=== PATIENT | female | born 1935 | race Caucasian/White ===

== ENCOUNTER 2021-06-09 13:51 | Inpatient (IN) | payer MEDICARE ==
[~2021-06-09] VITALS: Ht 144.8 cm; Wt 50.4 kg
[2021-06-09] MEDS ORDERED: TRAM50TA PO (14:26)
[2021-06-09] MEDS ORDERED: AMLO-186 PO (14:26)
[2021-06-09] MEDS ORDERED: FOLI20CA PO (14:26)
[2021-06-09] MEDS ORDERED: ACET325T9 PO (14:26)
[2021-06-09] MEDS ORDERED: PNV1TABL78 PO (14:26)
[2021-06-09] MEDS ORDERED: ALPR0.5T6 PO (14:26)
[2021-06-09] MEDS ORDERED: ASCO500C9 PO (14:26)
[2021-06-09] MEDS ORDERED: ASPI-630 PO (14:26)
[2021-06-09] MEDS ORDERED: MELA5TAB21 PO (14:26)
[2021-06-09] MEDS ORDERED: CHOL10004 PO (14:26)
[2021-06-09] MEDS ORDERED: ANAS1TAB47 PO (14:26)
[2021-06-09] MEDS ORDERED: ALPH600C5 PO (14:26)
[2021-06-09] MEDS ORDERED: QUET25TA5 PO ×2 (14:26)
[2021-06-09] MEDS ORDERED: ESCITALOPRAM OX20 MG PO (14:26)
--- NOTE | 2021-06-09 14:30 | NUR ---
Admission Note with Justification for Admission to [facility] Patient admitted to [facility] for protective oversight for emergency stabilization of acute psychiatric crisis. Pt admitted from: SNF Mode of arrival: POV Accompanied By: Family Precipitating behaviors that initiated intake and admission: Increased confusion, agitation with staff and family, throwing things, yelling, tearful at times. Family reports thoughts of SI. Description of failure of out patient attempts at stabilization in previous setting list behavior and medication trials: UA, med changes, Xanax TID, Buspar BID. Behaviors and assessment findings upon admission: Presented calm and friendly. Follows instructions and requests. She is oriented to self. She is aware that today is her birthday but she did not know her age. Denies SI/HI. Patient spoke about her passing away 2 years ago. No skin breakdown. She ambulates with a rolling walker. Self toilets. Tolerated assessment well. No complaints. Plan: Admit for protective oversight for adjustment and stabilization of medications, behaviors and mood. Intense treatment regimen including groups, medication adjustments, therapy, consistent regimen for ADL's, self care, and sleep hygiene. Daily monitoring by Inpatient staff, Psychiatry, and Medical Physician.
[2021-06-09 15:08] VITALS: BP 131/77
[2021-06-09] MEDS ORDERED: MAGNESIUM HYDROXIDE 2,400 MG/30 ML ORAL.SUSP. PO PRN (15:15)
[2021-06-09] MEDS ORDERED: MAG HYDROX/AL HYDROX/SIMETH 30 ML ORAL.SUSP PO PRN (15:15)
[2021-06-09] MEDS ORDERED: METHYL SALICYLATE/MENTHOL TOPICAL OINTMENT 57GM TUBE. TP PRN (15:15)
[2021-06-09] MEDS ORDERED: ACETAMINOPHEN 325 MG TABLET PO PRN ×2 (15:15→15:45)
[2021-06-09 15:41] LABS: BILIRUBIN,URINE NEG (NEG); CLARITY,URINE CLEAR; COLOR,URINE YELLOW; GLUCOSE,URINE NEG (NEG); NITRITE,URINE POS (NEG); UROBILINOGEN,URINE 0.2 mg/dL (0.2 mg/dL)
[2021-06-09 15:42] LABS: BACTERIA,URINE MOD /HPF (0-FEW); SQUAMOUS EPITHELIAL CELL,UR FEW /LPF
[2021-06-09] MEDS ORDERED: traMADol 50 MG TABLET PO PRN (15:45)
[2021-06-09] MEDS ORDERED: QUEtiapine 25 MG TABLET. PO PRN (15:45)
[2021-06-09] MEDS ORDERED: ALPRAZolam 0.5 MG TABLET PO PRN (15:45)
[2021-06-09 16:06] VITALS: BP 109/63
--- NOTE | 2021-06-09 16:32 | NUR ---
PSYCHOSOCIAL ASSESSMENT ADMISSION DATE: 06/09/21 CONTACT INFORMATION: DPOA/Guardian Contact Name: Primary-Angie Owusu [phone]; Secondary-Breezy Teran [phone] Contact Address: [address] [address] Contact Phone #: JESICA Interiano at [facility] [phone] ETHNIC ORIGIN: REASONS FOR ADMISSION: Agitated Angry Anxiety/Panic Combative Confusion/Disoriented Delusions Depressed Sig. Change Sleep Suicidal ideation Suspicious/paranoid ADDITIONAL ADMISSION COMMENTS: Per intake record, pt has increased confusion, agitation at staff and family, throwing things, yelling, tearful at times, family reports thoughts of SI for years. REASON FOR ADMISSION IN PATIENT/FAMILY'S OWN WORDS: Pt has always demonstrated negativity especially around her own family. She seemed to not show this behavior near as much around people outside of the family unit. Family feels that she has been the singh of manipulation. She would sometimes create divisions between her daughter (Angie) and son (Breezy), creating some animosity that now looking back into their childhood, they can see that, but get along very well now. Angie and Breezy describe her as not really ever being a happy person; "she did not like things simple." PATIENT/FAMILY EXPECTATIONS FOR ADMISSION: Improved mood, decreased agitation and anger, decrease depressive symptoms, help with sleep, monitor to see if [facility] notices any hallucinations as she mentioned to her facility staff that she saw a man in her room and there was no man there. LIVING SITUATION: Patient lives with: Assisted Living Other living arrangements: [facility] Contact Name: Laisha Contact Address: [address] [address] Contact Phone #: [phone] Contact Fax #: [phone] FAMILY RELATIONS: Marital Status: # of Marriages: 1 # of Children: 2 [facility] Family Support: Concerned Cooperative Involved in DC Planning Additional Comments r/t Family: Pt has been only one time. Her in 2019 as she had tried to care for him at home. Pt has two children that are both involved in their mothers care; Primary Angie CALI, and Secondary DPOA, Breezy. Pt did have a miscarriage between the of Breezy and Angie. Breezy has two children and Angie has one child. Reportedly pt got along with Breezy's son who in 2010; she never got over that . Pt also got along with Angie's child, but for reasons unknown, pt never really got along with Breezy's daughter. Family suspect that it is just part of patient's personality and how she tries to divide family members. SIGNIFICANT PSYCHIATRIC/MEDICAL HISTORY: Psychiatric/Treatment History: Pt has never had any outpatient or inpatient treatment history. She was friends with a doctor who at one time had prescribed her Valium and she would also drink when taking the Valium. "She was a closet drinker and began having liver issues." The last drink she had would have been three to four years ago. Pertinent Family History: Both of her parents were alcoholics along with her sister and brother, who are now . HISTORICAL DATA: Childhood Environment: Childhood Environment Additional Comments: Pt was raised by both parents. Mother, Rhianna, was a homemaker and described to be a "Nervous Elizabeth". Pt's father, Kofi, worked for the [employer]. Both of her parents were alcoholics. Pt was the middle child. Her older sister was Lisa and younger brother was Kevin. Pt's siblings were also alcoholics, but described as functioning alcoholics as they were able to hold down jobs. "They were happy alcoholics." Pt's children, Angie and Breezy reported that they had been told by pt's sister, Lisa, at one time that pt was difficult to control as a child as she would make threats to run off, but ended up never going anywhere that they couldn't have found her. Trauma History: None Is Trauma: Additional Comments: None Drug Abuse History last 12 months: No Past Use Comment: History of Etoh abuse with liver issues; parents and siblings struggled with ETOH abuse. See psychiatric history and childhood history. 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 Finley Counselor/Therapist: None [facility]: None Support Group: None Supervisor [employer]Solar Sales Estimator: Laisha RN at [facility] ([phone] (F)[phone] Other relationships: Family STRENGTHS & WEAKNESSES: Patient's strengths: Good family support Good verbal skills Stable living arrange Education level Ambulatory Approachable Other patient strengths: Patient's weaknesses: Health problems Physically Aggressive Verbally Aggressive Other patient weaknesses: PRELIMINARY PLAN OF TREATMENT: Preliminary plan: Dec. Anxiety/Panic Dec. Hallucination/Delus Dec. Symp. Depression Promote Coping Skill No Suicidal/Leo. ideation Medication Stabilization Monitor Med Effects Control abnormal behavior Prevent Deterioration Dec. Aggression Other preliminary treatment comments: While at [facility], pt will be encouraged to attend SW group and recreational therapy groups. She will report any known delusions or recognizable hallucinations to medical staff. She will articulate feelings of depression or anxiety. DISCHARGE PLANNING: Discharge planning/disposition: Current Living Arrange. Additional discharge needs identified: None at this time. ADDITIONAL INFORMATION: Other Pertinent Data: Information was obtained through visiting with pt Daughter (Angie), primary DPOA, and Son (Breezy), secondary DPOA. They are aware of pt admission to [facility] and is available for further information if needed. Angie will be the primary point of contact during pt admission. Angie will relay information to Breezy. Should and emergency arise where Angie wasn't available, Breezy should be called.
[2021-06-09 19:18] LABS: BASO % 1 % (0-3); EOS # 0.4 x10^3/uL (0.0-0.7); EOS % 5 % (0-3); HEMATOCRIT 38.3 % (36.0-47.0); HEMOGLOBIN 12.6 g/dL (12.0-15.5); LYMPH # 1.9 x10^3/uL (1.0-4.8); LYMPH % 26 % (24-48); MEAN CORPUSCULAR HEMOGLOBIN 30 pg (25-35); MEAN CORPUSCULAR HGB CONC 33 g/dL (31-37); MEAN CORPUSCULAR VOLUME 92 fL (79-100); MONO # 0.7 x10^3/uL (0.0-1.1); MONO % 10 % (0-9); NEUT # 4.2 x10^3uL (1.8-7.7); NEUT % 58 % (31-73); PLATELET COUNT 253 x10^3/uL (140-400); RED BLOOD COUNT 4.17 x10^6/uL (3.50-5.40); RED CELL DISTRIBUTION WIDTH 13.8 % (11.5-14.5); WHITE BLOOD COUNT 7.3 x10^3/uL (4.0-11.0)
[2021-06-09 19:38] LABS: ALBUMIN 3.1 g/dL (3.4-5.0); ALBUMIN/GLOBULIN RATIO 0.7 (1.0-1.7); CALCIUM 9.2 mg/dL (8.5-10.1); GFR 52.4; POTASSIUM 3.8 mmol/L (3.5-5.1); TOTAL BILIRUBIN 0.3 mg/dL (0.2-1.0); TOTAL PROTEIN 7.5 g/dL (6.4-8.2)
[2021-06-09] MEDS: ASCORBIC ACID 500 MG TABLET PO SCH (20:06)
[2021-06-09] MEDS ORDERED: MELATONIN 3 MG TABLET PO SCH (21:00)
[2021-06-09] MEDS ORDERED: QUEtiapine 25 MG TABLET. PO SCH (21:00)
--- NOTE | 2021-06-09 23:00 | NUR ---
Patient is in her room on assumption of care, awake in her bed. She is pleasantly confused, able to state name, day of , and that she is in the hospital. She is compliant with medications whole. Cooperative and interactive. No agitation. Denies any thoughts of SI or self harm. Denies any pain or discomfort so far this shift. Patient appears to be sleeping comfortably at present time. Will continue to monitor.
[2021-06-10 05:44] VITALS: BP 147/73
[2021-06-10] MEDS: ASCORBIC ACID 500 MG TABLET PO SCH (08:37)
[2021-06-10] MEDS ORDERED: amLODIPine BESYLATE 5 MG TABLET PO SCH (09:00)
[2021-06-10] MEDS ORDERED: FOLIC ACID 1 MG TABLET PO SCH (09:00)
[2021-06-10] MEDS ORDERED: CHOLECALCIFEROL (VITAMIN D3) 1,000 UNIT TABLET PO SCH (09:00)
[2021-06-10] MEDS ORDERED: PRENATAL MULTIVITAMIN TABLET. PO SCH (09:00)
[2021-06-10] MEDS ORDERED: ASPIRIN CHEWABLE 81 MG TABLET. PO SCH (09:00)
[2021-06-10] MEDS ORDERED: ANASTROZOLE 1 MG TABLET PO SCH (09:00)
[2021-06-10] MEDS ORDERED: CITALOPRAM 20 MG TABLET. PO SCH (09:00)
[2021-06-10] MEDS ORDERED: ALPHA LIPOIC ACID PO SCH (09:00)
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
[2021-06-10 11:53] LABS: CHOLESTEROL/HDL RATIO 2.6; THYROID STIM HORMONE (TSH) 1.874 uIU/mL (0.358-3.740)
[2021-06-10 15:19] VITALS: BP 155/76
--- NOTE | 2021-06-10 17:47 | NUR ---
Transition Record was faxed to follow-up provider with the following elements: Reason for admission, procedures, tests, principal diagnosis, pending studies, patient instructions, 03/12 contact information for unit, phone number to obtain pending test results, plan for follow-up care, physician follow-up, advanced directive information, and medication list with dose, duration and instructions. This information was included in the following documents: History and physical, lab results, study results, progress notes, social work planning form, DC instruction form, patient visit summary, and medication reconciliation form. Date & time record faxed: 06/10/21 @ 5280 Record faxed to: Arvind @ [id number] Record discussed with/ report given to: JESICA Ceron on
--- NOTE | 2021-06-10 17:56 | NUR ---
Attempted to call to Angie Owusu, pt's DPOA to inform her of pt's COVID swab resulting positive. Left message for a return phone call. Call also placed to pt's second DPOA, Breezy, but no answer on his phone either.
--- NOTE | 2021-06-10 18:06 | NUR ---
Return phone call from Angie. She was informed of pt's positive covid result and that pt had transferred to room 109 with JESICA Ceron taking care of her. Angie appreciative of phone call. No further questions at this time.
[2021-06-11 05:53] LABS: HEMOGLOBIN A1C 5.3 % (4.8-5.6)
--- NOTE | 2021-06-13 06:35 | EKG ---
[address] [address] Test Date: 2021-06-09 Test Time: 21:00:50 Pat Name: CINTHIA GOLDEN Department: Room: [address] [place] [address] Gender: F Family Reunification Specialist: : [id number] Requested By: DONNA OLIVEROS Order Number: [id number] Reading MD: Marcial Singh Measurements Intervals [place] Rate: P: MS: QRS: QRSD: T: QT: QTc: Interpretive Statements SINUS RHYTHM NON SPECIFIC ST-T WAVE CHANGES Electronically Signed On 06-16-2021 15:02:01 AIR DEFENCE OFFICER by Marcial Singh
--- NOTE | 2021-06-15 12:51 | PSYEV ---
DATE OF SERVICE: 06/10/2021 REASON FOR ADMISSION: This 86-year-old female was admitted to [facility] inpatient program from [facility]. She has been a resident for a year. The patient apparently started having problems lately increased confusion, easily agitated and angry with the staff and family, throwing stuff, yelling, also emotionally labile and also she made suicidal statements according to the family. HISTORY OF PRESENT ILLNESS: The patient's chief complaint at this time is I don't want to be here. My daughter left me. I want to know where she is now. The patient is hard of hearing. The patient is highly anxious, nervous, but denies feeling depressed, admits to being anxious all the time because of the recent changes being in a [place] [facility] [place] for a year and also being here, but she did not know where she was, apparently she was concerned that her daughter left her here and left. Since admission, the patient is much calmer, staying in bed, highly anxious and nervous. The patient knew her birthday. The patient is having problems with short-term memory. The patient able to ambulate with a walker. The patient able to take care of her needs. The patient is slow to walk, but no falls except she had a fall about a month ago. PAST MEDICAL HISTORY: The patient has a history of cancer in remission, also has a diagnosis of dementia, history of depression and anxiety. The patient also has viral hepatitis, questionable autoimmune, multiple myeloma, neuropathy, vertigo. ALLERGIES: SULFAMETHOXAZOLE AND BIAXIN XL. DIET: Regular. CODE: DNR. PSYCHOSOCIAL HISTORY: The patient had difficulty providing much information mainly focused on her daughter, her a year ago. Also, she lost a grandson in 2010. The patient denies of any history of substance abuse. Also, denies of any trauma including physical, emotional, or sexual in the past. MENTAL STATUS EXAMINATION: The patient appeared to be of her stated age, confused, but pleasant, highly anxious and nervous, constantly talking about her daughter who left her here. The patient admits to having increased anxiety and restlessness, but denies feeling depressed. The patient did not have any involuntary movements. Her Speech clear, monotone, decreased rate and rhythm, Her affect and mood showed she is anxious, nervous, apparently having mood swings, irritability, angry outburst and also yelling, difficult to redirect. The patient's symptoms fluctuate. The patient is oriented to her surroundings. She knew her date of was today, but actually it was yesterday. The patient able to recall a few things from the past, but had difficulty with current events. The patient denied of any suicidal thoughts. The patient did not have any problems with sleep or appetite. The patient is oriented to her surroundings. Her memory is impaired for recent events. The patient also having episodes of confusion. Judgment impaired. Insight limited. STRENGTH: Fairly in good health for age. Supportive family. WEAKNESS: The patient is exhibiting cognitive deficits, mood changes, irritability, angry outburst and also has significant hearing loss. ADMITTING DIAGNOSES: AXIS I: 1. Cognitive disorder mild with behavior problems. 2. 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 3. Generalized anxiety disorder. 4. Mood disorder, unspecified. AXIS II: None. AXIS III: History of multiple myeloma, breast cancer in remission, hepatitis, autoimmune disease, neuropathy and vertigo. INITIAL TREATMENT PLAN: The patient was admitted to the inpatient unit for evaluation and treatment. The patient's COVID-19 test was negative when she came from a [place], but on testing here was positive and the patient will be transferred to the Medical Unit. The patient will continue on her home medications including folic acid 1 mg daily, citalopram 40 mg daily, vitamin 2000 units daily, aspirin 81 mg daily, amlodipine 5 mg daily, melatonin 6 mg at night, Seroquel 25 mg at night, tramadol 50 mg q. 12 hours p.r.n. and also Seroquel 25 mg q. 6 hours p.r.n. and Xanax 0.5 mg q. [address]: Darío TID: [id number]
== END 2021-06-10 17:14 | disposition short-term general hospital (02) | DRG 885 ==
LOC: EDSEX → GEROPSY 14:35
PROVIDERS: ADMIT Psychiatry & Neurology Psychiatry; ATTEND Psychiatry & Neurology Psychiatry
DX: F33.9 Major depressive disorder, recurrent, unspecified (principal); U07.1 COVID-19; R45.851 Suicidal ideations; F03.90 Unspecified dementia, unspecified severity, without behavioral disturbance, psychotic disturbance, mood disturbance, and anxiety; F09 Unspecified mental disorder due to known physiological condition; F41.1 Generalized anxiety disorder; G62.9 Polyneuropathy, unspecified; Z79.82 Long term (current) use of aspirin; Z79.899 Other long term (current) drug therapy; Z85.3 Personal history of malignant neoplasm of breast; Z88.2 Allergy status to sulfonamides; Z66 Do not resuscitate
CPT/HCPCS: 36415; 80053; 80061; 81001; 82306; 82607; 83036; 83540; 83550; 83735; 84436; 84443; 84480; 85025; 85379; 86592; 87086; 87186; 93005; U0003

== ENCOUNTER 2021-06-10 17:14 | Inpatient (IN) | payer MEDICARE ==
[~2021-06-10] VITALS: Ht 152.4 cm; Wt 47.4 kg
[~2021-06-10 17:14] MED LIST: ACET325T9 PO; ALPH600C5 PO; ALPR0.5T6 PO; AMLO-186 PO; ANAS1TAB47 PO; ASCO500C9 PO; ASPI-630 PO; CHOL10004 PO; ESCITALOPRAM OX20 MG PO; FOLI20CA PO; MELA5TAB21 PO; PNV1TABL78 PO; QUET25TA5 PO; TRAM50TA PO
[2021-06-10 17:27] VITALS: BP 152/80
[2021-06-10 19:00] VITALS: BP 168/82
[2021-06-10] MEDS ORDERED: ACETAMINOPHEN 325 MG TABLET PO PRN (19:30)
[2021-06-10] MEDS: ALPRAZolam 0.5 MG TABLET PO PRN (20:19)
[2021-06-10] MEDS: MELATONIN 3 MG TABLET PO SCH (20:19)
[2021-06-10] MEDS: ASCORBIC ACID 500 MG TABLET PO SCH (20:19)
[2021-06-10] MEDS: QUEtiapine 25 MG TABLET. PO SCH (20:19)
[2021-06-10 23:00] VITALS: BP 153/79
--- NOTE | 2021-06-10 23:17 | PSYEV ---
DATE OF SERVICE: 06/10/2021 REASON FOR ADMISSION: This 86-year-old female was admitted to [facility] inpatient program from [facility]. She has been a resident for a year. The patient apparently started having problems lately increased confusion, easily agitated and angry with the staff and family, throwing stuff, yelling, also emotionally labile and also she made suicidal statements according to the family. HISTORY OF PRESENT ILLNESS: The patient's chief complaint at this time is I don't want to be here. My daughter left me. I want to know where she is now. The patient is hard of hearing. The patient is highly anxious, nervous, but denies feeling depressed, admits to being anxious all the time because of the recent changes being in a penit[facility] for a year and also being here, but she did not know where she was, apparently she was concerned that her daughter left her here and left. Since admission, the patient is much calmer, staying in bed, highly anxious and nervous. The patient knew her birthday. The patient is having problems with short-term memory. The patient able to ambulate with a walker. The patient able to take care of her needs. The patient is slow to walk, but no falls except she had a fall about a month ago. PAST MEDICAL HISTORY: The patient has a history of cancer in remission, also has a diagnosis of dementia, history of depression and anxiety. The patient also has viral hepatitis, questionable autoimmune, multiple myeloma, neuropathy, vertigo. ALLERGIES: SULFAMETHOXAZOLE AND BIAXIN XL. DIET: Regular. CODE: DNR. PSYCHOSOCIAL HISTORY: The patient had difficulty providing much information mainly focused on her daughter, her a year ago. Also, she lost a grandson in 2010. The patient denies of any history of substance abuse. Also, denies of any trauma including physical, emotional, or sexual in the past. MENTAL STATUS EXAMINATION: The patient appeared to be of her stated age, confused, but pleasant, highly anxious and nervous, constantly talking about her daughter who left her here. The patient admits to having increased anxiety and restlessness, but denies feeling depressed. The patient did not have any involuntary movements. Her Speech clear, monotone, decreased rate and rhythm, Her affect and mood showed she is anxious, nervous, apparently having mood swings, irritability, angry outburst and also yelling, difficult to redirect. The patient's symptoms fluctuate. The patient is oriented to her surroundings. She knew her date of was today, but actually it was yesterday. The patient able to recall a few things from the past, but had difficulty with current events. The patient denied of any suicidal thoughts. The patient did not have any problems with sleep or appetite. The patient is oriented to her surroundings. Her memory is impaired for recent events. The patient also having episodes of confusion. Judgment impaired. Insight limited. STRENGTH: Fairly in good health for age. Supportive family. WEAKNESS: The patient is exhibiting cognitive deficits, mood changes, irritability, angry outburst and also has significant hearing loss. ADMITTING DIAGNOSES: AXIS I: 1. Cognitive disorder mild with behavior problems. 2. 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 3. Generalized anxiety disorder. 4. Mood disorder, unspecified. AXIS II: None. AXIS III: History of multiple myeloma, breast cancer in remission, hepatitis, autoimmune disease, neuropathy and vertigo. INITIAL TREATMENT PLAN: The patient was admitted to the inpatient unit for evaluation and treatment. The patient's COVID-19 test was negative when she came from a penitentiary, but on testing here was positive and the patient will be transferred to the Medical Unit. The patient will continue on her home medications including folic acid 1 mg daily, citalopram 40 mg daily, vitamin 2000 units daily, aspirin 81 mg daily, amlodipine 5 mg daily, melatonin 6 mg at night, Seroquel 25 mg at night, tramadol 50 mg q. 12 hours p.r.n. and also Seroquel 25 mg q. 6 hours p.r.n. and Xanax 0.5 mg q. [address] MAXIMINO [address]: Darío TID: [id number]
[2021-06-11 05:00] VITALS: BP 165/86
[2021-06-11 07:40] LABS: BASO % 1 % (0-3); EOS # 0.2 x10^3/uL (0.0-0.7); EOS % 2 % (0-3); HEMATOCRIT 37.7 % (36.0-47.0); HEMOGLOBIN 12.7 g/dL (12.0-15.5); LYMPH # 1.8 x10^3/uL (1.0-4.8); LYMPH % 22 % (24-48); MEAN CORPUSCULAR HEMOGLOBIN 30 pg (25-35); MEAN CORPUSCULAR HGB CONC 34 g/dL (31-37); MEAN CORPUSCULAR VOLUME 90 fL (79-100); MONO # 0.7 x10^3/uL (0.0-1.1); MONO % 9 % (0-9); NEUT # 5.6 x10^3uL (1.8-7.7); NEUT % 67 % (31-73); PLATELET COUNT 254 x10^3/uL (140-400); RED BLOOD COUNT 4.21 x10^6/uL (3.50-5.40); RED CELL DISTRIBUTION WIDTH 13.8 % (11.5-14.5); WHITE BLOOD COUNT 8.4 x10^3/uL (4.0-11.0)
[2021-06-11 07:47] LABS: CALCIUM 9.1 mg/dL (8.5-10.1); CREATININE 0.8 mg/dL (0.6-1.0); GFR 67.8; POTASSIUM 3.6 mmol/L (3.5-5.1)
[2021-06-11] MEDS: ASCORBIC ACID 500 MG TABLET PO SCH ×2 (08:29→21:00)
[2021-06-11] MEDS: CHOLECALCIFEROL (VITAMIN D3) 1,000 UNIT TABLET PO SCH (08:29)
[2021-06-11] MEDS: ASPIRIN CHEWABLE 81 MG TABLET. PO SCH (08:29)
[2021-06-11] MEDS: FOLIC ACID 1 MG TABLET PO SCH (08:31)
[2021-06-11] MEDS: amLODIPine BESYLATE 5 MG TABLET PO SCH (08:31)
[2021-06-11] MEDS: PRENATAL MULTIVITAMIN TABLET. PO SCH (08:36)
[2021-06-11] MEDS: CITALOPRAM 20 MG TABLET. PO SCH (08:36)
[2021-06-11] MEDS: ANASTROZOLE 1 MG TABLET PO SCH (08:41)
[2021-06-11] MEDS ORDERED: ALPHA LIPOIC ACID PO SCH (09:00)
[2021-06-11 11:08] VITALS: BP 155/77
[2021-06-11 15:27] VITALS: BP 178/76
[2021-06-11] MEDS ORDERED: ONDANSETRON ODT 4 MG TAB.RAPDIS PO PRN (16:00)
[2021-06-11 20:39] VITALS: BP 129/75
[2021-06-11] MEDS: MELATONIN 3 MG TABLET PO SCH (21:00)
[2021-06-11] MEDS: QUEtiapine 25 MG TABLET. PO SCH (21:00)
[2021-06-12 00:18] VITALS: BP 148/73
[2021-06-12 06:09] VITALS: BP 163/70
[2021-06-12] MEDS: ASCORBIC ACID 500 MG TABLET PO SCH ×2 (08:46→20:45)
[2021-06-12] MEDS: ASPIRIN CHEWABLE 81 MG TABLET. PO SCH (08:46)
[2021-06-12] MEDS: CITALOPRAM 20 MG TABLET. PO SCH (08:46)
[2021-06-12] MEDS: FOLIC ACID 1 MG TABLET PO SCH (08:46)
[2021-06-12] MEDS: CHOLECALCIFEROL (VITAMIN D3) 1,000 UNIT TABLET PO SCH (08:46)
[2021-06-12] MEDS: amLODIPine BESYLATE 5 MG TABLET PO SCH (08:47)
[2021-06-12] MEDS: ANASTROZOLE 1 MG TABLET PO SCH (08:47)
[2021-06-12] MEDS: PRENATAL MULTIVITAMIN TABLET. PO SCH (08:47)
[2021-06-12] MEDS: QUEtiapine 25 MG TABLET. PO PRN (15:45)
--- NOTE | 2021-06-12 16:11 | HP ---
DATE OF SERVICE: 06/12/2021 ADMIT DATE: 06/10/2021 HISTORY OF PRESENT ILLNESS: The patient is an 86-year-old female patient who was admitted originally to [facility] Inpatient Program from [place] and she has been a resident there for a year. The patient apparently started having problems lately including increasing confusion, easily agitated, angry with the staff and family, throwing stuff, yelling, also emotionally labile and also she made suicidal statements according to her family, I in fact went to see her for a consult for medical management and it transpired that she was positive for COVID-19 by PCR and therefore, she was transferred to [address] [place] [address]. She herself has no symptoms. PAST MEDICAL HISTORY: Significant for cancer that is in remission. Also, depression, anxiety, dementia, viral hepatitis, question of autoimmune, multiple myeloma, neuropathy and vertigo. PAST SURGICAL HISTORY: Unremarkable. FAMILY HISTORY: Noncontributory. SOCIAL HISTORY: The patient is a resident at [place]. She does not smoke, drink alcohol or recreational drugs. ALLERGIES: SHE IS ALLERGIC TO SULFA AND BIAXIN. MEDICATIONS: She is currently on the following medications: She is on ondansetron 4 mg every 8 hours, multivitamin 1 tablet once a day, folic acid 1 mg once a day, citalopram hydrobromide 40 mg once a day, vitamin D 1000 units once a day, aspirin 81 mg once a day, anastrozole 1 mg once a day, amlodipine 5 mg once a day, melatonin 6 mg at bedtime, ascorbic acid 500 mg twice a day, quetiapine fumarate 25 mg p.o. at bedtime, tramadol 50 mg every 12 hours as needed and quetiapine fumarate 25 mg every 6 hours. She is on alprazolam 0.5 mg every 6 hours and Tylenol 650 mg every 4 hours. REVIEW OF SYSTEMS: As per history of present illness. PHYSICAL EXAMINATION: GENERAL: On examining her, the patient looked well and was clearly in no apparent respiratory distress, but there was no pallor, jaundice, cyanosis or thyromegaly. No jugular venous distention. No limb edema. VITAL SIGNS: Her heart rate was 88, blood pressure was 152/80, temperature was 99, respiratory rate 20, and oxygen saturation was 95%. HEAD, EYES, EARS, NOSE, AND THROAT: Normocephalic, atraumatic. NECK: Supple. HEART: Normal first and second heart sounds. No gallop, rub or murmur. CHEST: Clear to auscultation. No crepitation or rhonchi. ABDOMEN: Distended, soft, nontender. NEUROLOGIC: She was demented, but without any obvious lateralizing sign. All other cranial nerves intact. She moves extremities without difficulty. She ambulates without assistance or assistive devices. LABORATORY DATA: Her lab work done at [facility] before she was transferred to [address] [place] [address] showed her white cell count to be 7300, hemoglobin 12.6, hematocrit 38, MCV 92 and platelet count 253,000. Her chemistry showed a serum sodium 140, potassium 3.8, chloride 105, bicarbonate 28, anion gap of 7, BUN 20, creatinine 1, estimated GFR was 52 mL per minute. Her glucose 122, calcium 9.2, magnesium 2. Total bilirubin, AST, ALT, alkaline phosphatase are normal. Her total protein 7.5, albumin 3.1. Her hemoglobin A1c was 5.3%. Her serum iron 61, TIBC 258 and iron saturation was 24. Her serum triglycerides 75. Total cholesterol 207, LDL cholesterol 113, VLDL was 15 and HDL was 79, the ratio was 2.6. Her TSH was normal at 1.874, vitamin B12 was 288 picograms per mL and 25-hydroxy vitamin D was 72. Her total T4 and total T3 are normal. Her treponema pallidum antibody was nonreactive and coronavirus by PCR was positive. ASSESSMENT AND PLAN: The patient was transferred to [address] [place] [address] with the following diagnosis of asymptomatic coronavirus infection. She has multiple other medical problems including breast cancer, viral hepatitis that is autoimmune, multiple myeloma, neuropathy and vertigo. We will continue all her medications. Follow her closely and if she develops any symptoms suggestive of active coronavirus disease, we will treat her accordingly. NEIDA DR: Elkin TID: [id number]
[2021-06-12 20:37] VITALS: BP 162/73
[2021-06-12] MEDS: MELATONIN 3 MG TABLET PO SCH (20:44)
[2021-06-12] MEDS: QUEtiapine 25 MG TABLET. PO SCH (20:45)
--- NOTE | 2021-06-12 21:38 | PDOC ---
Exam Note: Adryan Note: Please also refer to the separate dictated note~for this date of service dictated separately.~Patient seen individually. Discussed the patient with Nursing staff reviewed the chart.~Reviewed interim history and current functioning. Reviewed vital signs,~Labs/ Radiology~and current medications noted below. Continue current treatment with the changes noted in the dictated addendum note Assessment: Vital Signs/I&O: Vital Signs Date Time Temp Pulse Resp B/P (MAP) Pulse Ox O2 Delivery O2 Flow Rate FiO2 06/12/21 20:37 98.2 79 18 162/73 (102) 95 Room Air I & O 06/11/21 06/11/21 06/12/21 15:00 23:00 07:00 Intake Total 360 ml 300 ml 600 ml Balance 360 ml 300 ml 600 ml Current Medications: I have reviewed the current psychotropics carefully including drug interactions. Risk benefit ratio favors no change other than as noted in my dictated progress note. GABINO PAGE MD Jun 12, 2021 21:38
--- NOTE | 2021-06-13 01:04 | PN ---
DATE: 06/12/2021 SUBJECTIVE: The patient is an 86-year-old female patient who was transferred from [facility] where she was found to have asymptomatic coronavirus infection. The patient continued to be very anxious and agitated at times, but continued to be asymptomatic with no fever, chills, rigors, cough, phlegm or shortness of breath. PHYSICAL EXAMINATION: GENERAL: When I examined her today, she looked well and was clearly in no apparent respiratory distress. No pallor, jaundice, cyanosis. No jugular venous distention. No limb edema. VITAL SIGNS: Her heart rate was 72, blood pressure was 163/70, temperature 97.9, respiratory rate 20, and oxygen saturation was 96%. The rest of exam is stable. ASSESSMENT: 1. Asymptomatic COVID-19 infection. 2. Breast cancer in remission. 3. Peripheral neuropathy. 4. Multiple myeloma. 5. Viral hepatitis. 6. Neuropathy. PLAN: To continue with all her current medications. KENNY/MILTON DR: Elkin TID: [id number]
--- NOTE | 2021-06-13 01:07 | PN ---
SUBJECTIVE: The patient was pacing in her room, emotionally labile, anxious, wanting to get out, but denied any other complaint, in particular no fever, no cough, no shortness of breath. PHYSICAL EXAMINATION: GENERAL: When I examined her, she looked well and was clearly in no apparent respiratory distress. There is no pallor, jaundice, cyanosis or thyromegaly. No jugular venous distention. No limb edema. VITAL SIGNS: Her heart rate was 85, blood pressure was 178/76, temperature was 98.5, respiratory rate 16 and oxygen saturation was 98%. The rest of exam is stable. LABORATORY DATA: Her lab work showed a white cell count of 8400, hemoglobin 13, hematocrit 39, MCV 90 and platelet count 254,000. Her chemistry showed a serum sodium 138, potassium 3.6, chloride 105, bicarbonate 26, anion gap of 7, BUN 14, creatinine 0.8. Estimated GFR was 68 mL per minute. Her glucose was 92 and calcium was 9.1. ASSESSMENT: 1. Asymptomatic COVID-19 infection. 2. Breast cancer in remission. 3. Dementia. 4. Anxiety and depression. 5. Viral hepatitis. 6. Multiple myeloma. 7. Peripheral neuropathy. 8. Vertigo. PLAN: Continue with all her psychotropic medication. JOSE DR: Elkin TID: [id number]
[2021-06-13 06:38] VITALS: BP 175/87
[2021-06-13] MEDS: ASPIRIN CHEWABLE 81 MG TABLET. PO SCH (08:59)
[2021-06-13] MEDS: ASCORBIC ACID 500 MG TABLET PO SCH ×2 (08:59→21:01)
[2021-06-13] MEDS: amLODIPine BESYLATE 5 MG TABLET PO SCH (09:00)
[2021-06-13] MEDS: CHOLECALCIFEROL (VITAMIN D3) 1,000 UNIT TABLET PO SCH (09:00)
[2021-06-13] MEDS: FOLIC ACID 1 MG TABLET PO SCH (09:00)
[2021-06-13] MEDS: CITALOPRAM 20 MG TABLET. PO SCH (09:00)
[2021-06-13] MEDS: PRENATAL MULTIVITAMIN TABLET. PO SCH (09:03)
[2021-06-13] MEDS: QUEtiapine 25 MG TABLET. PO PRN ×2 (09:03→15:37)
[2021-06-13] MEDS: ANASTROZOLE 1 MG TABLET PO SCH (09:04)
--- NOTE | 2021-06-13 09:25 | PN ---
DATE: 06/10/2021 SUBJECTIVE: The patient was sitting at the edge of the bed comfortably, in no apparent distress. She continued to be asymptomatic. No fever, no cough, no phlegm, no shortness of breath. No headache, dizziness or lightheadedness. No nausea or vomiting. PHYSICAL EXAMINATION: GENERAL: When I examined her, she was pale, not jaundiced, cyanosed, no lymphadenopathy, no thyromegaly, no jugular venous distention. No limb edema. VITAL SIGNS: Her heart rate was 78, blood pressure 153/79, temperature was 98.2, respiratory rate was 18 and oxygen saturation was 94%. The rest of clinical exam stable. LABORATORY DATA: She has no lab work done. ASSESSMENT: 1. Asymptomatic COVID-19 infection. 2. Breast cancer, in remission. 3. Multiple myeloma. 4. Autoimmune hepatitis. 5. Neuropathy. 6. Vertigo. PLAN: To continue with all her current medications. Continue with all psychotropic medication, as recommended by the psychiatrist, who will follow her closely. CONSUELO DR: Elkin TID: [id number]
[2021-06-13 19:00] VITALS: BP 150/74
[2021-06-13] MEDS: MELATONIN 3 MG TABLET PO SCH (21:00)
[2021-06-13] MEDS: QUEtiapine 25 MG TABLET. PO SCH (21:01)
--- NOTE | 2021-06-13 21:10 | PN ---
DATE: 06/13/2021 SUBJECTIVE: The patient continued to be extremely emotional and suicidal. We did actually consult the psychiatrist for evaluation and treatment. She continued to be asymptomatic. She has in particular no fever, no shortness of breath, no hypoxia. OBJECTIVE: GENERAL: On examining her, she looked well and was clearly in no apparent respiratory distress. No pallor, jaundice, cyanosis or thyromegaly. No jugular venous distention. No lower limb edema. VITAL SIGNS: Her heart rate was 87, blood pressure 175/87, temperature 97.7, respiratory rate was 18 and oxygen saturation was 97% on room air. HEAD, EYES, EARS, NOSE, AND THROAT: Normocephalic, atraumatic. NECK: Supple. HEART: Normal first and second heart sounds. No gallop, rub or murmur. CHEST: Clear to auscultation, no crepitation or rhonchi. ABDOMEN: Scaphoid, soft, nontender. NEUROLOGIC: She is demented, but without any obvious lateralizing sign. LABORATORY DATA: Her most recent lab work showed a white cell count of 8400, hemoglobin 13, hematocrit 38, MCV 90 and platelet count of 254,000. Her serum sodium was 138, potassium 3.6, chloride 105, bicarbonate 26, anion gap of 7, BUN 14, creatinine 0.8. Estimated GFR was 68 mL per minute. Her glucose was 92, calcium was 9.1. ASSESSMENT: 1. Asymptomatic COVID-19 infection. 2. Major depressive disorder with suicidal ideation, neurocognitive disorder, generalized anxiety disorder, mood disorder, unspecified. 3. The patient has also multiple medical problems including breast cancer, multiple myeloma, autoimmune hepatitis, neuropathy and vertigo. PLAN: To continue with psychotropic medication. We did consult the psychiatrist to evaluate her again as she continued to be suicidal. I will repeat all her labs again tomorrow. MALDONADO DR: Elkin TID: [id number]
--- NOTE | 2021-06-13 21:40 | PDOC ---
Exam Note: Adryan Note: Please also refer to the separate dictated note~for this date of service dictated separately.~Patient seen individually. Discussed the patient with Nursing staff reviewed the chart.~Reviewed interim history and current functioning. Reviewed vital signs,~Labs/ Radiology~and current medications noted below. Continue current treatment with the changes noted in the dictated addendum note Assessment: Vital Signs/I&O: Vital Signs Date Time Temp Pulse Resp B/P (MAP) Pulse Ox O2 Delivery O2 Flow Rate FiO2 06/13/21 19:00 98.2 73 18 150/74 (99) 96 Room Air I & O 06/12/21 06/12/21 06/13/21 15:00 23:00 07:00 Intake Total 600 ml 480 ml 500 ml Balance 600 ml 480 ml 500 ml Current Medications: Meds: Current Medications Medications (Trade) Dose Ordered Sig/Jorje Route PRN Reason Start Time Stop Time Status Last Admin Dose Admin Acetaminophen (Tylenol) 325 mg PRN Q4HRS PRN PO MILD PAIN / TEMP > 100.3'F 06/10/21 19:30 Alprazolam (Xanax) 0.5 mg PRN Q6HRS PRN PO ANXIETY / AGITATION, 1st [facility] 06/10/21 19:30 06/10/21 20:19 Amlodipine Besylate (Norvasc) 5 mg DAILY PO 06/11/21 09:00 06/13/21 09:00 Anastrozole (Arimidex) 1 mg DAILY PO 06/11/21 09:00 06/13/21 09:04 Aspirin (Aspirin Chewable) 81 mg DAILY PO 06/11/21 09:00 06/13/21 08:59 Vitamin D (Vitamin D3) 1,000 unit DAILY PO 06/11/21 09:00 06/13/21 09:00 Quetiapine Fumarate (SEROquel) 25 mg HS PO 06/10/21 21:00 06/13/21 21:01 Quetiapine Fumarate (SEROquel) 25 mg PRN Q6HRS PRN PO ANXIETY / AGITATION, 2nd [facility] 06/10/21 19:30 06/13/21 15:37 Tramadol HCl (Ultram) 50 mg PRN Q12HR PRN PO MODERATE TO SEVERE PAIN 06/10/21 19:30 Non-Formulary Medication (Alpha Lipoic Acid ) 250 mg DAILY PO 06/11/21 09:00 UNV Ascorbic Acid (Vitamin C) 500 mg BID PO 06/10/21 21:00 06/13/21 21:01 Citalopram Hydrobromide (CeleXA) 40 mg DAILY PO 06/11/21 09:00 06/13/21 09:00 Folic Acid (Folic Acid) 1 mg DAILY PO 06/11/21 09:00 06/13/21 09:00 Melatonin (Melatonin) 6 mg QHS PO 06/10/21 21:00 06/13/21 21:00 Multivit/ Folic Acid/Iron (Multivitamin ) 1 tab DAILY PO 06/11/21 09:00 06/13/21 09:03 Ondansetron HCl (Zofran Odt) 4 mg PRN Q8HRS PRN PO NAUSEA/VOMITING 06/11/21 16:00 I have reviewed the current psychotropics carefully including drug interactions. Risk benefit ratio favors no change other than as noted in my dictated progress note. GABINO PAGE MD Jun 13, 2021 21:40
[2021-06-14 05:00] VITALS: BP 197/71
[2021-06-14 06:13] LABS: HEMATOCRIT 36.3 % (36.0-47.0); HEMOGLOBIN 12.3 g/dL (12.0-15.5); RED BLOOD COUNT 4.08 x10^6/uL (3.50-5.40); RED CELL DISTRIBUTION WIDTH 13.4 % (11.5-14.5); WHITE BLOOD COUNT 6.4 x10^3/uL (4.0-11.0)
[2021-06-14 06:22] LABS: ALBUMIN 2.8 g/dL (3.4-5.0); ALBUMIN/GLOBULIN RATIO 0.7 (1.0-1.7); CALCIUM 8.7 mg/dL (8.5-10.1); CREATININE 0.8 mg/dL (0.6-1.0); GFR 67.8; POTASSIUM 3.4 mmol/L (3.5-5.1); TOTAL BILIRUBIN 0.4 mg/dL (0.2-1.0); TOTAL PROTEIN 6.9 g/dL (6.4-8.2)
[2021-06-14] MEDS: CHOLECALCIFEROL (VITAMIN D3) 1,000 UNIT TABLET PO SCH (07:42)
[2021-06-14] MEDS: ASPIRIN CHEWABLE 81 MG TABLET. PO SCH (07:42)
[2021-06-14] MEDS: amLODIPine BESYLATE 5 MG TABLET PO SCH (07:42)
[2021-06-14] MEDS: FOLIC ACID 1 MG TABLET PO SCH (07:42)
[2021-06-14] MEDS: CITALOPRAM 20 MG TABLET. PO SCH (07:42)
[2021-06-14] MEDS: ASCORBIC ACID 500 MG TABLET PO SCH ×2 (07:43→20:15)
[2021-06-14] MEDS: PRENATAL MULTIVITAMIN TABLET. PO SCH (07:43)
[2021-06-14] MEDS: ANASTROZOLE 1 MG TABLET PO SCH (07:44)
--- NOTE | 2021-06-14 08:12 | PDOC ---
Exam Note: Adryan Note: This note is a late entry for 06/12/2021 covers elements not covered in my initial note. Subjective: The patient was reviewed on rounds 06/12/2021, discussed and reviewed the chart with nursing staff. Dr. Thomason had covered for me for the past two weeks and I have reviewed information, notes and records by Dr. Thomason on a referral from [facility] with diagnosis of major depressive disorder, recurrent, moderate, severe with worsening confusion and agitation with staff and family. She has been throwing things at others at the [facility], yelling and tearful at times and family had reported she had made suicidal statements thus prompting this hospitalization. The unit is currently on lockdown for any admissions due to Covid-19 positive status. Once on the [facility] the patient had returned positive for Covid-19 and was transitioned to the Medical/Surgical Floor for management/quarantine. She remains somewhat pleasant, confused, cooperative with cares. She is currently on Lexapro 20 mg a day which was substituted by Celexa due to hospital policy and Seroquel 25 mg h.s. p.r.n., Xanax 0.5 mg t.i.d., melatonin 5 mg h.s. We will assess her in the next day or two and then see if we can reduce the Xanax and whether her current dosage of Celexa would be appropriate given her age of 86 and the cardiac risk from Citalopram, we may consider alternatives. Review of Systems: Per nursing report, she often uses a walker. No specific CV, , pulmonary, eye, ENT system symptoms on review. Mental Status Exam: Per evaluation reported by nursing staff she does have short-term memory deficits. She remains somewhat dysphoric and anxious. No suicidal or homicidal ideation. She is slightly distractible. Intellect average. Insight limited. Judgment marginal. Laboratory Data: Reviewed. Impression: Major depressive disorder, recurrent, moderate. Anxiety disorder unspecified. Mild cognitive impairment. Covid-19 positive status. Plan: From a psychiatric standpoint, we will continue her current psychotropics. We will consider changing Celexa at some point and tapering the Xanax. Reviewed information from Dr. Thomason. I will follow her as appropriate on the Medical/Surgical floor while she is being quarantined and if she stabilizes psychiatrically, she may return to the [facility] from the medical floor and for psychiatric inpatient treatments as needed we will transition her back to the [facility] at that time. Assessment: Vital Signs/I&O: Vital Signs Date Time Temp Pulse Resp B/P (MAP) Pulse Ox O2 Delivery O2 Flow Rate FiO2 06/14/21 07:42 75 197/71 06/14/21 05:00 98.0 18 96 Room Air I & O 06/13/21 06/13/21 06/14/21 15:00 23:00 07:00 Intake Total 180 ml 100 ml Output Total 0 ml 1 ml Balance 180 ml 100 ml -1 ml Labs: Laboratory Tests Test 06/14/21 05:43 White Blood Count 6.4 x10^3/uL (4.0-11.0) Red Blood Count 4.08 x10^6/uL (3.50-5.40) Hemoglobin 12.3 g/dL (12.0-15.5) Hematocrit 36.3 % (36.0-47.0) Mean Corpuscular Volume 89 fL (79-100) Mean Corpuscular Hemoglobin 30 pg (25-35) Mean Corpuscular Hemoglobin Concent 34 g/dL (31-37) Red Cell Distribution Width 13.4 % (11.5-14.5) Platelet Count 237 x10^3/uL (140-400) Sodium Level 140 mmol/L (136-145) Potassium Level 3.4 mmol/L (3.5-5.1) L Chloride Level 105 mmol/L (98-107) Carbon Dioxide Level 26 mmol/L (21-32) Anion Gap 9 (6-14) Blood Urea Nitrogen 20 mg/dL (7-20) Creatinine 0.8 mg/dL (0.6-1.0) Estimated GFR (Cockcroft-Gault) 67.8 BUN/Creatinine Ratio 25 (6-20) H Glucose Level 91 mg/dL (70-99) Calcium Level 8.7 mg/dL (8.5-10.1) Total Bilirubin 0.4 mg/dL (0.2-1.0) Aspartate Amino Transferase (AST) 29 U/L (15-37) Alanine Aminotransferase (ALT) 29 U/L (14-59) Alkaline Phosphatase 40 U/L (46-116) L Total Protein 6.9 g/dL (6.4-8.2) Albumin 2.8 g/dL (3.4-5.0) L Albumin/Globulin Ratio 0.7 (1.0-1.7) L Current Medications: I have reviewed the current psychotropics carefully including drug interactions. Risk benefit ratio favors no change other than as noted in my dictated progress note. Diagnosis: Problems: (1) Major depressive disorder, recurrent episode (2) Anxiety disorder, unspecified (3) Mild cognitive impairment (4) COVID-19 GABINO PAGE MD Jun 14, 2021 08:12
--- NOTE | 2021-06-14 08:24 | PDOC ---
Exam Note: Adryan Note: This note is a late entry for 06/13/2021 covers elements not covered in my initial note. Subjective: The patient was reviewed on rounds 06/13/2021, discussed and reviewed the chart with nursing staff. She gets agitated at times, redirects. Review of Systems: No specific CV, , pulmonary, eye, ENT system symptoms on review. Mental Status Exam: Per evaluation reported by nursing staff she is oriented to herself and situation. No suicidal or homicidal ideation. Intellect average. Insight limited. Judgment marginal. Laboratory Data: Reviewed. Impression: Major depressive disorder, recurrent, moderate. Anxiety disorder unspecified. Mild cognitive impairment. Covid-19 positive status. Plan: No change from initial note. Assessment: Vital Signs/I&O: Vital Signs Date Time Temp Pulse Resp B/P (MAP) Pulse Ox O2 Delivery O2 Flow Rate FiO2 06/14/21 07:42 75 197/71 06/14/21 05:00 98.0 18 96 Room Air I & O 06/13/21 06/13/21 06/14/21 15:00 23:00 07:00 Intake Total 180 ml 100 ml Output Total 0 ml 1 ml Balance 180 ml 100 ml -1 ml Labs: Laboratory Tests Test 06/14/21 05:43 White Blood Count 6.4 x10^3/uL (4.0-11.0) Red Blood Count 4.08 x10^6/uL (3.50-5.40) Hemoglobin 12.3 g/dL (12.0-15.5) Hematocrit 36.3 % (36.0-47.0) Mean Corpuscular Volume 89 fL (79-100) Mean Corpuscular Hemoglobin 30 pg (25-35) Mean Corpuscular Hemoglobin Concent 34 g/dL (31-37) Red Cell Distribution Width 13.4 % (11.5-14.5) Platelet Count 237 x10^3/uL (140-400) Sodium Level 140 mmol/L (136-145) Potassium Level 3.4 mmol/L (3.5-5.1) L Chloride Level 105 mmol/L (98-107) Carbon Dioxide Level 26 mmol/L (21-32) Anion Gap 9 (6-14) Blood Urea Nitrogen 20 mg/dL (7-20) Creatinine 0.8 mg/dL (0.6-1.0) Estimated GFR (Cockcroft-Gault) 67.8 BUN/Creatinine Ratio 25 (6-20) H Glucose Level 91 mg/dL (70-99) Calcium Level 8.7 mg/dL (8.5-10.1) Total Bilirubin 0.4 mg/dL (0.2-1.0) Aspartate Amino Transferase (AST) 29 U/L (15-37) Alanine Aminotransferase (ALT) 29 U/L (14-59) Alkaline Phosphatase 40 U/L (46-116) L Total Protein 6.9 g/dL (6.4-8.2) Albumin 2.8 g/dL (3.4-5.0) L Albumin/Globulin Ratio 0.7 (1.0-1.7) L Current Medications: I have reviewed the current psychotropics carefully including drug interactions. Risk benefit ratio favors no change other than as noted in my dictated progress note. Diagnosis: Problems: (1) Major depressive disorder, recurrent episode (2) Mild cognitive impairment (3) Anxiety disorder, unspecified (4) COVID-19 GBAINO PAGE MD Jun 14, 2021 08:24
--- NOTE | 2021-06-14 13:31 | PN ---
DATE: 06/14/2021 ATTENDING PHYSICIAN: Dr. Estrada, Dr. Capps. SUBJECTIVE: Very needy, anxious. No new complaints. OBJECTIVE FINDINGS: VITAL SIGNS: Blood pressure this morning is 150/74, she is afebrile. Oxygen saturation 96% on room air. HEENT: Head is without trauma. Pupils are reactive. Sclerae are nonicteric. Oropharynx clear. NECK: Supple, no bruits. LUNGS: Clear. CARDIOVASCULAR: Regular heart tones. No gallops. ABDOMEN: Soft. EXTREMITIES: Without edema. ASSESSMENT: 1. Asymptomatic COVID-19 infection. 2. Major depression with suicidal ideation. 3. History of breast cancer. 4. History of multiple myeloma. 5. Peripheral neuropathy. PLAN: 1. Continue home meds. 2. COVID quarantine. 3. Diet as tolerated. The patient to go to the [facility] on Saturday. LAW/WILLOW DR: LAW/maicol TID: [id number]
[2021-06-14] MEDS: ALPRAZolam 0.5 MG TABLET PO PRN (16:21)
[2021-06-14 19:53] VITALS: BP 164/76
[2021-06-14] MEDS: MELATONIN 3 MG TABLET PO SCH (20:15)
[2021-06-14] MEDS: QUEtiapine 25 MG TABLET. PO SCH (20:16)
--- NOTE | 2021-06-14 21:34 | PDOC ---
Exam Note: Adryan Note: Please also refer to the separate dictated note~for this date of service dictated separately.~Patient seen individually. Discussed the patient with Nursing staff reviewed the chart.~Reviewed interim history and current functioning. Reviewed vital signs,~Labs/ Radiology~and current medications noted below. Continue current treatment with the changes noted in the dictated addendum note Assessment: Vital Signs/I&O: Vital Signs Date Time Temp Pulse Resp B/P (MAP) Pulse Ox O2 Delivery O2 Flow Rate FiO2 06/14/21 19:53 98.2 63 18 164/76 (105) 93 Room Air I & O 06/13/21 06/13/21 06/14/21 15:00 23:00 07:00 Intake Total 180 ml 100 ml Output Total 0 ml 1 ml Balance 180 ml 100 ml -1 ml Labs: Laboratory Tests Test 06/14/21 05:43 White Blood Count 6.4 x10^3/uL (4.0-11.0) Red Blood Count 4.08 x10^6/uL (3.50-5.40) Hemoglobin 12.3 g/dL (12.0-15.5) Hematocrit 36.3 % (36.0-47.0) Mean Corpuscular Volume 89 fL (79-100) Mean Corpuscular Hemoglobin 30 pg (25-35) Mean Corpuscular Hemoglobin Concent 34 g/dL (31-37) Red Cell Distribution Width 13.4 % (11.5-14.5) Platelet Count 237 x10^3/uL (140-400) Sodium Level 140 mmol/L (136-145) Potassium Level 3.4 mmol/L (3.5-5.1) L Chloride Level 105 mmol/L (98-107) Carbon Dioxide Level 26 mmol/L (21-32) Anion Gap 9 (6-14) Blood Urea Nitrogen 20 mg/dL (7-20) Creatinine 0.8 mg/dL (0.6-1.0) Estimated GFR (Cockcroft-Gault) 67.8 BUN/Creatinine Ratio 25 (6-20) H Glucose Level 91 mg/dL (70-99) Calcium Level 8.7 mg/dL (8.5-10.1) Total Bilirubin 0.4 mg/dL (0.2-1.0) Aspartate Amino Transferase (AST) 29 U/L (15-37) Alanine Aminotransferase (ALT) 29 U/L (14-59) Alkaline Phosphatase 40 U/L (46-116) L Total Protein 6.9 g/dL (6.4-8.2) Albumin 2.8 g/dL (3.4-5.0) L Albumin/Globulin Ratio 0.7 (1.0-1.7) L Current Medications: Meds: Laboratory Tests Test 06/14/21 05:43 White Blood Count 6.4 x10^3/uL Red Blood Count 4.08 x10^6/uL Hemoglobin 12.3 g/dL Hematocrit 36.3 % Mean Corpuscular Volume 89 fL Mean Corpuscular Hemoglobin 30 pg Mean Corpuscular Hemoglobin Concent 34 g/dL Red Cell Distribution Width 13.4 % Platelet Count 237 x10^3/uL Sodium Level 140 mmol/L Potassium Level 3.4 mmol/L Chloride Level 105 mmol/L Carbon Dioxide Level 26 mmol/L Anion Gap 9 Blood Urea Nitrogen 20 mg/dL Creatinine 0.8 mg/dL Estimated GFR (Cockcroft-Gault) 67.8 BUN/Creatinine Ratio 25 Glucose Level 91 mg/dL Calcium Level 8.7 mg/dL Total Bilirubin 0.4 mg/dL Aspartate Amino Transf (AST/SGOT) 29 U/L Alanine Aminotransferase (ALT/SGPT) 29 U/L Alkaline Phosphatase 40 U/L Total Protein 6.9 g/dL Albumin 2.8 g/dL Albumin/Globulin Ratio 0.7 Current Medications Medications (Trade) Dose Ordered Sig/Jorje Route PRN Reason Start Time Stop Time Status Last Admin Dose Admin Acetaminophen (Tylenol) 325 mg PRN Q4HRS PRN PO MILD PAIN / TEMP > 100.3'F 06/10/21 19:30 Alprazolam (Xanax) 0.5 mg PRN Q6HRS PRN PO ANXIETY / AGITATION, 1st [facility] 06/10/21 19:30 06/14/21 16:21 Amlodipine Besylate (Norvasc) 5 mg DAILY PO 06/11/21 09:00 06/14/21 07:42 Anastrozole (Arimidex) 1 mg DAILY PO 06/11/21 09:00 06/14/21 07:44 Aspirin (Aspirin Chewable) 81 mg DAILY PO 06/11/21 09:00 06/14/21 07:42 Vitamin D (Vitamin D3) 1,000 unit DAILY PO 06/11/21 09:00 06/14/21 07:42 Quetiapine Fumarate (SEROquel) 25 mg HS PO 06/10/21 21:00 06/14/21 20:16 Quetiapine Fumarate (SEROquel) 25 mg PRN Q6HRS PRN PO ANXIETY / AGITATION, 2nd [facility] 06/10/21 19:30 06/13/21 15:37 Tramadol HCl (Ultram) 50 mg PRN Q12HR PRN PO MODERATE TO SEVERE PAIN 06/10/21 19:30 Non-Formulary Medication (Alpha Lipoic Acid ) 250 mg DAILY PO 06/11/21 09:00 UNV Ascorbic Acid (Vitamin C) 500 mg BID PO 06/10/21 21:00 06/14/21 20:15 Citalopram Hydrobromide (CeleXA) 40 mg DAILY PO 06/11/21 09:00 06/14/21 07:42 Folic Acid (Folic Acid) 1 mg DAILY PO 06/11/21 09:00 06/14/21 07:42 Melatonin (Melatonin) 6 mg QHS PO 06/10/21 21:00 06/14/21 20:15 Multivit/ Folic Acid/Iron (Multivitamin ) 1 tab DAILY PO 06/11/21 09:00 06/14/21 07:43 Ondansetron HCl (Zofran Odt) 4 mg PRN Q8HRS PRN PO NAUSEA/VOMITING 06/11/21 16:00 I have reviewed the current psychotropics carefully including drug interactions. Risk benefit ratio favors no change other than as noted in my dictated progress note. Diagnosis: Problems: (1) Major depressive disorder, recurrent episode (2) Mild cognitive impairment (3) Anxiety disorder, unspecified (4) COVID-19 GABINO PAGE MD Jun 14, 2021 21:33
[2021-06-15] MEDS: ALPRAZolam 0.5 MG TABLET PO PRN ×2 (05:41→16:51)
[2021-06-15 06:18] VITALS: BP 180/84
[2021-06-15] MEDS: ASCORBIC ACID 500 MG TABLET PO SCH ×2 (07:59→20:45)
[2021-06-15] MEDS: FOLIC ACID 1 MG TABLET PO SCH (07:59)
[2021-06-15] MEDS: amLODIPine BESYLATE 5 MG TABLET PO SCH (07:59)
[2021-06-15] MEDS: CHOLECALCIFEROL (VITAMIN D3) 1,000 UNIT TABLET PO SCH (07:59)
[2021-06-15] MEDS: PRENATAL MULTIVITAMIN TABLET. PO SCH (08:00)
[2021-06-15] MEDS: ASPIRIN CHEWABLE 81 MG TABLET. PO SCH (08:00)
[2021-06-15] MEDS: CITALOPRAM 20 MG TABLET. PO SCH (08:00)
[2021-06-15] MEDS: ANASTROZOLE 1 MG TABLET PO SCH (08:01)
--- NOTE | 2021-06-15 08:12 | PDOC ---
Exam Note: Adryan Note: This note is a late entry for 06/14/2021 covers elements not covered in my initial note. Subjective: The patient was reviewed on rounds 06/14/2021, discussed and reviewed the chart with nursing staff Oralia. Overall the patient has been somewhat anxious, irritable in the morning, pouring hot water, confused at times, but not disruptive. Review of Systems: No specific CV, , pulmonary, eye, ENT system symptoms on review. Mental Status Exam: Per nursing report, she is oriented to herself and situation. Speech remains coherent. Abstraction fair. Computation somewhat impaired. She is distractible. No suicidal or homicidal ideation. Laboratory Data: Reviewed. Impression: Major depressive disorder, recurrent, moderate. Anxiety disorder unspecified. Mild cognitive impairment. Covid-19 positive status. Plan: The patient is still under observation for Covid-19 positive status and we will reassess whether she needs to return to the [facility] once she has finished quarantine. Assessment: Vital Signs/I&O: Vital Signs Date Time Temp Pulse Resp B/P (MAP) Pulse Ox O2 Delivery O2 Flow Rate FiO2 06/15/21 07:59 90 180/84 06/15/21 06:18 97.4 22 96 Room Air I & O 06/14/21 06/14/21 06/15/21 15:00 23:00 07:00 Intake Total 440 ml 100 ml 100 ml Output Total 1 ml Balance 440 ml 99 ml 100 ml Current Medications: I have reviewed the current psychotropics carefully including drug interactions. Risk benefit ratio favors no change other than as noted in my dictated progress note. Diagnosis: Problems: (1) Major depressive disorder, recurrent episode (2) Mild cognitive impairment (3) Anxiety disorder, unspecified (4) COVID-19 GABINO PAGE MD Jun 15, 2021 08:12
[2021-06-15] MEDS: QUEtiapine 25 MG TABLET. PO PRN (10:03)
--- NOTE | 2021-06-15 11:25 | PN ---
DATE: 06/15/2021 ATTENDING PHYSICIAN: Kayley Estrada MD SUBJECTIVE: Pleasantly confused, not as agitated today as yesterday. She has no new complaints. OBJECTIVE FINDINGS: VITAL SIGNS: Blood pressure is 180/84, her pulse is regular. She is afebrile. Oxygen saturation is 96% on room air. HEENT: Head is without trauma. Pupils are reactive. Sclerae nonicteric. The oropharynx is clear. NECK: Supple, no bruits. LUNGS: Clear. CARDIOVASCULAR: Regular heart tones. ABDOMEN: Soft. EXTREMITIES: Show no cyanosis or edema. NEUROLOGIC: Pleasantly confused. ASSESSMENT: 1. An 86-year-old female with asymptomatic COVID-19 infection. 2. Major depression with suicidal ideations. 3. History of breast cancer. 4. History of multiple myeloma. 5. Peripheral neuropathy. PLAN: 1. Continue home medications. 2. COVID quarantine. 3. Diet as tolerated. LAW/DANIEL DR: Ida TID: [id number]
[2021-06-15 11:34] VITALS: BP 147/86
[2021-06-15 19:30] VITALS: BP 153/78
[2021-06-15] MEDS: QUEtiapine 25 MG TABLET. PO SCH (20:45)
[2021-06-15] MEDS: MELATONIN 3 MG TABLET PO SCH (20:45)
[2021-06-16 05:48] VITALS: BP 161/74
[2021-06-16] MEDS: CHOLECALCIFEROL (VITAMIN D3) 1,000 UNIT TABLET PO SCH (09:00)
[2021-06-16] MEDS: ASCORBIC ACID 500 MG TABLET PO SCH ×2 (09:00→20:26)
[2021-06-16] MEDS: ASPIRIN CHEWABLE 81 MG TABLET. PO SCH (09:00)
[2021-06-16] MEDS: PRENATAL MULTIVITAMIN TABLET. PO SCH (09:00)
[2021-06-16] MEDS: CITALOPRAM 20 MG TABLET. PO SCH (09:00)
[2021-06-16] MEDS: amLODIPine BESYLATE 5 MG TABLET PO SCH (09:00)
[2021-06-16] MEDS: FOLIC ACID 1 MG TABLET PO SCH (09:00)
[2021-06-16] MEDS: ANASTROZOLE 1 MG TABLET PO SCH (09:00)
[2021-06-16 10:31] VITALS: BP 134/71
[2021-06-16] MEDS: ALPRAZolam 0.5 MG TABLET PO PRN ×2 (12:38→20:26)
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
[2021-06-16 15:00] VITALS: BP 139/80
[2021-06-16 19:26] VITALS: BP 154/76
[2021-06-16] MEDS: MELATONIN 3 MG TABLET PO SCH (20:26)
[2021-06-16] MEDS: QUEtiapine 25 MG TABLET. PO SCH (20:26)
--- NOTE | 2021-06-16 21:59 | PDOC ---
Exam Note: Adryan Note: Please also refer to the separate dictated note~for this date of service dictated separately.~Patient seen individually. Discussed the patient with Nursing staff reviewed the chart.~Reviewed interim history and current functioning. Reviewed vital signs,~Labs/ Radiology~and current medications noted below. Continue current treatment with the changes noted in the dictated addendum note Assessment: Vital Signs/I&O: Vital Signs Date Time Temp Pulse Resp B/P (MAP) Pulse Ox O2 Delivery O2 Flow Rate FiO2 06/16/21 19:26 98.0 79 22 154/76 (102) 95 Room Air I & O 06/15/21 06/15/21 06/16/21 15:00 23:00 07:00 Intake Total 120 ml 200 ml Output Total 0 ml 1 ml Balance 120 ml 199 ml Current Medications: Meds: Current Medications Medications (Trade) Dose Ordered Sig/Jorje Route PRN Reason Start Time Stop Time Status Last Admin Dose Admin Acetaminophen (Tylenol) 325 mg PRN Q4HRS PRN PO MILD PAIN / TEMP > 100.3'F 06/10/21 19:30 Alprazolam (Xanax) 0.5 mg PRN Q6HRS PRN PO ANXIETY / AGITATION, 1st [facility] 06/10/21 19:30 06/16/21 20:26 Amlodipine Besylate (Norvasc) 5 mg DAILY PO 06/11/21 09:00 06/16/21 09:00 Anastrozole (Arimidex) 1 mg DAILY PO 06/11/21 09:00 06/16/21 09:00 Aspirin (Aspirin Chewable) 81 mg DAILY PO 06/11/21 09:00 06/16/21 09:00 Vitamin D (Vitamin D3) 1,000 unit DAILY PO 06/11/21 09:00 06/16/21 09:00 Quetiapine Fumarate (SEROquel) 25 mg HS PO 06/10/21 21:00 06/16/21 20:26 Quetiapine Fumarate (SEROquel) 25 mg PRN Q6HRS PRN PO ANXIETY / AGITATION, 2nd CHOI 06/10/21 19:30 06/15/21 10:03 Tramadol HCl (Ultram) 50 mg PRN Q12HR PRN PO MODERATE TO SEVERE PAIN 06/10/21 19:30 Non-Formulary Medication (Alpha Lipoic Acid ) 250 mg DAILY PO 06/11/21 09:00 UNV Ascorbic Acid (Vitamin C) 500 mg BID PO 06/10/21 21:00 06/16/21 20:26 Citalopram Hydrobromide (CeleXA) 40 mg DAILY PO 06/11/21 09:00 06/16/21 09:00 Folic Acid (Folic Acid) 1 mg DAILY PO 06/11/21 09:00 06/16/21 09:00 Melatonin (Melatonin) 6 mg QHS PO 06/10/21 21:00 06/16/21 20:26 Multivit/ Folic Acid/Iron (Multivitamin ) 1 tab DAILY PO 06/11/21 09:00 06/16/21 09:00 Ondansetron HCl (Zofran Odt) 4 mg PRN Q8HRS PRN PO NAUSEA/VOMITING 06/11/21 16:00 06/16/21 18:08 I have reviewed the current psychotropics carefully including drug interactions. Risk benefit ratio favors no change other than as noted in my dictated progress note. Diagnosis: Problems: (1) Major depressive disorder, recurrent episode (2) Mild cognitive impairment (3) Anxiety disorder, unspecified (4) COVID-19 GABINO PAGE MD Jun 16, 2021 21:59
[2021-06-17 05:56] VITALS: BP 162/75
--- NOTE | 2021-06-17 08:13 | PDOC ---
Exam Note: Adryan Note: This note is a late entry for 06/16/2021 covers elements not covered in my initial note. Subjective: The patient was reviewed on rounds 06/16/2021, discussed and reviewed the chart with nursing staff. Overall the patient has been cooperative on the unit. She gets a little irritable, anxious at times but redirects. She did apparently talk to her daughter earlier today. Review of Systems: Per nursing report, no CV, , pulmonary, eye, ENT system symptoms on review. Mental Status Exam: Patient is oriented to herself and situation. Speech coherent per nursing observation. Abstraction fair. Computation impaired. Language function intact. Attention span short. Mood and affect still dysphoric. No suicidal or homicidal ideation. Laboratory Data: Reviewed. Impression: Major depressive disorder, recurrent, moderate. Anxiety disorder unspecified. Mild cognitive impairment. Covid-19 positive status. Plan: Continue current psychotropics. Assessment: Vital Signs/I&O: Vital Signs Date Time Temp Pulse Resp B/P (MAP) Pulse Ox O2 Delivery O2 Flow Rate FiO2 06/17/21 05:56 98.1 79 18 162/75 (104) 97 Room Air I & O 06/16/21 06/16/21 06/17/21 15:00 23:00 07:00 Intake Total 360 ml 360 ml 120 ml Balance 360 ml 360 ml 120 ml Current Medications: I have reviewed the current psychotropics carefully including drug interactions. Risk benefit ratio favors no change other than as noted in my dictated progress note. Diagnosis: Problems: (1) Major depressive disorder, recurrent episode (2) Mild cognitive impairment (3) Anxiety disorder, unspecified (4) COVID-19 GABINO PAGE MD Jun 17, 2021 08:13
[2021-06-17] MEDS: CITALOPRAM 20 MG TABLET. PO SCH (08:30)
[2021-06-17] MEDS: ASCORBIC ACID 500 MG TABLET PO SCH ×2 (08:30→20:09)
[2021-06-17] MEDS: FOLIC ACID 1 MG TABLET PO SCH (08:30)
[2021-06-17] MEDS: CHOLECALCIFEROL (VITAMIN D3) 1,000 UNIT TABLET PO SCH (08:30)
[2021-06-17] MEDS: ALPRAZolam 0.5 MG TABLET PO PRN ×2 (08:30→20:09)
[2021-06-17] MEDS: ASPIRIN CHEWABLE 81 MG TABLET. PO SCH (08:31)
[2021-06-17] MEDS: amLODIPine BESYLATE 5 MG TABLET PO SCH (08:31)
[2021-06-17] MEDS: PRENATAL MULTIVITAMIN TABLET. PO SCH (08:31)
[2021-06-17] MEDS: ANASTROZOLE 1 MG TABLET PO SCH (08:32)
--- NOTE | 2021-06-17 11:54 | PN ---
DATE: 06/17/2021 ATTENDING PHYSICIAN: Dr. Capps. SUBJECTIVE: Pleasantly confused. No new complaints. OBJECTIVE FINDINGS: VITAL SIGNS: She is afebrile. Her oxygen saturations are at 97% on room air, blood pressure 160/75. She is afebrile, pulse is regular. HEENT: Head is without trauma. Pupils are reactive. Sclerae nonicteric. Oropharynx clear. NECK: Supple, no bruits. LUNGS: Good breath sounds. CARDIOVASCULAR: Showed regular heart tones. ABDOMEN: Soft. EXTREMITIES: Without edema. NEUROLOGIC: Profoundly confused. ASSESSMENT: 1. An 86-year-old female with asymptomatic COVID-19 infection. 2. Major depression with behavioral issues. 3. History of breast cancer. 4. History of myeloma. 5. History of peripheral neuropathy. PLAN: 1. Continue home meds. 2. COVID quarantine through next week. 3. Diet as tolerated. 4. She requires quite a bit of nursing care as she constantly get out of her bed wants to wander the [place]. CLIFFORD DR: Ida TID: [id number]
[2021-06-17 16:07] VITALS: BP 155/75
[2021-06-17] MEDS: QUEtiapine 25 MG TABLET. PO SCH (20:09)
[2021-06-17] MEDS: MELATONIN 3 MG TABLET PO SCH (20:09)
[2021-06-17 20:34] VITALS: BP 157/80
--- NOTE | 2021-06-17 21:39 | PDOC ---
Exam Note: Adryan Note: Please also refer to the separate dictated note~for this date of service dictated separately.~Patient seen individually. Discussed the patient with Nursing staff reviewed the chart.~Reviewed interim history and current functioning. Reviewed vital signs,~Labs/ Radiology~and current medications noted below. Continue current treatment with the changes noted in the dictated addendum note Assessment: Vital Signs/I&O: Vital Signs Date Time Temp Pulse Resp B/P (MAP) Pulse Ox O2 Delivery O2 Flow Rate FiO2 06/17/21 20:34 98.2 78 20 157/80 (105) 95 Room Air I & O 06/16/21 06/16/21 06/17/21 15:00 23:00 07:00 Intake Total 360 ml 360 ml 120 ml Balance 360 ml 360 ml 120 ml Current Medications: Meds: Current Medications Medications (Trade) Dose Ordered Sig/Jorje Route PRN Reason Start Time Stop Time Status Last Admin Dose Admin Acetaminophen (Tylenol) 325 mg PRN Q4HRS PRN PO MILD PAIN / TEMP > 100.3'F 06/10/21 19:30 Alprazolam (Xanax) 0.5 mg PRN Q6HRS PRN PO ANXIETY / AGITATION, 1st [facility] 06/10/21 19:30 06/17/21 20:09 Amlodipine Besylate (Norvasc) 5 mg DAILY PO 06/11/21 09:00 06/17/21 08:31 Anastrozole (Arimidex) 1 mg DAILY PO 06/11/21 09:00 06/17/21 08:32 Aspirin (Aspirin Chewable) 81 mg DAILY PO 06/11/21 09:00 06/17/21 08:31 Vitamin D (Vitamin D3) 1,000 unit DAILY PO 06/11/21 09:00 06/17/21 08:30 Quetiapine Fumarate (SEROquel) 25 mg HS PO 06/10/21 21:00 06/17/21 20:09 Quetiapine Fumarate (SEROquel) 25 mg PRN Q6HRS PRN PO ANXIETY / AGITATION, 2nd [facility] 06/10/21 19:30 06/15/21 10:03 Tramadol HCl (Ultram) 50 mg PRN Q12HR PRN PO MODERATE TO SEVERE PAIN 06/10/21 19:30 Non-Formulary Medication (Alpha Lipoic Acid ) 250 mg DAILY PO 06/11/21 09:00 UNV Ascorbic Acid (Vitamin C) 500 mg BID PO 06/10/21 21:00 06/17/21 20:09 Citalopram Hydrobromide (CeleXA) 40 mg DAILY PO 06/11/21 09:00 06/17/21 08:30 Folic Acid (Folic Acid) 1 mg DAILY PO 06/11/21 09:00 06/17/21 08:30 Melatonin (Melatonin) 6 mg QHS PO 06/10/21 21:00 06/17/21 20:09 Multivit/ Folic Acid/Iron (Multivitamin ) 1 tab DAILY PO 06/11/21 09:00 06/17/21 08:31 Ondansetron HCl (Zofran Odt) 4 mg PRN Q8HRS PRN PO NAUSEA/VOMITING 06/11/21 16:00 06/16/21 18:08 I have reviewed the current psychotropics carefully including drug interactions. Risk benefit ratio favors no change other than as noted in my dictated progress note. Diagnosis: Problems: (1) Major depressive disorder, recurrent episode (2) Mild cognitive impairment (3) Anxiety disorder, unspecified (4) COVID-19 GABINO PAGE MD Jun 17, 2021 21:39
[2021-06-18] MEDS: ALPRAZolam 0.5 MG TABLET PO PRN ×2 (05:58→16:40)
[2021-06-18] MEDS: QUEtiapine 25 MG TABLET. PO SCH ×2 (05:58→19:27)
[2021-06-18] MEDS: QUEtiapine 25 MG TABLET. PO PRN ×2 (06:02→16:41)
[2021-06-18 06:39] VITALS: BP 130/79
[2021-06-18] MEDS: ASCORBIC ACID 500 MG TABLET PO SCH ×2 (08:15→19:27)
[2021-06-18] MEDS: PRENATAL MULTIVITAMIN TABLET. PO SCH (08:15)
[2021-06-18] MEDS: CHOLECALCIFEROL (VITAMIN D3) 1,000 UNIT TABLET PO SCH (08:15)
[2021-06-18] MEDS: amLODIPine BESYLATE 5 MG TABLET PO SCH (08:15)
[2021-06-18] MEDS: CITALOPRAM 20 MG TABLET. PO SCH (08:15)
[2021-06-18] MEDS: FOLIC ACID 1 MG TABLET PO SCH (08:15)
[2021-06-18] MEDS: ASPIRIN CHEWABLE 81 MG TABLET. PO SCH (08:15)
[2021-06-18] MEDS: ANASTROZOLE 1 MG TABLET PO SCH (08:19)
--- NOTE | 2021-06-18 09:46 | PN ---
DATE: 06/18/2021 ATTENDING PHYSICIAN: Dr. Capps. SUBJECTIVE: No new complaints. She is a bit reluctant, but is calm today. OBJECTIVE FINDINGS: VITAL SIGNS: Blood pressure this morning is 130/79, her pulse is 80 and regular. She is afebrile and her oxygen saturation is 96% on room air. HEENT: Head is without trauma. Pupils are reactive. Sclerae nonicteric. Oropharynx is clear. NECK: Supple, no bruits. LUNGS: Good breath sounds. CARDIOVASCULAR: Showed regular heart tones. ABDOMEN: Soft. EXTREMITIES: Show no cyanosis or edema. NEUROLOGIC FINDINGS: Pleasantly confused. ASSESSMENT: 1. An 86-year-old female with asymptomatic COVID-19 infection. 2. Major depression with behavioral issues. 3. History of myeloma. 4. History of breast cancer. 5. History of peripheral neuropathy. PLAN: 1. Continue home meds. 2. COVID quarantine. 3. Tentative discharge plans to [facility]. CLIFFORD DR: Ida TID: [id number]
[2021-06-18 19:00] VITALS: BP 111/65
[2021-06-18] MEDS: MELATONIN 3 MG TABLET PO SCH (19:27)
[2021-06-18] MEDS: traMADol 50 MG TABLET PO PRN (19:27)
--- NOTE | 2021-06-18 21:49 | PDOC ---
Exam Note: Adryan Note: Please also refer to the separate dictated note~for this date of service dictated separately.~Patient seen individually. Discussed the patient with Nursing staff reviewed the chart.~Reviewed interim history and current functioning. Reviewed vital signs,~Labs/ Radiology~and current medications noted below. Continue current treatment with the changes noted in the dictated addendum note Assessment: Vital Signs/I&O: Vital Signs Date Time Temp Pulse Resp B/P (MAP) Pulse Ox O2 Delivery O2 Flow Rate FiO2 06/18/21 19:27 96 Room Air 06/18/21 08:15 80 130/79 06/18/21 06:39 98.5 20 I & O 06/17/21 06/17/21 06/18/21 15:00 23:00 07:00 Intake Total 480 ml 320 ml 200 ml Balance 480 ml 320 ml 200 ml Current Medications: Meds: Current Medications Medications (Trade) Dose Ordered Sig/Jorje Route PRN Reason Start Time Stop Time Status Last Admin Dose Admin Acetaminophen (Tylenol) 325 mg PRN Q4HRS PRN PO MILD PAIN / TEMP > 100.3'F 06/10/21 19:30 Alprazolam (Xanax) 0.5 mg PRN Q6HRS PRN PO ANXIETY / AGITATION, 1st [facility]I 06/10/21 19:30 06/18/21 16:40 Amlodipine Besylate (Norvasc) 5 mg DAILY PO 06/11/21 09:00 06/18/21 08:15 Anastrozole (Arimidex) 1 mg DAILY PO 06/11/21 09:00 06/18/21 08:19 Aspirin (Aspirin Chewable) 81 mg DAILY PO 06/11/21 09:00 06/18/21 08:15 Vitamin D (Vitamin D3) 1,000 unit DAILY PO 06/11/21 09:00 06/18/21 08:15 Quetiapine Fumarate (SEROquel) 25 mg HS PO 06/10/21 21:00 06/18/21 19:27 Quetiapine Fumarate (SEROquel) 25 mg PRN Q6HRS PRN PO ANXIETY / AGITATION, 2nd [facility]I 06/10/21 19:30 06/18/21 16:41 Tramadol HCl (Ultram) 50 mg PRN Q12HR PRN PO MODERATE TO SEVERE PAIN 06/10/21 19:30 06/18/21 19:27 Non-Formulary Medication (Alpha Lipoic Acid ) 250 mg DAILY PO 06/11/21 09:00 UNV Ascorbic Acid (Vitamin C) 500 mg BID PO 06/10/21 21:00 06/18/21 19:27 Citalopram Hydrobromide (CeleXA) 40 mg DAILY PO 06/11/21 09:00 06/18/21 08:15 Folic Acid (Folic Acid) 1 mg DAILY PO 06/11/21 09:00 06/18/21 08:15 Melatonin (Melatonin) 6 mg QHS PO 06/10/21 21:00 06/18/21 19:27 Multivit/ Folic Acid/Iron (Multivitamin ) 1 tab DAILY PO 06/11/21 09:00 06/18/21 08:15 Ondansetron HCl (Zofran Odt) 4 mg PRN Q8HRS PRN PO NAUSEA/VOMITING 06/11/21 16:00 06/16/21 18:08 I have reviewed the current psychotropics carefully including drug interactions. Risk benefit ratio favors no change other than as noted in my dictated progress note. Diagnosis: Problems: (1) Major depressive disorder, recurrent episode (2) Mild cognitive impairment (3) Anxiety disorder, unspecified (4) COVID-19 GABINO PAGE MD Jun 18, 2021 21:49
[2021-06-19 06:25] VITALS: BP 163/79
--- NOTE | 2021-06-19 07:14 | PDOC ---
Exam Note: Adryan Note: This note is a late entry for 06/17/2021 covers elements not covered in my initial note. Subjective: The patient was reviewed on 06/17/2021, discussed and reviewed the chart with nursing staff. The patient has been somewhat suspicious at times, questioning whether her family is abandoning her per nursing report. She gets tearful but redirects. Review of Systems: Per nursing report, no CV, , pulmonary, eye, ENT system symptoms on review. Mental Status Exam: Per nursing observation, the patient has been somewhat suspicious but we will clarify this further with the daughter. She is oriented to herself and situation. Speech coherent per nursing observation. Abstraction fair. Computation impaired. Language function intact. Attention span short. Mood and affect anxious, dysphoric. No suicidal or homicidal ideation. Laboratory Data: Reviewed. Impression: Major depressive disorder, recurrent, moderate. Anxiety disorder unspecified. Mild cognitive impairment. Covid-19 positive status. Plan: Continue current psychotropics. Assessment: Vital Signs/I&O: Vital Signs Date Time Temp Pulse Resp B/P (MAP) Pulse Ox O2 Delivery O2 Flow Rate FiO2 06/19/21 06:25 98.5 88 20 163/79 (107) 96 Room Air I & O 06/18/21 06/18/21 06/19/21 15:00 23:00 07:00 Intake Total 480 ml 240 ml 240 ml Balance 480 ml 240 ml 240 ml Current Medications: I have reviewed the current psychotropics carefully including drug interactions. Risk benefit ratio favors no change other than as noted in my dictated progress note. Diagnosis: Problems: (1) Major depressive disorder, recurrent episode (2) Mild cognitive impairment (3) Anxiety disorder, unspecified (4) COVID-19 GABINO PAEG MD Jun 19, 2021 07:14
--- NOTE | 2021-06-19 07:47 | PDOC ---
Exam Note: Adryan Note: This note is a late entry for 06/18/2021 covers elements not covered in my initial note. Subjective: The patient was reviewed on 06/18/2021, discussed and reviewed the chart with nursing staff. The patient has had some crying spells, appears sad at times. Review of Systems: Per nursing report, no CV, , pulmonary, eye, ENT system symptoms on review. Mental Status Exam: Per nursing observation, she is oriented to herself and situation. She gets a little distracted but not as delusional as was noted by nursing staff yesterday. Speech coherent per nursing observation. Abstraction fair. Computation impaired. Language function intact. She has been somewhat depressed but no suicidal ideation per nursing report. Laboratory Data: Reviewed. Impression: Major depressive disorder, recurrent, moderate. Anxiety disorder unspecified. Mild cognitive impairment. Covid-19 positive status. Plan: Continue current psychotropics. Assessment: Vital Signs/I&O: Vital Signs Date Time Temp Pulse Resp B/P (MAP) Pulse Ox O2 Delivery O2 Flow Rate FiO2 06/19/21 06:25 98.5 88 20 163/79 (107) 96 Room Air I & O 06/18/21 06/18/21 06/19/21 15:00 23:00 07:00 Intake Total 480 ml 240 ml 240 ml Balance 480 ml 240 ml 240 ml Current Medications: I have reviewed the current psychotropics carefully including drug interactions. Risk benefit ratio favors no change other than as noted in my dictated progress note. Diagnosis: Problems: (1) Major depressive disorder, recurrent episode (2) Mild cognitive impairment (3) Anxiety disorder, unspecified (4) COVID-19 GABINO PAGE MD Jun 19, 2021 07:47
[2021-06-19] MEDS: CHOLECALCIFEROL (VITAMIN D3) 1,000 UNIT TABLET PO SCH (08:53)
[2021-06-19] MEDS: CITALOPRAM 20 MG TABLET. PO SCH (08:54)
[2021-06-19] MEDS: amLODIPine BESYLATE 5 MG TABLET PO SCH (08:54)
[2021-06-19] MEDS: PRENATAL MULTIVITAMIN TABLET. PO SCH (08:54)
[2021-06-19] MEDS: ASCORBIC ACID 500 MG TABLET PO SCH ×2 (08:54→20:43)
[2021-06-19] MEDS: ASPIRIN CHEWABLE 81 MG TABLET. PO SCH (08:54)
[2021-06-19] MEDS: traMADol 50 MG TABLET PO PRN ×4 (08:55→20:43)
[2021-06-19] MEDS: FOLIC ACID 1 MG TABLET PO SCH (08:55)
[2021-06-19] MEDS: ANASTROZOLE 1 MG TABLET PO SCH (08:56)
[2021-06-19] MEDS: ALPRAZolam 0.5 MG TABLET PO PRN (13:58)
[2021-06-19 15:12] VITALS: BP 138/84
[2021-06-19 20:40] VITALS: BP 165/63
[2021-06-19] MEDS: QUEtiapine 25 MG TABLET. PO SCH (20:43)
[2021-06-19] MEDS: MELATONIN 3 MG TABLET PO SCH (20:43)
--- NOTE | 2021-06-19 21:02 | PN ---
DATE: 06/19/2021 ATTENDING PHYSICIAN: Dr. Capps. SUBJECTIVE: Very pleasant, but very paranoid fear of dying. OBJECTIVE FINDINGS: VITAL SIGNS: Blood pressure this morning is 163/79, pulse and respiration are normal. She is afebrile. Oxygen saturation 95% on room air. HEENT: Head is without trauma. Pupils are reactive. Sclerae nonicteric. Oropharynx clear. NECK: Supple, no bruits. LUNGS: Clear. CARDIOVASCULAR: Showed regular heart tones. ABDOMEN: Soft. EXTREMITIES: Without edema. NEUROLOGIC: Pleasantly confused. ASSESSMENT: 1. An 86-year-old female with asymptomatic COVID-19 infection. 2. Major depression with behavioral issues. 3. History of myeloma. 4. History of breast cancer. 5. History of peripheral neuropathy. PLAN: 1. Continue home meds. 2. COVID quarantine. 3. Tentative plans to [facility]. RONNIE DR: Ida TID: [id number]
--- NOTE | 2021-06-19 21:27 | PDOC ---
Exam Note: Adryan Note: Please also refer to the separate dictated note~for this date of service dictated separately.~Patient seen individually. Discussed the patient with Nursing staff reviewed the chart.~Reviewed interim history and current functioning. Reviewed vital signs,~Labs/ Radiology~and current medications noted below. Continue current treatment with the changes noted in the dictated addendum note Assessment: Vital Signs/I&O: Vital Signs Date Time Temp Pulse Resp B/P (MAP) Pulse Ox O2 Delivery O2 Flow Rate FiO2 06/19/21 21:10 16 Room Air 06/19/21 20:40 97.7 89 165/63 (97) 95 I & O 06/18/21 06/18/21 06/19/21 15:00 23:00 07:00 Intake Total 480 ml 240 ml 240 ml Balance 480 ml 240 ml 240 ml Current Medications: Meds: Current Medications Medications (Trade) Dose Ordered Sig/Jorje Route PRN Reason Start Time Stop Time Status Last Admin Dose Admin Acetaminophen (Tylenol) 325 mg PRN Q4HRS PRN PO MILD PAIN / TEMP > 100.3'F 06/10/21 19:30 Alprazolam (Xanax) 0.5 mg PRN Q6HRS PRN PO ANXIETY / AGITATION, 1st [facility] 06/10/21 19:30 06/19/21 13:58 Amlodipine Besylate (Norvasc) 5 mg DAILY PO 06/11/21 09:00 06/19/21 08:54 Anastrozole (Arimidex) 1 mg DAILY PO 06/11/21 09:00 06/19/21 08:56 Aspirin (Aspirin Chewable) 81 mg DAILY PO 06/11/21 09:00 06/19/21 08:54 Vitamin D (Vitamin D3) 1,000 unit DAILY PO 06/11/21 09:00 06/19/21 08:53 Quetiapine Fumarate (SEROquel) 25 mg HS PO 06/10/21 21:00 06/19/21 20:43 Quetiapine Fumarate (SEROquel) 25 mg PRN Q6HRS PRN PO ANXIETY / AGITATION, 2nd CHOI 06/10/21 19:30 06/18/21 16:41 Tramadol HCl (Ultram) 50 mg PRN Q12HR PRN PO MODERATE TO SEVERE PAIN 06/10/21 19:30 06/19/21 20:43 Non-Formulary Medication (Alpha Lipoic Acid ) 250 mg DAILY PO 06/11/21 09:00 UNV Ascorbic Acid (Vitamin C) 500 mg BID PO 06/10/21 21:00 06/19/21 20:43 Citalopram Hydrobromide (CeleXA) 40 mg DAILY PO 06/11/21 09:00 06/19/21 08:54 Folic Acid (Folic Acid) 1 mg DAILY PO 06/11/21 09:00 06/19/21 08:55 Melatonin (Melatonin) 6 mg QHS PO 06/10/21 21:00 06/19/21 20:43 Multivit/ Folic Acid/Iron (Multivitamin ) 1 tab DAILY PO 06/11/21 09:00 06/19/21 08:54 Ondansetron HCl (Zofran Odt) 4 mg PRN Q8HRS PRN PO NAUSEA/VOMITING 06/11/21 16:00 06/16/21 18:08 I have reviewed the current psychotropics carefully including drug interactions. Risk benefit ratio favors no change other than as noted in my dictated progress note. Diagnosis: Problems: (1) Major depressive disorder, recurrent episode (2) Mild cognitive impairment (3) Anxiety disorder, unspecified (4) COVID-19 GABINO PAGE MD Jun 19, 2021 21:27
[2021-06-20] MEDS: ALPRAZolam 0.5 MG TABLET PO PRN (03:39)
[2021-06-20] MEDS: ASCORBIC ACID 500 MG TABLET PO SCH (08:16)
[2021-06-20] MEDS: CHOLECALCIFEROL (VITAMIN D3) 1,000 UNIT TABLET PO SCH (08:16)
[2021-06-20] MEDS: CITALOPRAM 20 MG TABLET. PO SCH (08:16)
[2021-06-20] MEDS: FOLIC ACID 1 MG TABLET PO SCH (08:16)
[2021-06-20] MEDS: ASPIRIN CHEWABLE 81 MG TABLET. PO SCH (08:17)
[2021-06-20 08:18] VITALS: BP 165/63
[2021-06-20] MEDS: amLODIPine BESYLATE 5 MG TABLET PO SCH (08:18)
[2021-06-20] MEDS: PRENATAL MULTIVITAMIN TABLET. PO SCH (08:23)
[2021-06-20] MEDS: ANASTROZOLE 1 MG TABLET PO SCH (08:24)
--- NOTE | 2021-06-20 08:58 | DS ---
DATE OF DISCHARGE: 06/20/2021 ATTENDING PHYSICIAN: Dr. Estrada. FINAL DISCHARGE DIAGNOSES: 1. An 86-year-old female with asymptomatic COVID-19 infection. 2. Major depression with behavioral issues. 3. History of myeloma. 4. Breast cancer by history. 5. History of peripheral neuropathy. HISTORY AND PHYSICAL: The patient is a very needy dependent 86-year-old female who is [facility] the [facility] for dementia and agitation behavioral issue. She tested positive for coronavirus. She was asymptomatic. She was sent here for further treatment and evaluation and quarantine. PHYSICAL EXAMINATION: Please see the dictated note. PERTINENT LABORATORY AND X-RAY STUDIES: On the database. COURSE IN THE HOSPITAL: She was placed in quarantine. She had no other issues. Room air sats were adequate. No pulmonary issues. She was here for 10 days. On the 10th hospital day, she was discharged back to the [facility]. Discharge meds are unchanged. They will include the following: Tylenol, alprazolam, amlodipine, Arimidex, ascorbic acid, aspirin, cholesterol, folic acid, Seroquel, and tramadol. She is a DNR per advanced directive. She was discharged then from the medical floor in stable condition with explicit drug and followup care. ANGIE DR: Ida TID: [id number] CC: GABINO PAGE MD
[2021-06-20] MEDS ORDERED: ONDA4TAB12 PO (10:40)
[2021-06-20] MEDS ORDERED: MELA3TAB43 PO (10:40)
--- NOTE | 2021-06-21 07:40 | PDOC ---
Exam Note: Adryan Note: This note is a late entry for 06/19/2021 covers elements not covered in my initial note. Subjective: The patient was reviewed on 06/19/2021, discussed and reviewed the chart with nursing staff. Overall the patient remains somewhat tearful at times, sad but not agitated or aggressive. Review of Systems: Per nursing report, no CV, , pulmonary, eye, ENT system symptoms on review. Mental Status Exam: Per nursing observation, she is oriented to herself, date of and situation. Speech coherent has some latency. Abstraction fair. Computation impaired. Language function intact. Mood and affect still remains depressed. She does have short-term memory deficits. Laboratory Data: Reviewed. Impression: Major depressive disorder, recurrent. Anxiety disorder unspecified. Mild cognitive impairment. Plan: I have carefully reviewed patients current psychotropics. We will continue unchanged and she will transition to [facility] once the Covid-quarantine has ended. Assessment: Vital Signs/I&O: Vital Signs Date Time Temp Pulse Resp B/P (MAP) Pulse Ox O2 Delivery O2 Flow Rate FiO2 06/20/21 08:18 89 165/63 06/19/21 21:10 16 Room Air 06/19/21 20:40 97.7 95 Current Medications: I have reviewed the current psychotropics carefully including drug interactions. Risk benefit ratio favors no change other than as noted in my dictated progress note. Diagnosis: Problems: (1) Major depress dis, severe (2) Mild cognitive impairment (3) Anxiety disorder, unspecified GABINO PAGE MD Jun 21, 2021 07:40
== END 2021-06-20 09:45 | DRG 178 ==
LOC: 1 SOUTH 17:14
PROVIDERS: ADMIT Internal Medicine; ATTEND Internal Medicine
DX: U07.1 COVID-19 (principal); B19.9 Unspecified viral hepatitis without hepatic coma; F03.91 Unspecified dementia, unspecified severity, with behavioral disturbance; F33.1 Major depressive disorder, recurrent, moderate; R45.851 Suicidal ideations; C50.919 Malignant neoplasm of unspecified site of unspecified female breast; F09 Unspecified mental disorder due to known physiological condition; F41.1 Generalized anxiety disorder; G62.9 Polyneuropathy, unspecified; K75.4 Autoimmune hepatitis; Z66 Do not resuscitate; Z79.82 Long term (current) use of aspirin; Z79.899 Other long term (current) drug therapy; Z85.3 Personal history of malignant neoplasm of breast; Z88.2 Allergy status to sulfonamides; Z88.8 Allergy status to other drugs, medicaments and biological substances
CPT/HCPCS: 36415; 80048; 80053; 85025; 85027; Q0162

== ENCOUNTER 2021-06-20 09:46 | Inpatient (IN) | payer MEDICARE ==
[~2021-06-20] VITALS: Ht 152.4 cm; Wt 44.5 kg
--- NOTE | 2021-06-20 09:30 | NUR ---
Admission Note with Justification for Admission to [facility] Patient admitted to [facility] for protective oversight for emergency stabilization of acute psychiatric crisis. Pt admitted from: [address] at approximately 0930. Mode of arrival: Wheelchair Accompanied By: [facility] Staff Jie RN Precipitating behaviors that initiated intake and admission: Labile mood, sad, crying, thinks she is going to , fearful of someone hurting her, paranoid, anxious. Description of failure of out patient attempts at stabilization in previous setting list behavior and medication trials: Med changes, reassurance, personal alarms for safety. Behaviors and assessment findings upon admission: Anxious, tearful, afraid of dying Plan: Admit for protective oversight for adjustment and stabilization of medications, behaviors and mood. Intense treatment regimen including groups, medication adjustments, therapy, consistent regimen for ADL's, self care, and sleep hygiene. Daily monitoring by Inpatient staff, Psychiatry, and Medical Physician.
[2021-06-20] MEDS ORDERED: QUEtiapine 25 MG TABLET. PO PRN (10:30)
[2021-06-20] MEDS ORDERED: traMADol 50 MG TABLET PO PRN (10:30)
[2021-06-20] MEDS ORDERED: ACETAMINOPHEN 325 MG TABLET PO PRN (10:30)
[2021-06-20] MEDS ORDERED: ONDA4TAB12 PO (10:40)
[2021-06-20] MEDS ORDERED: MELA3TAB43 PO (10:40)
[2021-06-20] MEDS ORDERED: MAG HYDROX/AL HYDROX/SIMETH 30 ML ORAL.SUSP PO PRN (10:45)
[2021-06-20] MEDS ORDERED: METHYL SALICYLATE/MENTHOL TOPICAL OINTMENT 57GM TUBE. TP PRN (10:45)
[2021-06-20 12:38] LABS: BASO # 0.1 x10^3/uL (0.0-0.2); BASO % 1 % (0-3); EOS # 0.6 x10^3/uL (0.0-0.7); EOS % 5 % (0-3); HEMATOCRIT 43.8 % (36.0-47.0); HEMOGLOBIN 14.6 g/dL (12.0-15.5); LYMPH % 24 % (24-48); MEAN CORPUSCULAR HEMOGLOBIN 30 pg (25-35); MEAN CORPUSCULAR HGB CONC 33 g/dL (31-37); MEAN CORPUSCULAR VOLUME 90 fL (79-100); MONO % 8 % (0-9); NEUT # 7.7 x10^3uL (1.8-7.7); NEUT % 63 % (31-73); PLATELET COUNT 351 x10^3/uL (140-400); RED BLOOD COUNT 4.84 x10^6/uL (3.50-5.40); RED CELL DISTRIBUTION WIDTH 13.7 % (11.5-14.5); WHITE BLOOD COUNT 12.3 x10^3/uL (4.0-11.0)
[2021-06-20 13:05] LABS: ALBUMIN 3.8 g/dL (3.4-5.0); ALBUMIN/GLOBULIN RATIO 0.7 (1.0-1.7); CALCIUM 9.6 mg/dL (8.5-10.1); CREATININE 1.2 mg/dL (0.6-1.0); GFR 42.5; POTASSIUM 4.6 mmol/L (3.5-5.1); TOTAL BILIRUBIN 0.4 mg/dL (0.2-1.0)
[2021-06-20] MEDS ORDERED: ONDANSETRON ODT 4 MG TAB.RAPDIS PO PRN (14:00)
--- NOTE | 2021-06-20 15:34 | NUR ---
SW left voice message for pt dtr/DPOA, Angie, that pt was transferred from medical floor to [facility]. RENAE reported that she has been demonstrating anxiety, concerned to pass people in the [place] for fear of being accused of hitting them, and needs constant reminders for things such as where is room is. RENAE also reported to Angie that it has been requested for pt to only call her in the evenings and only once a day. RENAE will continue to follow.
[2021-06-20 16:09] VITALS: BP 146/75
[2021-06-20] MEDS: MELATONIN 3 MG TABLET PO SCH (19:43)
[2021-06-20] MEDS: QUEtiapine 25 MG TABLET. PO SCH (19:43)
[2021-06-20] MEDS: ASCORBIC ACID 500 MG TABLET PO SCH (19:43)
[2021-06-20] MEDS: ALPRAZolam 0.5 MG TABLET PO PRN (19:43)
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
--- NOTE | 2021-06-20 21:36 | PDOC ---
Exam Note: Adryan Note: Please also refer to the separate dictated note~for this date of service dictated separately.~Patient seen individually. Discussed the patient with Nursing staff reviewed the chart.~Reviewed interim history and current functioning. Reviewed vital signs,~Labs/ Radiology~and current medications noted below. Continue current treatment with the changes noted in the dictated addendum note Assessment: Vital Signs/I&O: Vital Signs Date Time Temp Pulse Resp B/P (MAP) Pulse Ox O2 Delivery O2 Flow Rate FiO2 06/20/21 16:09 97.2 90 22 146/75 (98) 98 Labs: Laboratory Tests Test 06/20/21 12:17 White Blood Count 12.3 x10^3/uL (4.0-11.0) H Red Blood Count 4.84 x10^6/uL (3.50-5.40) Hemoglobin 14.6 g/dL (12.0-15.5) Hematocrit 43.8 % (36.0-47.0) Mean Corpuscular Volume 90 fL (79-100) Mean Corpuscular Hemoglobin 30 pg (25-35) Mean Corpuscular Hemoglobin Concent 33 g/dL (31-37) Red Cell Distribution Width 13.7 % (11.5-14.5) Platelet Count 351 x10^3/uL (140-400) Neutrophils (%) (Auto) 63 % (31-73) Lymphocytes (%) (Auto) 24 % (24-48) Monocytes (%) (Auto) 8 % (0-9) Eosinophils (%) (Auto) 5 % (0-3) H Basophils (%) (Auto) 1 % (0-3) Neutrophils # (Auto) 7.7 x10^3uL (1.8-7.7) Lymphocytes # (Auto) 3.0 x10^3/uL (1.0-4.8) Monocytes # (Auto) 1.0 x10^3/uL (0.0-1.1) Eosinophils # (Auto) 0.6 x10^3/uL (0.0-0.7) Basophils # (Auto) 0.1 x10^3/uL (0.0-0.2) Sodium Level 139 mmol/L (136-145) Potassium Level 4.6 mmol/L (3.5-5.1) Chloride Level 103 mmol/L (98-107) Carbon Dioxide Level 26 mmol/L (21-32) Anion Gap 10 (6-14) Blood Urea Nitrogen 36 mg/dL (7-20) H Creatinine 1.2 mg/dL (0.6-1.0) H Estimated GFR (Cockcroft-Gault) 42.5 BUN/Creatinine Ratio 30 (6-20) H Glucose Level 94 mg/dL (70-99) Calcium Level 9.6 mg/dL (8.5-10.1) Total Bilirubin 0.4 mg/dL (0.2-1.0) Aspartate Amino Transferase (AST) 26 U/L (15-37) Alanine Aminotransferase (ALT) 37 U/L (14-59) Alkaline Phosphatase 51 U/L (46-116) Total Protein 9.0 g/dL (6.4-8.2) H Albumin 3.8 g/dL (3.4-5.0) Albumin/Globulin Ratio 0.7 (1.0-1.7) L Current Medications: Meds: Laboratory Tests Test 06/20/21 12:17 White Blood Count 12.3 x10^3/uL Red Blood Count 4.84 x10^6/uL Hemoglobin 14.6 g/dL Hematocrit 43.8 % Mean Corpuscular Volume 90 fL Mean Corpuscular Hemoglobin 30 pg Mean Corpuscular Hemoglobin Concent 33 g/dL Red Cell Distribution Width 13.7 % Platelet Count 351 x10^3/uL Neutrophils (%) (Auto) 63 % Lymphocytes (%) (Auto) 24 % Monocytes (%) (Auto) 8 % Eosinophils (%) (Auto) 5 % Basophils (%) (Auto) 1 % Neutrophils # (Auto) 7.7 x10^3uL Lymphocytes # (Auto) 3.0 x10^3/uL Monocytes # (Auto) 1.0 x10^3/uL Eosinophils # (Auto) 0.6 x10^3/uL Basophils # (Auto) 0.1 x10^3/uL Sodium Level 139 mmol/L Potassium Level 4.6 mmol/L Chloride Level 103 mmol/L Carbon Dioxide Level 26 mmol/L Anion Gap 10 Blood Urea Nitrogen 36 mg/dL Creatinine 1.2 mg/dL Estimated GFR (Cockcroft-Gault) 42.5 BUN/Creatinine Ratio 30 Glucose Level 94 mg/dL Calcium Level 9.6 mg/dL Total Bilirubin 0.4 mg/dL Aspartate Amino Transf (AST/SGOT) 26 U/L Alanine Aminotransferase (ALT/SGPT) 37 U/L Alkaline Phosphatase 51 U/L Total Protein 9.0 g/dL Albumin 3.8 g/dL Albumin/Globulin Ratio 0.7 Current Medications Medications (Trade) Dose Ordered Sig/Jorje Route PRN Reason Start Time Stop Time Status Last Admin Dose Admin Acetaminophen (Tylenol) 325 mg PRN Q4HRS PRN PO MILD PAIN / TEMP > 100.3'F 06/20/21 10:30 Alprazolam (Xanax) 0.5 mg PRN Q6HRS PRN PO ANXIETY / AGITATION 06/20/21 10:30 06/20/21 19:43 Amlodipine Besylate (Norvasc) 5 mg DAILY PO 06/21/21 09:00 Anastrozole (Arimidex) 1 mg DAILY PO 06/21/21 09:00 Aspirin (Aspirin Chewable) 81 mg DAILY PO 06/21/21 09:00 Vitamin D (Vitamin D3) 1,000 unit DAILY PO 06/21/21 09:00 Ondansetron HCl (Zofran Odt) 4 mg PRN Q8HRS PRN PO NAUSEA/VOMITING 06/20/21 14:00 Quetiapine Fumarate (SEROquel) 25 mg HS PO 06/20/21 21:00 06/20/21 19:43 Quetiapine Fumarate (SEROquel) 25 mg PRN Q6HRS PRN PO ANXIETY / AGITATION 06/20/21 10:30 Tramadol HCl (Ultram) 50 mg PRN Q12HR PRN PO PAIN 06/20/21 10:30 Ascorbic Acid (Vitamin C) 500 mg BID PO 06/20/21 21:00 06/20/21 19:43 Citalopram Hydrobromide (CeleXA) 40 mg DAILY PO 06/21/21 09:00 06/20/21 18:31 DC Folic Acid (Folic Acid) 1 mg DAILY PO 06/21/21 09:00 Melatonin (Melatonin) 6 mg QHS PO 06/20/21 21:00 06/20/21 19:43 Multivit/ Folic Acid/Iron (Multivitamin ) 1 tab DAILY PO 06/21/21 09:00 Multi-Ingredient Ointment (Analgesic [place]) 1 georgi PRN QID PRN TP MUSCLE PAIN 06/20/21 10:45 Al Hydroxide/Mg Hydroxide (Mylanta Plus Xs) 15 ml PRN AFTMEALHC PRN PO DYSPEPSIA 06/20/21 10:45 Magnesium Hydroxide (Milk Of Magnesia) 2,400 mg PRN QHS PRN PO CONSTIPATION 06/20/21 10:45 Quetiapine Fumarate (SEROquel) 12.5 mg 0900,1700 PO 06/21/21 09:00 Sertraline HCl (Zoloft) 50 mg DAILY PO 06/21/21 09:00 06/23/21 11:00 Sertraline HCl (Zoloft) 75 mg DAILY PO 06/24/21 09:00 Current Medications Medications (Trade) Dose Ordered Sig/Jorje Route PRN Reason Start Time Stop Time Status Last Admin Dose Admin Alprazolam (Xanax) 0.5 mg PRN Q6HRS PRN PO ANXIETY / AGITATION 06/20/21 10:30 06/20/21 19:43 Quetiapine Fumarate (SEROquel) 25 mg HS PO 06/20/21 21:00 06/20/21 19:43 Ascorbic Acid (Vitamin C) 500 mg BID PO 06/20/21 21:00 06/20/21 19:43 Melatonin (Melatonin) 6 mg QHS PO 06/20/21 21:00 06/20/21 19:43 I have reviewed the current psychotropics carefully including drug interactions. Risk benefit ratio favors no change other than as noted in my dictated progress note. Diagnosis: Problems: (1) Major depress dis, severe (2) Mild cognitive impairment (3) Anxiety disorder, unspecified GABINO PAGE MD Jun 20, 2021 21:36
--- NOTE | 2021-06-20 23:46 | HP ---
DATE OF SERVICE: 06/20/2021 ADMIT DATE: 06/20/2021 PSYCHIATRIC ADMISSION HISTORY/EVALUATION This note covers the elements not covered in my initial note, 06/20/2021. IDENTIFYING DATA: The patient is an 86-year-old female who [facility] from [address] [place] [address] after completing quarantine for COVID-19 positive screening. The patient was initially admitted to us from [facility] on account of increased confusion, agitation with staff and family, throwing things, yelling, tearful at times, and family had reported suicidal ideation. She was increasingly confused, had failed outpatient psychiatric interventions resulting in this referral and admission by Dr. Katz during my vacation. The patient was being stabilized from a psychiatric standpoint and she returned COVID positive on screening and was transitioned for quarantine to [facility] surgical floor. She has completed this. Behaviors have persisted. She has been confused, anxious, restless, depressed, though she denies suicidal ideation. She is being readmitted for psychiatric stabilization. CHIEF COMPLAINT: "They picked me up and brought me here. No, I do not know what year it is, what place this is. They came to my home and when I told my son, I did not want to go, he laughed." HISTORY OF PRESENT ILLNESS: The patient has a history of worsening symptoms of depression, feeling hopeless, helpless, worthless, angry, irritable and anxious. She has also been progressively confused. She has had some sleep and appetite changes. No suicidal or homicidal ideation at this time, but past history of suicidal ideation at [facility]. No clear history of bipolar disorder. PAST PSYCHIATRIC HISTORY: As above. MEDICAL HISTORY: Breast cancer in remission, status post hepatitis, autoimmune. Multiple myeloma, neuropathy, vertigo. ACCU-CHEKS: None. ALLERGIES: SULFA, BIAXIN. DIET: Regular. Takes medications whole. Ambulates with a rolling walker. Ambulates without it. CURRENT PSYCHOTROPICS: Zoloft 50 mg a day was initiated for 3 days, increasing to 75 mg a day thereafter. I did make this change today. She is on Seroquel 25 mg at bedtime and p.r.n., Xanax 0.5 mg t.i.d., melatonin 5 mg at bedtime. FAMILY HISTORY: Noncontributory. SOCIAL HISTORY: No alcohol, drug abuse, physical, sexual, elder abuse history is noted. The patient is not known to be a perpetrator. She is . 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 REVIEW OF SYSTEMS: Hard of hearing. No CV, , pulmonary, eye system symptoms on review. I met with her at great length in her room, standing right by her talking extremely loudly since she is hard of hearing. MENTAL STATUS EXAM: Oriented, alert to herself. Insight, judgment, recent memory is impaired; remote is better. Language function intact. Attention span short. Mood and affect depressed, anxious, somewhat distractible. No active suicidal or homicidal ideation. LABORATORY DATA: Reviewed. IMPRESSION: Major depressive disorder, recurrent. Major neurocognitive disorder, Alzheimer, vascular with delusion, depression; anxiety disorder, unspecified; impulse control disorder, unspecified. Rest as above. PLAN: Admit to Ger[facility]iatry Unit at [facility]. I will see the patient daily individually from a psychiatric standpoint, medical followup, Dr. Estrada/Dr. Capps. Continue the patient on her current psychotropics, start the Zoloft 50 mg a day, increasing to 75 mg a day. Maintain rest of the psychotropics unchanged. ESTIMATED LENGTH OF STAY: 10-12 days. DISPOSITION PLANS: Back to long-term when stable. MARLYS DR: Guy TID: [id number]
[2021-06-21 05:57] LABS: BACTERIA,URINE FEW /HPF (0-FEW); CLARITY,URINE CLEAR; COLOR,URINE YELLOW; GLUCOSE,URINE NEG (NEG); NITRITE,URINE POS (NEG); RBC,URINE 0 /HPF (0-2); SQUAMOUS EPITHELIAL CELL,UR OCC /LPF; UROBILINOGEN,URINE 0.2 mg/dL (0.2 mg/dL); WBC,URINE 20-40 /HPF (0-4)
[2021-06-21 06:16] VITALS: BP 146/70
[2021-06-21] MEDS: ASCORBIC ACID 500 MG TABLET PO SCH ×2 (08:16→21:01)
[2021-06-21] MEDS: ASPIRIN CHEWABLE 81 MG TABLET. PO SCH (08:17)
[2021-06-21] MEDS: FOLIC ACID 1 MG TABLET PO SCH (08:17)
[2021-06-21] MEDS: CHOLECALCIFEROL (VITAMIN D3) 1,000 UNIT TABLET PO SCH (08:17)
[2021-06-21] MEDS: ANASTROZOLE 1 MG TABLET PO SCH (08:22)
[2021-06-21] MEDS: PRENATAL MULTIVITAMIN TABLET. PO SCH (08:24)
[2021-06-21] MEDS: amLODIPine BESYLATE 5 MG TABLET PO SCH (08:24)
[2021-06-21] MEDS: QUEtiapine 25 MG TABLET. PO SCH ×3 (08:25→21:01)
[2021-06-21] MEDS: SERTRALINE 50 MG TABLET. PO SCH (08:25)
[2021-06-21] MEDS ORDERED: CITALOPRAM 20 MG TABLET. PO SCH (09:00)
[2021-06-21] MEDS: ALPRAZolam 0.5 MG TABLET PO PRN (12:08)
[2021-06-21] MEDS: MAGNESIUM HYDROXIDE 2,400 MG/30 ML ORAL.SUSP. PO PRN (12:08)
[2021-06-21 15:44] VITALS: BP 122/68
[2021-06-21] MEDS: MELATONIN 3 MG TABLET PO SCH (21:01)
--- NOTE | 2021-06-21 21:25 | PDOC ---
Exam Note: Adryan Note: Please also refer to the separate dictated note~for this date of service dictated separately.~Patient seen individually. Discussed the patient with Nursing staff reviewed the chart.~Reviewed interim history and current functioning. Reviewed vital signs,~Labs/ Radiology~and current medications noted below. Continue current treatment with the changes noted in the dictated addendum note Assessment: Vital Signs/I&O: Vital Signs Date Time Temp Pulse Resp B/P (MAP) Pulse Ox O2 Delivery O2 Flow Rate FiO2 06/21/21 15:44 98.7 68 17 122/68 (86) 94 Room Air I & O 06/20/21 06/20/21 06/21/21 15:00 23:00 07:00 Intake Total 180 ml 440 ml Balance 180 ml 440 ml Labs: Laboratory Tests Test 06/21/21 05:30 Urine Collection Type Void Urine Color Yellow Urine Clarity Clear Urine pH 6.0 Urine Specific Vest 1.020 Urine Protein Neg (NEG-TRACE) Urine Glucose (UA) Neg mg/dL (NEG) Urine Ketones (Stick) Neg mg/dL (NEG) Urine Blood Neg (NEG) Urine Nitrite Pos (NEG) Urine Bilirubin Neg (NEG) Urine Urobilinogen Dipstick 0.2 mg/dL (0.2 mg/dL) Urine Leukocyte Esterase Small (NEG) Urine RBC 0 /HPF (0-2) Urine WBC 20-40 /HPF (0-4) Urine Squamous Epithelial Cells Occ /LPF Urine Bacteria Few /HPF (0-FEW) Current Medications: Meds: Laboratory Tests Test 06/21/21 05:30 Urine Collection Type Void Urine Color Yellow Urine Clarity Clear Urine pH 6.0 Urine Specific Vest 1.020 Urine Protein Neg Urine Glucose (UA) Neg mg/dL Urine Ketones (Stick) Neg mg/dL Urine Blood Neg Urine Nitrite Pos Urine Bilirubin Neg Urine Urobilinogen Dipstick 0.2 mg/dL Urine Leukocyte Esterase Small Urine RBC 0 /HPF Urine WBC 20-40 /HPF Urine Squamous Epithelial Cells Occ /LPF Urine Bacteria Few /HPF Current Medications Medications (Trade) Dose Ordered Sig/Jorje Route PRN Reason Start Time Stop Time Status Last Admin Dose Admin Acetaminophen (Tylenol) 325 mg PRN Q4HRS PRN PO MILD PAIN / TEMP > 100.3'F 06/20/21 10:30 Alprazolam (Xanax) 0.5 mg PRN Q6HRS PRN PO ANXIETY / AGITATION 06/20/21 10:30 06/21/21 12:08 Amlodipine Besylate (Norvasc) 5 mg DAILY PO 06/21/21 09:00 06/21/21 08:24 Anastrozole (Arimidex) 1 mg DAILY PO 06/21/21 09:00 06/21/21 08:22 Aspirin (Aspirin Chewable) 81 mg DAILY PO 06/21/21 09:00 06/21/21 08:17 Vitamin D (Vitamin D3) 1,000 unit DAILY PO 06/21/21 09:00 06/21/21 08:17 Ondansetron HCl (Zofran Odt) 4 mg PRN Q8HRS PRN PO NAUSEA/VOMITING 06/20/21 14:00 Quetiapine Fumarate (SEROquel) 25 mg HS PO 06/20/21 21:00 06/21/21 21:01 Quetiapine Fumarate (SEROquel) 25 mg PRN Q6HRS PRN PO ANXIETY / AGITATION 06/20/21 10:30 Tramadol HCl (Ultram) 50 mg PRN Q12HR PRN PO PAIN 06/20/21 10:30 Ascorbic Acid (Vitamin C) 500 mg BID PO 06/20/21 21:00 06/21/21 21:01 Citalopram Hydrobromide (CeleXA) 40 mg DAILY PO 06/21/21 09:00 06/20/21 18:31 DC Folic Acid (Folic Acid) 1 mg DAILY PO 06/21/21 09:00 06/21/21 08:17 Melatonin (Melatonin) 6 mg QHS PO 06/20/21 21:00 06/21/21 21:01 Multivit/ Folic Acid/Iron (Multivitamin ) 1 tab DAILY PO 06/21/21 09:00 06/21/21 08:24 Multi-Ingredient Ointment (Analgesic [place]) 1 georgi PRN QID PRN TP MUSCLE PAIN 06/20/21 10:45 Al Hydroxide/Mg Hydroxide (Mylanta Plus Xs) 15 ml PRN AFTMEALHC PRN PO DYSPEPSIA 06/20/21 10:45 Magnesium Hydroxide (Milk Of Magnesia) 2,400 mg PRN QHS PRN PO CONSTIPATION 06/20/21 10:45 06/21/21 12:08 Quetiapine Fumarate (SEROquel) 12.5 mg 0900,1700 PO 06/21/21 09:00 06/21/21 16:59 Sertraline HCl (Zoloft) 50 mg DAILY PO 06/21/21 09:00 06/23/21 11:00 06/21/21 08:25 Sertraline HCl (Zoloft) 75 mg DAILY PO 06/24/21 09:00 Dronabinol (Marinol) 2.5 mg BIDACLD PO 06/22/21 11:30 Current Medications Medications (Trade) Dose Ordered Sig/Jorje Route PRN Reason Start Time Stop Time Status Last Admin Dose Admin Amlodipine Besylate (Norvasc) 5 mg DAILY PO 06/21/21 09:00 06/21/21 08:24 Anastrozole (Arimidex) 1 mg DAILY PO 06/21/21 09:00 06/21/21 08:22 Aspirin (Aspirin Chewable) 81 mg DAILY PO 06/21/21 09:00 06/21/21 08:17 Vitamin D (Vitamin D3) 1,000 unit DAILY PO 06/21/21 09:00 06/21/21 08:17 Folic Acid (Folic Acid) 1 mg DAILY PO 06/21/21 09:00 06/21/21 08:17 Multivit/ Folic Acid/Iron (Multivitamin ) 1 tab DAILY PO 06/21/21 09:00 06/21/21 08:24 Quetiapine Fumarate (SEROquel) 12.5 mg 0900,1700 PO 06/21/21 09:00 06/21/21 16:59 Sertraline HCl (Zoloft) 50 mg DAILY PO 06/21/21 09:00 06/23/21 11:00 06/21/21 08:25 I have reviewed the current psychotropics carefully including drug interactions. Risk benefit ratio favors no change other than as noted in my dictated progress note. Diagnosis: Problems: (1) Major neurocognitive disorder (2) Dementia in Alzheimer's disease with delusions (3) Dementia in Alzheimer's disease with depression (4) Dementia, vascular, with delusions (5) Dementia, vascular, with depression (6) Impulse control disorder, unspecified (7) Major depressive disorder, recurrent episode (8) Anxiety disorder, unspecified GABINO PAGE MD Jun 21, 2021 21:25
--- NOTE | 2021-06-22 03:54 | NUR ---
Nursing Note The patient was disorganized and anxious this shift. the patient took her medication whole. The patient was very preoccupied with being safe and calling her daughter. The patient continued to be anxious and restless after HS and was given PRN Seroquel per PRN order. The patient slept for some time after PRN Seroquel. The patient is currently sleeping in her room.
[2021-06-22 06:02] VITALS: BP 114/70
[2021-06-22] MEDS: ASCORBIC ACID 500 MG TABLET PO SCH ×2 (08:27→20:08)
[2021-06-22] MEDS: CHOLECALCIFEROL (VITAMIN D3) 1,000 UNIT TABLET PO SCH (08:27)
[2021-06-22] MEDS: PRENATAL MULTIVITAMIN TABLET. PO SCH (08:27)
[2021-06-22] MEDS: FOLIC ACID 1 MG TABLET PO SCH (08:27)
[2021-06-22] MEDS: SERTRALINE 50 MG TABLET. PO SCH (08:28)
[2021-06-22] MEDS: amLODIPine BESYLATE 5 MG TABLET PO SCH (08:28)
[2021-06-22] MEDS: QUEtiapine 25 MG TABLET. PO SCH ×5 (08:28→20:08)
[2021-06-22] MEDS: ASPIRIN CHEWABLE 81 MG TABLET. PO SCH (08:28)
[2021-06-22] MEDS: ANASTROZOLE 1 MG TABLET PO SCH (08:31)
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
[2021-06-22] MEDS: DRONABINOL 2.5 MG CAPSULE PO SCH ×2 (12:11→16:08)
--- NOTE | 2021-06-22 12:32 | NUR ---
Nursing note: Pt in her room at time of AM med pass and assessment. Pt is very anxious but compliant with meds whole and cooperative with her assessment. Pt is attention seeking, continuously knocking on nurses station window and keeps you in her room as she talks in circles. Pt wants someone to converse with, but is also hard of hearing so unable to fully participate in conversations and gets frustrated when she is unable to hear. Pt is currently in the dining room for lunch. Will continue to monitor.
--- NOTE | 2021-06-22 12:37 | NUR ---
WEEKLY ACTIVITY THERAPY NOTE Date of Admission: 06/20/21 Date of AT Assessment: TBD Precipitating behaviors that initiated intake and admission: Labile mood, sad, crying, thinks she is going to , fearful of someone hurting her, paranoid, anxious. Goal aimed: TBD Initial Goal: TBD Weekly progress towards goal: NA Group participation level: NA Weekly highlights: arrived on [facility] Behaviors observed: anxious and hard to redirect Plan: meet/ assess pt Beneficial adaptations:
[2021-06-22 15:43] VITALS: BP 133/66
[2021-06-22] MEDS: MELATONIN 3 MG TABLET PO SCH (20:08)
--- NOTE | 2021-06-22 21:50 | PDOC ---
Exam Note: Adryan Note: Please also refer to the separate dictated note~for this date of service dictated separately.~Patient seen individually. Discussed the patient with Nursing staff reviewed the chart.~Reviewed interim history and current functioning. Reviewed vital signs,~Labs/ Radiology~and current medications noted below. Continue current treatment with the changes noted in the dictated addendum note Assessment: Vital Signs/I&O: Vital Signs Date Time Temp Pulse Resp B/P (MAP) Pulse Ox O2 Delivery O2 Flow Rate FiO2 06/22/21 15:43 98.2 90 20 133/66 (88) 98 06/21/21 15:44 Room Air I & O 06/21/21 06/21/21 06/22/21 15:00 23:00 07:00 Intake Total 420 ml 620 ml Balance 420 ml 620 ml Current Medications: Meds: Current Medications Medications (Trade) Dose Ordered Sig/Jorje Route PRN Reason Start Time Stop Time Status Last Admin Dose Admin Acetaminophen (Tylenol) 325 mg PRN Q4HRS PRN PO MILD PAIN / TEMP > 100.3'F 06/20/21 10:30 Alprazolam (Xanax) 0.5 mg PRN Q6HRS PRN PO 1ST CHOICE ANXIETY / AGITATION 06/20/21 10:30 06/21/21 12:08 Amlodipine Besylate (Norvasc) 5 mg DAILY PO 06/21/21 09:00 06/22/21 08:28 Anastrozole (Arimidex) 1 mg DAILY PO 06/21/21 09:00 06/22/21 08:31 Aspirin (Aspirin Chewable) 81 mg DAILY PO 06/21/21 09:00 06/22/21 08:28 Vitamin D (Vitamin D3) 1,000 unit DAILY PO 06/21/21 09:00 06/22/21 08:27 Ondansetron HCl (Zofran Odt) 4 mg PRN Q8HRS PRN PO NAUSEA/VOMITING 06/20/21 14:00 Quetiapine Fumarate (SEROquel) 25 mg HS PO 06/20/21 21:00 06/22/21 20:08 Quetiapine Fumarate (SEROquel) 25 mg PRN Q6HRS PRN PO 2ND CHOICE ANXIETY / AGITATION 06/20/21 10:30 06/21/21 21:45 Tramadol HCl (Ultram) 50 mg PRN Q12HR PRN PO MOD-SEV PAIN 06/20/21 10:30 Ascorbic Acid (Vitamin C) 500 mg BID PO 06/20/21 21:00 06/22/21 20:08 Citalopram Hydrobromide (CeleXA) 40 mg DAILY PO 06/21/21 09:00 06/20/21 18:31 DC Folic Acid (Folic Acid) 1 mg DAILY PO 06/21/21 09:00 06/22/21 08:27 Melatonin (Melatonin) 6 mg QHS PO 06/20/21 21:00 06/22/21 20:08 Multivit/ Folic Acid/Iron (Multivitamin ) 1 tab DAILY PO 06/21/21 09:00 06/22/21 08:27 Multi-Ingredient Ointment (Analgesic [place]) 1 georgi PRN QID PRN TP MUSCLE PAIN 06/20/21 10:45 Al Hydroxide/Mg Hydroxide (Mylanta Plus Xs) 15 ml PRN AFTMEALHC PRN PO DYSPEPSIA 06/20/21 10:45 Magnesium Hydroxide (Milk Of Magnesia) 2,400 mg PRN QHS PRN PO CONSTIPATION 06/20/21 10:45 06/21/21 12:08 Quetiapine Fumarate (SEROquel) 12.5 mg 0900,1700 PO 06/21/21 09:00 06/22/21 11:53 DC 06/22/21 08:28 Sertraline HCl (Zoloft) 50 mg DAILY PO 06/21/21 09:00 06/23/21 11:00 06/22/21 08:28 Sertraline HCl (Zoloft) 75 mg DAILY PO 06/24/21 09:00 Dronabinol (Marinol) 2.5 mg BIDACLD PO 06/22/21 11:30 06/22/21 16:08 Quetiapine Fumarate (SEROquel) 12.5 mg 0900,1200,1500,1800 PO 06/22/21 12:00 06/22/21 17:19 Current Medications Medications (Trade) Dose Ordered Sig/Jorje Route PRN Reason Start Time Stop Time Status Last Admin Dose Admin Dronabinol (Marinol) 2.5 mg BIDACLD PO 06/22/21 11:30 2/10/22 16:08 Quetiapine Fumarate (SEROquel) 12.5 mg 0900,1200,1500,1800 PO 06/22/21 12:00 06/22/21 17:19 I have reviewed the current psychotropics carefully including drug interactions. Risk benefit ratio favors no change other than as noted in my dictated progress note. Diagnosis: Problems: (1) Anxiety disorder, unspecified (2) Major depress dis, severe (3) Major depressive disorder, recurrent episode (4) Impulse control disorder, unspecified (5) Dementia, vascular, with depression (6) Dementia, vascular, with delusions (7) Dementia in Alzheimer's disease with depression (8) Dementia in Alzheimer's disease with delusions (9) Major neurocognitive disorder GABINO PAGE MD Jun 22, 2021 21:50
--- NOTE | 2021-06-23 01:52 | NUR ---
Nursing Note The patient was less agitated this shift and was pleasant during interactions. The patient took her medication whole. The patient is currently sleeping in her room.
[2021-06-23 05:52] VITALS: BP 134/72
[2021-06-23 06:38] LABS: HEMATOCRIT 38.8 % (36.0-47.0); HEMOGLOBIN 13.1 g/dL (12.0-15.5); RED BLOOD COUNT 4.32 x10^6/uL (3.50-5.40); RED CELL DISTRIBUTION WIDTH 13.4 % (11.5-14.5); WHITE BLOOD COUNT 6.8 x10^3/uL (4.0-11.0)
[2021-06-23 06:53] LABS: ALBUMIN 3.2 g/dL (3.4-5.0); ALBUMIN/GLOBULIN RATIO 0.8 (1.0-1.7); CREATININE 0.9 mg/dL (0.6-1.0); GFR 59.2; POTASSIUM 3.9 mmol/L (3.5-5.1); TOTAL BILIRUBIN 0.5 mg/dL (0.2-1.0); TOTAL PROTEIN 7.3 g/dL (6.4-8.2)
[2021-06-23] MEDS: CHOLECALCIFEROL (VITAMIN D3) 1,000 UNIT TABLET PO SCH (08:23)
[2021-06-23] MEDS: ASCORBIC ACID 500 MG TABLET PO SCH ×2 (08:24→20:10)
[2021-06-23] MEDS: SERTRALINE 50 MG TABLET. PO SCH (08:24)
[2021-06-23] MEDS: ASPIRIN CHEWABLE 81 MG TABLET. PO SCH (08:24)
[2021-06-23] MEDS: PRENATAL MULTIVITAMIN TABLET. PO SCH (08:24)
[2021-06-23] MEDS: MAGNESIUM HYDROXIDE 2,400 MG/30 ML ORAL.SUSP. PO PRN (08:24)
[2021-06-23] MEDS: FOLIC ACID 1 MG TABLET PO SCH (08:24)
[2021-06-23] MEDS: QUEtiapine 25 MG TABLET. PO SCH ×5 (08:24→20:10)
[2021-06-23] MEDS: amLODIPine BESYLATE 5 MG TABLET PO SCH (08:24)
[2021-06-23] MEDS: ANASTROZOLE 1 MG TABLET PO SCH (08:30)
--- NOTE | 2021-06-23 10:19 | NUR ---
PSYCHOSOCIAL ASSESSMENT ADMISSION DATE: 06/09/21 CONTACT INFORMATION: DPOA/Guardian Contact Name: Primary-Angie Owusu [phone]; Secondary-Breezy Teran [phone] Contact Address: [address] [address] Contact Phone #: JESICA Interiano at [facility] [phone] ([phone] ETHNIC ORIGIN: REASONS FOR ADMISSION: Agitated Angry Anxiety/Panic Combative Confusion/Disoriented Delusions Depressed Sig. Change Sleep Suicidal ideation Suspicious/paranoid ADDITIONAL ADMISSION COMMENTS: Per intake record, pt has increased confusion, agitation at staff and family, throwing things, yelling, tearful at times, family reports thoughts of SI for years. REASON FOR ADMISSION IN PATIENT/FAMILY'S OWN WORDS: Pt has always demonstrated negativity especially around her own family. She seemed to not show this behavior near as much around people outside of the family unit. Family feels that she has been the singh of manipulation. She would sometimes create divisions between her daughter (Angie) and son (Breezy), creating some animosity that now looking back into their childhood, they can see that, but get along very well now. Angie and Breezy describe her as not really ever being a happy person; "she did not like things simple." PATIENT/FAMILY EXPECTATIONS FOR ADMISSION: Improved mood, decreased agitation and anger, decrease depressive symptoms, help with sleep, monitor to see if [facility] notices any hallucinations as she mentioned to her facility staff that she saw a man in her room and there was no man there. LIVING SITUATION: Patient lives with: Assisted Living Other living arrangements: [facility] Contact Name: Laisha Contact Address: [address] [address] Contact Phone #: [phone] Contact Fax #: [phone] FAMILY RELATIONS: Marital Status: # of Marriages: 1 # of Children: 2 [facility] Family Support: Concerned Cooperative Involved in DC Planning Additional Comments r/t Family: Pt has been only one time. Her in 2019 as she had tried to care for him at home. Pt has two children that are both involved in their mothers care; Primary Angie CALI, and Secondary DPOA, Breezy. Pt did have a miscarriage between the of Breezy and Angie. Breezy has two children and Angie has one child. Reportedly pt got along with Breezy's son who in 2010; she never got over that . Pt also got along with Angie's child, but for reasons unknown, pt never really got along with Breezy's daughter. Family suspect that it is just part of patient's personality and how she tries to divide family members. SIGNIFICANT PSYCHIATRIC/MEDICAL HISTORY: Psychiatric/Treatment History: Pt has never had any outpatient or inpatient treatment history. She was friends with a doctor who at one time had prescribed her Valium and she would also drink when taking the Valium. "She was a closet drinker and began having liver issues." The last drink she had would have been three to four years ago. Pertinent Family History: Both of her parents were alcoholics along with her sister and brother, who are now . HISTORICAL DATA: Childhood Environment: Childhood Environment Additional Comments: Pt was raised by both parents. Mother, Rhianna, was a homemaker and described to be a "Nervous Elizabeth". Pt's father, Kofi, worked for the [employer]. Both of her parents were alcoholics. Pt was the middle child. Her older sister was Lisa and younger brother was Kevin. Pt's siblings were also alcoholics, but described as functioning alcoholics as they were able to hold down jobs. "They were happy alcoholics." Pt's children, Angie and Breezy reported that they had been told by pt's sister, Lisa, at one time that pt was difficult to control as a child as she would make threats to run off, but ended up never going anywhere that they couldn't have found her. Trauma History: None Is Trauma: Additional Comments: None Drug Abuse History last 12 months: No Past Use Comment: History of Etoh abuse with liver issues; parents and siblings struggled with ETOH abuse. See psychiatric history and childhood history. 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 Finley Counselor/Therapist: None Veterans[facility] Administration: None Support Group: None Features Editor/Pharmacy Analyst: Laisha RN at [facility] (C)[phone] ([phone] Other relationships: Family STRENGTHS & WEAKNESSES: Patient's strengths: Good family support Good verbal skills Stable living arrange Education level Ambulatory Approachable Other patient strengths: Patient's weaknesses: Health problems Physically Aggressive Verbally Aggressive Other patient weaknesses: PRELIMINARY PLAN OF TREATMENT: Preliminary plan: Dec. Anxiety/Panic Dec. Hallucination/Delus Dec. Symp. Depression Promote Coping Skill No Suicidal/Leo. ideation Medication Stabilization Monitor Med Effects Control abnormal behavior Prevent Deterioration Dec. Aggression Other preliminary treatment comments: While at [facility], pt will be encouraged to attend SW group and recreational therapy groups. She will report any known delusions or recognizable hallucinations to medical staff. She will articulate feelings of depression or anxiety. DISCHARGE PLANNING: Discharge planning/disposition: Current Living Arrange. Additional discharge needs identified: None at this time. ADDITIONAL INFORMATION: Other Pertinent Data: Information was obtained through visiting with pt Daughter (Angie), primary DPOA, and Son (Breezy), secondary DPOA. They are aware of pt admission to [facility] and is available for further information if needed. Angie will be the primary point of contact during pt admission. Angie will relay information to Breezy. Should and emergency arise where Angie wasn't available, Breezy should be called.
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
--- NOTE | 2021-06-23 11:21 | NUR ---
Nursing note: Pt in dining room at time of AM med pass and assessment. Pt is very anxious but compliant with meds whole and cooperative with her assessment. Pt is attention seeking, continuously knocking on nurses station window asking the same questions that have been answered numerous times. Pt wants someone to converse with, but is also hard of hearing so unable to fully participate in conversations and gets frustrated when she is unable to hear. Pt c/o difficulty having a BM. PRN MOM provided. She is currently resting quietly in her room. Will continue to monitor.
[2021-06-23] MEDS: DRONABINOL 2.5 MG CAPSULE PO SCH ×2 (11:35→15:58)
--- NOTE | 2021-06-23 12:33 | NUR ---
SW contact pt daughter/DPOA, Angie, to provide update. SW had to leave message. SW will reach out early next week to follow up.
[2021-06-23 15:59] VITALS: BP 111/69
[2021-06-23] MEDS: MELATONIN 3 MG TABLET PO SCH (20:10)
--- NOTE | 2021-06-23 20:54 | PDOC ---
Exam Note: Adryan Note: Please also refer to the separate dictated note~for this date of service dictated separately.~Patient seen individually. Discussed the patient with Nursing staff reviewed the chart.~Reviewed interim history and current functioning. Reviewed vital signs,~Labs/ Radiology~and current medications noted below. Continue current treatment with the changes noted in the dictated addendum note Assessment: Vital Signs/I&O: Vital Signs Date Time Temp Pulse Resp B/P (MAP) Pulse Ox O2 Delivery O2 Flow Rate FiO2 06/23/21 15:59 97.9 98 19 111/69 (83) 96 Room Air I & O 06/22/21 06/22/21 06/23/21 15:00 23:00 07:00 Intake Total 577 ml 120 ml Balance 577 ml 120 ml Labs: Laboratory Tests Test 06/23/21 06:22 White Blood Count 6.8 x10^3/uL (4.0-11.0) Red Blood Count 4.32 x10^6/uL (3.50-5.40) Hemoglobin 13.1 g/dL (12.0-15.5) Hematocrit 38.8 % (36.0-47.0) Mean Corpuscular Volume 90 fL (79-100) Mean Corpuscular Hemoglobin 30 pg (25-35) Mean Corpuscular Hemoglobin Concent 34 g/dL (31-37) Red Cell Distribution Width 13.4 % (11.5-14.5) Platelet Count 263 x10^3/uL (140-400) Sodium Level 144 mmol/L (136-145) Potassium Level 3.9 mmol/L (3.5-5.1) Chloride Level 107 mmol/L (98-107) Carbon Dioxide Level 27 mmol/L (21-32) Anion Gap 10 (6-14) Blood Urea Nitrogen 25 mg/dL (7-20) H Creatinine 0.9 mg/dL (0.6-1.0) Estimated GFR (Cockcroft-Gault) 59.2 BUN/Creatinine Ratio 28 (6-20) H Glucose Level 92 mg/dL (70-99) Calcium Level 9.0 mg/dL (8.5-10.1) Total Bilirubin 0.5 mg/dL (0.2-1.0) Aspartate Amino Transferase (AST) 22 U/L (15-37) Alanine Aminotransferase (ALT) 36 U/L (14-59) Alkaline Phosphatase 46 U/L (46-116) Total Protein 7.3 g/dL (6.4-8.2) Albumin 3.2 g/dL (3.4-5.0) L Albumin/Globulin Ratio 0.8 (1.0-1.7) L Current Medications: Meds: Laboratory Tests Test 06/23/21 06:22 White Blood Count 6.8 x10^3/uL Red Blood Count 4.32 x10^6/uL Hemoglobin 13.1 g/dL Hematocrit 38.8 % Mean Corpuscular Volume 90 fL Mean Corpuscular Hemoglobin 30 pg Mean Corpuscular Hemoglobin Concent 34 g/dL Red Cell Distribution Width 13.4 % Platelet Count 263 x10^3/uL Sodium Level 144 mmol/L Potassium Level 3.9 mmol/L Chloride Level 107 mmol/L Carbon Dioxide Level 27 mmol/L Anion Gap 10 Blood Urea Nitrogen 25 mg/dL Creatinine 0.9 mg/dL Estimated GFR (Cockcroft-Gault) 59.2 BUN/Creatinine Ratio 28 Glucose Level 92 mg/dL Calcium Level 9.0 mg/dL Total Bilirubin 0.5 mg/dL Aspartate Amino Transf (AST/SGOT) 22 U/L Alanine Aminotransferase (ALT/SGPT) 36 U/L Alkaline Phosphatase 46 U/L Total Protein 7.3 g/dL Albumin 3.2 g/dL Albumin/Globulin Ratio 0.8 Current Medications Medications (Trade) Dose Ordered Sig/Jorje Route PRN Reason Start Time Stop Time Status Last Admin Dose Admin Acetaminophen (Tylenol) 325 mg PRN Q4HRS PRN PO MILD PAIN / TEMP > 100.3'F 06/20/21 10:30 Alprazolam (Xanax) 0.5 mg PRN Q6HRS PRN PO 1ST CHOICE ANXIETY / AGITATION 06/20/21 10:30 06/21/21 12:08 Amlodipine Besylate (Norvasc) 5 mg DAILY PO 06/21/21 09:00 06/23/21 08:24 Anastrozole (Arimidex) 1 mg DAILY PO 06/21/21 09:00 06/23/21 08:30 Aspirin (Aspirin Chewable) 81 mg DAILY PO 06/21/21 09:00 06/23/21 08:24 Vitamin D (Vitamin D3) 1,000 unit DAILY PO 2/9/22 09:00 06/23/21 08:23 Ondansetron HCl (Zofran Odt) 4 mg PRN Q8HRS PRN PO NAUSEA/VOMITING 06/20/21 14:00 Quetiapine Fumarate (SEROquel) 25 mg HS PO 06/20/21 21:00 06/23/21 20:10 Quetiapine Fumarate (SEROquel) 25 mg PRN Q6HRS PRN PO 2ND CHOICE ANXIETY / AGITATION 06/20/21 10:30 06/21/21 21:45 Tramadol HCl (Ultram) 50 mg PRN Q12HR PRN PO MOD-SEV PAIN 06/20/21 10:30 Ascorbic Acid (Vitamin C) 500 mg BID PO 06/20/21 21:00 06/23/21 20:10 Citalopram Hydrobromide (CeleXA) 40 mg DAILY PO 06/21/21 09:00 06/20/21 18:31 DC Folic Acid (Folic Acid) 1 mg DAILY PO 06/21/21 09:00 06/23/21 08:24 Melatonin (Melatonin) 6 mg QHS PO 06/20/21 21:00 06/23/21 20:10 Multivit/ Folic Acid/Iron (Multivitamin ) 1 tab DAILY PO 06/21/21 09:00 06/23/21 08:24 Multi-Ingredient Ointment (Analgesic [place]) 1 georgi PRN QID PRN TP MUSCLE PAIN 06/20/21 10:45 Al Hydroxide/Mg Hydroxide (Mylanta Plus Xs) 15 ml PRN AFTMEALHC PRN PO DYSPEPSIA 06/20/21 10:45 Magnesium Hydroxide (Milk Of Magnesia) 2,400 mg PRN QHS PRN PO CONSTIPATION 06/20/21 10:45 06/23/21 08:24 Quetiapine Fumarate (SEROquel) 12.5 mg 0900,1700 PO 06/21/21 09:00 06/22/21 11:53 DC 06/22/21 08:28 Sertraline HCl (Zoloft) 50 mg DAILY PO 06/21/21 09:00 06/23/21 11:00 DC 06/23/21 08:24 Sertraline HCl (Zoloft) 75 mg DAILY PO 06/24/21 09:00 06/26/21 21:00 Dronabinol (Marinol) 2.5 mg BIDACLD PO 06/22/21 11:30 06/23/21 15:58 Quetiapine Fumarate (SEROquel) 12.5 mg 0900,1200,1500,1800 PO 06/22/21 12:00 06/24/21 21:00 06/23/21 18:00 Sertraline HCl (Zoloft) 100 mg DAILY PO 06/27/21 09:00 Quetiapine Fumarate (SEROquel) 25 mg 0900,1500 PO 06/25/21 09:00 Quetiapine Fumarate (SEROquel) 12.5 mg 1200,1800 PO 06/25/21 12:00 I have reviewed the current psychotropics carefully including drug interactions. Risk benefit ratio favors no change other than as noted in my dictated progress note. 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
[2021-06-24 06:22] VITALS: BP 110/53
[2021-06-24] MEDS: CHOLECALCIFEROL (VITAMIN D3) 1,000 UNIT TABLET PO SCH (08:09)
[2021-06-24] MEDS: ASCORBIC ACID 500 MG TABLET PO SCH ×2 (08:09→18:09)
[2021-06-24] MEDS: FOLIC ACID 1 MG TABLET PO SCH (08:09)
[2021-06-24] MEDS: PRENATAL MULTIVITAMIN TABLET. PO SCH (08:10)
[2021-06-24] MEDS: ASPIRIN CHEWABLE 81 MG TABLET. PO SCH (08:10)
[2021-06-24] MEDS: amLODIPine BESYLATE 5 MG TABLET PO SCH (08:10)
[2021-06-24] MEDS: QUEtiapine 25 MG TABLET. PO SCH ×5 (08:10→18:09)
[2021-06-24] MEDS: SERTRALINE 25 MG TABLET. PO SCH (08:10)
[2021-06-24] MEDS: ANASTROZOLE 1 MG TABLET PO SCH (08:11)
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
--- NOTE | 2021-06-24 08:41 | PDOC ---
Exam Note: Adryan Note: This note is a late entry for 06/23/2021 covers elements not covered in my initial note. Subjective: The patient was seen individually on 06/23/2021, discussed and reviewed the chart with Parul MOONEY. She slept 9-1/2 hours previous night. I met with the patient in her room. She remains somewhat anxious, attention seeking, little better last evening per nursing report with respect to anxiety. Review of Systems: She is hard of hearing. No CV, , pulmonary, eye, ENT system symptoms on review. Mental Status Exam: The patient is oriented to herself and situation. Speech has some latency, rapid. Abstraction fair. Computation impaired. Language function intact. Mood and affect remains anxious, labile, distractible. Laboratory Data: Reviewed. Impression: Major depressive disorder, severe. Major neurocognitive disorder, Alzheimer vascular with delusion, depression. Anxiety disorder unspecified. Impulse control disorder unspecified. Plan: The patient is currently on Seroquel 12.5 mg 4 times a day, 25 mg h.s. After she has been on the daytime dosage 4 times a day for 3 days, we will increase the 1st and 3rd dosage to 25 mg. Increase Zoloft to 100 mg a day after being on 75 mg for 3 days. Continue rest unchanged including melatonin, Xanax. Adjust further as clinically indicated. Assessment: Vital Signs/I&O: Vital Signs Date Time Temp Pulse Resp B/P (MAP) Pulse Ox O2 Delivery O2 Flow Rate FiO2 06/24/21 08:10 77 110/53 06/24/21 06:22 97.2 18 96 06/23/21 15:59 Room Air I & O 06/23/21 06/23/21 06/24/21 15:00 23:00 07:00 Intake Total 300 ml 320 ml Balance 300 ml 320 ml Current Medications: Meds: Current Medications Medications (Trade) Dose Ordered Sig/Jorje Route PRN Reason Start Time Stop Time Status Last Admin Dose Admin Sertraline HCl (Zoloft) 75 mg DAILY PO 06/24/21 09:00 06/26/21 21:00 06/24/21 08:10 I have reviewed the current psychotropics carefully including drug interactions. Risk benefit ratio favors no change other than as noted in my dictated progress note. 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
--- NOTE | 2021-06-24 10:58 | NUR ---
Nursing note: Pt in dining room at time of AM med pass and assessment. She is very anxious and attention seeking, continuously asking if she's going to and if the meds are going to keep her alive. She is compliant with her meds whole and cooperative with assessment. Pt is encouraged to look at her reminders taped to her walker and to read her Bible. She is currently sitting quietly in the ardon. Will continue to monitor.
[2021-06-24] MEDS: DRONABINOL 2.5 MG CAPSULE PO SCH ×2 (11:48→15:51)
[2021-06-24 15:41] VITALS: BP 124/64
[2021-06-24] MEDS: MELATONIN 3 MG TABLET PO SCH (18:09)
--- NOTE | 2021-06-24 22:11 | PDOC ---
Exam Note: Adryan Note: Please also refer to the separate dictated note~for this date of service dictated separately.~Patient seen individually. Discussed the patient with Nursing staff reviewed the chart.~Reviewed interim history and current functioning. Reviewed vital signs,~Labs/ Radiology~and current medications noted below. Continue current treatment with the changes noted in the dictated addendum note Assessment: Vital Signs/I&O: Vital Signs Date Time Temp Pulse Resp B/P (MAP) Pulse Ox O2 Delivery O2 Flow Rate FiO2 06/24/21 15:41 98.8 85 17 124/64 (84) 97 Room Air I & O 06/23/21 06/23/21 06/24/21 15:00 23:00 07:00 Intake Total 300 ml 320 ml Balance 300 ml 320 ml Current Medications: Meds: Current Medications Medications (Trade) Dose Ordered Sig/Jorje Route PRN Reason Start Time Stop Time Status Last Admin Dose Admin Acetaminophen (Tylenol) 325 mg PRN Q4HRS PRN PO MILD PAIN / TEMP > 100.3'F 06/20/21 10:30 Alprazolam (Xanax) 0.5 mg PRN Q6HRS PRN PO 1ST CHOICE ANXIETY / AGITATION 06/20/21 10:30 06/21/21 12:08 Amlodipine Besylate (Norvasc) 5 mg DAILY PO 06/21/21 09:00 06/24/21 08:10 Anastrozole (Arimidex) 1 mg DAILY PO 06/21/21 09:00 06/24/21 08:11 Aspirin (Aspirin Chewable) 81 mg DAILY PO 06/21/21 09:00 06/24/21 08:10 Vitamin D (Vitamin D3) 1,000 unit DAILY PO 06/21/21 09:00 06/24/21 08:09 Ondansetron HCl (Zofran Odt) 4 mg PRN Q8HRS PRN PO NAUSEA/VOMITING 06/20/21 14:00 Quetiapine Fumarate (SEROquel) 25 mg HS PO 06/20/21 21:00 06/24/21 18:09 Quetiapine Fumarate (SEROquel) 25 mg PRN Q6HRS PRN PO 2ND CHOICE ANXIETY / AGITATION 06/20/21 10:30 06/21/21 21:45 Tramadol HCl (Ultram) 50 mg PRN Q12HR PRN PO MOD-SEV PAIN 06/20/21 10:30 Ascorbic Acid (Vitamin C) 500 mg BID PO 06/20/21 21:00 06/24/21 18:09 Citalopram Hydrobromide (CeleXA) 40 mg DAILY PO 06/21/21 09:00 06/20/21 18:31 DC Folic Acid (Folic Acid) 1 mg DAILY PO 06/21/21 09:00 06/24/21 08:09 Melatonin (Melatonin) 6 mg QHS PO 06/20/21 21:00 06/24/21 18:09 Multivit/ Folic Acid/Iron (Multivitamin ) 1 tab DAILY PO 06/21/21 09:00 06/24/21 08:10 Multi-Ingredient Ointment (Analgesic [place]) 1 georgi PRN QID PRN TP MUSCLE PAIN 06/20/21 10:45 Al Hydroxide/Mg Hydroxide (Mylanta Plus Xs) 15 ml PRN AFTMEALHC PRN PO DYSPEPSIA 06/20/21 10:45 Magnesium Hydroxide (Milk Of Magnesia) 2,400 mg PRN QHS PRN PO CONSTIPATION 06/20/21 10:45 06/23/21 08:24 Quetiapine Fumarate (SEROquel) 12.5 mg 0900,1700 PO 06/21/21 09:00 06/22/21 11:53 DC 06/22/21 08:28 Sertraline HCl (Zoloft) 50 mg DAILY PO 06/21/21 09:00 06/23/21 11:00 DC 06/23/21 08:24 Sertraline HCl (Zoloft) 75 mg DAILY PO 06/24/21 09:00 06/26/21 21:00 06/24/21 08:10 Dronabinol (Marinol) 2.5 mg BIDACLD PO 06/22/21 11:30 06/24/21 15:51 Quetiapine Fumarate (SEROquel) 12.5 mg 0900,1200,1500,1800 PO 06/22/21 12:00 06/24/21 21:00 DC 06/24/21 17:26 Sertraline HCl (Zoloft) 100 mg DAILY PO 06/27/21 09:00 Quetiapine Fumarate (SEROquel) 25 mg 0900,1500 PO 06/25/21 09:00 Quetiapine Fumarate (SEROquel) 12.5 mg 1200,1800 PO 06/25/21 12:00 Current Medications Medications (Trade) Dose Ordered Sig/Jorje Route PRN Reason Start Time Stop Time Status Last Admin Dose Admin Sertraline HCl (Zoloft) 75 mg DAILY PO 06/24/21 09:00 06/26/21 21:00 06/24/21 08:10 I have reviewed the current psychotropics carefully including drug interactions. Risk benefit ratio favors no change other than as noted in my dictated progress note. 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
[2021-06-25] MEDS: MAGNESIUM HYDROXIDE 2,400 MG/30 ML ORAL.SUSP. PO PRN ×2 (05:45→05:50)
[2021-06-25] MEDS: ALPRAZolam 0.5 MG TABLET PO PRN (05:50)
[2021-06-25 06:12] VITALS: BP 144/71
--- NOTE | 2021-06-25 06:44 | PDOC ---
Exam Note: Adryan Note: This note is a late entry for 06/23/2021 covers elements not covered in my initial note. Subjective: The patient was seen individually on 06/23/2021, discussed and reviewed the chart with Zenaida MOONEY. She slept 9 hours previous night. She has been needy and anxious, somewhat paranoid. Oral intake is poor. She started on Marinol per Dr. Estrada. She is quite anxious. Received Xanax p.r.n., slept after that. Review of Systems: She is hard of hearing. No CV, , pulmonary, eye, ENT system symptoms on review. Vague somatic symptoms. Mental Status Exam: The patient is oriented to herself and situation. I met with her in her room. Speech is rapid with little latency, somewhat obsessive, ruminative, paranoid, feeling that she is going to . Abstraction fair. Computation impaired. Language function intact. Mood and affect remains depressed, anxious, somewhat obsessive, irritable. Laboratory Data: Reviewed. Impression: Major depressive disorder, severe. Major neurocognitive disorder, Alzheimer vascular with delusion, depression. Anxiety disorder unspecified. Impulse control disorder unspecified. Plan: No change from initial note. Assessment: Vital Signs/I&O: Vital Signs Date Time Temp Pulse Resp B/P (MAP) Pulse Ox O2 Delivery O2 Flow Rate FiO2 06/25/21 06:12 99.2 94 18 144/71 (95) 97 06/24/21 15:41 Room Air I & O 06/24/21 06/24/21 06/25/21 15:00 23:00 07:00 Intake Total 200 ml 120 ml Balance 200 ml 120 ml Current Medications: Meds: Current Medications Medications (Trade) Dose Ordered Sig/Jorje Route PRN Reason Start Time Stop Time Status Last Admin Dose Admin Sertraline HCl (Zoloft) 75 mg DAILY PO 06/24/21 09:00 06/26/21 21:00 06/24/21 08:10 I have reviewed the current psychotropics carefully including drug interactions. Risk benefit ratio favors no change other than as noted in my dictated progress note. 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
--- NOTE | 2021-06-25 07:00 | PDOC ---
Exam Note: Adryan Note: This note is a late entry for 06/24/2021 covers elements not covered in my initial note. Subjective: The patient was seen individually on 06/24/2021, discussed and reviewed the chart with Karie MOONEY. She slept 8 hours previous night. She was quite anxious in the morning, attention seeking, somewhat paranoid being afraid that she is going to . I discussed this at length with her. It is difficult to console her. She does feel a little calmer and subjectively admitted to feeling calmer with the addition of Seroquel. Review of Systems: She is hard of hearing. No CV, , pulmonary, eye, ENT system symptoms on review. Impaired ambulation, with walker. Mental Status Exam: The patient is oriented to herself. Insight, judgment, recent memory is impaired. Language function intact. Attention span short. Mo od and affect anxious, labile, distractible. No suicidal or homicidal ideation. Laboratory Data: Reviewed. Impression: Major depressive disorder, severe. Major neurocognitive disorder, Alzheimer vascular with delusion, depression. Anxiety disorder unspecified. Impulse control disorder unspecified. Plan: We may need to increase Seroquel further and we are gradually increasing the Zoloft to help with her obsessiveness, anxiety and if paranoia is significant we may change Seroquel to Risperdal. Maintain Xanax for now but we will try and minimize its usage. Assessment: Vital Signs/I&O: Vital Signs Date Time Temp Pulse Resp B/P (MAP) Pulse Ox O2 Delivery O2 Flow Rate FiO2 06/25/21 06:12 99.2 94 18 144/71 (95) 97 06/24/21 15:41 Room Air I & O 06/24/21 06/24/21 06/25/21 15:00 23:00 07:00 Intake Total 200 ml 120 ml Balance 200 ml 120 ml Current Medications: Meds: Current Medications Medications (Trade) Dose Ordered Sig/Jorje Route PRN Reason Start Time Stop Time Status Last Admin Dose Admin Sertraline HCl (Zoloft) 75 mg DAILY PO 06/24/21 09:00 06/26/21 21:00 06/24/21 08:10 I have reviewed the current psychotropics carefully including drug interactions. Risk benefit ratio favors no change other than as noted in my dictated progress note. 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
[2021-06-25] MEDS: amLODIPine BESYLATE 5 MG TABLET PO SCH (08:48)
[2021-06-25] MEDS: ANASTROZOLE 1 MG TABLET PO SCH (08:49)
[2021-06-25] MEDS: ASCORBIC ACID 500 MG TABLET PO SCH ×2 (08:50→19:49)
[2021-06-25] MEDS: QUEtiapine 25 MG TABLET. PO SCH ×5 (08:50→19:49)
[2021-06-25] MEDS: ASPIRIN CHEWABLE 81 MG TABLET. PO SCH (08:50)
[2021-06-25] MEDS: CHOLECALCIFEROL (VITAMIN D3) 1,000 UNIT TABLET PO SCH (08:50)
[2021-06-25] MEDS: SERTRALINE 25 MG TABLET. PO SCH (08:50)
[2021-06-25] MEDS: PRENATAL MULTIVITAMIN TABLET. PO SCH (08:50)
[2021-06-25] MEDS: FOLIC ACID 1 MG TABLET PO SCH (08:51)
[2021-06-25] MEDS: DRONABINOL 2.5 MG CAPSULE PO SCH ×2 (11:14→15:27)
--- NOTE | 2021-06-25 12:01 | NUR ---
Nurse Day Shift Note: Pt presents with pleasant mood/affect upon waking up. Pt is medication compliant. Pt expressed feeling concerned about the nurse leaving her to sit alone in the hallway. Pt was reassured she will be safe and the nurse will be back to check on her shortly. Pt is noted to be resting in her room today. Pt continues to have a small appetite. Pt slept 7.75 hours last night. Will continue to monitor.
[2021-06-25 15:52] VITALS: BP 103/70
[2021-06-25] MEDS: MELATONIN 3 MG TABLET PO SCH (19:49)
--- NOTE | 2021-06-25 21:44 | PDOC ---
Exam Note: Adryan Note: Please also refer to the separate dictated note~for this date of service dictated separately.~Patient seen individually. Discussed the patient with Nursing staff reviewed the chart.~Reviewed interim history and current functioning. Reviewed vital signs,~Labs/ Radiology~and current medications noted below. Continue current treatment with the changes noted in the dictated addendum note Assessment: Vital Signs/I&O: Vital Signs Date Time Temp Pulse Resp B/P (MAP) Pulse Ox O2 Delivery O2 Flow Rate FiO2 06/25/21 15:52 97.8 70 18 103/70 (81) 99 06/24/21 15:41 Room Air I & O 06/24/21 06/24/21 06/25/21 15:00 23:00 07:00 Intake Total 200 ml 120 ml Balance 200 ml 120 ml Current Medications: Meds: Current Medications Medications (Trade) Dose Ordered Sig/Jorje Route PRN Reason Start Time Stop Time Status Last Admin Dose Admin Acetaminophen (Tylenol) 325 mg PRN Q4HRS PRN PO MILD PAIN / TEMP > 100.3'F 06/20/21 10:30 Alprazolam (Xanax) 0.5 mg PRN Q6HRS PRN PO 1ST CHOICE ANXIETY / AGITATION 06/20/21 10:30 06/25/21 05:50 Amlodipine Besylate (Norvasc) 5 mg DAILY PO 06/21/21 09:00 06/25/21 08:48 Anastrozole (Arimidex) 1 mg DAILY PO 06/21/21 09:00 06/25/21 08:49 Aspirin (Aspirin Chewable) 81 mg DAILY PO 06/21/21 09:00 06/25/21 08:50 Vitamin D (Vitamin D3) 1,000 unit DAILY PO 06/21/21 09:00 06/25/21 08:50 Ondansetron HCl (Zofran Odt) 4 mg PRN Q8HRS PRN PO NAUSEA/VOMITING 06/20/21 14:00 Quetiapine Fumarate (SEROquel) 25 mg HS PO 06/20/21 21:00 06/25/21 19:49 Quetiapine Fumarate (SEROquel) 25 mg PRN Q6HRS PRN PO 2ND CHOICE ANXIETY / AGITATION 06/20/21 10:30 06/21/21 21:45 Tramadol HCl (Ultram) 50 mg PRN Q12HR PRN PO MOD-SEV PAIN 06/20/21 10:30 Ascorbic Acid (Vitamin C) 500 mg BID PO 06/20/21 21:00 06/25/21 19:49 Citalopram Hydrobromide (CeleXA) 40 mg DAILY PO 06/21/21 09:00 06/20/21 18:31 DC Folic Acid (Folic Acid) 1 mg DAILY PO 06/21/21 09:00 06/25/21 08:51 Melatonin (Melatonin) 6 mg QHS PO 06/20/21 21:00 06/25/21 19:49 Multivit/ Folic Acid/Iron (Multivitamin ) 1 tab DAILY PO 06/21/21 09:00 06/25/21 08:50 Multi-Ingredient Ointment (Analgesic [place]) 1 georgi PRN QID PRN TP MUSCLE PAIN 06/20/21 10:45 Al Hydroxide/Mg Hydroxide (Mylanta Plus Xs) 15 ml PRN AFTMEALHC PRN PO DYSPEPSIA 06/20/21 10:45 Magnesium Hydroxide (Milk Of Magnesia) 2,400 mg PRN QHS PRN PO CONSTIPATION 06/20/21 10:45 06/25/21 05:50 Quetiapine Fumarate (SEROquel) 12.5 mg 0900,1700 PO 06/21/21 09:00 06/22/21 11:53 DC 06/22/21 08:28 Sertraline HCl (Zoloft) 50 mg DAILY PO 06/21/21 09:00 06/23/21 11:00 DC 06/23/21 08:24 Sertraline HCl (Zoloft) 75 mg DAILY PO 06/24/21 09:00 06/26/21 21:00 06/25/21 08:50 Dronabinol (Marinol) 2.5 mg BIDACLD PO 06/22/21 11:30 06/25/21 15:27 Quetiapine Fumarate (SEROquel) 12.5 mg 0900,1200,1500,1800 PO 06/22/21 12:00 06/24/21 21:00 DC 06/24/21 17:26 Sertraline HCl (Zoloft) 100 mg DAILY PO 06/27/21 09:00 Quetiapine Fumarate (SEROquel) 25 mg 0900,1500 PO 06/25/21 09:00 06/25/21 15:27 Quetiapine Fumarate (SEROquel) 12.5 mg 1200,1800 PO 06/25/21 12:00 06/25/21 17:15 Current Medications Medications (Trade) Dose Ordered Sig/Jorje Route PRN Reason Start Time Stop Time Status Last Admin Dose Admin Quetiapine Fumarate (SEROquel) 25 mg 0900,1500 PO 06/25/21 09:00 06/25/21 15:27 Quetiapine Fumarate (SEROquel) 12.5 mg 1200,1800 PO 06/25/21 12:00 06/25/21 17:15 I have reviewed the current psychotropics carefully including drug interactions. Risk benefit ratio favors no change other than as noted in my dictated progress note. 

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
[2021-06-26 06:27] VITALS: BP 147/69
--- NOTE | 2021-06-26 07:25 | PDOC ---
Exam Note: Adryan Note: This note is a late entry for 06/25/2021 covers elements not covered in my initial note. Subjective: The patient was seen individually on 06/25/2021, discussed and reviewed the chart with Keyla MOONEY. She is doing a little better, still anxious, needy. Received Xanax at 6.30. She is less repetitive with her q uestions. I met with her in her room. Review of Systems: She is hard of hearing. No CV, , pulmonary, eye, ENT system symptoms on review. Mental Status Exam: The patient is oriented to herself and situation. Speech coherent, repetitive. Abstraction fair. Computation impaired. Language function intact. Short-term memory has some deficits. No suicidal or homicidal ideation. She is still anxious, obsessive, but improved. Laboratory Data: Reviewed. Impression: Major depressive disorder, severe. Major neurocognitive disorder, Alzheimer vascular with delusion, depression. Anxiety disorder unspecified. Impulse control disorder unspecified. Plan: No change from initial note. Assessment: Vital Signs/I&O: Vital Signs Date Time Temp Pulse Resp B/P (MAP) Pulse Ox O2 Delivery O2 Flow Rate FiO2 06/26/21 06:27 97.4 85 20 147/69 (95) 94 Room Air I & O 06/25/21 06/25/21 06/26/21 15:00 23:00 07:00 Intake Total 330 ml 120 ml Balance 330 ml 120 ml Current Medications: Meds: Current Medications Medications (Trade) Dose Ordered Sig/Jorje Route PRN Reason Start Time Stop Time Status Last Admin Dose Admin Quetiapine Fumarate (SEROquel) 25 mg 0900,1500 PO 06/25/21 09:00 06/25/21 15:27 Quetiapine Fumarate (SEROquel) 12.5 mg 1200,1800 PO 06/25/21 12:00 06/25/21 17:15 I have reviewed the current psychotropics carefully including drug interactions. Risk benefit ratio favors no change other than as noted in my dictated progress note. 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
[2021-06-26] MEDS: SERTRALINE 25 MG TABLET. PO SCH (08:27)
[2021-06-26] MEDS: FOLIC ACID 1 MG TABLET PO SCH (08:27)
[2021-06-26] MEDS: PRENATAL MULTIVITAMIN TABLET. PO SCH (08:28)
[2021-06-26] MEDS: CHOLECALCIFEROL (VITAMIN D3) 1,000 UNIT TABLET PO SCH (08:28)
[2021-06-26] MEDS: amLODIPine BESYLATE 5 MG TABLET PO SCH (08:28)
[2021-06-26] MEDS: ASPIRIN CHEWABLE 81 MG TABLET. PO SCH (08:28)
[2021-06-26] MEDS: ASCORBIC ACID 500 MG TABLET PO SCH ×2 (08:28→20:23)
[2021-06-26] MEDS: QUEtiapine 25 MG TABLET. PO SCH ×5 (08:28→20:23)
[2021-06-26] MEDS: ANASTROZOLE 1 MG TABLET PO SCH (08:30)
--- NOTE | 2021-06-26 10:59 | NUR ---
SW contacted pt dtr/DPOA, Angie, to provide update. SW explained that pt has had an increase in Seroquel and Zoloft and that Risperdal may be considered in the future to replace the Seroquel. Angie appreciative of the information. Angie requested to speak with her mother/pt following. Therefore, SW assisted in facilitating the phone call so that pt could hear better. Angie wanted to tell pt Happy Cannon[place] Day. Pt stated it back, but then quickly started discussing the things that she is unhappy about. Pt told Angie how upset she was that she was left her. SW assisted Angie in explaining that she and Breezy (pt son) brought pt here to the hospital because she needed to get help with her medications. SW explained to Angie and pt that we could facilitate another call in a few days. Angie and pt appreciative.
[2021-06-26] MEDS: DRONABINOL 2.5 MG CAPSULE PO SCH ×2 (12:08→17:06)
--- NOTE | 2021-06-26 14:59 | NUR ---
Nursing note: Patient in dinning room for assessment & medication. She was compliant taking medications whole. She is A/O to self only. She denies pain/discomfort at this time. Patient walks independently with walker. Staff highly encourages patient to eat, as her appetite is decreased. She has been wandering through [place] and joining the day room. She is currently sitting in a chair in the [place] in front of widows admiring the sun. Will continue to monitor.
[2021-06-26 15:34] VITALS: BP 124/73
[2021-06-26] MEDS: ALPRAZolam 0.5 MG TABLET PO PRN (20:23)
[2021-06-26] MEDS: MELATONIN 3 MG TABLET PO SCH (20:23)
--- NOTE | 2021-06-26 21:51 | PDOC ---
Exam Note: Adryan Note: Please also refer to the separate dictated note~for this date of service dictated separately.~Patient seen individually. Discussed the patient with Nursing staff reviewed the chart.~Reviewed interim history and current functioning. Reviewed vital signs,~Labs/ Radiology~and current medications noted below. Continue current treatment with the changes noted in the dictated addendum note Assessment: Vital Signs/I&O: Vital Signs Date Time Temp Pulse Resp B/P (MAP) Pulse Ox O2 Delivery O2 Flow Rate FiO2 06/26/21 15:34 98.0 80 20 124/73 (90) 98 06/26/21 06:27 Room Air I & O 06/25/21 06/25/21 06/26/21 15:00 23:00 07:00 Intake Total 330 ml 120 ml Balance 330 ml 120 ml Current Medications: Meds: Current Medications Medications (Trade) Dose Ordered Sig/Jorje Route PRN Reason Start Time Stop Time Status Last Admin Dose Admin Acetaminophen (Tylenol) 325 mg PRN Q4HRS PRN PO MILD PAIN / TEMP > 100.3'F 06/20/21 10:30 Alprazolam (Xanax) 0.5 mg PRN Q6HRS PRN PO 1ST CHOICE ANXIETY / AGITATION 06/20/21 10:30 06/26/21 20:23 Amlodipine Besylate (Norvasc) 5 mg DAILY PO 06/21/21 09:00 06/26/21 08:28 Anastrozole (Arimidex) 1 mg DAILY PO 06/21/21 09:00 06/26/21 08:30 Aspirin (Aspirin Chewable) 81 mg DAILY PO 06/21/21 09:00 06/26/21 08:28 Vitamin D (Vitamin D3) 1,000 unit DAILY PO 06/21/21 09:00 06/26/21 08:28 Ondansetron HCl (Zofran Odt) 4 mg PRN Q8HRS PRN PO NAUSEA/VOMITING 06/20/21 14:00 Quetiapine Fumarate (SEROquel) 25 mg HS PO 06/20/21 21:00 06/26/21 20:23 Quetiapine Fumarate (SEROquel) 25 mg PRN Q6HRS PRN PO 2ND CHOICE ANXIETY / AGITATION 06/20/21 10:30 06/21/21 21:45 Tramadol HCl (Ultram) 50 mg PRN Q12HR PRN PO MOD-SEV PAIN 06/20/21 10:30 Ascorbic Acid (Vitamin C) 500 mg BID PO 06/20/21 21:00 06/26/21 20:23 Citalopram Hydrobromide (CeleXA) 40 mg DAILY PO 06/21/21 09:00 06/20/21 18:31 DC Folic Acid (Folic Acid) 1 mg DAILY PO 06/21/21 09:00 06/26/21 08:27 Melatonin (Melatonin) 6 mg QHS PO 06/20/21 21:00 06/26/21 20:23 Multivit/ Folic Acid/Iron (Multivitamin ) 1 tab DAILY PO 06/21/21 09:00 06/26/21 08:28 Multi-Ingredient Ointment (Analgesic [place]) 1 georgi PRN QID PRN TP MUSCLE PAIN 06/20/21 10:45 Al Hydroxide/Mg Hydroxide (Mylanta Plus Xs) 15 ml PRN AFTMEALHC PRN PO DYSPEPSIA 06/20/21 10:45 Magnesium Hydroxide (Milk Of Magnesia) 2,400 mg PRN QHS PRN PO CONSTIPATION 06/20/21 10:45 06/25/21 05:50 Quetiapine Fumarate (SEROquel) 12.5 mg 0900,1700 PO 06/21/21 09:00 06/22/21 11:53 DC 06/22/21 08:28 Sertraline HCl (Zoloft) 50 mg DAILY PO 06/21/21 09:00 06/23/21 11:00 DC 06/23/21 08:24 Sertraline HCl (Zoloft) 75 mg DAILY PO 06/24/21 09:00 06/26/21 21:00 DC 06/26/21 08:27 Dronabinol (Marinol) 2.5 mg BIDACLD PO 06/22/21 11:30 06/26/21 17:06 Quetiapine Fumarate (SEROquel) 12.5 mg 0900,1200,1500,1800 PO 06/22/21 12:00 06/24/21 21:00 DC 06/24/21 17:26 Sertraline HCl (Zoloft) 100 mg DAILY PO 06/27/21 09:00 Quetiapine Fumarate (SEROquel) 25 mg 0900,1500 PO 06/25/21 09:00 06/26/21 08:28 Quetiapine Fumarate (SEROquel) 12.5 mg 1200,1800 PO 06/25/21 12:00 06/26/21 17:06 Buspirone HCl (Buspar) 5 mg 0900,1700 PO 06/27/21 09:00 I have reviewed the current psychotropics carefully including drug interactions. Risk benefit ratio favors no change other than as noted in my dictated progress note. 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
--- NOTE | 2021-06-26 23:19 | NUR ---
Patient was very anxious tonight. She asked nurse several times if she was going to and why she is here. After reassuring patient multiples that she is fine, PRN xanax was provided for anxiety. She is cooperative with cares and medication compliant. Patient is able to perform most of her ADLs independently or with minimal/standby assist. Patient is sleeping at this time.
[2021-06-27 06:14] VITALS: BP 114/66
[2021-06-27] MEDS: FOLIC ACID 1 MG TABLET PO SCH (08:43)
[2021-06-27] MEDS: amLODIPine BESYLATE 5 MG TABLET PO SCH (08:43)
[2021-06-27] MEDS: PRENATAL MULTIVITAMIN TABLET. PO SCH (08:43)
[2021-06-27] MEDS: ASPIRIN CHEWABLE 81 MG TABLET. PO SCH (08:43)
[2021-06-27] MEDS: busPIRone 5 MG TABLET. PO SCH ×2 (08:43→17:32)
[2021-06-27] MEDS: CHOLECALCIFEROL (VITAMIN D3) 1,000 UNIT TABLET PO SCH (08:43)
[2021-06-27] MEDS: ASCORBIC ACID 500 MG TABLET PO SCH ×2 (08:43→20:17)
[2021-06-27] MEDS: QUEtiapine 25 MG TABLET. PO SCH ×5 (08:43→20:17)
[2021-06-27] MEDS: SERTRALINE 100 MG TABLET. PO SCH (08:43)
[2021-06-27] MEDS: ANASTROZOLE 1 MG TABLET PO SCH (08:44)
[2021-06-27] MEDS: DRONABINOL 2.5 MG CAPSULE PO SCH ×2 (11:28→17:32)
[2021-06-27] MEDS: ALPRAZolam 0.5 MG TABLET PO PRN ×2 (12:29→20:18)
[2021-06-27 15:33] VITALS: BP 117/55
--- NOTE | 2021-06-27 18:00 | NUR ---
Nursing note: Patient in dinning room for assessment & medication. She was compliant taking medications whole. She is A/O to self only. She denies pain/discomfort at this time. Patient walks independently with walker. Staff highly encourages patient to eat, as her appetite is decreased. Very high anxiety, cant stay focused on task, fixated on walker, stated I cant hear, PRN given per order. She has been wandering through [place] and joining the day room. She is currently sitting in a chair in the [place]. Will continue to monitor.
[2021-06-27] MEDS: MELATONIN 3 MG TABLET PO SCH (20:17)
--- NOTE | 2021-06-27 21:32 | PDOC ---
Exam Note: Adryan Note: Please also refer to the separate dictated note~for this date of service dictated separately.~Patient seen individually. Discussed the patient with Nursing staff reviewed the chart.~Reviewed interim history and current functioning. Reviewed vital signs,~Labs/ Radiology~and current medications noted below. Continue current treatment with the changes noted in the dictated addendum note Assessment: Vital Signs/I&O: Vital Signs Date Time Temp Pulse Resp B/P (MAP) Pulse Ox O2 Delivery O2 Flow Rate FiO2 06/27/21 15:33 97.7 70 18 117/55 (75) 97 0.0 06/27/21 06:14 Room Air I & O 06/26/21 06/26/21 06/27/21 15:00 23:00 07:00 Intake Total 440 ml 600 ml Balance 440 ml 600 ml Current Medications: Meds: Current Medications Medications (Trade) Dose Ordered Sig/Jorje Route PRN Reason Start Time Stop Time Status Last Admin Dose Admin Acetaminophen (Tylenol) 325 mg PRN Q4HRS PRN PO MILD PAIN / TEMP > 100.3'F 06/20/21 10:30 Alprazolam (Xanax) 0.5 mg PRN Q6HRS PRN PO 1ST CHOICE ANXIETY / AGITATION 06/20/21 10:30 06/27/21 20:18 Amlodipine Besylate (Norvasc) 5 mg DAILY PO 06/21/21 09:00 06/27/21 08:43 Anastrozole (Arimidex) 1 mg DAILY PO 06/21/21 09:00 06/27/21 08:44 Aspirin (Aspirin Chewable) 81 mg DAILY PO 06/21/21 09:00 06/27/21 08:43 Vitamin D (Vitamin D3) 1,000 unit DAILY PO 06/21/21 09:00 06/27/21 08:43 Ondansetron HCl (Zofran Odt) 4 mg PRN Q8HRS PRN PO NAUSEA/VOMITING 06/20/21 14:00 Quetiapine Fumarate (SEROquel) 25 mg HS PO 06/20/21 21:00 06/27/21 20:17 Quetiapine Fumarate (SEROquel) 25 mg PRN Q6HRS PRN PO 2ND CHOICE ANXIETY / AGITATION 06/20/21 10:30 06/21/21 21:45 Tramadol HCl (Ultram) 50 mg PRN Q12HR PRN PO MOD-SEV PAIN 06/20/21 10:30 Ascorbic Acid (Vitamin C) 500 mg BID PO 06/20/21 21:00 06/27/21 20:17 Citalopram Hydrobromide (CeleXA) 40 mg DAILY PO 06/21/21 09:00 06/20/21 18:31 DC Folic Acid (Folic Acid) 1 mg DAILY PO 06/21/21 09:00 06/27/21 08:43 Melatonin (Melatonin) 6 mg QHS PO 06/20/21 21:00 06/27/21 20:17 Multivit/ Folic Acid/Iron (Multivitamin ) 1 tab DAILY PO 06/21/21 09:00 06/27/21 08:43 Multi-Ingredient Ointment (Analgesic [place]) 1 georgi PRN QID PRN TP MUSCLE PAIN 06/20/21 10:45 Al Hydroxide/Mg Hydroxide (Mylanta Plus Xs) 15 ml PRN AFTMEALHC PRN PO DYSPEPSIA 06/20/21 10:45 Magnesium Hydroxide (Milk Of Magnesia) 2,400 mg PRN QHS PRN PO CONSTIPATION 06/20/21 10:45 06/25/21 05:50 Quetiapine Fumarate (SEROquel) 12.5 mg 0900,1700 PO 06/21/21 09:00 06/22/21 11:53 DC 06/22/21 08:28 Sertraline HCl (Zoloft) 50 mg DAILY PO 06/21/21 09:00 06/23/21 11:00 DC 06/23/21 08:24 Sertraline HCl (Zoloft) 75 mg DAILY PO 06/24/21 09:00 06/26/21 21:00 DC 06/26/21 08:27 Dronabinol (Marinol) 2.5 mg BIDACLD PO 06/22/21 11:30 06/27/21 17:32 Quetiapine Fumarate (SEROquel) 12.5 mg 0900,1200,1500,1800 PO 06/22/21 12:00 06/24/21 21:00 DC 06/24/21 17:26 Sertraline HCl (Zoloft) 100 mg DAILY PO 06/27/21 09:00 06/27/21 08:43 Quetiapine Fumarate (SEROquel) 25 mg 0900,1500 PO 06/25/21 09:00 06/27/21 16:13 Quetiapine Fumarate (SEROquel) 12.5 mg 1200,1800 PO 06/25/21 12:00 06/27/21 17:32 Buspirone HCl (Buspar) 5 mg 0900,1700 PO 06/27/21 09:00 06/29/21 23:00 06/27/21 17:32 Buspirone HCl (Buspar) 10 mg 0900,1700 PO 06/30/21 09:00 Current Medications Medications (Trade) Dose Ordered Sig/Jorje Route PRN Reason Start Time Stop Time Status Last Admin Dose Admin Sertraline HCl (Zoloft) 100 mg DAILY PO 06/27/21 09:00 06/27/21 08:43 Buspirone HCl (Buspar) 5 mg 0900,1700 PO 06/27/21 09:00 06/29/21 23:00 06/27/21 17:32 I have reviewed the current psychotropics carefully including drug interactions. Risk benefit ratio favors no change other than as noted in my dictated progress note. 

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
[2021-06-28 06:18] VITALS: BP 156/83
--- NOTE | 2021-06-28 07:23 | PDOC ---
Exam Note: Adryan Note: This note is a late entry for 06/26/2021 covers elements not covered in my initial note. Subjective: The patient was seen individually on 06/26/2021, discussed and reviewed the chart with Deja MOONEY. She slept 7-3/4 hours previous night. She remains anxious. I met with her at length in her room. Oral intake is somewhat poor. She is less obsessive. Review of Systems: She states she is hard of hearing but nursing staff feels she has selective hearing. Ambulation impaired, with walker. No CV, , pulmonary, eye, system symptoms on review. Mental Status Exam: The patient is reasonably oriented. Speech coherent, rapid at times, repetitive. Abstraction fair. Computation impaired. Language function intact. Mood and affect remains anxious, somewhat labile. Laboratory Data: Reviewed. Impression: Major depressive disorder, severe. Major neurocognitive disorder, Alzheimer vascular with delusion, depression. Anxiety disorder unspecified. Impulse control disorder unspecified. Plan: Continue current psychotropics, Zoloft, Seroquel, Xanax scheduled, sherita onin and we will add BuSpar 5 mg 9 a.m. and 5 p.m. Maintain rest of the psychotropics unchanged. We will increase BuSpar depending on her response to the lower dosage. Assessment: Vital Signs/I&O: Vital Signs Date Time Temp Pulse Resp B/P (MAP) Pulse Ox O2 Delivery O2 Flow Rate FiO2 06/28/21 06:18 98.6 82 22 156/83 (107) 98 06/27/21 15:33 0.0 06/27/21 06:14 Room Air I & O 06/27/21 06/27/21 06/28/21 15:00 23:00 07:00 Intake Total 600 ml 360 ml Balance 600 ml 360 ml Current Medications: Meds: Current Medications Medications (Trade) Dose Ordered Sig/Jorje Route PRN Reason Start Time Stop Time Status Last Admin Dose Admin Sertraline HCl (Zoloft) 100 mg DAILY PO 06/27/21 09:00 06/27/21 08:43 Buspirone HCl (Buspar) 5 mg 0900,1700 PO 06/27/21 09:00 06/29/21 23:00 06/27/21 17:32 I have reviewed the current psychotropics carefully including drug interactions. Risk benefit ratio favors no change other than as noted in my dictated progress note. 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
--- NOTE | 2021-06-28 07:41 | PDOC ---
Exam Note: Adryan Note: This note is a late entry for 06/27/2021 covers elements not covered in my initial note. Subjective: The patient was seen individually on 06/27/2021, discussed and reviewed the chart with Deja MOONEY. She slept 7 hours previous night. She has been anxious, somewhat obsessive, unable to focus on Bingo groups earlier in the day. She is very anxious at lunch time. Received Xanax p.r.n. Review of Systems: She is hard of hearing. No CV, , pulmonary, eye, system symptoms on review. Mental Status Exam: The patient is oriented to herself and situation. I met w ith her in her room. Speech coherent, rapid at times. Abstraction fair. Computation impaired. Language function intact. Attention span short. Mood and affect anxious, labile but improved. Laboratory Data: Reviewed. Impression: Major depressive disorder, severe. Major neurocognitive disorder, Alzheimer vascular with delusion, depression. Anxiety disorder unspecified. Im pulse control disorder unspecified. Plan: Continue rest of the psychotropics unchanged. After she has been on BuSpar 5 mg twice a day for 3 days, we will increase to 10 mg twice a day. Assessment: Vital Signs/I&O: Vital Signs Date Time Temp Pulse Resp B/P (MAP) Pulse Ox O2 Delivery O2 Flow Rate FiO2 06/28/21 06:18 98.6 82 22 156/83 (107) 98 06/27/21 15:33 0.0 06/27/21 06:14 Room Air I & O 06/27/21 06/27/21 06/28/21 14:59 22:59 06:59 Intake Total 600 ml 360 ml Balance 600 ml 360 ml Current Medications: Meds: Current Medications Medications (Trade) Dose Ordered Sig/Jorje Route PRN Reason Start Time Stop Time Status Last Admin Dose Admin Sertraline HCl (Zoloft) 100 mg DAILY PO 06/27/21 09:00 06/27/21 08:43 Buspirone HCl (Buspar) 5 mg 0900,1700 PO 06/27/21 09:00 06/29/21 23:00 06/27/21 17:32 I have reviewed the current psychotropics carefully including drug interactions. Risk benefit ratio favors no change other than as noted in my dictated progress note. 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
[2021-06-28] MEDS: busPIRone 5 MG TABLET. PO SCH ×2 (08:19→16:29)
[2021-06-28] MEDS: amLODIPine BESYLATE 5 MG TABLET PO SCH (08:19)
[2021-06-28] MEDS: ASPIRIN CHEWABLE 81 MG TABLET. PO SCH (08:19)
[2021-06-28] MEDS: QUEtiapine 25 MG TABLET. PO SCH ×5 (08:19→19:48)
[2021-06-28] MEDS: SERTRALINE 100 MG TABLET. PO SCH (08:19)
[2021-06-28] MEDS: PRENATAL MULTIVITAMIN TABLET. PO SCH (08:20)
[2021-06-28] MEDS: DRONABINOL 2.5 MG CAPSULE PO SCH ×2 (08:20→16:29)
[2021-06-28] MEDS: CHOLECALCIFEROL (VITAMIN D3) 1,000 UNIT TABLET PO SCH (08:20)
[2021-06-28] MEDS: FOLIC ACID 1 MG TABLET PO SCH (08:20)
[2021-06-28] MEDS: ASCORBIC ACID 500 MG TABLET PO SCH ×2 (08:20→19:48)
[2021-06-28] MEDS: ANASTROZOLE 1 MG TABLET PO SCH (08:21)
--- NOTE | 2021-06-28 13:24 | NUR ---
ASSUMED CARE OF PT AT 0700 PT IS PLEASANT WITH THIS NURSE BUT KEEPS SAYING THAT THE OTHER STAFF IS MEAN AND THEY SCARE HER AND ASKING THIS NURSE IF I AM HER "SAVIOR:. PT IS RESTING IN ROOM AT THIS TIME. PT IS COMPLIANT WITH MEDICATIONS WHOLE WITH WATER. WILL CONTINUE TO MONITOR.
[2021-06-28 16:31] VITALS: BP 133/88
[2021-06-28] MEDS: MELATONIN 3 MG TABLET PO SCH (19:48)
[2021-06-28] MEDS: ALPRAZolam 0.5 MG TABLET PO PRN (19:48)
--- NOTE | 2021-06-28 21:45 | PDOC ---
Exam Note: Adryan Note: Please also refer to the separate dictated note~for this date of service dictated separately.~Patient seen individually. Discussed the patient with Nursing staff reviewed the chart.~Reviewed interim history and current functioning. Reviewed vital signs,~Labs/ Radiology~and current medications noted below. Continue current treatment with the changes noted in the dictated addendum note Assessment: Vital Signs/I&O: Vital Signs Date Time Temp Pulse Resp B/P (MAP) Pulse Ox O2 Delivery O2 Flow Rate FiO2 06/28/21 16:31 98.2 92 18 133/88 (103) 96 Room Air 06/27/21 15:33 0.0 I & O 06/27/21 06/27/21 06/28/21 15:00 23:00 07:00 Intake Total 600 ml 360 ml Balance 600 ml 360 ml Current Medications: Meds: Current Medications Medications (Trade) Dose Ordered Sig/Jorje Route PRN Reason Start Time Stop Time Status Last Admin Dose Admin Acetaminophen (Tylenol) 325 mg PRN Q4HRS PRN PO MILD PAIN / TEMP > 100.3'F 06/20/21 10:30 Alprazolam (Xanax) 0.5 mg PRN Q6HRS PRN PO 1ST CHOICE ANXIETY / AGITATION 06/20/21 10:30 06/28/21 19:48 Amlodipine Besylate (Norvasc) 5 mg DAILY PO 06/21/21 09:00 06/28/21 08:19 Anastrozole (Arimidex) 1 mg DAILY PO 06/21/21 09:00 06/28/21 08:21 Aspirin (Aspirin Chewable) 81 mg DAILY PO 06/21/21 09:00 06/28/21 08:19 Vitamin D (Vitamin D3) 1,000 unit DAILY PO 06/21/21 09:00 06/28/21 08:20 Ondansetron HCl (Zofran Odt) 4 mg PRN Q8HRS PRN PO NAUSEA/VOMITING 06/20/21 14:00 Quetiapine Fumarate (SEROquel) 25 mg HS PO 06/20/21 21:00 06/28/21 19:48 Quetiapine Fumarate (SEROquel) 25 mg PRN Q6HRS PRN PO 2ND CHOICE ANXIETY / AGITATION 06/20/21 10:30 06/21/21 21:45 Tramadol HCl (Ultram) 50 mg PRN Q12HR PRN PO MOD-SEV PAIN 06/20/21 10:30 Ascorbic Acid (Vitamin C) 500 mg BID PO 06/20/21 21:00 06/28/21 19:48 Citalopram Hydrobromide (CeleXA) 40 mg DAILY PO 06/21/21 09:00 06/20/21 18:31 DC Folic Acid (Folic Acid) 1 mg DAILY PO 06/21/21 09:00 06/28/21 08:20 Melatonin (Melatonin) 6 mg QHS PO 06/20/21 21:00 06/28/21 19:48 Multivit/ Folic Acid/Iron (Multivitamin ) 1 tab DAILY PO 06/21/21 09:00 06/28/21 08:20 Multi-Ingredient Ointment (Analgesic [place]) 1 georgi PRN QID PRN TP MUSCLE PAIN 06/20/21 10:45 Al Hydroxide/Mg Hydroxide (Mylanta Plus Xs) 15 ml PRN AFTMEALHC PRN PO DYSPEPSIA 06/20/21 10:45 Magnesium Hydroxide (Milk Of Magnesia) 2,400 mg PRN QHS PRN PO CONSTIPATION 06/20/21 10:45 06/25/21 05:50 Quetiapine Fumarate (SEROquel) 12.5 mg 0900,1700 PO 06/21/21 09:00 06/22/21 11:53 DC 06/22/21 08:28 Sertraline HCl (Zoloft) 50 mg DAILY PO 06/21/21 09:00 06/23/21 11:00 DC 06/23/21 08:24 Sertraline HCl (Zoloft) 75 mg DAILY PO 06/24/21 09:00 06/26/21 21:00 DC 06/26/21 08:27 Dronabinol (Marinol) 2.5 mg BIDACLD PO 06/22/21 11:30 06/28/21 16:29 Quetiapine Fumarate (SEROquel) 12.5 mg 0900,1200,1500,1800 PO 06/22/21 12:00 06/24/21 21:00 DC 06/24/21 17:26 Sertraline HCl (Zoloft) 100 mg DAILY PO 06/27/21 09:00 06/28/21 08:19 Quetiapine Fumarate (SEROquel) 25 mg 0900,1500 PO 06/25/21 09:00 06/28/21 08:19 Quetiapine Fumarate (SEROquel) 12.5 mg 1200,1800 PO 06/25/21 12:00 06/28/21 16:29 Buspirone HCl (Buspar) 5 mg 0900,1700 PO 06/27/21 09:00 06/29/21 23:00 06/28/21 16:29 Buspirone HCl (Buspar) 10 mg 0900,1700 PO 06/30/21 09:00 I have reviewed the current psychotropics carefully including drug interactions. Risk benefit ratio favors no change other than as noted in my dictated progress note. 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
--- NOTE | 2021-06-28 23:15 | NUR ---
Nursing Note Pt very anxious asking for multiple things at once grabs at my hands won't let go of me. Med compliant. Xanax given.
[2021-06-29 06:23] VITALS: BP 106/73
[2021-06-29] MEDS: busPIRone 5 MG TABLET. PO SCH ×2 (08:33→17:25)
[2021-06-29] MEDS: SERTRALINE 100 MG TABLET. PO SCH (08:33)
[2021-06-29] MEDS: CHOLECALCIFEROL (VITAMIN D3) 1,000 UNIT TABLET PO SCH (08:33)
[2021-06-29] MEDS: QUEtiapine 25 MG TABLET. PO SCH ×5 (08:33→20:08)
[2021-06-29] MEDS: amLODIPine BESYLATE 5 MG TABLET PO SCH (08:34)
[2021-06-29] MEDS: PRENATAL MULTIVITAMIN TABLET. PO SCH (08:34)
[2021-06-29] MEDS: ASCORBIC ACID 500 MG TABLET PO SCH ×2 (08:34→20:09)
[2021-06-29] MEDS: FOLIC ACID 1 MG TABLET PO SCH (08:34)
[2021-06-29] MEDS: ASPIRIN CHEWABLE 81 MG TABLET. PO SCH (08:34)
[2021-06-29] MEDS: ANASTROZOLE 1 MG TABLET PO SCH (08:35)
--- NOTE | 2021-06-29 11:09 | NUR ---
Nursing note: Pt in dining room at time of AM med pass and assessment. She is very anxious, but compliant with meds whole and cooperative with assessment. Pt continuously stated "You're not going to leave me until you give me my medicine are you? Please help me. I'm scared." Pt very difficult to redirect when she is anxious. She is currently walking the ardon. Will continue to monitor.
[2021-06-29] MEDS: DRONABINOL 2.5 MG CAPSULE PO SCH ×2 (11:36→15:44)
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
[2021-06-29 15:39] VITALS: BP 138/84
[2021-06-29] MEDS: ALPRAZolam 0.5 MG TABLET PO PRN (20:08)
[2021-06-29] MEDS: MELATONIN 3 MG TABLET PO SCH (20:09)
--- NOTE | 2021-06-29 21:43 | PDOC ---
Exam Note: Adryan Note: Please also refer to the separate dictated note~for this date of service dictated separately.~Patient seen individually. Discussed the patient with Nursing staff reviewed the chart.~Reviewed interim history and current functioning. Reviewed vital signs,~Labs/ Radiology~and current medications noted below. Continue current treatment with the changes noted in the dictated addendum note Assessment: Vital Signs/I&O: Vital Signs Date Time Temp Pulse Resp B/P (MAP) Pulse Ox O2 Delivery O2 Flow Rate FiO2 06/29/21 15:39 98.1 92 20 138/84 (102) 97 06/28/21 16:31 Room Air 06/27/21 15:33 0.0 I & O 06/28/21 06/28/21 06/29/21 15:00 23:00 07:00 Intake Total 480 ml 240 ml Balance 480 ml 240 ml Current Medications: Meds: Current Medications Medications (Trade) Dose Ordered Sig/Jorje Route PRN Reason Start Time Stop Time Status Last Admin Dose Admin Acetaminophen (Tylenol) 325 mg PRN Q4HRS PRN PO MILD PAIN / TEMP > 100.3'F 06/20/21 10:30 Alprazolam (Xanax) 0.5 mg PRN Q6HRS PRN PO 1ST CHOICE ANXIETY / AGITATION 06/20/21 10:30 06/29/21 20:08 Amlodipine Besylate (Norvasc) 5 mg DAILY PO 06/21/21 09:00 06/29/21 08:34 Anastrozole (Arimidex) 1 mg DAILY PO 06/21/21 09:00 06/29/21 08:35 Aspirin (Aspirin Chewable) 81 mg DAILY PO 06/21/21 09:00 06/29/21 08:34 Vitamin D (Vitamin D3) 1,000 unit DAILY PO 06/21/21 09:00 06/29/21 08:33 Ondansetron HCl (Zofran Odt) 4 mg PRN Q8HRS PRN PO NAUSEA/VOMITING 06/20/21 14:00 Quetiapine Fumarate (SEROquel) 25 mg HS PO 06/20/21 21:00 06/29/21 20:08 Quetiapine Fumarate (SEROquel) 25 mg PRN Q6HRS PRN PO 2ND CHOICE ANXIETY / AGITATION 06/20/21 10:30 06/21/21 21:45 Tramadol HCl (Ultram) 50 mg PRN Q12HR PRN PO MOD-SEV PAIN 06/20/21 10:30 Ascorbic Acid (Vitamin C) 500 mg BID PO 06/20/21 21:00 06/29/21 20:09 Citalopram Hydrobromide (CeleXA) 40 mg DAILY PO 06/21/21 09:00 06/20/21 18:31 DC Folic Acid (Folic Acid) 1 mg DAILY PO 06/21/21 09:00 06/29/21 08:34 Melatonin (Melatonin) 6 mg QHS PO 06/20/21 21:00 06/29/21 20:09 Multivit/ Folic Acid/Iron (Multivitamin ) 1 tab DAILY PO 06/21/21 09:00 06/29/21 08:34 Multi-Ingredient Ointment (Analgesic [place]) 1 georgi PRN QID PRN TP MUSCLE PAIN 06/20/21 10:45 Al Hydroxide/Mg Hydroxide (Mylanta Plus Xs) 15 ml PRN AFTMEALHC PRN PO DYSPEPSIA 06/20/21 10:45 Magnesium Hydroxide (Milk Of Magnesia) 2,400 mg PRN QHS PRN PO CONSTIPATION 06/20/21 10:45 06/25/21 05:50 Quetiapine Fumarate (SEROquel) 12.5 mg 0900,1700 PO 06/21/21 09:00 06/22/21 11:53 DC 06/22/21 08:28 Sertraline HCl (Zoloft) 50 mg DAILY PO 06/21/21 09:00 06/23/21 11:00 DC 06/23/21 08:24 Sertraline HCl (Zoloft) 75 mg DAILY PO 06/24/21 09:00 06/26/21 21:00 DC 06/26/21 08:27 Dronabinol (Marinol) 2.5 mg BIDACLD PO 06/22/21 11:30 06/29/21 15:44 Quetiapine Fumarate (SEROquel) 12.5 mg 0900,1200,1500,1800 PO 06/22/21 12:00 06/24/21 21:00 DC 06/24/21 17:26 Sertraline HCl (Zoloft) 100 mg DAILY PO 06/27/21 09:00 06/29/21 11:51 DC 06/29/21 08:33 Quetiapine Fumarate (SEROquel) 25 mg 0900,1500 PO 06/25/21 09:00 06/29/21 15:44 Quetiapine Fumarate (SEROquel) 12.5 mg 1200,1800 PO 06/25/21 12:00 06/29/21 17:25 Buspirone HCl (Buspar) 5 mg 0900,1700 PO 06/27/21 09:00 06/29/21 23:00 06/29/21 17:25 Buspirone HCl (Buspar) 10 mg 0900,1700 PO 06/30/21 09:00 Fluvoxamine Maleate (Luvox) 25 mg DAILY PO 06/30/21 09:00 07/02/21 21:00 Fluvoxamine Maleate (Luvox) 50 mg DAILY PO 07/03/21 09:00 I have reviewed the current psychotropics carefully including drug interactions. Risk benefit ratio favors no change other than as noted in my dictated progress note. 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
--- NOTE | 2021-06-29 23:19 | NUR ---
Nursing note Pt very anxious very clingy. Xanax given HS for extreme anxiety. Med compliant.
[2021-06-30 06:46] VITALS: BP 142/84
[2021-06-30] MEDS: PRENATAL MULTIVITAMIN TABLET. PO SCH (08:30)
[2021-06-30] MEDS: QUEtiapine 25 MG TABLET. PO SCH ×5 (08:30→20:27)
[2021-06-30] MEDS: amLODIPine BESYLATE 5 MG TABLET PO SCH (08:30)
[2021-06-30] MEDS: busPIRone 10 MG TABLET. PO SCH ×2 (08:30→17:06)
[2021-06-30] MEDS: CHOLECALCIFEROL (VITAMIN D3) 1,000 UNIT TABLET PO SCH (08:30)
[2021-06-30] MEDS: ASPIRIN CHEWABLE 81 MG TABLET. PO SCH (08:31)
[2021-06-30] MEDS: FOLIC ACID 1 MG TABLET PO SCH (08:31)
[2021-06-30] MEDS: ASCORBIC ACID 500 MG TABLET PO SCH ×2 (08:31→20:27)
[2021-06-30] MEDS: ANASTROZOLE 1 MG TABLET PO SCH (08:33)
--- NOTE | 2021-06-30 09:39 | NUR ---
Nursing note: Pt in dining room at time of AM med pass and assessment. Pt is highly anxious, but med compliant and cooperative with assessment. She denies having any pain. Pt questioned when she could leave because "my daughter did this to". I explained that she is here to adjust her medications to work on her anxiety. Pt's response was "my daughter causes this anxiety!" Pt is now resting quietly in her room. Will continue to monitor.
--- NOTE | 2021-06-30 09:51 | NUR ---
WEEKLY ACTIVITY THERAPY NOTE Date of Admission: 06/20/21 Date of AT Assessment: 06/22 Precipitating behaviors that initiated intake and admission: Labile mood, sad, crying, thinks she is going to , fearful of someone hurting her, paranoid, anxious. Goal aimed: increase relaxation skills and leisure engagement Initial Goal: Pt. will participate in at least three Activity Therapy sessions before discharge Weekly progress towards goal: achieved, 07/13 Group participation level: 2 min, 1 mod Weekly highlights: participated in exercises Saturday, participated in 70s music bingo Saturday Behaviors observed: needed a lot of redirection and saying she could not hear but when staff talked quieter she repeated what they said Saturday, needed lots of redirection Saturday during music bingo plan: change goal to:Pt. will participate in at least five Activity Therapy sessions per week Beneficial adaptations: lots of redirection, deep breathing Addendum: 06/30/21 at 0953 by KERVIN ARIAS ACT Teamed on 06/29/21
[2021-06-30] MEDS: DRONABINOL 2.5 MG CAPSULE PO SCH ×2 (11:37→15:55)
[2021-06-30 15:43] VITALS: BP 118/63
[2021-06-30] MEDS: MELATONIN 3 MG TABLET PO SCH (20:28)
--- NOTE | 2021-06-30 21:31 | PDOC ---
Exam Note: Adryan Note: This note is a late entry for 06/28/2021 covers elements not covered in my initial note. Subjective: The patient was seen individually on 06/28/2021, discussed and reviewed the chart with Mary MOONEY. She slept 6-1/4 hours previous night. She remains anxious, states she is hard of hearing but she seems to have selective hearing, frequently asking staff to be near her, repeating same questions quite obsessive, anxious, repetitive. Review of Systems: She is hard of hearing. No CV, , pulmonary, eye, system symptoms on review. Impaired ambulation with walker. Mental Status Exam: The patient is oriented to herself and situation. Speech coherent, rapid and she states answering questions before she has even heard few words or what is being asked and they were off target, part of her anxiety. Abstraction fair. Computation impaired. Language function intact. Attention span short. Mood and affect anxious, labile. No suicidal ideation, somewhat paranoid. Laboratory Data: Reviewed. Impression: Major depressive disorder, severe. Major neurocognitive disorder, Alzheimer vascular with delusion, depression. Anxiety disorder unspecified. Impulse control disorder unspecified. Plan: Continue current psychotropics unchanged. If obsessive thought processes, anxiety persists, we may change Zoloft to Luvox. Assessment: Vital Signs/I&O: Vital Signs Date Time Temp Pulse Resp B/P (MAP) Pulse Ox O2 Delivery O2 Flow Rate FiO2 06/30/21 15:43 98.9 72 18 118/63 (81) 97 06/28/21 16:31 Room Air 06/27/21 15:33 0.0 I & O 06/29/21 06/29/21 06/30/21 15:00 23:00 07:00 Intake Total 140 ml 200 ml Balance 140 ml 200 ml Current Medications: Meds: Current Medications Medications (Trade) Dose Ordered Sig/Jorje Route PRN Reason Start Time Stop Time Status Last Admin Dose Admin Buspirone HCl (Buspar) 10 mg 0900,1700 PO 06/30/21 09:00 06/30/21 17:06 Fluvoxamine Maleate (Luvox) 25 mg DAILY PO 06/30/21 09:00 07/02/21 21:00 06/30/21 08:30 I have reviewed the current psychotropics carefully including drug interactions. Risk benefit ratio favors no change other than as noted in my dictated progress note. 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
--- NOTE | 2021-06-30 21:46 | PDOC ---
Exam Note: Adryan Note: This note is a late entry for 06/29/2021 covers elements not covered in my initial note. Subjective: The patient was reviewed on telehealth rounds at treatment team meeting in the morning on 06/29/2021 with Abigail Curtis (social director) and Shannan MOONEY, discussed and reviewed the chart. Reviewed patients ongoing symptoms of marked anxiety, distractibility, obsessiveness, splitting staff. She refuses to keep the pocket talker to place to help hearing. She slept 7-1/2 hours previous night. Appetite 25%. She was also seen in the evening on telehealth rounds. Review of Systems: She is hard of hearing. No CV, , pulmonary, eye, system symptoms on review. Impaired ambulation with walker. Mental Status Exam: The patient is oriented to herself and situation. Speech coherent, rapid. Abstraction fair. Computation impaired. Language function intact. Attention span short. Mood and affect remains labile. Laboratory Data: Reviewed. Impression: Major depressive disorder, severe. Major neurocognitive disorder, Alzheimer vascular with delusion, depression. Anxiety disorder unspecified. Impulse control disorder unspecified. Plan: Given the patients marked obsessiveness, anxiety, failure on Zoloft 100 mg a day, we will change this to Luvox 25 mg a day for 3 days, then 50 mg a day thereafter. Maintain BuSpar which will be increased to 10 mg twice a day on 06/30. Continue Seroquel. Rest of the psychotropics unchanged including Xanax p.r.n. Assessment: Vital Signs/I&O: Vital Signs Date Time Temp Pulse Resp B/P (MAP) Pulse Ox O2 Delivery O2 Flow Rate FiO2 06/30/21 15:43 98.9 72 18 118/63 (81) 97 06/28/21 16:31 Room Air 06/27/21 15:33 0.0 I & O 06/29/21 06/29/21 06/30/21 15:00 23:00 07:00 Intake Total 140 ml 200 ml Balance 140 ml 200 ml Current Medications: Meds: Current Medications Medications (Trade) Dose Ordered Sig/Jorje Route PRN Reason Start Time Stop Time Status Last Admin Dose Admin Buspirone HCl (Buspar) 10 mg 0900,1700 PO 06/30/21 09:00 06/30/21 17:06 Fluvoxamine Maleate (Luvox) 25 mg DAILY PO 06/30/21 09:00 07/02/21 21:00 06/30/21 08:30 I have reviewed the current psychotropics carefully including drug interactions. Risk benefit ratio favors no change other than as noted in my dictated progress note. 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
--- NOTE | 2021-06-30 21:54 | PDOC ---
Exam Note: Adryan Note: Please also refer to the separate dictated note~for this date of service dictated separately.~Patient seen individually. Discussed the patient with Nursing staff reviewed the chart.~Reviewed interim history and current functioning. Reviewed vital signs,~Labs/ Radiology~and current medications noted below. Continue current treatment with the changes noted in the dictated addendum note Assessment: Vital Signs/I&O: Vital Signs Date Time Temp Pulse Resp B/P (MAP) Pulse Ox O2 Delivery O2 Flow Rate FiO2 06/30/21 15:43 98.9 72 18 118/63 (81) 97 06/28/21 16:31 Room Air 06/27/21 15:33 0.0 I & O 0 06/29/21 06/29/21 06/30/21 14:59 22:59 06:59 Intake Total 140 ml 200 ml Balance 140 ml 200 ml Current Medications: Meds: Current Medications Medications (Trade) Dose Ordered Sig/Jorje Route PRN Reason Start Time Stop Time Status Last Admin Dose Admin Acetaminophen (Tylenol) 325 mg PRN Q4HRS PRN PO MILD PAIN / TEMP > 100.3'F 06/20/21 10:30 Alprazolam (Xanax) 0.5 mg PRN Q6HRS PRN PO 1ST CHOICE ANXIETY / AGITATION 06/20/21 10:30 06/29/21 20:08 Amlodipine Besylate (Norvasc) 5 mg DAILY PO 06/21/21 09:00 06/30/21 08:30 Anastrozole (Arimidex) 1 mg DAILY PO 06/21/21 09:00 06/30/21 08:33 Aspirin (Aspirin Chewable) 81 mg DAILY PO 06/21/21 09:00 06/30/21 08:31 Vitamin D (Vitamin D3) 1,000 unit DAILY PO 06/21/21 09:00 06/30/21 08:30 Ondansetron HCl (Zofran Odt) 4 mg PRN Q8HRS PRN PO NAUSEA/VOMITING 06/20/21 14:00 Quetiapine Fumarate (SEROquel) 25 mg HS PO 06/20/21 21:00 06/30/21 20:27 Quetiapine Fumarate (SEROquel) 25 mg PRN Q6HRS PRN PO 2ND CHOICE ANXIETY / AGITATION 06/20/21 10:30 06/21/21 21:45 Tramadol HCl (Ultram) 50 mg PRN Q12HR PRN PO MOD-SEV PAIN 06/20/21 10:30 Ascorbic Acid (Vitamin C) 500 mg BID PO 06/20/21 21:00 06/30/21 20:27 Citalopram Hydrobromide (CeleXA) 40 mg DAILY PO 06/21/21 09:00 06/20/21 18:31 DC Folic Acid (Folic Acid) 1 mg DAILY PO 06/21/21 09:00 06/30/21 08:31 Melatonin (Melatonin) 6 mg QHS PO 06/20/21 21:00 06/30/21 20:28 Multivit/ Folic Acid/Iron (Multivitamin ) 1 tab DAILY PO 06/21/21 09:00 06/30/21 08:30 Multi-Ingredient Ointment (Analgesic [place]) 1 georgi PRN QID PRN TP MUSCLE PAIN 06/20/21 10:45 Al Hydroxide/Mg Hydroxide (Mylanta Plus Xs) 15 ml PRN AFTMEALHC PRN PO DYSPEPSIA 06/20/21 10:45 Magnesium Hydroxide (Milk Of Magnesia) 2,400 mg PRN QHS PRN PO CONSTIPATION 06/20/21 10:45 06/25/21 05:50 Quetiapine Fumarate (SEROquel) 12.5 mg 0900,1700 PO 06/21/21 09:00 06/22/21 11:53 DC 06/22/21 08:28 Sertraline HCl (Zoloft) 50 mg DAILY PO 06/21/21 09:00 06/23/21 11:00 DC 06/23/21 08:24 Sertraline HCl (Zoloft) 75 mg DAILY PO 06/24/21 09:00 06/26/21 21:00 DC 06/26/21 08:27 Dronabinol (Marinol) 2.5 mg BIDACLD PO 06/22/21 11:30 06/30/21 15:55 Quetiapine Fumarate (SEROquel) 12.5 mg 0900,1200,1500,1800 PO 06/22/21 12:00 06/24/21 21:00 DC 06/24/21 17:26 Sertraline HCl (Zoloft) 100 mg DAILY PO 06/27/21 09:00 06/29/21 11:51 DC 06/29/21 08:33 Quetiapine Fumarate (SEROquel) 25 mg 0900,1500 PO 06/25/21 09:00 06/30/21 15:55 Quetiapine Fumarate (SEROquel) 12.5 mg 1200,1800 PO 06/25/21 12:00 06/30/21 17:06 Buspirone HCl (Buspar) 5 mg 0900,1700 PO 06/27/21 09:00 06/29/21 23:00 DC 06/29/21 17:25 Buspirone HCl (Buspar) 10 mg 0900,1700 PO 06/30/21 09:00 06/30/21 17:06 Fluvoxamine Maleate (Luvox) 25 mg DAILY PO 06/30/21 09:00 07/02/21 21:00 06/30/21 08:30 Fluvoxamine Maleate (Luvox) 50 mg DAILY PO 07/03/21 09:00 Current Medications Medications (Trade) Dose Ordered Sig/Jorje Route PRN Reason Start Time Stop Time Status Last Admin Dose Admin Buspirone HCl (Buspar) 10 mg 0900,1700 PO 06/30/21 09:00 06/30/21 17:06 Fluvoxamine Maleate (Luvox) 25 mg DAILY PO 06/30/21 09:00 07/02/21 21:00 06/30/21 08:30 I have reviewed the current psychotropics carefully including drug interactions. Risk benefit ratio favors no change other than as noted in my dictated progress note. 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
[2021-07-01 06:02] VITALS: BP 117/84
[2021-07-01] MEDS: ALPRAZolam 0.5 MG TABLET PO PRN (06:30)
[2021-07-01 07:01] LABS: BASO # 0.1 x10^3/uL (0.0-0.2); BASO % 1 % (0-3); EOS # 0.4 x10^3/uL (0.0-0.7); EOS % 5 % (0-3); HEMATOCRIT 41.2 % (36.0-47.0); LYMPH # 1.6 x10^3/uL (1.0-4.8); LYMPH % 22 % (24-48); MEAN CORPUSCULAR HEMOGLOBIN 30 pg (25-35); MEAN CORPUSCULAR HGB CONC 34 g/dL (31-37); MEAN CORPUSCULAR VOLUME 89 fL (79-100); MONO # 0.5 x10^3/uL (0.0-1.1); MONO % 6 % (0-9); NEUT % 66 % (31-73); PLATELET COUNT 251 x10^3/uL (140-400); RED BLOOD COUNT 4.62 x10^6/uL (3.50-5.40); RED CELL DISTRIBUTION WIDTH 13.4 % (11.5-14.5); WHITE BLOOD COUNT 7.6 x10^3/uL (4.0-11.0)
[2021-07-01 07:12] LABS: ALBUMIN 3.5 g/dL (3.4-5.0); ALBUMIN/GLOBULIN RATIO 0.7 (1.0-1.7); CALCIUM 9.2 mg/dL (8.5-10.1); CREATININE 0.9 mg/dL (0.6-1.0); GFR 59.2; POTASSIUM 3.8 mmol/L (3.5-5.1); TOTAL BILIRUBIN 0.5 mg/dL (0.2-1.0); TOTAL PROTEIN 8.4 g/dL (6.4-8.2)
[2021-07-01] MEDS: busPIRone 10 MG TABLET. PO SCH ×2 (07:30→17:15)
[2021-07-01] MEDS: ASPIRIN CHEWABLE 81 MG TABLET. PO SCH (07:30)
[2021-07-01] MEDS: FOLIC ACID 1 MG TABLET PO SCH (07:30)
[2021-07-01] MEDS: PRENATAL MULTIVITAMIN TABLET. PO SCH (07:30)
[2021-07-01] MEDS: ASCORBIC ACID 500 MG TABLET PO SCH ×2 (07:30→19:57)
[2021-07-01] MEDS: CHOLECALCIFEROL (VITAMIN D3) 1,000 UNIT TABLET PO SCH (07:30)
[2021-07-01] MEDS: QUEtiapine 25 MG TABLET. PO SCH ×5 (07:31→19:57)
[2021-07-01] MEDS: amLODIPine BESYLATE 5 MG TABLET PO SCH (07:31)
[2021-07-01] MEDS: ANASTROZOLE 1 MG TABLET PO SCH (07:38)
--- NOTE | 2021-07-01 09:02 | NUR ---
Nursing note: Pt sitting in hallway at time of AM med pass and assessment. She was very excited when she saw me walking towards her with her AM meds. She continues to be anxious during interactions and gets nervous when other patients walk beside her. She denies having any pain this AM. She is currently sitting quietly in the hallway. Will continue to monitor.
[2021-07-01] MEDS: DRONABINOL 2.5 MG CAPSULE PO SCH ×2 (12:15→17:15)
[2021-07-01 15:58] VITALS: BP 134/84
[2021-07-01] MEDS: MELATONIN 3 MG TABLET PO SCH (19:57)
[2021-07-01] MEDS: MAGNESIUM HYDROXIDE 2,400 MG/30 ML ORAL.SUSP. PO PRN (20:16)
--- NOTE | 2021-07-01 21:33 | PDOC ---
Exam Note: Adryan Note: Please also refer to the separate dictated note~for this date of service dictated separately.~Patient seen individually. Discussed the patient with Nursing staff reviewed the chart.~Reviewed interim history and current functioning. Reviewed vital signs,~Labs/ Radiology~and current medications noted below. Continue current treatment with the changes noted in the dictated addendum note Assessment: Vital Signs/I&O: Vital Signs Date Time Temp Pulse Resp B/P (MAP) Pulse Ox O2 Delivery O2 Flow Rate FiO2 07/01/21 15:58 96.9 65 18 134/84 (101) 92 07/01/21 06:02 Room Air 06/27/21 15:33 0.0 I & O 06/30/21 06/30/21 07/01/21 15:00 23:00 07:00 Intake Total 720 ml 360 ml Balance 720 ml 360 ml Labs: Laboratory Tests Test 07/01/21 06:40 White Blood Count 7.6 x10^3/uL (4.0-11.0) Red Blood Count 4.62 x10^6/uL (3.50-5.40) Hemoglobin 14.0 g/dL (12.0-15.5) Hematocrit 41.2 % (36.0-47.0) Mean Corpuscular Volume 89 fL (79-100) Mean Corpuscular Hemoglobin 30 pg (25-35) Mean Corpuscular Hemoglobin Concent 34 g/dL (31-37) Red Cell Distribution Width 13.4 % (11.5-14.5) Platelet Count 251 x10^3/uL (140-400) Neutrophils (%) (Auto) 66 % (31-73) Lymphocytes (%) (Auto) 22 % (24-48) L Monocytes (%) (Auto) 6 % (0-9) Eosinophils (%) (Auto) 5 % (0-3) H Basophils (%) (Auto) 1 % (0-3) Neutrophils # (Auto) 5.0 x10^3uL (1.8-7.7) Lymphocytes # (Auto) 1.6 x10^3/uL (1.0-4.8) Monocytes # (Auto) 0.5 x10^3/uL (0.0-1.1) Eosinophils # (Auto) 0.4 x10^3/uL (0.0-0.7) Basophils # (Auto) 0.1 x10^3/uL (0.0-0.2) Sodium Level 139 mmol/L (136-145) Potassium Level 3.8 mmol/L (3.5-5.1) Chloride Level 106 mmol/L (98-107) Carbon Dioxide Level 25 mmol/L (21-32) Anion Gap 8 (6-14) Blood Urea Nitrogen 29 mg/dL (7-20) H Creatinine 0.9 mg/dL (0.6-1.0) Estimated GFR (Cockcroft-Gault) 59.2 BUN/Creatinine Ratio 32 (6-20) H Glucose Level 96 mg/dL (70-99) Calcium Level 9.2 mg/dL (8.5-10.1) Total Bilirubin 0.5 mg/dL (0.2-1.0) Aspartate Amino Transferase (AST) 27 U/L (15-37) Alanine Aminotransferase (ALT) 38 U/L (14-59) Alkaline Phosphatase 50 U/L (46-116) Total Protein 8.4 g/dL (6.4-8.2) H Albumin 3.5 g/dL (3.4-5.0) Albumin/Globulin Ratio 0.7 (1.0-1.7) L Current Medications: Meds: Laboratory Tests Test 07/01/21 06:40 White Blood Count 7.6 x10^3/uL Red Blood Count 4.62 x10^6/uL Hemoglobin 14.0 g/dL Hematocrit 41.2 % Mean Corpuscular Volume 89 fL Mean Corpuscular Hemoglobin 30 pg Mean Corpuscular Hemoglobin Concent 34 g/dL Red Cell Distribution Width 13.4 % Platelet Count 251 x10^3/uL Neutrophils (%) (Auto) 66 % Lymphocytes (%) (Auto) 22 % Monocytes (%) (Auto) 6 % Eosinophils (%) (Auto) 5 % Basophils (%) (Auto) 1 % Neutrophils # (Auto) 5.0 x10^3uL Lymphocytes # (Auto) 1.6 x10^3/uL Monocytes # (Auto) 0.5 x10^3/uL Eosinophils # (Auto) 0.4 x10^3/uL Basophils # (Auto) 0.1 x10^3/uL Sodium Level 139 mmol/L Potassium Level 3.8 mmol/L Chloride Level 106 mmol/L Carbon Dioxide Level 25 mmol/L Anion Gap 8 Blood Urea Nitrogen 29 mg/dL Creatinine 0.9 mg/dL Estimated GFR (Cockcroft-Gault) 59.2 BUN/Creatinine Ratio 32 Glucose Level 96 mg/dL Calcium Level 9.2 mg/dL Total Bilirubin 0.5 mg/dL Aspartate Amino Transf (AST/SGOT) 27 U/L Alanine Aminotransferase (ALT/SGPT) 38 U/L Alkaline Phosphatase 50 U/L Total Protein 8.4 g/dL Albumin 3.5 g/dL Albumin/Globulin Ratio 0.7 Current Medications Medications (Trade) Dose Ordered Sig/Jorje Route PRN Reason Start Time Stop Time Status Last Admin Dose Admin Acetaminophen (Tylenol) 325 mg PRN Q4HRS PRN PO MILD PAIN / TEMP > 100.3'F 06/20/21 10:30 Alprazolam (Xanax) 0.5 mg PRN Q6HRS PRN PO 1ST CHOICE ANXIETY / AGITATION 06/20/21 10:30 07/01/21 06:30 Amlodipine Besylate (Norvasc) 5 mg DAILY PO 06/21/21 09:00 07/01/21 07:31 Anastrozole (Arimidex) 1 mg DAILY PO 06/21/21 09:00 07/01/21 07:38 Aspirin (Aspirin Chewable) 81 mg DAILY PO 06/21/21 09:00 07/01/21 07:30 Vitamin D (Vitamin D3) 1,000 unit DAILY PO 06/21/21 09:00 07/01/21 07:30 Ondansetron HCl (Zofran Odt) 4 mg PRN Q8HRS PRN PO NAUSEA/VOMITING 06/20/21 14:00 Quetiapine Fumarate (SEROquel) 25 mg HS PO 06/20/21 21:00 07/01/21 19:57 Quetiapine Fumarate (SEROquel) 25 mg PRN Q6HRS PRN PO 2ND CHOICE ANXIETY / AGITATION 06/20/21 10:30 06/21/21 21:45 Tramadol HCl (Ultram) 50 mg PRN Q12HR PRN PO MOD-SEV PAIN 06/20/21 10:30 Ascorbic Acid (Vitamin C) 500 mg BID PO 06/20/21 21:00 07/01/21 19:57 Citalopram Hydrobromide (CeleXA) 40 mg DAILY PO 06/21/21 09:00 06/20/21 18:31 DC Folic Acid (Folic Acid) 1 mg DAILY PO 06/21/21 09:00 07/01/21 07:30 Melatonin (Melatonin) 6 mg QHS PO 06/20/21 21:00 07/01/21 19:57 Multivit/ Folic Acid/Iron (Multivitamin ) 1 tab DAILY PO 06/21/21 09:00 07/01/21 07:30 Multi-Ingredient Ointment (Analgesic [place]) 1 georgi PRN QID PRN TP MUSCLE PAIN 06/20/21 10:45 Al Hydroxide/Mg Hydroxide (Mylanta Plus Xs) 15 ml PRN AFTMEALHC PRN PO DYSPEPSIA 06/20/21 10:45 Magnesium Hydroxide (Milk Of Magnesia) 2,400 mg PRN QHS PRN PO CONSTIPATION 06/20/21 10:45 07/01/21 20:16 Quetiapine Fumarate (SEROquel) 12.5 mg 0900,1700 PO 06/21/21 09:00 06/22/21 11:53 DC 06/22/21 08:28 Sertraline HCl (Zoloft) 50 mg DAILY PO 06/21/21 09:00 06/23/21 11:00 DC 06/23/21 08:24 Sertraline HCl (Zoloft) 75 mg DAILY PO 06/24/21 09:00 06/26/21 21:00 DC 06/26/21 08:27 Dronabinol (Marinol) 2.5 mg BIDACLD PO 06/22/21 11:30 07/01/21 17:15 Quetiapine Fumarate (SEROquel) 12.5 mg 0900,1200,1500,1800 PO 06/22/21 12:00 06/24/21 21:00 DC 06/24/21 17:26 Sertraline HCl (Zoloft) 100 mg DAILY PO 06/27/21 09:00 06/29/21 11:51 DC 06/29/21 08:33 Quetiapine Fumarate (SEROquel) 25 mg 0900,1500 PO 06/25/21 09:00 07/01/21 17:15 Quetiapine Fumarate (SEROquel) 12.5 mg 1200,1800 PO 06/25/21 12:00 07/01/21 18:36 Buspirone HCl (Buspar) 5 mg 0900,1700 PO 06/27/21 09:00 06/29/21 23:00 DC 06/29/21 17:25 Buspirone HCl (Buspar) 10 mg 0900,1700 PO 06/30/21 09:00 07/01/21 17:15 Fluvoxamine Maleate (Luvox) 25 mg DAILY PO 06/30/21 09:00 07/02/21 21:00 07/01/21 07:31 Fluvoxamine Maleate (Luvox) 50 mg DAILY PO 07/03/21 09:00 I have reviewed the current psychotropics carefully including drug interactions. Risk benefit ratio favors no change other than as noted in my dictated progress note. 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
[2021-07-02 06:06] VITALS: BP 135/76
--- NOTE | 2021-07-02 06:30 | NUR ---
Patient is located in her room on assumption of care, awake in her bed. She is compliant with assessments and medications whole. She continues to be anxious about being abandoned by her children. Patient complained of constipation and requested a laxative. MOM given at HS, pending results. She has no further complaints of pain or discomfort. Will continue to monitor.
[2021-07-02] MEDS: amLODIPine BESYLATE 5 MG TABLET PO SCH (09:17)
[2021-07-02] MEDS: CHOLECALCIFEROL (VITAMIN D3) 1,000 UNIT TABLET PO SCH (09:17)
[2021-07-02] MEDS: ASPIRIN CHEWABLE 81 MG TABLET. PO SCH (09:17)
[2021-07-02] MEDS: busPIRone 10 MG TABLET. PO SCH ×2 (09:17→17:08)
[2021-07-02] MEDS: PRENATAL MULTIVITAMIN TABLET. PO SCH (09:17)
[2021-07-02] MEDS: ASCORBIC ACID 500 MG TABLET PO SCH ×2 (09:18→20:06)
[2021-07-02] MEDS: FOLIC ACID 1 MG TABLET PO SCH (09:18)
[2021-07-02] MEDS: QUEtiapine 25 MG TABLET. PO SCH ×5 (09:18→20:06)
[2021-07-02] MEDS: ANASTROZOLE 1 MG TABLET PO SCH (09:22)
[2021-07-02] MEDS: DRONABINOL 2.5 MG CAPSULE PO SCH ×2 (11:44→17:08)
--- NOTE | 2021-07-02 15:18 | NUR ---
Nursing note: Patient in day room for assessment & medication. She was compliant taking medications whole. She is A/O to self only. She denies pain/discomfort at this time. Patient walks independently with walker. Staff highly encourages patient to eat, as her appetite is decreased. She frequently makes statements of "I'm scared," "I'm going to here," & "My kids hate me, that's why they dropped me off here." She had a phone call with her daughter that went well. She has been wandering through [place] and joining the day room. She is currently sitting in a chair in the [place]. Will continue to monitor.
[2021-07-02 15:52] VITALS: BP 115/80
[2021-07-02] MEDS: MELATONIN 3 MG TABLET PO SCH (20:07)
--- NOTE | 2021-07-02 21:33 | PDOC ---
Exam Note: Adryan Note: Please also refer to the separate dictated note~for this date of service dictated separately.~Patient seen individually. Discussed the patient with Nursing staff reviewed the chart.~Reviewed interim history and current functioning. Reviewed vital signs,~Labs/ Radiology~and current medications noted below. Continue current treatment with the changes noted in the dictated addendum note Assessment: Vital Signs/I&O: Vital Signs Date Time Temp Pulse Resp B/P (MAP) Pulse Ox O2 Delivery O2 Flow Rate FiO2 07/02/21 15:52 97.4 82 20 115/80 (92) 98 Room Air 06/27/21 15:33 0.0 I & O 07/01/21 07/01/21 07/02/21 15:00 23:00 07:00 Intake Total 360 ml 240 ml Balance 360 ml 240 ml Current Medications: Meds: Current Medications Medications (Trade) Dose Ordered Sig/Jorje Route PRN Reason Start Time Stop Time Status Last Admin Dose Admin Acetaminophen (Tylenol) 325 mg PRN Q4HRS PRN PO MILD PAIN / TEMP > 100.3'F 06/20/21 10:30 Alprazolam (Xanax) 0.5 mg PRN Q6HRS PRN PO 1ST CHOICE ANXIETY / AGITATION 06/20/21 10:30 07/01/21 06:30 Amlodipine Besylate (Norvasc) 5 mg DAILY PO 06/21/21 09:00 07/02/21 09:17 Anastrozole (Arimidex) 1 mg DAILY PO 06/21/21 09:00 07/02/21 09:22 Aspirin (Aspirin Chewable) 81 mg DAILY PO 06/21/21 09:00 07/02/21 09:17 Vitamin D (Vitamin D3) 1,000 unit DAILY PO 06/21/21 09:00 07/02/21 09:17 Ondansetron HCl (Zofran Odt) 4 mg PRN Q8HRS PRN PO NAUSEA/VOMITING 06/20/21 14:00 Quetiapine Fumarate (SEROquel) 25 mg HS PO 06/20/21 21:00 07/02/21 20:06 Quetiapine Fumarate (SEROquel) 25 mg PRN Q6HRS PRN PO 2ND CHOICE ANXIETY / AGITATION 06/20/21 10:30 06/21/21 21:45 Tramadol HCl (Ultram) 50 mg PRN Q12HR PRN PO MOD-SEV PAIN 06/20/21 10:30 Ascorbic Acid (Vitamin C) 500 mg BID PO 06/20/21 21:00 07/02/21 20:06 Citalopram Hydrobromide (CeleXA) 40 mg DAILY PO 06/21/21 09:00 06/20/21 18:31 DC Folic Acid (Folic Acid) 1 mg DAILY PO 06/21/21 09:00 07/02/21 09:18 Melatonin (Melatonin) 6 mg QHS PO 06/20/21 21:00 07/02/21 20:07 Multivit/ Folic Acid/Iron (Multivitamin ) 1 tab DAILY PO 06/21/21 09:00 07/02/21 09:17 Multi-Ingredient Ointment (Analgesic [place]) 1 georgi PRN QID PRN TP MUSCLE PAIN 06/20/21 10:45 Al Hydroxide/Mg Hydroxide (Mylanta Plus Xs) 15 ml PRN AFTMEALHC PRN PO DYSPEPSIA 06/20/21 10:45 Magnesium Hydroxide (Milk Of Magnesia) 2,400 mg PRN QHS PRN PO CONSTIPATION 06/20/21 10:45 07/01/21 20:16 Quetiapine Fumarate (SEROquel) 12.5 mg 0900,1700 PO 06/21/21 09:00 06/22/21 11:53 DC 06/22/21 08:28 Sertraline HCl (Zoloft) 50 mg DAILY PO 06/21/21 09:00 06/23/21 11:00 DC 06/23/21 08:24 Sertraline HCl (Zoloft) 75 mg DAILY PO 06/24/21 09:00 06/26/21 21:00 DC 06/26/21 08:27 Dronabinol (Marinol) 2.5 mg BIDACLD PO 06/22/21 11:30 07/02/21 17:08 Quetiapine Fumarate (SEROquel) 12.5 mg 0900,1200,1500,1800 PO 06/22/21 12:00 06/24/21 21:00 DC 06/24/21 17:26 Sertraline HCl (Zoloft) 100 mg DAILY PO 06/27/21 09:00 06/29/21 11:51 DC 06/29/21 08:33 Quetiapine Fumarate (SEROquel) 25 mg 0900,1500 PO 06/25/21 09:00 07/02/21 15:37 Quetiapine Fumarate (SEROquel) 12.5 mg 1200,1800 PO 06/25/21 12:00 07/02/21 17:09 Buspirone HCl (Buspar) 5 mg 0900,1700 PO 06/27/21 09:00 06/29/21 23:00 DC 06/29/21 17:25 Buspirone HCl (Buspar) 10 mg 0900,1700 PO 06/30/21 09:00 07/02/21 17:08 Fluvoxamine Maleate (Luvox) 25 mg DAILY PO 06/30/21 09:00 07/02/21 21:00 DC 07/02/21 09:17 Fluvoxamine Maleate (Luvox) 50 mg DAILY PO 07/03/21 09:00 I have reviewed the current psychotropics carefully including drug interactions. Risk benefit ratio favors no change other than as noted in my dictated progress note. 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
[2021-07-03 05:59] VITALS: BP 129/55
--- NOTE | 2021-07-03 07:35 | PDOC ---
Exam Note: Adryan Note: This note is a late entry for 06/30/2021 covers elements not covered in my initial note. Subjective: The patient was seen individually on 06/30/2021, discussed and reviewed the chart with Karie MOONEY. The patient slept 7-3/4 hours previous night. She is anxious. I met with her in her room. She is quite obsessive, ruminative, repeatedly asking the same questions. Review of Systems: She is hard of hearing. No CV, , pulmonary, eye, system symptoms on review. Impaired ambulation with walker. Mental Status Exam: The patient is oriented to herself and situation. Speech coherent, rapid, repetitive. Abstraction fair. Computation impaired. Language function intact. She is quite distractible. Short-term memory is impaired. She is continuing to obsess that she is fat and I processed this with her individually. Laboratory Data: Reviewed. Impression: Major depressive disorder, severe. Major neurocognitive disorder, Alzheimer vascular with delusion, depression. Anxiety disorder unspecified. Impulse control disorder unspecified. Plan: Continue psychotropics from initial note. We have changed the Zoloft to Luvox and we will gradually adjust this. Rest unchanged for now. Assessment: Vital Signs/I&O: Vital Signs Date Time Temp Pulse Resp B/P (MAP) Pulse Ox O2 Delivery O2 Flow Rate FiO2 07/03/21 05:59 98.1 72 18 129/55 (79) 98 07/02/21 15:52 Room Air 06/27/21 15:33 0.0 I & O 07/02/21 07/02/21 07/03/21 14:59 22:59 06:59 Intake Total 300 ml 240 ml 100 ml Balance 300 ml 240 ml 100 ml Current Medications: I have reviewed the current psychotropics carefully including drug interactions. Risk benefit ratio favors no change other than as noted in my dictated progress note. 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
--- NOTE | 2021-07-03 07:49 | PDOC ---
Exam Note: Adryan Note: This note is a late entry for 07/01/2021 covers elements not covered in my initial note. Subjective: The patient was seen individually on 07/01/2021, discussed and reviewed the chart with Afsaneh MOONEY. The patient slept 9 hours previous night. I met with her in her room. She remains anxious, appears somewhat paranoid, scared. She does come out of her room, slightly less anxiety at times. She is confused, thinking her kids live here. Review of Systems: She is hard of hearing. No CV, , pulmonary, eye, system symptoms on review. Impaired ambulation with walker. Mental Status Exam: The patient is oriented to herself and situation. As before she is anxious somewhat obsessive about her food and that she has gained weight. I addressed this with her, very difficult to communicate as she is hard of hearing. Speech coherent, rapid, repetitive. Abstraction fair. Computation impaired. Language function intact. She is quite distractible. Short-term memory is impaired. Laboratory Data: Reviewed. Impression: Major depressive disorder, severe. Major neurocognitive disorder, Alzheimer vascular with delusion, depression. Anxiety disorder unspecified. Impulse control disorder unspecified. Plan: Continue psychotropics from initial note. Assessment: Vital Signs/I&O: Vital Signs Date Time Temp Pulse Resp B/P (MAP) Pulse Ox O2 Delivery O2 Flow Rate FiO2 07/03/21 05:59 98.1 72 18 129/55 (79) 98 07/02/21 15:52 Room Air 06/27/21 15:33 0.0 I & O 07/02/21 07/02/21 07/03/21 15:00 23:00 07:00 Intake Total 300 ml 240 ml 100 ml Balance 300 ml 240 ml 100 ml Current Medications: I have reviewed the current psychotropics carefully including drug interactions. Risk benefit ratio favors no change other than as noted in my dictated progress note. 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
--- NOTE | 2021-07-03 08:01 | PDOC ---
Exam Note: Adryan Note: This note is a late entry for 07/02/2021 covers elements not covered in my initial note. Subjective: The patient was seen individually on 07/02/2021, discussed and reviewed the chart with Afsaneh MOONEY. The patient slept 10-1/2 hours previous night. She has been anxious, hard of hearing. She did have telephone call with her daughter and then forgot about it short time later when the nursing staff questioned her. She is focused in not gaining weight, obsessed about her bowel, states she has not had bowel movement in one month which is not accurate. In the morning she was asking me and nursing staff to dig out her bowels, anxious, less though than about a week ago per nursing report. Review of Systems: She is hard of hearing. No CV, , pulmonary, eye, system symptoms on review. Impaired ambulation with walker. Mental Status Exam: The patient is oriented to herself and situation. Speech coherent, rapid, repetitive. Abstraction fair. Computation impaired. Language function intact. She is quite distractible. Short-term memory is impaired. Laboratory Data: Reviewed. Impression: Major depressive disorder, severe. Major neurocognitive disorder, Alzheimer vascular with delusion, depression. Anxiety disorder unspecified. Impulse control disorder unspecified. Plan: Continue psychotropics from initial note. Assessment: Vital Signs/I&O: Vital Signs Date Time Temp Pulse Resp B/P (MAP) Pulse Ox O2 Delivery O2 Flow Rate FiO2 07/03/21 05:59 98.1 72 18 129/55 (79) 98 07/02/21 15:52 Room Air 06/27/21 15:33 0.0 I & O 07/02/21 07/02/21 07/03/21 15:00 23:00 07:00 Intake Total 300 ml 240 ml 100 ml Balance 300 ml 240 ml 100 ml Current Medications: I have reviewed the current psychotropics carefully including drug interactions. Risk benefit ratio favors no change other than as noted in my dictated progress note. 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
[2021-07-03] MEDS: QUEtiapine 25 MG TABLET. PO SCH ×5 (08:36→19:29)
[2021-07-03] MEDS: amLODIPine BESYLATE 5 MG TABLET PO SCH (08:36)
[2021-07-03] MEDS: ASPIRIN CHEWABLE 81 MG TABLET. PO SCH (08:36)
[2021-07-03] MEDS: ASCORBIC ACID 500 MG TABLET PO SCH ×2 (08:37→19:29)
[2021-07-03] MEDS: PRENATAL MULTIVITAMIN TABLET. PO SCH (08:37)
[2021-07-03] MEDS: FOLIC ACID 1 MG TABLET PO SCH (08:37)
[2021-07-03] MEDS: CHOLECALCIFEROL (VITAMIN D3) 1,000 UNIT TABLET PO SCH (08:37)
[2021-07-03] MEDS: busPIRone 10 MG TABLET. PO SCH ×2 (08:37→17:22)
[2021-07-03] MEDS: ANASTROZOLE 1 MG TABLET PO SCH (08:37)
[2021-07-03] MEDS: DRONABINOL 2.5 MG CAPSULE PO SCH ×2 (11:43→16:24)
--- NOTE | 2021-07-03 15:00 | NUR ---
Nursing note: Patient in dinning room for assessment & medication. She was compliant taking medications whole. She is A/O to self only. She denies pain/discomfort at this time. Patient walks independently with walker. Staff highly encourages patient to eat, as her appetite is decreased. She is disorganized and anxious. She frequently makes statements of "I'm scared," "I'm going to here," & "My kids hate me, that's why they dropped me off here." She has been wandering through [place] and joining the day room. She is currently sitting in the day room watching TV. Will continue to monitor.
[2021-07-03 15:42] VITALS: BP 114/57
[2021-07-03] MEDS: MELATONIN 3 MG TABLET PO SCH (19:29)
--- NOTE | 2021-07-03 21:12 | PDOC ---
Exam Note: Adryan Note: Please also refer to the separate dictated note~for this date of service dictated separately.~Patient seen individually. Discussed the patient with Nursing staff reviewed the chart.~Reviewed interim history and current functioning. Reviewed vital signs,~Labs/ Radiology~and current medications noted below. Continue current treatment with the changes noted in the dictated addendum note Assessment: Vital Signs/I&O: Vital Signs Date Time Temp Pulse Resp B/P (MAP) Pulse Ox O2 Delivery O2 Flow Rate FiO2 07/03/21 15:42 96.8 92 16 114/57 (76) 92 07/02/21 15:52 Room Air 06/27/21 15:33 0.0 I & O 0 07/02/21 07/02/21 07/03/21 15:00 23:00 07:00 Intake Total 300 ml 240 ml 100 ml Balance 300 ml 240 ml 100 ml Current Medications: Meds: Current Medications Medications (Trade) Dose Ordered Sig/Jorje Route PRN Reason Start Time Stop Time Status Last Admin Dose Admin Acetaminophen (Tylenol) 325 mg PRN Q4HRS PRN PO MILD PAIN / TEMP > 100.3'F 06/20/21 10:30 Alprazolam (Xanax) 0.5 mg PRN Q6HRS PRN PO 1ST CHOICE ANXIETY / AGITATION 06/20/21 10:30 07/01/21 06:30 Amlodipine Besylate (Norvasc) 5 mg DAILY PO 06/21/21 09:00 07/03/21 08:36 Anastrozole (Arimidex) 1 mg DAILY PO 06/21/21 09:00 07/03/21 08:37 Aspirin (Aspirin Chewable) 81 mg DAILY PO 06/21/21 09:00 07/03/21 08:36 Vitamin D (Vitamin D3) 1,000 unit DAILY PO 06/21/21 09:00 07/03/21 08:37 Ondansetron HCl (Zofran Odt) 4 mg PRN Q8HRS PRN PO NAUSEA/VOMITING 06/20/21 14:00 Quetiapine Fumarate (SEROquel) 25 mg HS PO 06/20/21 21:00 07/03/21 19:29 Quetiapine Fumarate (SEROquel) 25 mg PRN Q6HRS PRN PO 2ND CHOICE ANXIETY / AGITATION 06/20/21 10:30 06/21/21 21:45 Tramadol HCl (Ultram) 50 mg PRN Q12HR PRN PO MOD-SEV PAIN 06/20/21 10:30 Ascorbic Acid (Vitamin C) 500 mg BID PO 06/20/21 21:00 07/03/21 19:29 Citalopram Hydrobromide (CeleXA) 40 mg DAILY PO 06/21/21 09:00 06/20/21 18:31 DC Folic Acid (Folic Acid) 1 mg DAILY PO 06/21/21 09:00 07/03/21 08:37 Melatonin (Melatonin) 6 mg QHS PO 06/20/21 21:00 07/03/21 19:29 Multivit/ Folic Acid/Iron (Multivitamin ) 1 tab DAILY PO 06/21/21 09:00 07/03/21 08:37 Multi-Ingredient Ointment (Analgesic [place]) 1 georgi PRN QID PRN TP MUSCLE PAIN 06/20/21 10:45 Al Hydroxide/Mg Hydroxide (Mylanta Plus Xs) 15 ml PRN AFTMEALHC PRN PO DYSPEPSIA 06/20/21 10:45 Magnesium Hydroxide (Milk Of Magnesia) 2,400 mg PRN QHS PRN PO CONSTIPATION 06/20/21 10:45 07/01/21 20:16 Quetiapine Fumarate (SEROquel) 12.5 mg 0900,1700 PO 06/21/21 09:00 06/22/21 11:53 DC 06/22/21 08:28 Sertraline HCl (Zoloft) 50 mg DAILY PO 06/21/21 09:00 06/23/21 11:00 DC 06/23/21 08:24 Sertraline HCl (Zoloft) 75 mg DAILY PO 06/24/21 09:00 06/26/21 21:00 DC 06/26/21 08:27 Dronabinol (Marinol) 2.5 mg BIDACLD PO 06/22/21 11:30 07/03/21 16:24 Quetiapine Fumarate (SEROquel) 12.5 mg 0900,1200,1500,1800 PO 06/22/21 12:00 06/24/21 21:00 DC 06/24/21 17:26 Sertraline HCl (Zoloft) 100 mg DAILY PO 06/27/21 09:00 06/29/21 11:51 DC 06/29/21 08:33 Quetiapine Fumarate (SEROquel) 25 mg 0900,1500 PO 06/25/21 09:00 07/03/21 14:38 Quetiapine Fumarate (SEROquel) 12.5 mg 1200,1800 PO 06/25/21 12:00 07/03/21 17:22 Buspirone HCl (Buspar) 5 mg 0900,1700 PO 06/27/21 09:00 06/29/21 23:00 DC 06/29/21 17:25 Buspirone HCl (Buspar) 10 mg 0900,1700 PO 06/30/21 09:00 07/03/21 17:22 Fluvoxamine Maleate (Luvox) 25 mg DAILY PO 06/30/21 09:00 07/02/21 21:00 DC 07/02/21 09:17 Fluvoxamine Maleate (Luvox) 50 mg DAILY PO 07/03/21 09:00 07/03/21 08:36 Current Medications Medications (Trade) Dose Ordered Sig/Jorje Route PRN Reason Start Time Stop Time Status Last Admin Dose Admin Fluvoxamine Maleate (Luvox) 50 mg DAILY PO 07/03/21 09:00 07/03/21 08:36 I have reviewed the current psychotropics carefully including drug interactions. Risk benefit ratio favors no change other than as noted in my dictated progress note. 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
--- NOTE | 2021-07-03 23:17 | NUR ---
Pt sitting quietly in the day room when approached. Pt anxious at times, disorganized, confused, and delusional. Pt obsessed with her bowels, reporting that "it's been days since I had one". BS + all quadrants, no tenderness/pain with abdominal palpation. Pt cooperative with assessment and compliant with medications administered whole. No agitation or aggression noted thus far this shift.
[2021-07-04 06:25] VITALS: BP 121/63
[2021-07-04] MEDS: ANASTROZOLE 1 MG TABLET PO SCH (08:17)
[2021-07-04] MEDS: busPIRone 10 MG TABLET. PO SCH ×2 (08:17→16:24)
[2021-07-04] MEDS: CHOLECALCIFEROL (VITAMIN D3) 1,000 UNIT TABLET PO SCH (08:18)
[2021-07-04] MEDS: QUEtiapine 25 MG TABLET. PO SCH ×5 (08:18→20:35)
[2021-07-04] MEDS: ASCORBIC ACID 500 MG TABLET PO SCH ×2 (08:18→20:35)
[2021-07-04] MEDS: amLODIPine BESYLATE 5 MG TABLET PO SCH (08:18)
[2021-07-04] MEDS: ASPIRIN CHEWABLE 81 MG TABLET. PO SCH (08:18)
[2021-07-04] MEDS: PRENATAL MULTIVITAMIN TABLET. PO SCH (08:18)
[2021-07-04] MEDS: FOLIC ACID 1 MG TABLET PO SCH (08:18)
[2021-07-04] MEDS: DRONABINOL 2.5 MG CAPSULE PO SCH ×2 (11:25→16:24)
--- NOTE | 2021-07-04 14:45 | NUR ---
Nursing note: Patient in dinning room for assessment & medication. She was compliant taking medications whole. She is A/O to self only. She denies pain/discomfort at this time. Patient walks independently with walker. Staff highly encourages patient to eat, as her appetite is decreased. She is disorganized and anxious. She voiced, "I'm never going to see my parents again." She has been wandering through [place] and joining the day room. She is currently sitting in the day room watching TV. Will continue to monitor.
[2021-07-04 16:13] VITALS: BP 122/87
[2021-07-04] MEDS: MELATONIN 3 MG TABLET PO SCH (20:35)
--- NOTE | 2021-07-04 21:37 | PDOC ---
Exam Note: Adryan Note: Please also refer to the separate dictated note~for this date of service dictated separately.~Patient seen individually. Discussed the patient with Nursing staff reviewed the chart.~Reviewed interim history and current functioning. Reviewed vital signs,~Labs/ Radiology~and current medications noted below. Continue current treatment with the changes noted in the dictated addendum note Assessment: Vital Signs/I&O: Vital Signs Date Time Temp Pulse Resp B/P (MAP) Pulse Ox O2 Delivery O2 Flow Rate FiO2 07/04/21 16:13 97.5 72 19 122/87 (99) 99 07/04/21 06:25 Room Air I & O 07/03/21 07/03/21 07/04/21 15:00 23:00 07:00 Intake Total 480 ml 340 ml Balance 480 ml 340 ml Current Medications: Meds: Current Medications Medications (Trade) Dose Ordered Sig/Jorje Route PRN Reason Start Time Stop Time Status Last Admin Dose Admin Acetaminophen (Tylenol) 325 mg PRN Q4HRS PRN PO MILD PAIN / TEMP > 100.3'F 06/20/21 10:30 Alprazolam (Xanax) 0.5 mg PRN Q6HRS PRN PO 1ST CHOICE ANXIETY / AGITATION 06/20/21 10:30 07/01/21 06:30 Amlodipine Besylate (Norvasc) 5 mg DAILY PO 06/21/21 09:00 07/04/21 08:18 Anastrozole (Arimidex) 1 mg DAILY PO 06/21/21 09:00 07/04/21 08:17 Aspirin (Aspirin Chewable) 81 mg DAILY PO 06/21/21 09:00 07/04/21 08:18 Vitamin D (Vitamin D3) 1,000 unit DAILY PO 06/21/21 09:00 07/04/21 08:18 Ondansetron HCl (Zofran Odt) 4 mg PRN Q8HRS PRN PO NAUSEA/VOMITING 06/20/21 14:00 Quetiapine Fumarate (SEROquel) 25 mg HS PO 06/20/21 21:00 07/04/21 20:35 Quetiapine Fumarate (SEROquel) 25 mg PRN Q6HRS PRN PO 2ND CHOICE ANXIETY / AGITATION 06/20/21 10:30 06/21/21 21:45 Tramadol HCl (Ultram) 50 mg PRN Q12HR PRN PO MOD-SEV PAIN 06/20/21 10:30 Ascorbic Acid (Vitamin C) 500 mg BID PO 06/20/21 21:00 07/04/21 20:35 Citalopram Hydrobromide (CeleXA) 40 mg DAILY PO 06/21/21 09:00 06/20/21 18:31 DC Folic Acid (Folic Acid) 1 mg DAILY PO 06/21/21 09:00 07/04/21 08:18 Melatonin (Melatonin) 6 mg QHS PO 06/20/21 21:00 07/04/21 20:35 Multivit/ Folic Acid/Iron (Multivitamin ) 1 tab DAILY PO 06/21/21 09:00 07/04/21 08:18 Multi-Ingredient Ointment (Analgesic [place]) 1 georgi PRN QID PRN TP MUSCLE PAIN 06/20/21 10:45 Al Hydroxide/Mg Hydroxide (Mylanta Plus Xs) 15 ml PRN AFTMEALHC PRN PO DYSPEPSIA 06/20/21 10:45 Magnesium Hydroxide (Milk Of Magnesia) 2,400 mg PRN QHS PRN PO CONSTIPATION 06/20/21 10:45 07/01/21 20:16 Quetiapine Fumarate (SEROquel) 12.5 mg 0900,1700 PO 06/21/21 09:00 06/22/21 11:53 DC 06/22/21 08:28 Sertraline HCl (Zoloft) 50 mg DAILY PO 06/21/21 09:00 06/23/21 11:00 DC 06/23/21 08:24 Sertraline HCl (Zoloft) 75 mg DAILY PO 06/24/21 09:00 06/26/21 21:00 DC 06/26/21 08:27 Dronabinol (Marinol) 2.5 mg BIDACLD PO 06/22/21 11:30 07/04/21 16:24 Quetiapine Fumarate (SEROquel) 12.5 mg 0900,1200,1500,1800 PO 06/22/21 12:00 06/24/21 21:00 DC 06/24/21 17:26 Sertraline HCl (Zoloft) 100 mg DAILY PO 06/27/21 09:00 06/29/21 11:51 DC 06/29/21 08:33 Quetiapine Fumarate (SEROquel) 25 mg 0900,1500 PO 06/25/21 09:00 07/04/21 14:48 Quetiapine Fumarate (SEROquel) 12.5 mg 1200,1800 PO 06/25/21 12:00 07/04/21 17:13 Buspirone HCl (Buspar) 5 mg 0900,1700 PO 06/27/21 09:00 06/29/21 23:00 DC 06/29/21 17:25 Buspirone HCl (Buspar) 10 mg 0900,1700 PO 06/30/21 09:00 07/04/21 16:24 Fluvoxamine Maleate (Luvox) 25 mg DAILY PO 06/30/21 09:00 07/02/21 21:00 DC 07/02/21 09:17 Fluvoxamine Maleate (Luvox) 50 mg DAILY PO 07/03/21 09:00 07/05/21 21:00 07/04/21 08:15 Fluvoxamine Maleate (Luvox) 75 mg DAILY PO 07/06/21 09:00 I have reviewed the current psychotropics carefully including drug interactions. Risk benefit ratio favors no change other than as noted in my dictated progress note. 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
--- NOTE | 2021-07-04 23:56 | NUR ---
Pt withdrawn to room, lying in bed when approached. Pt calm, confused, and disorganized. Pt cooperative with assessment and compliant with medications administered whole. No agitation or aggression noted at this time.
[2021-07-05 06:10] VITALS: BP_SYST 135; BP_SYST 175; BP_DIAS 76; BP_DIAS 85
--- NOTE | 2021-07-05 06:51 | PDOC ---
Exam Note: Adryan Note: This note is a late entry for 07/03/2021 covers elements not covered in my initial note. Subjective: The patient was seen individually on 07/03/2021, discussed and reviewed the chart with Alida MOONEY. I met with the patient in the dayroom. She has been anxious, confused. She seems quite obsessed about her bowels, feels she is getting fat and states staff insists she has three meals a day and her body doesnt need this as I processed this with her. She was given milk of mag two days ago because she said she has not had her bowel movement. She is compliant with medications. Review of Systems: She is hard of hearing though she seems to have selective hearing. No CV, , pulmonary, eye, system symptoms on review. She does have vague somatic symptoms and preoccupation with her weight. Mental Status Exam: The patient is oriented to herself and situation. Speech coherent, rapid at times. Abstraction fair. Computation impaired. Language function intact. Mood and affect remains anxious somewhat obsessive and labile. No suicidal or homicidal ideation. Laboratory Data: Reviewed. Impression: Major depressive disorder, severe. Major neurocognitive disorder, Alzheimer vascular with delusion, depression. Anxiety disorder unspecified. Impulse control disorder unspecified. Plan: We will continue to increase her Luvox for OCD symptoms. Maintain BuSpar, Seroquel, Xanax p.r.n. She takes melatonin at night. Rest unchanged for now. Assessment: Vital Signs/I&O: Vital Signs Date Time Temp Pulse Resp B/P (MAP) Pulse Ox O2 Delivery O2 Flow Rate FiO2 07/05/21 06:10 97.5 79 18 175/76 (109) 92 07/04/21 06:25 Room Air I & O 07/04/21 07/04/21 07/05/21 15:00 23:00 07:00 Intake Total 600 ml 240 ml 0 ml Balance 600 ml 240 ml 0 ml Current Medications: I have reviewed the current psychotropics carefully including drug interactions. Risk benefit ratio favors no change other than as noted in my dictated progress note. 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
--- NOTE | 2021-07-05 07:04 | PDOC ---
Exam Note: Adryan Note: This note is a late entry for 07/04/2021 covers elements not covered in my initial note. Subjective: The patient was seen individually on 07/04/2021, discussed and reviewed the chart with Deja MOONEY. Overall the patient has been anxious, obsessive, less than before, repeatedly stating Im never going to get out of here. I processed this with her at some length. She is very hard of hearing, making it difficult to communicate. She is talking about going home with her parents, somewhat obsessed about her weight and not having bowel movement. Review of Systems: Impaired ambulation. She does admit to feeling that she is fat in fact she is not. No CV, , pulmonary, eye, system symptoms on review. Mental Status Exam: The patient is oriented to herself and situation. Speech coherent, rapid at times. Abstraction fair. Computation impaired. Language function intact. Attention span short. Mood and affect remains anxious somewhat labile. Laboratory Data: Reviewed. Impression: Major depressive disorder, severe. Major neurocognitive disorder, Alzheimer vascular with delusion, depression. Anxiety disorder unspecified. Impulse control disorder unspecified. Plan: No change from initial note. Assessment: Vital Signs/I&O: Vital Signs Date Time Temp Pulse Resp B/P (MAP) Pulse Ox O2 Delivery O2 Flow Rate FiO2 07/05/21 06:10 97.5 79 18 175/76 (109) 92 07/04/21 06:25 Room Air I & O 07/04/21 07/04/21 07/05/21 15:00 23:00 07:00 Intake Total 600 ml 240 ml 0 ml Balance 600 ml 240 ml 0 ml Current Medications: I have reviewed the current psychotropics carefully including drug interactions. Risk benefit ratio favors no change other than as noted in my dictated progress note. 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
[2021-07-05] MEDS: amLODIPine BESYLATE 5 MG TABLET PO SCH (08:12)
[2021-07-05] MEDS: PRENATAL MULTIVITAMIN TABLET. PO SCH (08:12)
[2021-07-05] MEDS: busPIRone 10 MG TABLET. PO SCH ×2 (08:12→16:28)
[2021-07-05] MEDS: CHOLECALCIFEROL (VITAMIN D3) 1,000 UNIT TABLET PO SCH (08:12)
[2021-07-05] MEDS: QUEtiapine 25 MG TABLET. PO SCH ×5 (08:12→19:58)
[2021-07-05] MEDS: ASPIRIN CHEWABLE 81 MG TABLET. PO SCH (08:12)
[2021-07-05] MEDS: ASCORBIC ACID 500 MG TABLET PO SCH ×2 (08:12→19:58)
[2021-07-05] MEDS: FOLIC ACID 1 MG TABLET PO SCH (08:12)
[2021-07-05] MEDS: ANASTROZOLE 1 MG TABLET PO SCH (08:13)
[2021-07-05] MEDS: DRONABINOL 2.5 MG CAPSULE PO SCH ×2 (11:52→16:28)
--- NOTE | 2021-07-05 13:30 | NUR ---
Nursing note: Pt in dining room at time of AM med pass and assessment. She is pleasant, med compliant and cooperative. Pt continues to be very anxious, especially regarding other patients walking past her, but is able to be redirected. She is currently walking in the [place]. Will continue to monitor.
[2021-07-05 15:36] VITALS: BP 120/68
[2021-07-05] MEDS: MELATONIN 3 MG TABLET PO SCH (19:58)
[2021-07-05] MEDS: MAGNESIUM HYDROXIDE 2,400 MG/30 ML ORAL.SUSP. PO PRN (20:02)
--- NOTE | 2021-07-05 21:29 | PDOC ---
Exam Note: Adryan Note: Please also refer to the separate dictated note~for this date of service dictated separately.~Patient seen individually. Discussed the patient with Nursing staff reviewed the chart.~Reviewed interim history and current functioning. Reviewed vital signs,~Labs/ Radiology~and current medications noted below. Continue current treatment with the changes noted in the dictated addendum note Assessment: Vital Signs/I&O: Vital Signs Date Time Temp Pulse Resp B/P (MAP) Pulse Ox O2 Delivery O2 Flow Rate FiO2 07/05/21 15:36 98.4 73 18 120/68 (85) 99 Room Air I & O 07/04/21 07/04/21 07/05/21 15:00 23:00 07:00 Intake Total 600 ml 240 ml 0 ml Balance 600 ml 240 ml 0 ml Current Medications: Meds: Current Medications Medications (Trade) Dose Ordered Sig/Jorje Route PRN Reason Start Time Stop Time Status Last Admin Dose Admin Acetaminophen (Tylenol) 325 mg PRN Q4HRS PRN PO MILD PAIN / TEMP > 100.3'F 06/20/21 10:30 Alprazolam (Xanax) 0.5 mg PRN Q6HRS PRN PO 1ST CHOICE ANXIETY / AGITATION 06/20/21 10:30 07/01/21 06:30 Amlodipine Besylate (Norvasc) 5 mg DAILY PO 06/21/21 09:00 07/05/21 08:12 Anastrozole (Arimidex) 1 mg DAILY PO 06/21/21 09:00 07/05/21 08:13 Aspirin (Aspirin Chewable) 81 mg DAILY PO 06/21/21 09:00 07/05/21 08:12 Vitamin D (Vitamin D3) 1,000 unit DAILY PO 06/21/21 09:00 07/05/21 08:12 Ondansetron HCl (Zofran Odt) 4 mg PRN Q8HRS PRN PO NAUSEA/VOMITING 06/20/21 14:00 Quetiapine Fumarate (SEROquel) 25 mg HS PO 06/20/21 21:00 07/05/21 19:58 Quetiapine Fumarate (SEROquel) 25 mg PRN Q6HRS PRN PO 2ND CHOICE ANXIETY / AGITATION 06/20/21 10:30 06/21/21 21:45 Tramadol HCl (Ultram) 50 mg PRN Q12HR PRN PO MOD-SEV PAIN 06/20/21 10:30 Ascorbic Acid (Vitamin C) 500 mg BID PO 06/20/21 21:00 07/05/21 19:58 Citalopram Hydrobromide (CeleXA) 40 mg DAILY PO 06/21/21 09:00 06/20/21 18:31 DC Folic Acid (Folic Acid) 1 mg DAILY PO 06/21/21 09:00 07/05/21 08:12 Melatonin (Melatonin) 6 mg QHS PO 06/20/21 21:00 07/05/21 19:58 Multivit/ Folic Acid/Iron (Multivitamin ) 1 tab DAILY PO 06/21/21 09:00 07/05/21 08:12 Multi-Ingredient Ointment (Analgesic [place]) 1 georgi PRN QID PRN TP MUSCLE PAIN 06/20/21 10:45 Al Hydroxide/Mg Hydroxide (Mylanta Plus Xs) 15 ml PRN AFTMEALHC PRN PO DYSPEPSIA 06/20/21 10:45 Magnesium Hydroxide (Milk Of Magnesia) 2,400 mg PRN QHS PRN PO CONSTIPATION 06/20/21 10:45 07/05/21 20:02 Quetiapine Fumarate (SEROquel) 12.5 mg 0900,1700 PO 06/21/21 09:00 06/22/21 11:53 DC 06/22/21 08:28 Sertraline HCl (Zoloft) 50 mg DAILY PO 06/21/21 09:00 06/23/21 11:00 DC 06/23/21 08:24 Sertraline HCl (Zoloft) 75 mg DAILY PO 06/24/21 09:00 06/26/21 21:00 DC 06/26/21 08:27 Dronabinol (Marinol) 2.5 mg BIDACLD PO 06/22/21 11:30 07/05/21 16:28 Quetiapine Fumarate (SEROquel) 12.5 mg 0900,1200,1500,1800 PO 06/22/21 12:00 06/24/21 21:00 DC 06/24/21 17:26 Sertraline HCl (Zoloft) 100 mg DAILY PO 06/27/21 09:00 06/29/21 11:51 DC 06/29/21 08:33 Quetiapine Fumarate (SEROquel) 25 mg 0900,1500 PO 06/25/21 09:00 07/05/21 16:28 Quetiapine Fumarate (SEROquel) 12.5 mg 1200,1800 PO 06/25/21 12:00 07/05/21 18:14 Buspirone HCl (Buspar) 5 mg 0900,1700 PO 06/27/21 09:00 06/29/21 23:00 DC 06/29/21 17:25 Buspirone HCl (Buspar) 10 mg 0900,1700 PO 06/30/21 09:00 07/05/21 16:28 Fluvoxamine Maleate (Luvox) 25 mg DAILY PO 06/30/21 09:00 07/02/21 21:00 DC 07/02/21 09:17 Fluvoxamine Maleate (Luvox) 50 mg DAILY PO 07/03/21 09:00 07/05/21 21:00 DC 07/05/21 08:10 Fluvoxamine Maleate (Luvox) 75 mg DAILY PO 07/06/21 09:00 I have reviewed the current psychotropics carefully including drug interactions. Risk benefit ratio favors no change other than as noted in my dictated progress note. 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
--- NOTE | 2021-07-05 23:11 | NUR ---
Pt withdrawn to room when approached. Pt anxious, confused, and thinks she is dying. Spent >20minutes providing reassurance and education; pt calm and more at ease at end of interaction. Pt cooperative with assessment and medications administered whole. PRN MOM administered at HS for c/o abdominal discomfort and constipation. No agitation or verbal aggression noted thus far this shift.
[2021-07-06 06:05] VITALS: BP 126/63
[2021-07-06] MEDS: ASCORBIC ACID 500 MG TABLET PO SCH ×2 (08:05→19:36)
[2021-07-06] MEDS: ASPIRIN CHEWABLE 81 MG TABLET. PO SCH (08:05)
[2021-07-06] MEDS: ANASTROZOLE 1 MG TABLET PO SCH (08:05)
[2021-07-06] MEDS: CHOLECALCIFEROL (VITAMIN D3) 1,000 UNIT TABLET PO SCH (08:06)
[2021-07-06] MEDS: busPIRone 10 MG TABLET. PO SCH ×2 (08:06→15:50)
[2021-07-06] MEDS: FOLIC ACID 1 MG TABLET PO SCH (08:07)
[2021-07-06] MEDS: amLODIPine BESYLATE 5 MG TABLET PO SCH (08:07)
[2021-07-06] MEDS: PRENATAL MULTIVITAMIN TABLET. PO SCH (08:07)
[2021-07-06] MEDS: QUEtiapine 25 MG TABLET. PO SCH ×5 (08:07→19:37)
--- NOTE | 2021-07-06 11:13 | NUR ---
WEEKLY ACTIVITY THERAPY NOTE Date of Admission: 06/20/21 Date of AT Assessment: 06/22 Precipitating behaviors that initiated intake and admission: Labile mood, sad, crying, thinks she is going to , fearful of someone hurting her, paranoid, anxious. Goal aimed: increase relaxation skills and leisure engagement Initial Goal: Pt. will participate in at least three Activity Therapy sessions before discharge Goal changed 06/29:Pt. will participate in at least five Activity Therapy sessions per week Weekly progress towards goal: did not achieve, 07/15 Group participation level: 1 min, 1 mod, 1 full Weekly highlights: attempted to answer grid categories question Saturday, participated in [facility] activity with assistance from staff Saturday Behaviors observed: sarcastic, need constant redirection, not as dismissive with staff as when she first got here Plan: no change to goal Beneficial adaptations: redirection
[2021-07-06] MEDS: DRONABINOL 2.5 MG CAPSULE PO SCH ×2 (11:30→15:50)
--- NOTE | 2021-07-06 12:51 | TX PLAN ---
Interdisciplinary Tx Plan Admission Information Jun 20, 2021 at 09:46 Legal Status (on Admission): Voluntary DPOA/Guardian Name: Primary-Angie Owusu [phone]; Secondary-Breezy Teran [phone] Contact Phone Number: JESICA [facility] at [facility] ([phone] (F)[phone] Other Contact Name: Laisha Other Contact Phone: [phone] Verified Code Status: DNR Allergies: Coded Allergies: Sulfa (Sulfonamide Antibiotics) (Verified Allergy, Intermediate, 06/10/21) bacitracin (Verified Allergy, Intermediate, 06/21/21) baclofen (Verified Allergy, Intermediate, 06/21/21) clarithromycin (Verified Allergy, Intermediate, 06/10/21) hydrocortisone (Verified Allergy, Intermediate, 06/21/21) levofloxacin (Verified Allergy, Intermediate, 06/21/21) neomycin (Verified Allergy, Intermediate, 06/21/21) polymyxin B (Verified Allergy, Intermediate, 06/21/21) Diagnoses Primary Diagnosis: (1) Anxiety disorder, unspecified (2) Major depress dis, severe (3) Major depressive disorder, recurrent episode (4) Impulse control disorder, unspecified (5) Dementia, vascular, with depression (6) Dementia, vascular, 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 She seemed to not show this behavior near as much around people outside of the family unit. Family feels that she has been the singh of manipulation. She would sometimes create divisions between her daughter (Angie) and son (Breezy), creating some animosity that now looking back into their childhood, they can see that, but get along very well now. Angie and Breezy describe her as not really ever being a happy person; "she did not like things simple." Additional Admission Comments: None at this time. Problems Active Problems: Confusion, Anxiety, Agitation Inactive Problems: None at this time. Pt Strengths/Limitations Ability for [place]: Poor Cognitive Functioning/Ability: Poor Communication Skills/Ability: Fair Financial Resources: Good Insight/Judgement: Poor Intellectual Ability: Fair Physical Health: Poor Social Skills: Fair Stability in Family: Good Stability in School/Work: Good Verbal Skills: Fair Discharge Criteria Discharge Criteria: No need for close observ., Adequate arrangements @DC, Verbal commit aftercare, Adequate self-care, Verbal commit med comply, Improved behavior, Improved mood/thought Other Discharge Comments: None at this time. Preliminary Discharge Plan Preliminary DC Plan: Current Living Arrange. Special Precautions Special Precautions: Agitation/Assault Fall Risk: Low Initial D/C Plan Plan is for pt to return to [facility] once stable. Identified Discharge Needs: None at this time. Currently Utilized Resources Currently Utilized Resources/P: PCP-Dr. Finley Primary DPOA/Daughter-Angie Owusu Secondary DPOA/Son-Breezy Teran Living Facility-[facility] Referrals Community Resources: None at this time. Identified Problems/Hx/Goals Objectives/Short-Term Goals Short Term Goals: Control abnormal behavior, Dec. Anxiety/Panic, Dec. Hallucination/Delus, Dec. Symp. Depression, Medication Stabilization, Monitor Med Effects, No Suicidal/Leo. ideation, Prevent Deterioration Short Term Goals in Patient's: Would like help with confusion and anxiety. "I want someone to care about how I feel." Interventions/Frequency Staff Interventions/Frequency&: Psychiatry to assess pt three times per week for medication management. Nursing to assess behaviors, monitor medications, and complete 15 minute checks daily. Social work to see pt at least two times weekly to aid in return to placement. Activities to encourage pt to participate in group activities daily. 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 They are aware of pt admission to [facility] and is available for further information if needed. Angie will be the primary point of contact during pt admission. Angie will relay information to Breezy. Should and emergency arise where Angie wasn't available, Breezy should be called. Treatment Plan Explained Patient/Drywall Applicator had this treatment plan explained to him/her as indicated by the signature below and has been given the opportunity to ask questions and make suggestions: Date: Patient/Drywall Applicator Signature: Status Update Update Pt is eating about 50% of her meal. Most of this, however, is through an consuming an Ensure. Pt has been fixated on being bloated, feeling like she is gaining weight, and needing to use the restroom. Pt averages 7.5 hours of sleep. Pt at times will be sarcastic. She does seem to be more confused during times that she believes she needs to hear something and isn't understanding what is going on d/t [place]. She has used the pocket talker and seemed to do well with that overall. Pt accpets redirection during times when she is fixated on a topic. She does, however, try to reengage in the topic. Pt attended three group activities and is willing to engage, but often needs assistance to refocus on the topic. Pt will most likely return to [facility] at time of discharge unless family seek different facility placement. GREGORY TOBIN Jul 06, 2021 12:51
--- NOTE | 2021-07-06 12:52 | NUR ---
Weekly Note: Pt is eating about 50% of her meal. Most of this, however, is through an consuming an Ensure. Pt has been fixated on being bloated, feeling like she is gaining weight, and needing to use the restroom. Pt averages 7.5 hours of sleep. Pt at times will be sarcastic. She does seem to be more confused during times that she believes she needs to hear something and isn't understanding what is going on d/t [place]. She has used the pocket talker and seemed to do well with that overall. Pt accpets redirection during times when she is fixated on a topic. She does, however, try to reengage in the topic. Pt attended three group activities and is willing to engage, but often needs assistance to refocus on the topic. RENAE spoke with dtr/DPOA, Angie, to provide update following treatment team. Angie appreciative of call. Pt will most likely return to [facility] at time of discharge unless family seek different facility placement.
--- NOTE | 2021-07-06 14:38 | NUR ---
Nsg Note; Vivienne cont to be resistant to meals, stating that we are trying to make her fat and that she didn't bring any bigger clothes with her. She does willingly take her meds whole. She tends to stay in her room between meals, occ coming to the dayroom for short periods of time. She ruminates about her son and daughter who dropped her here to . She believes they are after her money, and will not come back for her. I explained that she is here short term for medication adjustments, and that she will return to her facility, but she she refuses to believe that and cannot remember that we have attempted to correct that belief. When we attempt to change the subject to something else, she quickly returns to the same ruminations. She gets very impatient and sarcastic to staff when we attempt to change the subject or turn away from her ramblings.
[2021-07-06 16:01] VITALS: BP 129/72
[2021-07-06] MEDS: MELATONIN 3 MG TABLET PO SCH (19:36)
--- NOTE | 2021-07-06 21:29 | PDOC ---
Exam Note: Adryan Note: Please also refer to the separate dictated note~for this date of service dictated separately.~Patient seen individually. Discussed the patient with Nursing staff reviewed the chart.~Reviewed interim history and current functioning. Reviewed vital signs,~Labs/ Radiology~and current medications noted below. Continue current treatment with the changes noted in the dictated addendum note Assessment: Vital Signs/I&O: Vital Signs Date Time Temp Pulse Resp B/P (MAP) Pulse Ox O2 Delivery O2 Flow Rate FiO2 07/06/21 16:01 97.9 80 16 129/72 (91) 98 07/05/21 15:36 Room Air I & O 07/05/21 07/05/21 07/06/21 15:00 23:00 07:00 Intake Total 240 ml 200 ml Balance 240 ml 200 ml Current Medications: Meds: Current Medications Medications (Trade) Dose Ordered Sig/Jorje Route PRN Reason Start Time Stop Time Status Last Admin Dose Admin Acetaminophen (Tylenol) 325 mg PRN Q4HRS PRN PO MILD PAIN / TEMP > 100.3'F 06/20/21 10:30 Alprazolam (Xanax) 0.5 mg PRN Q6HRS PRN PO 1ST CHOICE ANXIETY / AGITATION 06/20/21 10:30 07/01/21 06:30 Amlodipine Besylate (Norvasc) 5 mg DAILY PO 06/21/21 09:00 07/06/21 08:07 Anastrozole (Arimidex) 1 mg DAILY PO 06/21/21 09:00 07/06/21 08:05 Aspirin (Aspirin Chewable) 81 mg DAILY PO 06/21/21 09:00 07/06/21 08:05 Vitamin D (Vitamin D3) 1,000 unit DAILY PO 06/21/21 09:00 07/06/21 08:06 Ondansetron HCl (Zofran Odt) 4 mg PRN Q8HRS PRN PO NAUSEA/VOMITING 06/20/21 14:00 Quetiapine Fumarate (SEROquel) 25 mg HS PO 06/20/21 21:00 07/06/21 19:37 Quetiapine Fumarate (SEROquel) 25 mg PRN Q6HRS PRN PO 2ND CHOICE ANXIETY / AGITATION 06/20/21 10:30 06/21/21 21:45 Tramadol HCl (Ultram) 50 mg PRN Q12HR PRN PO MOD-SEV PAIN 06/20/21 10:30 Ascorbic Acid (Vitamin C) 500 mg BID PO 06/20/21 21:00 07/06/21 19:36 Citalopram Hydrobromide (CeleXA) 40 mg DAILY PO 06/21/21 09:00 06/20/21 18:31 DC Folic Acid (Folic Acid) 1 mg DAILY PO 06/21/21 09:00 07/06/21 08:07 Melatonin (Melatonin) 6 mg QHS PO 06/20/21 21:00 07/06/21 19:36 Multivit/ Folic Acid/Iron (Multivitamin ) 1 tab DAILY PO 06/21/21 09:00 07/06/21 08:07 Multi-Ingredient Ointment (Analgesic [place]) 1 georgi PRN QID PRN TP MUSCLE PAIN 06/20/21 10:45 Al Hydroxide/Mg Hydroxide (Mylanta Plus Xs) 15 ml PRN AFTMEALHC PRN PO DYSPEPSIA 06/20/21 10:45 Magnesium Hydroxide (Milk Of Magnesia) 2,400 mg PRN QHS PRN PO CONSTIPATION 06/20/21 10:45 07/05/21 20:02 Quetiapine Fumarate (SEROquel) 12.5 mg 0900,1700 PO 06/21/21 09:00 06/22/21 11:53 DC 06/22/21 08:28 Sertraline HCl (Zoloft) 50 mg DAILY PO 06/21/21 09:00 06/23/21 11:00 DC 06/23/21 08:24 Sertraline HCl (Zoloft) 75 mg DAILY PO 06/24/21 09:00 06/26/21 21:00 DC 06/26/21 08:27 Dronabinol (Marinol) 2.5 mg BIDACLD PO 06/22/21 11:30 07/06/21 15:50 Quetiapine Fumarate (SEROquel) 12.5 mg 0900,1200,1500,1800 PO 06/22/21 12:00 06/24/21 21:00 DC 06/24/21 17:26 Sertraline HCl (Zoloft) 100 mg DAILY PO 06/27/21 09:00 06/29/21 11:51 DC 06/29/21 08:33 Quetiapine Fumarate (SEROquel) 25 mg 0900,1500 PO 06/25/21 09:00 07/06/21 15:50 Quetiapine Fumarate (SEROquel) 12.5 mg 1200,1800 PO 06/25/21 12:00 07/06/21 17:55 Buspirone HCl (Buspar) 5 mg 0900,1700 PO 06/27/21 09:00 06/29/21 23:00 DC 06/29/21 17:25 Buspirone HCl (Buspar) 10 mg 0900,1700 PO 06/30/21 09:00 07/06/21 15:50 Fluvoxamine Maleate (Luvox) 25 mg DAILY PO 06/30/21 09:00 07/02/21 21:00 DC 07/02/21 09:17 Fluvoxamine Maleate (Luvox) 50 mg DAILY PO 07/03/21 09:00 07/05/21 21:00 DC 07/05/21 08:10 Fluvoxamine Maleate (Luvox) 75 mg DAILY PO 07/06/21 09:00 07/06/21 08:06 Polyethylene Glycol (miraLAX) 17 gm PRN DAILY PRN PO CONSTIPATION 07/06/21 17:30 Current Medications Medications (Trade) Dose Ordered Sig/Jorje Route PRN Reason Start Time Stop Time Status Last Admin Dose Admin Fluvoxamine Maleate (Luvox) 75 mg DAILY PO 07/06/21 09:00 07/06/21 08:06 I have reviewed the current psychotropics carefully including drug interactions. Risk benefit ratio favors no change other than as noted in my dictated progress note. 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
--- NOTE | 2021-07-07 00:49 | NUR ---
Nursing Note The patient was withdrawn to her room this shift. The patient was compliant with her medications and took them whole. The patient was disorganized during her assessment and continuously asked this nurse if I knew when she was going to . The patient is currently sleeping in her room.
[2021-07-07 06:19] VITALS: BP 108/66
--- NOTE | 2021-07-07 07:10 | PDOC ---
Exam Note: Adryan Note: This note is a late entry for 07/05/2021 covers elements not covered in my initial note. Subjective: The patient was seen individually on 07/05/2021, discussed and reviewed the chart with Karie MOONEY. The patient slept 8 hours previous night. She remains anxious, obsessive, repeatedly asking if she was dying, compliant with medications. Review of Systems: Impaired ambulation with walker. Hard of hearing. No CV, , pulmonary, eye, system symptoms on review. Mental Status Exam: The patient is oriented to herself and situation. Speech coherent. She was quite repetitive in her questions, again feeling nursing staff was over-feeding her, obsessed about somatic symptoms. Abstraction fair. Computation impaired. Language function intact. Attention span short. Mood and affect remains anxious. Laboratory Data: Reviewed. Impression: Major depressive disorder, severe. Major neurocognitive disorder, Alzheimer vascular with delusion, depression. Anxiety disorder unspecified. Impulse control disorder unspecified. Plan: No change from initial note. Assessment: Vital Signs/I&O: Vital Signs Date Time Temp Pulse Resp B/P (MAP) Pulse Ox O2 Delivery O2 Flow Rate FiO2 07/07/21 06:19 98.9 64 20 108/66 (80) 94 07/05/21 15:36 Room Air I & O 07/06/21 07/06/21 07/07/21 15:00 23:00 07:00 Intake Total 120 ml 50 ml Balance 120 ml 50 ml Current Medications: Meds: Current Medications Medications (Trade) Dose Ordered Sig/Jorje Route PRN Reason Start Time Stop Time Status Last Admin Dose Admin Fluvoxamine Maleate (Luvox) 75 mg DAILY PO 07/06/21 09:00 07/06/21 08:06 I have reviewed the current psychotropics carefully including drug interactions. Risk benefit ratio favors no change other than as noted in my dictated progress note. 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
[2021-07-07] MEDS: amLODIPine BESYLATE 5 MG TABLET PO SCH (08:18)
[2021-07-07] MEDS: busPIRone 10 MG TABLET. PO SCH ×2 (08:19→16:18)
[2021-07-07] MEDS: ASCORBIC ACID 500 MG TABLET PO SCH ×2 (08:19→20:45)
[2021-07-07] MEDS: ASPIRIN CHEWABLE 81 MG TABLET. PO SCH (08:19)
[2021-07-07] MEDS: CHOLECALCIFEROL (VITAMIN D3) 1,000 UNIT TABLET PO SCH (08:19)
[2021-07-07] MEDS: PRENATAL MULTIVITAMIN TABLET. PO SCH (08:19)
[2021-07-07] MEDS: ANASTROZOLE 1 MG TABLET PO SCH (08:19)
[2021-07-07] MEDS: FOLIC ACID 1 MG TABLET PO SCH (08:20)
[2021-07-07] MEDS: QUEtiapine 25 MG TABLET. PO SCH ×5 (08:20→20:45)
--- NOTE | 2021-07-07 10:38 | NUR ---
Nurse Day Shift Note: Pt presents with anxious mood. Pt is able to make needs known to staff regularly. Pt is medication compliant. Pt is noted to spend time in the hallway, tapping on nurse window, walking in hallway and it bedroom. Pt vitals are WNL. Pt slept 9.5 hours last night. Will continue to monitor.
[2021-07-07] MEDS: DRONABINOL 2.5 MG CAPSULE PO SCH ×2 (11:39→16:18)
[2021-07-07 15:35] VITALS: BP 132/62
[2021-07-07] MEDS: MELATONIN 3 MG TABLET PO SCH (20:45)
--- NOTE | 2021-07-07 21:17 | PDOC ---
Exam Note: Adryan Note: Please also refer to the separate dictated note~for this date of service dictated separately.~Patient seen individually. Discussed the patient with Nursing staff reviewed the chart.~Reviewed interim history and current functioning. Reviewed vital signs,~Labs/ Radiology~and current medications noted below. Continue current treatment with the changes noted in the dictated addendum note Assessment: Vital Signs/I&O: Vital Signs Date Time Temp Pulse Resp B/P (MAP) Pulse Ox O2 Delivery O2 Flow Rate FiO2 07/07/21 15:35 98.4 72 14 132/62 (85) 98 Room Air I & O 07/06/21 07/06/21 07/07/21 14:59 22:59 06:59 Intake Total 120 ml 50 ml Balance 120 ml 50 ml Current Medications: Meds: Current Medications Medications (Trade) Dose Ordered Sig/Jorje Route PRN Reason Start Time Stop Time Status Last Admin Dose Admin Acetaminophen (Tylenol) 325 mg PRN Q4HRS PRN PO MILD PAIN / TEMP > 100.3'F 06/20/21 10:30 Alprazolam (Xanax) 0.5 mg PRN Q6HRS PRN PO 1ST CHOICE ANXIETY / AGITATION 06/20/21 10:30 07/01/21 06:30 Amlodipine Besylate (Norvasc) 5 mg DAILY PO 06/21/21 09:00 07/07/21 08:18 Anastrozole (Arimidex) 1 mg DAILY PO 06/21/21 09:00 07/07/21 08:19 Aspirin (Aspirin Chewable) 81 mg DAILY PO 06/21/21 09:00 07/07/21 08:19 Vitamin D (Vitamin D3) 1,000 unit DAILY PO 06/21/21 09:00 07/07/21 08:19 Ondansetron HCl (Zofran Odt) 4 mg PRN Q8HRS PRN PO NAUSEA/VOMITING 06/20/21 14:00 Quetiapine Fumarate (SEROquel) 25 mg HS PO 06/20/21 21:00 07/07/21 20:45 Quetiapine Fumarate (SEROquel) 25 mg PRN Q6HRS PRN PO 2ND CHOICE ANXIETY / AGITATION 06/20/21 10:30 06/21/21 21:45 Tramadol HCl (Ultram) 50 mg PRN Q12HR PRN PO MOD-SEV PAIN 06/20/21 10:30 Ascorbic Acid (Vitamin C) 500 mg BID PO 06/20/21 21:00 07/07/21 20:45 Citalopram Hydrobromide (CeleXA) 40 mg DAILY PO 06/21/21 09:00 06/20/21 18:31 DC Folic Acid (Folic Acid) 1 mg DAILY PO 06/21/21 09:00 07/07/21 08:20 Melatonin (Melatonin) 6 mg QHS PO 06/20/21 21:00 07/07/21 20:45 Multivit/ Folic Acid/Iron (Multivitamin ) 1 tab DAILY PO 06/21/21 09:00 07/07/21 08:19 Multi-Ingredient Ointment (Analgesic [place]) 1 georgi PRN QID PRN TP MUSCLE PAIN 06/20/21 10:45 Al Hydroxide/Mg Hydroxide (Mylanta Plus Xs) 15 ml PRN AFTMEALHC PRN PO DYSPEPSIA 06/20/21 10:45 Magnesium Hydroxide (Milk Of Magnesia) 2,400 mg PRN QHS PRN PO 2ND CHOICE CONSTIPATION 06/20/21 10:45 07/05/21 20:02 Quetiapine Fumarate (SEROquel) 12.5 mg 0900,1700 PO 06/21/21 09:00 06/22/21 11:53 DC 06/22/21 08:28 Sertraline HCl (Zoloft) 50 mg DAILY PO 06/21/21 09:00 06/23/21 11:00 DC 06/23/21 08:24 Sertraline HCl (Zoloft) 75 mg DAILY PO 06/24/21 09:00 06/26/21 21:00 DC 06/26/21 08:27 Dronabinol (Marinol) 2.5 mg BIDACLD PO 06/22/21 11:30 07/07/21 16:18 Quetiapine Fumarate (SEROquel) 12.5 mg 0900,1200,1500,1800 PO 06/22/21 12:00 06/24/21 21:00 DC 06/24/21 17:26 Sertraline HCl (Zoloft) 100 mg DAILY PO 06/27/21 09:00 06/29/21 11:51 DC 06/29/21 08:33 Quetiapine Fumarate (SEROquel) 25 mg 0900,1500 PO 06/25/21 09:00 07/07/21 16:18 Quetiapine Fumarate (SEROquel) 12.5 mg 1200,1800 PO 06/25/21 12:00 07/07/21 17:28 Buspirone HCl (Buspar) 5 mg 0900,1700 PO 06/27/21 09:00 06/29/21 23:00 DC 06/29/21 17:25 Buspirone HCl (Buspar) 10 mg 0900,1700 PO 06/30/21 09:00 07/07/21 16:18 Fluvoxamine Maleate (Luvox) 25 mg DAILY PO 06/30/21 09:00 07/02/21 21:00 DC 07/02/21 09:17 Fluvoxamine Maleate (Luvox) 50 mg DAILY PO 07/03/21 09:00 07/05/21 21:00 DC 07/05/21 08:10 Fluvoxamine Maleate (Luvox) 75 mg DAILY PO 07/06/21 09:00 07/10/21 05:00 07/07/21 08:18 Polyethylene Glycol (miraLAX) 17 gm PRN DAILY PRN PO 1ST CHOICE CONSTIPATION 07/06/21 17:30 Fluvoxamine Maleate (Luvox) 100 mg DAILY PO 07/10/21 09:00 I have reviewed the current psychotropics carefully including drug interactions. Risk benefit ratio favors no change other than as noted in my dictated progress note. 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
[2021-07-08 06:17] VITALS: BP 112/58
[2021-07-08] MEDS: ASCORBIC ACID 500 MG TABLET PO SCH ×2 (08:36→20:26)
[2021-07-08] MEDS: busPIRone 10 MG TABLET. PO SCH ×2 (08:36→16:55)
[2021-07-08] MEDS: CHOLECALCIFEROL (VITAMIN D3) 1,000 UNIT TABLET PO SCH (08:36)
[2021-07-08] MEDS: amLODIPine BESYLATE 5 MG TABLET PO SCH (08:37)
[2021-07-08] MEDS: ASPIRIN CHEWABLE 81 MG TABLET. PO SCH (08:37)
[2021-07-08] MEDS: PRENATAL MULTIVITAMIN TABLET. PO SCH (08:37)
[2021-07-08] MEDS: FOLIC ACID 1 MG TABLET PO SCH (08:37)
[2021-07-08] MEDS: QUEtiapine 25 MG TABLET. PO SCH ×5 (08:38→20:27)
[2021-07-08] MEDS: ANASTROZOLE 1 MG TABLET PO SCH (08:43)
[2021-07-08] MEDS: DRONABINOL 2.5 MG CAPSULE PO SCH ×2 (11:30→16:30)
[2021-07-08 15:38] VITALS: BP 102/60
--- NOTE | 2021-07-08 19:14 | NUR ---
Nurse note: Patient is anxious and agitated this shift. She is paranoid and believes her family is trying to kill her. She has a fear of dying. She refuses to eat, stating she doesn't want to get fat. She has been only eating a small amount of mashed potatoes, then we found mashed potatoes in her milk where she was hiding it. She had a bowel movment in her pants this morning, then she took it out and threw it on the floor. She is able to make her needs known.
[2021-07-08] MEDS: MELATONIN 3 MG TABLET PO SCH (20:26)
--- NOTE | 2021-07-08 21:56 | PDOC ---
Exam Note: Adryan Note: Please also refer to the separate dictated note~for this date of service dictated separately.~Patient seen individually. Discussed the patient with Nursing staff reviewed the chart.~Reviewed interim history and current functioning. Reviewed vital signs,~Labs/ Radiology~and current medications noted below. Continue current treatment with the changes noted in the dictated addendum note Assessment: Vital Signs/I&O: Vital Signs Date Time Temp Pulse Resp B/P (MAP) Pulse Ox O2 Delivery O2 Flow Rate FiO2 07/08/21 15:38 98.1 66 20 102/60 (74) 97 07/08/21 06:17 Room Air I & O 07/07/21 07/07/21 07/08/21 14:59 22:59 06:59 Intake Total 270 ml 240 ml Balance 270 ml 240 ml Current Medications: Meds: Current Medications Medications (Trade) Dose Ordered Sig/Jorje Route PRN Reason Start Time Stop Time Status Last Admin Dose Admin Acetaminophen (Tylenol) 325 mg PRN Q4HRS PRN PO MILD PAIN / TEMP > 100.3'F 06/20/21 10:30 Alprazolam (Xanax) 0.5 mg PRN Q6HRS PRN PO 1ST CHOICE ANXIETY / AGITATION 06/20/21 10:30 07/01/21 06:30 Amlodipine Besylate (Norvasc) 5 mg DAILY PO 06/21/21 09:00 07/08/21 08:37 Anastrozole (Arimidex) 1 mg DAILY PO 06/21/21 09:00 07/08/21 08:43 Aspirin (Aspirin Chewable) 81 mg DAILY PO 06/21/21 09:00 07/08/21 08:37 Vitamin D (Vitamin D3) 1,000 unit DAILY PO 06/21/21 09:00 07/08/21 08:36 Ondansetron HCl (Zofran Odt) 4 mg PRN Q8HRS PRN PO NAUSEA/VOMITING 06/20/21 14:00 Quetiapine Fumarate (SEROquel) 25 mg HS PO 06/20/21 21:00 07/08/21 20:27 Quetiapine Fumarate (SEROquel) 25 mg PRN Q6HRS PRN PO 2ND CHOICE ANXIETY / AGITATION 06/20/21 10:30 06/21/21 21:45 Tramadol HCl (Ultram) 50 mg PRN Q12HR PRN PO MOD-SEV PAIN 06/20/21 10:30 Ascorbic Acid (Vitamin C) 500 mg BID PO 06/20/21 21:00 07/08/21 20:26 Citalopram Hydrobromide (CeleXA) 40 mg DAILY PO 06/21/21 09:00 06/20/21 18:31 DC Folic Acid (Folic Acid) 1 mg DAILY PO 06/21/21 09:00 07/08/21 08:37 Melatonin (Melatonin) 6 mg QHS PO 06/20/21 21:00 07/08/21 20:26 Multivit/ Folic Acid/Iron (Multivitamin ) 1 tab DAILY PO 06/21/21 09:00 07/08/21 08:37 Multi-Ingredient Ointment (Analgesic [place]) 1 georgi PRN QID PRN TP MUSCLE PAIN 06/20/21 10:45 Al Hydroxide/Mg Hydroxide (Mylanta Plus Xs) 15 ml PRN AFTMEALHC PRN PO DYSPEPSIA 06/20/21 10:45 Magnesium Hydroxide (Milk Of Magnesia) 2,400 mg PRN QHS PRN PO 2ND CHOICE CONSTIPATION 06/20/21 10:45 07/05/21 20:02 Quetiapine Fumarate (SEROquel) 12.5 mg 0900,1700 PO 06/21/21 09:00 06/22/21 11:53 DC 06/22/21 08:28 Sertraline HCl (Zoloft) 50 mg DAILY PO 06/21/21 09:00 06/23/21 11:00 DC 06/23/21 08:24 Sertraline HCl (Zoloft) 75 mg DAILY PO 06/24/21 09:00 06/26/21 21:00 DC 06/26/21 08:27 Dronabinol (Marinol) 2.5 mg BIDACLD PO 06/22/21 11:30 07/08/21 16:30 Quetiapine Fumarate (SEROquel) 12.5 mg 0900,1200,1500,1800 PO 06/22/21 12:00 06/24/21 21:00 DC 06/24/21 17:26 Sertraline HCl (Zoloft) 100 mg DAILY PO 06/27/21 09:00 06/29/21 11:51 DC 06/29/21 08:33 Quetiapine Fumarate (SEROquel) 25 mg 0900,1500 PO 06/25/21 09:00 07/08/21 15:00 Quetiapine Fumarate (SEROquel) 12.5 mg 1200,1800 PO 06/25/21 12:00 07/08/21 16:55 Buspirone HCl (Buspar) 5 mg 0900,1700 PO 06/27/21 09:00 06/29/21 23:00 DC 06/29/21 17:25 Buspirone HCl (Buspar) 10 mg 0900,1700 PO 06/30/21 09:00 07/08/21 16:55 Fluvoxamine Maleate (Luvox) 25 mg DAILY PO 06/30/21 09:00 07/02/21 21:00 DC 07/02/21 09:17 Fluvoxamine Maleate (Luvox) 50 mg DAILY PO 07/03/21 09:00 07/05/21 21:00 DC 07/05/21 08:10 Fluvoxamine Maleate (Luvox) 75 mg DAILY PO 07/06/21 09:00 07/10/21 05:00 07/08/21 08:37 Polyethylene Glycol (miraLAX) 17 gm PRN DAILY PRN PO 1ST CHOICE CONSTIPATION 07/06/21 17:30 Fluvoxamine Maleate (Luvox) 100 mg DAILY PO 07/10/21 09:00 I have reviewed the current psychotropics carefully including drug interactions. Risk benefit ratio favors no change other than as noted in my dictated progress note. 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
--- NOTE | 2021-07-08 22:00 | NUR ---
Patient is located in her room on assumption of care, asleep in bed. She awakens easily to her name. She is compliant with assessments and medications whole. Patient displays much less anxiety than usual. She has not voiced any delusions so far this shift. Denies any pain or discomfort. Will continue to monitor.
[2021-07-09 05:53] VITALS: BP 118/55
[2021-07-09 08:09] LABS: BASO % 1 % (0-3); EOS # 0.4 x10^3/uL (0.0-0.7); EOS % 5 % (0-3); HEMATOCRIT 38.3 % (36.0-47.0); HEMOGLOBIN 13.1 g/dL (12.0-15.5); LYMPH # 1.5 x10^3/uL (1.0-4.8); LYMPH % 20 % (24-48); MEAN CORPUSCULAR HEMOGLOBIN 30 pg (25-35); MEAN CORPUSCULAR HGB CONC 34 g/dL (31-37); MEAN CORPUSCULAR VOLUME 89 fL (79-100); MONO # 0.4 x10^3/uL (0.0-1.1); MONO % 6 % (0-9); NEUT # 5.2 x10^3uL (1.8-7.7); NEUT % 69 % (31-73); PLATELET COUNT 204 x10^3/uL (140-400); RED BLOOD COUNT 4.33 x10^6/uL (3.50-5.40); RED CELL DISTRIBUTION WIDTH 13.3 % (11.5-14.5); WHITE BLOOD COUNT 7.6 x10^3/uL (4.0-11.0)
[2021-07-09] MEDS: amLODIPine BESYLATE 5 MG TABLET PO SCH (08:19)
[2021-07-09] MEDS: ASCORBIC ACID 500 MG TABLET PO SCH ×2 (08:19→19:39)
[2021-07-09] MEDS: CHOLECALCIFEROL (VITAMIN D3) 1,000 UNIT TABLET PO SCH (08:19)
[2021-07-09] MEDS: FOLIC ACID 1 MG TABLET PO SCH (08:19)
[2021-07-09] MEDS: ASPIRIN CHEWABLE 81 MG TABLET. PO SCH (08:19)
[2021-07-09] MEDS: QUEtiapine 25 MG TABLET. PO SCH ×5 (08:19→19:38)
[2021-07-09] MEDS: PRENATAL MULTIVITAMIN TABLET. PO SCH (08:19)
[2021-07-09] MEDS: ANASTROZOLE 1 MG TABLET PO SCH (08:20)
[2021-07-09] MEDS: busPIRone 10 MG TABLET. PO SCH ×2 (08:20→16:12)
[2021-07-09 08:22] LABS: ALBUMIN/GLOBULIN RATIO 0.7 (1.0-1.7); CALCIUM 8.9 mg/dL (8.5-10.1); CREATININE 0.8 mg/dL (0.6-1.0); GFR 67.8; POTASSIUM 3.6 mmol/L (3.5-5.1); TOTAL BILIRUBIN 0.4 mg/dL (0.2-1.0); TOTAL PROTEIN 7.5 g/dL (6.4-8.2)
[2021-07-09] MEDS: DRONABINOL 2.5 MG CAPSULE PO SCH ×2 (11:51→16:12)
--- NOTE | 2021-07-09 12:32 | NUR ---
Nursing note: Pt in dining room for breakfast at time of AM med pass and assessment. She is med compliant and cooperative. Pt denies having any pain this AM, but continues to be anxious regarding if her daughter has called and about dying. Pt is able to be redirected after some time. Pt is currently in the dining room for lunch. Will continue to monitor.
[2021-07-09 15:27] VITALS: BP 127/64
[2021-07-09] MEDS: MELATONIN 3 MG TABLET PO SCH (19:39)
--- NOTE | 2021-07-09 22:21 | PDOC ---
Exam Note: Adryan Note: Please also refer to the separate dictated note~for this date of service dictated separately.~Patient seen individually. Discussed the patient with Nursing staff reviewed the chart.~Reviewed interim history and current functioning. Reviewed vital signs,~Labs/ Radiology~and current medications noted below. Continue current treatment with the changes noted in the dictated addendum note Assessment: Vital Signs/I&O: Vital Signs Date Time Temp Pulse Resp B/P (MAP) Pulse Ox O2 Delivery O2 Flow Rate FiO2 07/09/21 15:27 97.2 76 16 127/64 (85) 94 07/08/21 06:17 Room Air I & O 07/08/21 07/08/21 07/09/21 15:00 23:00 07:00 Intake Total 720 ml 240 ml Balance 720 ml 240 ml Labs: Laboratory Tests Test 07/09/21 07:40 White Blood Count 7.6 x10^3/uL (4.0-11.0) Red Blood Count 4.33 x10^6/uL (3.50-5.40) Hemoglobin 13.1 g/dL (12.0-15.5) Hematocrit 38.3 % (36.0-47.0) Mean Corpuscular Volume 89 fL (79-100) Mean Corpuscular Hemoglobin 30 pg (25-35) Mean Corpuscular Hemoglobin Concent 34 g/dL (31-37) Red Cell Distribution Width 13.3 % (11.5-14.5) Platelet Count 204 x10^3/uL (140-400) Neutrophils (%) (Auto) 69 % (31-73) Lymphocytes (%) (Auto) 20 % (24-48) L Monocytes (%) (Auto) 6 % (0-9) Eosinophils (%) (Auto) 5 % (0-3) H Basophils (%) (Auto) 1 % (0-3) Neutrophils # (Auto) 5.2 x10^3uL (1.8-7.7) Lymphocytes # (Auto) 1.5 x10^3/uL (1.0-4.8) Monocytes # (Auto) 0.4 x10^3/uL (0.0-1.1) Eosinophils # (Auto) 0.4 x10^3/uL (0.0-0.7) Basophils # (Auto) 0.0 x10^3/uL (0.0-0.2) Sodium Level 141 mmol/L (136-145) Potassium Level 3.6 mmol/L (3.5-5.1) Chloride Level 108 mmol/L (98-107) H Carbon Dioxide Level 26 mmol/L (21-32) Anion Gap 7 (6-14) Blood Urea Nitrogen 25 mg/dL (7-20) H Creatinine 0.8 mg/dL (0.6-1.0) Estimated GFR (Cockcroft-Gault) 67.8 BUN/Creatinine Ratio 31 (6-20) H Glucose Level 91 mg/dL (70-99) Calcium Level 8.9 mg/dL (8.5-10.1) Total Bilirubin 0.4 mg/dL (0.2-1.0) Aspartate Amino Transferase (AST) 22 U/L (15-37) Alanine Aminotransferase (ALT) 33 U/L (14-59) Alkaline Phosphatase 47 U/L (46-116) Total Protein 7.5 g/dL (6.4-8.2) Albumin 3.0 g/dL (3.4-5.0) L Albumin/Globulin Ratio 0.7 (1.0-1.7) L Current Medications: Meds: Laboratory Tests Test 07/09/21 07:40 White Blood Count 7.6 x10^3/uL Red Blood Count 4.33 x10^6/uL Hemoglobin 13.1 g/dL Hematocrit 38.3 % Mean Corpuscular Volume 89 fL Mean Corpuscular Hemoglobin 30 pg Mean Corpuscular Hemoglobin Concent 34 g/dL Red Cell Distribution Width 13.3 % Platelet Count 204 x10^3/uL Neutrophils (%) (Auto) 69 % Lymphocytes (%) (Auto) 20 % Monocytes (%) (Auto) 6 % Eosinophils (%) (Auto) 5 % Basophils (%) (Auto) 1 % Neutrophils # (Auto) 5.2 x10^3uL Lymphocytes # (Auto) 1.5 x10^3/uL Monocytes # (Auto) 0.4 x10^3/uL Eosinophils # (Auto) 0.4 x10^3/uL Basophils # (Auto) 0.0 x10^3/uL Sodium Level 141 mmol/L Potassium Level 3.6 mmol/L Chloride Level 108 mmol/L Carbon Dioxide Level 26 mmol/L Anion Gap 7 Blood Urea Nitrogen 25 mg/dL Creatinine 0.8 mg/dL Estimated GFR (Cockcroft-Gault) 67.8 BUN/Creatinine Ratio 31 Glucose Level 91 mg/dL Calcium Level 8.9 mg/dL Total Bilirubin 0.4 mg/dL Aspartate Amino Transf (AST/SGOT) 22 U/L Alanine Aminotransferase (ALT/SGPT) 33 U/L Alkaline Phosphatase 47 U/L Total Protein 7.5 g/dL Albumin 3.0 g/dL Albumin/Globulin Ratio 0.7 Current Medications Medications (Trade) Dose Ordered Sig/Jorje Route PRN Reason Start Time Stop Time Status Last Admin Dose Admin Acetaminophen (Tylenol) 325 mg PRN Q4HRS PRN PO MILD PAIN / TEMP > 100.3'F 06/20/21 10:30 Alprazolam (Xanax) 0.5 mg PRN Q6HRS PRN PO 1ST CHOICE ANXIETY / AGITATION 06/20/21 10:30 07/01/21 06:30 Amlodipine Besylate (Norvasc) 5 mg DAILY PO 06/21/21 09:00 07/09/21 08:19 Anastrozole (Arimidex) 1 mg DAILY PO 06/21/21 09:00 07/09/21 08:20 Aspirin (Aspirin Chewable) 81 mg DAILY PO 06/21/21 09:00 07/09/21 08:19 Vitamin D (Vitamin D3) 1,000 unit DAILY PO 06/21/21 09:00 07/09/21 08:19 Ondansetron HCl (Zofran Odt) 4 mg PRN Q8HRS PRN PO NAUSEA/VOMITING 06/20/21 14:00 Quetiapine Fumarate (SEROquel) 25 mg HS PO 06/20/21 21:00 07/09/21 19:38 Quetiapine Fumarate (SEROquel) 25 mg PRN Q6HRS PRN PO 2ND CHOICE ANXIETY / AGITATION 06/20/21 10:30 06/21/21 21:45 Tramadol HCl (Ultram) 50 mg PRN Q12HR PRN PO MOD-SEV PAIN 06/20/21 10:30 Ascorbic Acid (Vitamin C) 500 mg BID PO 06/20/21 21:00 07/09/21 19:39 Citalopram Hydrobromide (CeleXA) 40 mg DAILY PO 06/21/21 09:00 06/20/21 18:31 DC Folic Acid (Folic Acid) 1 mg DAILY PO 06/21/21 09:00 07/09/21 08:19 Melatonin (Melatonin) 6 mg QHS PO 06/20/21 21:00 07/09/21 19:39 Multivit/ Folic Acid/Iron (Multivitamin ) 1 tab DAILY PO 06/21/21 09:00 07/09/21 08:19 Multi-Ingredient Ointment (Analgesic [place]) 1 georgi PRN QID PRN TP MUSCLE PAIN 06/20/21 10:45 Al Hydroxide/Mg Hydroxide (Mylanta Plus Xs) 15 ml PRN AFTMEALHC PRN PO DYSPEPSIA 06/20/21 10:45 Magnesium Hydroxide (Milk Of Magnesia) 2,400 mg PRN QHS PRN PO 2ND CHOICE CONSTIPATION 06/20/21 10:45 07/05/21 20:02 Quetiapine Fumarate (SEROquel) 12.5 mg 0900,1700 PO 06/21/21 09:00 06/22/21 11:53 DC 06/22/21 08:28 Sertraline HCl (Zoloft) 50 mg DAILY PO 06/21/21 09:00 06/23/21 11:00 DC 06/23/21 08:24 Sertraline HCl (Zoloft) 75 mg DAILY PO 06/24/21 09:00 06/26/21 21:00 DC 06/26/21 08:27 Dronabinol (Marinol) 2.5 mg BIDACLD PO 06/22/21 11:30 07/09/21 16:12 Quetiapine Fumarate (SEROquel) 12.5 mg 0900,1200,1500,1800 PO 06/22/21 12:00 06/24/21 21:00 DC 06/24/21 17:26 Sertraline HCl (Zoloft) 100 mg DAILY PO 06/27/21 09:00 06/29/21 11:51 DC 06/29/21 08:33 Quetiapine Fumarate (SEROquel) 25 mg 0900,1500 PO 06/25/21 09:00 07/09/21 16:12 Quetiapine Fumarate (SEROquel) 12.5 mg 1200,1800 PO 06/25/21 12:00 07/09/21 17:24 Buspirone HCl (Buspar) 5 mg 0900,1700 PO 06/27/21 09:00 06/29/21 23:00 DC 06/29/21 17:25 Buspirone HCl (Buspar) 10 mg 0900,1700 PO 06/30/21 09:00 07/09/21 16:12 Fluvoxamine Maleate (Luvox) 25 mg DAILY PO 06/30/21 09:00 07/02/21 21:00 DC 07/02/21 09:17 Fluvoxamine Maleate (Luvox) 50 mg DAILY PO 07/03/21 09:00 07/05/21 21:00 DC 07/05/21 08:10 Fluvoxamine Maleate (Luvox) 75 mg DAILY PO 07/06/21 09:00 07/10/21 05:00 07/09/21 08:19 Polyethylene Glycol (miraLAX) 17 gm PRN DAILY PRN PO 1ST CHOICE CONSTIPATION 07/06/21 17:30 Fluvoxamine Maleate (Luvox) 100 mg DAILY PO 07/10/21 09:00 I have reviewed the current psychotropics carefully including drug interactions. Risk benefit ratio favors no change other than as noted in my dictated progress note. 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
[2021-07-10 06:09] VITALS: BP 126/72
[2021-07-10] MEDS: ASCORBIC ACID 500 MG TABLET PO SCH ×2 (08:28→20:20)
[2021-07-10] MEDS: CHOLECALCIFEROL (VITAMIN D3) 1,000 UNIT TABLET PO SCH (08:28)
[2021-07-10] MEDS: FOLIC ACID 1 MG TABLET PO SCH (08:28)
[2021-07-10] MEDS: busPIRone 10 MG TABLET. PO SCH ×2 (08:29→17:19)
[2021-07-10] MEDS: amLODIPine BESYLATE 5 MG TABLET PO SCH (08:29)
[2021-07-10] MEDS: QUEtiapine 25 MG TABLET. PO SCH ×5 (08:29→20:19)
[2021-07-10] MEDS: PRENATAL MULTIVITAMIN TABLET. PO SCH (08:29)
[2021-07-10] MEDS: ASPIRIN CHEWABLE 81 MG TABLET. PO SCH (08:30)
[2021-07-10] MEDS: ANASTROZOLE 1 MG TABLET PO SCH (08:34)
--- NOTE | 2021-07-10 08:46 | PDOC ---
Exam Note: Adryan Note: This note is a late entry for 07/06/2021 covers elements not covered in my initial note. Subjective: The patient was reviewed at treatment team meeting in the morning on 07/06/2021 with Jessica Smith, Abigail Curtis (social service agency director), Tiffani, activity therapy, and Shannan MOONEY, discussed and reviewed the chart. Discussed and reviewed his diagnoses, progress at length. She slept 7-1/2 hours previous night. Appetite is 50%. She is convinced that staff is trying to overfeed her to make her fat and she repeatedly told me in her room that she has no clothes if she gets fat. She often makes vague sentences, Ill just go off and . She is paranoid about her daughter. In the morning she was making comments that her children do not like her. We will explore with the family what interest she has had to try and guide her towards this to reduce some of the anxiety. A note has been left on the walker reminding her why she is here, what treatment and plans are in place to reduce anxiety and repetitive negative verbal interactions with nursing staff. Review of Systems: Impaired ambulation. No CV, , pulmonary, eye, system symptoms on review. Mental Status Exam: The patient is oriented to herself and situation. Speech coherent, rapid at times. Abstraction fair. Computation impaired. Language function intact. Attention span short. Mood and affect remains anxious somewhat labile. Laboratory Data: Reviewed. Impression: Major depressive disorder, severe. Major neurocognitive disorder, Alzheimer vascular with delusion, depression. Anxiety disorder unspecified. Impulse control disorder unspecified. Plan: No change from initial note. We used pocket talker to help with her hearing. She has attended 3 groups in the past one week, less dismissive and anxious. Assessment: Vital Signs/I&O: Vital Signs Date Time Temp Pulse Resp B/P (MAP) Pulse Ox O2 Delivery O2 Flow Rate FiO2 07/10/21 08:29 69 126/72 07/10/21 06:09 98.3 16 98 Room Air I & O 07/09/21 07/09/21 07/10/21 14:59 22:59 06:59 Intake Total 240 ml 100 ml Balance 240 ml 100 ml Current Medications: Meds: Current Medications Medications (Trade) Dose Ordered Sig/Jorje Route PRN Reason Start Time Stop Time Status Last Admin Dose Admin Fluvoxamine Maleate (Luvox) 100 mg DAILY PO 07/10/21 09:00 07/10/21 08:31 I have reviewed the current psychotropics carefully including drug interactions. Risk benefit ratio favors no change other than as noted in my dictated progress note. 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
--- NOTE | 2021-07-10 09:12 | PDOC ---
Exam Note: Adryan Note: This note is a late entry for 07/07/2021 covers elements not covered in my initial note. Subjective: The patient was seen individually on 07/07/2021, discussed and reviewed the chart with Keyla MOONEY. She slept 9-1/2 hours previous night, obsessed regarding bowel and fearing she will gain weight. She is repeatedly at the nursing glass window wanting something or the other, anxious. Review of Systems: Impaired ambulation, in walker. She is hard of hearing. No CV, , pulmonary, eye, system symptoms on review. Mental Status Exam: The patient is awake, alert, oriented to herself and at times situation. Speech is rapid. She is anxious, restless, distractible. No suicidal or homicidal ideation. She is obsessed regarding her bowels. Abstraction fair. Computation impaired. Language function intact. Mood and affect remains anxious. Laboratory Data: Reviewed. Impression: Major depressive disorder, severe. Major neurocognitive disorder, Alzheimer vascular with delusion, depression. Anxiety disorder unspecified. Impulse control disorder unspecified. Plan: No change from initial note. The patient is on Luvox 75 mg a day and after 5 days of this we will increase to 100 mg a day. She is also on Seroquel, BuSpar and Xanax p.r.n. together with melatonin 6 mg h.s. Assessment: Vital Signs/I&O: Vital Signs Date Time Temp Pulse Resp B/P (MAP) Pulse Ox O2 Delivery O2 Flow Rate FiO2 07/10/21 08:29 69 126/72 07/10/21 06:09 98.3 16 98 Room Air I & O 07/09/21 07/09/21 07/10/21 14:59 22:59 06:59 Intake Total 240 ml 100 ml Balance 240 ml 100 ml Current Medications: Meds: Current Medications Medications (Trade) Dose Ordered Sig/Jorje Route PRN Reason Start Time Stop Time Status Last Admin Dose Admin Fluvoxamine Maleate (Luvox) 100 mg DAILY PO 07/10/21 09:00 07/10/21 08:31 I have reviewed the current psychotropics carefully including drug interactions. Risk benefit ratio favors no change other than as noted in my dictated progress note. 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
--- NOTE | 2021-07-10 09:22 | PDOC ---
Exam Note: Adryan Note: This note is a late entry for 07/08/2021 covers elements not covered in my initial note. Subjective: The patient was seen individually on 07/08/2021, discussed and reviewed the chart with Afsaneh MOONEY. The patient slept 9-1/2 hours previous night. I met with her in her room. She is convinced she is going to . She is often spitting out her food and paranoid, suspicious. She believes her daughter is stealing from her. Review of Systems: Hard of hearing. Impaired ambulation, with walker. No CV, , pulmonary, eye, system symptoms on review. Mental Status Exam: The patient is oriented to herself and situation. She is very repetitive, anxious, wanting me to confirm she was not going to while she is here. Speech coherent, rapid at times. Abstraction fair. Computation impaired. Language function intact. Attention span short. Mood and affect anxious. Laboratory Data: Reviewed. Impression: Major depressive disorder, severe. Major neurocognitive disorder, Alzheimer vascular with delusion, depression. Anxiety disorder unspecified. Impulse control disorder unspecified. Plan: No change from initial note. Assessment: Vital Signs/I&O: Vital Signs Date Time Temp Pulse Resp B/P (MAP) Pulse Ox O2 Delivery O2 Flow Rate FiO2 07/10/21 08:29 69 126/72 07/10/21 06:09 98.3 16 98 Room Air I & O 07/09/21 07/09/21 07/10/21 15:00 23:00 07:00 Intake Total 240 ml 100 ml Balance 240 ml 100 ml Current Medications: Meds: Current Medications Medications (Trade) Dose Ordered Sig/Jorje Route PRN Reason Start Time Stop Time Status Last Admin Dose Admin Fluvoxamine Maleate (Luvox) 100 mg DAILY PO 07/10/21 09:00 07/10/21 08:31 I have reviewed the current psychotropics carefully including drug interactions. Risk benefit ratio favors no change other than as noted in my dictated progress note. 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
--- NOTE | 2021-07-10 09:30 | PDOC ---
Exam Note: Adryan Note: This note is a late entry for 07/09/2021 covers elements not covered in my initial note. Subjective: The patient was seen individually on 07/09/2021, discussed and reviewed the chart with Karie MOONEY. The patient slept 8-1/2 hours previous night. She is anxious, but coming out less to the nursing station. She remains obsessed about getting fat and fearful that she is going to . She did talk to her daughter on the telephone and then was anxious after this. Review of Systems: Hard of hearing. Impaired ambulation, with walker. No CV, , pulmonary, eye, system symptoms on review. Mental Status Exam: The patient is oriented to herself and situation. Speech coherent. Abstraction fair. Computation impaired. Language function intact. Attention span short. Mood and affect anxious. Laboratory Data: Reviewed. Impression: Major depressive disorder, severe. Major neurocognitive disorder, Alzheimer vascular with delusion, depression. Anxiety disorder unspecified. Impulse control disorder unspecified. Plan: No change from initial note. We are gradually increasing the Luvox. BuSpar 10 mg twice a day. Seroquel is therapeutic, Xanax p.r.n., melatonin 6 mg h.s. Adjust as clinically indicated. Assessment: Vital Signs/I&O: Vital Signs Date Time Temp Pulse Resp B/P (MAP) Pulse Ox O2 Delivery O2 Flow Rate FiO2 07/10/21 08:29 69 126/72 07/10/21 06:09 98.3 16 98 Room Air I & O 07/09/21 07/09/21 07/10/21 15:00 23:00 07:00 Intake Total 240 ml 100 ml Balance 240 ml 100 ml Current Medications: Meds: Current Medications Medications (Trade) Dose Ordered Sig/Jorje Route PRN Reason Start Time Stop Time Status Last Admin Dose Admin Fluvoxamine Maleate (Luvox) 100 mg DAILY PO 07/10/21 09:00 07/10/21 08:31 I have reviewed the current psychotropics carefully including drug interactions. Risk benefit ratio favors no change other than as noted in my dictated progress note. 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
[2021-07-10] MEDS: DRONABINOL 2.5 MG CAPSULE PO SCH ×2 (11:52→15:37)
--- NOTE | 2021-07-10 13:22 | NUR ---
Nursing note: Pt in dining room for breakfast at time of AM med pass and assessment. She is med compliant and cooperative. Pt denies having any pain this AM, but does continue to appear anxious while in staff presence. Pt is currently sitting quietly in her room. Will continue to monitor.
[2021-07-10 15:56] VITALS: BP 143/63
[2021-07-10] MEDS: MELATONIN 3 MG TABLET PO SCH (20:20)
--- NOTE | 2021-07-10 22:02 | PDOC ---
Exam Note: Adryan Note: Please also refer to the separate dictated note~for this date of service dictated separately.~Patient seen individually. Discussed the patient with Nursing staff reviewed the chart.~Reviewed interim history and current functioning. Reviewed vital signs,~Labs/ Radiology~and current medications noted below. Continue current treatment with the changes noted in the dictated addendum note Assessment: Vital Signs/I&O: Vital Signs Date Time Temp Pulse Resp B/P (MAP) Pulse Ox O2 Delivery O2 Flow Rate FiO2 07/10/21 15:56 97.5 75 19 143/63 (89) 97 07/10/21 06:09 Room Air I & O 07/09/21 07/09/21 07/10/21 14:59 22:59 06:59 Intake Total 240 ml 100 ml Balance 240 ml 100 ml Current Medications: Meds: Current Medications Medications (Trade) Dose Ordered Sig/Jorje Route PRN Reason Start Time Stop Time Status Last Admin Dose Admin Acetaminophen (Tylenol) 325 mg PRN Q4HRS PRN PO MILD PAIN / TEMP > 100.3'F 06/20/21 10:30 Alprazolam (Xanax) 0.5 mg PRN Q6HRS PRN PO 1ST CHOICE ANXIETY / AGITATION 06/20/21 10:30 07/01/21 06:30 Amlodipine Besylate (Norvasc) 5 mg DAILY PO 06/21/21 09:00 07/10/21 08:29 Anastrozole (Arimidex) 1 mg DAILY PO 06/21/21 09:00 07/10/21 08:34 Aspirin (Aspirin Chewable) 81 mg DAILY PO 06/21/21 09:00 07/10/21 08:30 Vitamin D (Vitamin D3) 1,000 unit DAILY PO 06/21/21 09:00 07/10/21 08:28 Ondansetron HCl (Zofran Odt) 4 mg PRN Q8HRS PRN PO NAUSEA/VOMITING 06/20/21 14:00 Quetiapine Fumarate (SEROquel) 25 mg HS PO 06/20/21 21:00 07/10/21 20:19 Quetiapine Fumarate (SEROquel) 25 mg PRN Q6HRS PRN PO 2ND CHOICE ANXIETY / AGITATION 06/20/21 10:30 06/21/21 21:45 Tramadol HCl (Ultram) 50 mg PRN Q12HR PRN PO MOD-SEV PAIN 06/20/21 10:30 Ascorbic Acid (Vitamin C) 500 mg BID PO 06/20/21 21:00 07/10/21 20:20 Citalopram Hydrobromide (CeleXA) 40 mg DAILY PO 06/21/21 09:00 06/20/21 18:31 DC Folic Acid (Folic Acid) 1 mg DAILY PO 06/21/21 09:00 07/10/21 08:28 Melatonin (Melatonin) 6 mg QHS PO 06/20/21 21:00 07/10/21 20:20 Multivit/ Folic Acid/Iron (Multivitamin ) 1 tab DAILY PO 06/21/21 09:00 07/10/21 08:29 Multi-Ingredient Ointment (Analgesic [place]) 1 georgi PRN QID PRN TP MUSCLE PAIN 06/20/21 10:45 Al Hydroxide/Mg Hydroxide (Mylanta Plus Xs) 15 ml PRN AFTMEALHC PRN PO DYSPEPSIA 06/20/21 10:45 Magnesium Hydroxide (Milk Of Magnesia) 2,400 mg PRN QHS PRN PO 2ND CHOICE CONSTIPATION 06/20/21 10:45 07/05/21 20:02 Quetiapine Fumarate (SEROquel) 12.5 mg 0900,1700 PO 06/21/21 09:00 06/22/21 11:53 DC 06/22/21 08:28 Sertraline HCl (Zoloft) 50 mg DAILY PO 06/21/21 09:00 06/23/21 11:00 DC 06/23/21 08:24 Sertraline HCl (Zoloft) 75 mg DAILY PO 06/24/21 09:00 06/26/21 21:00 DC 06/26/21 08:27 Dronabinol (Marinol) 2.5 mg BIDACLD PO 06/22/21 11:30 07/10/21 15:37 Quetiapine Fumarate (SEROquel) 12.5 mg 0900,1200,1500,1800 PO 06/22/21 12:00 06/24/21 21:00 DC 06/24/21 17:26 Sertraline HCl (Zoloft) 100 mg DAILY PO 06/27/21 09:00 06/29/21 11:51 DC 06/29/21 08:33 Quetiapine Fumarate (SEROquel) 25 mg 0900,1500 PO 06/25/21 09:00 07/10/21 15:37 Quetiapine Fumarate (SEROquel) 12.5 mg 1200,1800 PO 06/25/21 12:00 07/10/21 17:19 Buspirone HCl (Buspar) 5 mg 0900,1700 PO 06/27/21 09:00 06/29/21 23:00 DC 06/29/21 17:25 Buspirone HCl (Buspar) 10 mg 0900,1700 PO 06/30/21 09:00 07/10/21 17:19 Fluvoxamine Maleate (Luvox) 25 mg DAILY PO 06/30/21 09:00 07/02/21 21:00 DC 07/02/21 09:17 Fluvoxamine Maleate (Luvox) 50 mg DAILY PO 07/03/21 09:00 07/05/21 21:00 DC 07/05/21 08:10 Fluvoxamine Maleate (Luvox) 75 mg DAILY PO 07/06/21 09:00 07/10/21 05:00 DC 07/09/21 08:19 Polyethylene Glycol (miraLAX) 17 gm PRN DAILY PRN PO 1ST CHOICE CONSTIPATION 07/06/21 17:30 Fluvoxamine Maleate (Luvox) 100 mg DAILY PO 07/10/21 09:00 07/10/21 08:31 Current Medications Medications (Trade) Dose Ordered Sig/Jorje Route PRN Reason Start Time Stop Time Status Last Admin Dose Admin Fluvoxamine Maleate (Luvox) 100 mg DAILY PO 07/10/21 09:00 07/10/21 08:31 I have reviewed the current psychotropics carefully including drug interactions. Risk benefit ratio favors no change other than as noted in my dictated progress note. 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
--- NOTE | 2021-07-10 23:54 | NUR ---
Pt located in her room this evening laying calmly in bed. Pt pleasant, slightly anxious. Compliant with whole medications and ADLs. Pt currently sleeping.
[2021-07-11 06:15] VITALS: BP 138/73
[2021-07-11] MEDS: FOLIC ACID 1 MG TABLET PO SCH (08:05)
[2021-07-11] MEDS: ASCORBIC ACID 500 MG TABLET PO SCH ×2 (08:05→20:36)
[2021-07-11] MEDS: busPIRone 10 MG TABLET. PO SCH ×2 (08:05→17:22)
[2021-07-11] MEDS: PRENATAL MULTIVITAMIN TABLET. PO SCH (08:05)
[2021-07-11] MEDS: QUEtiapine 25 MG TABLET. PO SCH ×5 (08:06→20:36)
[2021-07-11] MEDS: CHOLECALCIFEROL (VITAMIN D3) 1,000 UNIT TABLET PO SCH (08:07)
[2021-07-11] MEDS: ASPIRIN CHEWABLE 81 MG TABLET. PO SCH (08:07)
[2021-07-11] MEDS: amLODIPine BESYLATE 5 MG TABLET PO SCH (08:07)
[2021-07-11] MEDS: MAGNESIUM HYDROXIDE 2,400 MG/30 ML ORAL.SUSP. PO PRN (08:08)
[2021-07-11] MEDS: ANASTROZOLE 1 MG TABLET PO SCH (08:22)
[2021-07-11] MEDS: DRONABINOL 2.5 MG CAPSULE PO SCH ×2 (11:53→17:22)
[2021-07-11 16:07] VITALS: BP 109/61
--- NOTE | 2021-07-11 17:43 | NUR ---
Nursing Note: Patient has been calm and compliant today. She was compliant with her medications and her assessment. She walked the halls frequently throughout the day. Pt did participate in groups when they were offered. She is still anxious but ate well today. Pt is currently in the dining room eating dinner. Will continue to monitor.
[2021-07-11] MEDS: MELATONIN 3 MG TABLET PO SCH (20:36)
--- NOTE | 2021-07-11 21:25 | PDOC ---
Exam Note: Adryan Note: Please also refer to the separate dictated note~for this date of service dictated separately.~Patient seen individually. Discussed the patient with Nursing staff reviewed the chart.~Reviewed interim history and current functioning. Reviewed vital signs,~Labs/ Radiology~and current medications noted below. Continue current treatment with the changes noted in the dictated addendum note Assessment: Vital Signs/I&O: Vital Signs Date Time Temp Pulse Resp B/P (MAP) Pulse Ox O2 Delivery O2 Flow Rate FiO2 07/11/21 16:07 97.9 75 22 109/61 (77) 99 07/10/21 06:09 Room Air I & O 07/10/21 07/10/21 07/11/21 15:00 23:00 07:00 Intake Total 130 ml Balance 130 ml Current Medications: Meds: Current Medications Medications (Trade) Dose Ordered Sig/Jorje Route PRN Reason Start Time Stop Time Status Last Admin Dose Admin Acetaminophen (Tylenol) 325 mg PRN Q4HRS PRN PO MILD PAIN / TEMP > 100.3'F 06/20/21 10:30 Alprazolam (Xanax) 0.5 mg PRN Q6HRS PRN PO 1ST CHOICE ANXIETY / AGITATION 06/20/21 10:30 07/01/21 06:30 Amlodipine Besylate (Norvasc) 5 mg DAILY PO 06/21/21 09:00 07/11/21 08:07 Anastrozole (Arimidex) 1 mg DAILY PO 06/21/21 09:00 07/11/21 08:22 Aspirin (Aspirin Chewable) 81 mg DAILY PO 06/21/21 09:00 07/11/21 08:07 Vitamin D (Vitamin D3) 1,000 unit DAILY PO 06/21/21 09:00 07/11/21 08:07 Ondansetron HCl (Zofran Odt) 4 mg PRN Q8HRS PRN PO NAUSEA/VOMITING 06/20/21 14:00 Quetiapine Fumarate (SEROquel) 25 mg HS PO 06/20/21 21:00 07/11/21 20:36 Quetiapine Fumarate (SEROquel) 25 mg PRN Q6HRS PRN PO 2ND CHOICE ANXIETY / AGITATION 06/20/21 10:30 06/21/21 21:45 Tramadol HCl (Ultram) 50 mg PRN Q12HR PRN PO MOD-SEV PAIN 06/20/21 10:30 Ascorbic Acid (Vitamin C) 500 mg BID PO 06/20/21 21:00 07/11/21 20:36 Citalopram Hydrobromide (CeleXA) 40 mg DAILY PO 06/21/21 09:00 06/20/21 18:31 DC Folic Acid (Folic Acid) 1 mg DAILY PO 06/21/21 09:00 07/11/21 08:05 Melatonin (Melatonin) 6 mg QHS PO 06/20/21 21:00 07/11/21 20:36 Multivit/ Folic Acid/Iron (Multivitamin ) 1 tab DAILY PO 06/21/21 09:00 07/11/21 08:05 Multi-Ingredient Ointment (Analgesic [place]) 1 georgi PRN QID PRN TP MUSCLE PAIN 06/20/21 10:45 Al Hydroxide/Mg Hydroxide (Mylanta Plus Xs) 15 ml PRN AFTMEALHC PRN PO DYSPEPSIA 06/20/21 10:45 Magnesium Hydroxide (Milk Of Magnesia) 2,400 mg PRN QHS PRN PO 2ND CHOICE CONSTIPATION 06/20/21 10:45 07/11/21 08:08 Quetiapine Fumarate (SEROquel) 12.5 mg 0900,1700 PO 06/21/21 09:00 06/22/21 11:53 DC 06/22/21 08:28 Sertraline HCl (Zoloft) 50 mg DAILY PO 06/21/21 09:00 06/23/21 11:00 DC 06/23/21 08:24 Sertraline HCl (Zoloft) 75 mg DAILY PO 06/24/21 09:00 06/26/21 21:00 DC 06/26/21 08:27 Dronabinol (Marinol) 2.5 mg BIDACLD PO 06/22/21 11:30 07/11/21 17:22 Quetiapine Fumarate (SEROquel) 12.5 mg 0900,1200,1500,1800 PO 06/22/21 12:00 06/24/21 21:00 DC 06/24/21 17:26 Sertraline HCl (Zoloft) 100 mg DAILY PO 06/27/21 09:00 06/29/21 11:51 DC 06/29/21 08:33 Quetiapine Fumarate (SEROquel) 25 mg 0900,1500 PO 06/25/21 09:00 07/11/21 15:23 Quetiapine Fumarate (SEROquel) 12.5 mg 1200,1800 PO 06/25/21 12:00 07/11/21 17:22 Buspirone HCl (Buspar) 5 mg 0900,1700 PO 06/27/21 09:00 06/29/21 23:00 DC 06/29/21 17:25 Buspirone HCl (Buspar) 10 mg 0900,1700 PO 06/30/21 09:00 07/11/21 17:22 Fluvoxamine Maleate (Luvox) 25 mg DAILY PO 06/30/21 09:00 07/02/21 21:00 DC 07/02/21 09:17 Fluvoxamine Maleate (Luvox) 50 mg DAILY PO 07/03/21 09:00 07/05/21 21:00 DC 07/05/21 08:10 Fluvoxamine Maleate (Luvox) 75 mg DAILY PO 07/06/21 09:00 07/10/21 05:00 DC 07/09/21 08:19 Polyethylene Glycol (miraLAX) 17 gm PRN DAILY PRN PO 1ST CHOICE CONSTIPATION 07/06/21 17:30 Fluvoxamine Maleate (Luvox) 100 mg DAILY PO 07/10/21 09:00 07/11/21 08:05 I have reviewed the current psychotropics carefully including drug interactions. Risk benefit ratio favors no change other than as noted in my dictated progress note. 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
--- NOTE | 2021-07-11 23:17 | NUR ---
Pt located in her room this evening sleeping in bed. Pt pleasant when woken up to administer HS medications. Pt stated that she was "shaking like a leaf" this evening. Pt currently sleeping.
[2021-07-12 06:16] VITALS: BP 127/73
--- NOTE | 2021-07-12 07:06 | PDOC ---
Exam Note: Adryan Note: This note is a late entry for 07/10/2021 covers elements not covered in my initial note. Subjective: The patient was seen individually on 07/10/2021, discussed and reviewed the chart with Karie MOONEY. The patient slept 8 hours previous night. Per nursing report, she gets frustrated when she is asked to finish her meals but staff is only asking her to finish 2/3rd of her meals and she made a vague threat that Ill kill myself if you force me to eat. Review of Systems: Hard of hearing. Impaired ambulation, with walker. No CV, , pulmonary, eye, system symptoms on review. Mental Status Exam: The patient is oriented to herself and situation. Speech coherent. Rapid at times. Abstraction fair. Computation impaired. Language function intact. Mood and affect still somewhat depressed, denies minimizes this, somewhat obsessive. No suicidal or homicidal ideation. Laboratory Data: Reviewed. Impression: Major depressive disorder, severe. Major neurocognitive disorder, Alzheimer vascular with delusion, depression. Anxiety disorder unspecified. Impulse control disorder unspecified. Plan: No change from initial note. Assessment: Vital Signs/I&O: Vital Signs Date Time Temp Pulse Resp B/P (MAP) Pulse Ox O2 Delivery O2 Flow Rate FiO2 07/12/21 06:16 97.8 73 20 127/73 (91) 98 07/10/21 06:09 Room Air I & O 07/11/21 07/11/21 07/12/21 14:59 22:59 06:59 Intake Total 480 ml 60 ml 0 ml Balance 480 ml 60 ml 0 ml Current Medications: I have reviewed the current psychotropics carefully including drug interactions. Risk benefit ratio favors no change other than as noted in my dictated progress note. Diagnosis: Problems: (1) Anxiety disorder, unspecified (2) Major depress dis, severe (3) Impulse control disorder, unspecified (4) Dementia, vascular, with depression (5) Dementia, vascular, with delusions (6) Dementia in Alzheimer's disease with depression (7) Dementia in Alzheimer's disease with delusions (8) Major neurocognitive disorder GABINO PAGE MD Jul 12, 2021 07:06
--- NOTE | 2021-07-12 07:19 | PDOC ---
Exam Note: Adryan Note: This note is a late entry for 07/11/2021 covers elements not covered in my initial note. Subjective: The patient was seen individually on 07/11/2021, discussed and reviewed the chart with Pamela MOONEY. The patient slept 10 hours previous night. Overall the patient remains somewhat anxious, obsessive but perhaps slightly less so at times. She has been cooperative, obsessed about gaining weight because she feels nursing staff insists she eats more than she is capable of. I met with her in her room. Review of Systems: Hard of hearing. No CV, , pulmonary, eye, system symptoms on review. Mental Status Exam: The patient is oriented to herself and situation. Speech has some latency, coherent. Abstraction fair. Computation impaired. Language function intact. Attention span short. Mood and affect somewhat anxious, labile. Laboratory Data: Reviewed. Impression: Major depressive disorder, severe. Major neurocognitive disorder, Alzheimer vascular with delusion, depression. Anxiety disorder unspecified. Impulse control disorder unspecified. Plan: Continue current psychotropics BuSpar, Luvox, Seroquel and melatonin. We will increase Luvox for her OCD/anxiety symptoms depending on how she does over the next one to two days. Reviewed drug interactions, risk-benefit ratio favors no change at this time. Assessment: Vital Signs/I&O: Vital Signs Date Time Temp Pulse Resp B/P (MAP) Pulse Ox O2 Delivery O2 Flow Rate FiO2 07/12/21 06:16 97.8 73 20 127/73 (91) 98 07/10/21 06:09 Room Air I & O 07/11/21 07/11/21 07/12/21 14:59 22:59 06:59 Intake Total 480 ml 60 ml 0 ml Balance 480 ml 60 ml 0 ml Current Medications: I have reviewed the current psychotropics carefully including drug interactions. Risk benefit ratio favors no change other than as noted in my dictated progress note. 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
[2021-07-12] MEDS: amLODIPine BESYLATE 5 MG TABLET PO SCH (08:25)
[2021-07-12] MEDS: ASPIRIN CHEWABLE 81 MG TABLET. PO SCH (08:26)
[2021-07-12] MEDS: ANASTROZOLE 1 MG TABLET PO SCH (08:26)
[2021-07-12] MEDS: CHOLECALCIFEROL (VITAMIN D3) 1,000 UNIT TABLET PO SCH (08:26)
[2021-07-12] MEDS: FOLIC ACID 1 MG TABLET PO SCH (08:26)
[2021-07-12] MEDS: ASCORBIC ACID 500 MG TABLET PO SCH ×2 (08:27→20:17)
[2021-07-12] MEDS: busPIRone 10 MG TABLET. PO SCH ×2 (08:27→17:15)
[2021-07-12] MEDS: QUEtiapine 25 MG TABLET. PO SCH ×5 (08:27→20:17)
[2021-07-12] MEDS: PRENATAL MULTIVITAMIN TABLET. PO SCH (08:27)
[2021-07-12] MEDS: DRONABINOL 2.5 MG CAPSULE PO SCH ×2 (11:35→15:19)
[2021-07-12] MEDS: ALPRAZolam 0.5 MG TABLET PO PRN ×2 (12:38→20:17)
--- NOTE | 2021-07-12 13:42 | NUR ---
Pt is alert and oriented x1, she knew the date due to overhearing it earlier in the day however when asked the year she said "Honey I don't know, I'm old". She selectively hears directions from staff. This shift, she has been very fixated on her bowels moving and constantly goes to the bathroom to stick her fingers up her butt- told nurse she has no urge but feels something might be there. She has been bringing up her bowel issues at meals repeated after being asked not to by staff. She attempts to elope from meals to avoid eating. She took meds as prescribed this shift. Will continue to monitor.
[2021-07-12 15:42] VITALS: BP 108/65
[2021-07-12] MEDS: MELATONIN 3 MG TABLET PO SCH (20:17)
--- NOTE | 2021-07-12 22:14 | PDOC ---
Exam Note: Adryan Note: Please also refer to the separate dictated note~for this date of service dictated separately.~Patient seen individually. Discussed the patient with Nursing staff reviewed the chart.~Reviewed interim history and current functioning. Reviewed vital signs,~Labs/ Radiology~and current medications noted below. Continue current treatment with the changes noted in the dictated addendum note Assessment: Vital Signs/I&O: Vital Signs Date Time Temp Pulse Resp B/P (MAP) Pulse Ox O2 Delivery O2 Flow Rate FiO2 07/12/21 15:42 97.6 63 18 108/65 (79) 96 07/10/21 06:09 Room Air I & O 07/11/21 07/11/21 07/12/21 15:00 23:00 07:00 Intake Total 480 ml 60 ml 0 ml Balance 480 ml 60 ml 0 ml Current Medications: Meds: Current Medications Medications (Trade) Dose Ordered Sig/Jorje Route PRN Reason Start Time Stop Time Status Last Admin Dose Admin Acetaminophen (Tylenol) 325 mg PRN Q4HRS PRN PO MILD PAIN / TEMP > 100.3'F 06/20/21 10:30 Alprazolam (Xanax) 0.5 mg PRN Q6HRS PRN PO 1ST CHOICE ANXIETY / AGITATION 06/20/21 10:30 07/12/21 20:17 Amlodipine Besylate (Norvasc) 5 mg DAILY PO 06/21/21 09:00 07/12/21 08:25 Anastrozole (Arimidex) 1 mg DAILY PO 06/21/21 09:00 07/12/21 08:26 Aspirin (Aspirin Chewable) 81 mg DAILY PO 06/21/21 09:00 07/12/21 08:26 Vitamin D (Vitamin D3) 1,000 unit DAILY PO 06/21/21 09:00 07/12/21 08:26 Ondansetron HCl (Zofran Odt) 4 mg PRN Q8HRS PRN PO NAUSEA/VOMITING 06/20/21 14:00 Quetiapine Fumarate (SEROquel) 25 mg HS PO 06/20/21 21:00 07/12/21 20:17 Quetiapine Fumarate (SEROquel) 25 mg PRN Q6HRS PRN PO 2ND CHOICE ANXIETY / AGITATION 06/20/21 10:30 06/21/21 21:45 Tramadol HCl (Ultram) 50 mg PRN Q12HR PRN PO MOD-SEV PAIN 06/20/21 10:30 Ascorbic Acid (Vitamin C) 500 mg BID PO 06/20/21 21:00 07/12/21 20:17 Citalopram Hydrobromide (CeleXA) 40 mg DAILY PO 06/21/21 09:00 06/20/21 18:31 DC Folic Acid (Folic Acid) 1 mg DAILY PO 06/21/21 09:00 07/12/21 08:26 Melatonin (Melatonin) 6 mg QHS PO 06/20/21 21:00 07/12/21 20:17 Multivit/ Folic Acid/Iron (Multivitamin ) 1 tab DAILY PO 06/21/21 09:00 07/12/21 08:27 Multi-Ingredient Ointment (Analgesic [place]) 1 georgi PRN QID PRN TP MUSCLE PAIN 06/20/21 10:45 Al Hydroxide/Mg Hydroxide (Mylanta Plus Xs) 15 ml PRN AFTMEALHC PRN PO DYSPEPSIA 06/20/21 10:45 Magnesium Hydroxide (Milk Of Magnesia) 2,400 mg PRN QHS PRN PO 2ND CHOICE CONSTIPATION 06/20/21 10:45 07/11/21 08:08 Quetiapine Fumarate (SEROquel) 12.5 mg 0900,1700 PO 06/21/21 09:00 06/22/21 11:53 DC 06/22/21 08:28 Sertraline HCl (Zoloft) 50 mg DAILY PO 06/21/21 09:00 06/23/21 11:00 DC 06/23/21 08:24 Sertraline HCl (Zoloft) 75 mg DAILY PO 06/24/21 09:00 06/26/21 21:00 DC 06/26/21 08:27 Dronabinol (Marinol) 2.5 mg BIDACLD PO 06/22/21 11:30 07/12/21 15:19 Quetiapine Fumarate (SEROquel) 12.5 mg 0900,1200,1500,1800 PO 06/22/21 12:00 06/24/21 21:00 DC 06/24/21 17:26 Sertraline HCl (Zoloft) 100 mg DAILY PO 06/27/21 09:00 06/29/21 11:51 DC 06/29/21 08:33 Quetiapine Fumarate (SEROquel) 25 mg 0900,1500 PO 06/25/21 09:00 07/12/21 15:19 Quetiapine Fumarate (SEROquel) 12.5 mg 1200,1800 PO 06/25/21 12:00 07/12/21 17:16 Buspirone HCl (Buspar) 5 mg 0900,1700 PO 06/27/21 09:00 06/29/21 23:00 DC 06/29/21 17:25 Buspirone HCl (Buspar) 10 mg 0900,1700 PO 06/30/21 09:00 07/12/21 17:15 Fluvoxamine Maleate (Luvox) 25 mg DAILY PO 06/30/21 09:00 07/02/21 21:00 DC 07/02/21 09:17 Fluvoxamine Maleate (Luvox) 50 mg DAILY PO 07/03/21 09:00 07/05/21 21:00 DC 07/05/21 08:10 Fluvoxamine Maleate (Luvox) 75 mg DAILY PO 07/06/21 09:00 07/10/21 05:00 DC 07/09/21 08:19 Polyethylene Glycol (miraLAX) 17 gm PRN DAILY PRN PO 1ST CHOICE CONSTIPATION 07/06/21 17:30 Fluvoxamine Maleate (Luvox) 100 mg DAILY PO 07/10/21 09:00 07/12/21 08:26 I have reviewed the current psychotropics carefully including drug interactions. Risk benefit ratio favors no change other than as noted in my dictated progress note. Diagnosis: Problems: (1) Anxiety disorder, unspecified (2) Major depress dis, severe (3) Impulse control disorder, unspecified (4) Dementia, vascular, with depression (5) Dementia, vascular, with delusions (6) Dementia in Alzheimer's disease with depression (7) Dementia in Alzheimer's disease with delusions (8) Major neurocognitive disorder GABINO PAGE MD Jul 12, 2021 22:14
--- NOTE | 2021-07-13 01:32 | NUR ---
Nursing note Pt is helpless, attention seeking, and irritable. Acts like she cannot swallow, thrusts her tongue in and out of her mouth, and then swishes water around like it's mouth wash followed by a loud difficult sounding swallow. When I talk to her roommate, she interrupts me and demands attention. Xanax given with HS meds.
[2021-07-13 05:58] VITALS: BP 129/67
[2021-07-13] MEDS: POLYETHYLENE GLYCOL 3350 17 GM PACKET. PO PRN (06:41)
[2021-07-13] MEDS: ASPIRIN CHEWABLE 81 MG TABLET. PO SCH (08:28)
[2021-07-13] MEDS: amLODIPine BESYLATE 5 MG TABLET PO SCH (08:28)
[2021-07-13] MEDS: PRENATAL MULTIVITAMIN TABLET. PO SCH (08:29)
[2021-07-13] MEDS: CHOLECALCIFEROL (VITAMIN D3) 1,000 UNIT TABLET PO SCH (08:29)
[2021-07-13] MEDS: QUEtiapine 25 MG TABLET. PO SCH ×5 (08:29→21:16)
[2021-07-13] MEDS: ASCORBIC ACID 500 MG TABLET PO SCH ×2 (08:29→21:16)
[2021-07-13] MEDS: ANASTROZOLE 1 MG TABLET PO SCH (08:29)
[2021-07-13] MEDS: FOLIC ACID 1 MG TABLET PO SCH (08:29)
[2021-07-13] MEDS: busPIRone 10 MG TABLET. PO SCH ×2 (08:29→16:38)
--- NOTE | 2021-07-13 10:57 | NUR ---
WEEKLY ACTIVITY THERAPY NOTE Date of Admission: 06/20/21 Date of AT Assessment: 06/22 Precipitating behaviors that initiated intake and admission: Labile mood, sad, crying, thinks she is going to , fearful of someone hurting her, paranoid, anxious. Goal aimed: increase relaxation skills and leisure engagement Initial Goal: Pt. will participate in at least three Activity Therapy sessions before discharge Goal changed 06/29:Pt. will participate in at least five Activity Therapy sessions per week Weekly progress towards goal: achieved, 10/15 Group participation level: 2 min, 3 mod Weekly highlights: laughed a couple of times during comedy hour , attempted to guess where words were in memory game Saturday, participated in all exercises Saturday Behaviors observed: anxious about not hearing staff, can be hard to redirect/ dismissive when anxious Plan: no change to goal Beneficial adaptations: redirection, relaxations techniques
[2021-07-13] MEDS: DRONABINOL 2.5 MG CAPSULE PO SCH ×2 (12:03→16:38)
--- NOTE | 2021-07-13 14:52 | TX PLAN ---
Interdisciplinary Tx Plan Admission Information Jun 20, 2021 at 09:46 Legal Status (on Admission): Voluntary DPOA/Guardian Name: Primary-Angie Owusu [phone]; Secondary-Breezy Teran [phone] Contact Phone Number: JESICA Interiano at [facility] (C)[phone] (F)[phone] Other Contact Name: Laisha Other Contact Phone: [phone] Verified Code Status: DNR Allergies: Coded Allergies: Sulfa (Sulfonamide Antibiotics) (Verified Allergy, Intermediate, 06/10/21) bacitracin (Verified Allergy, Intermediate, 06/21/21) baclofen (Verified Allergy, Intermediate, 06/21/21) clarithromycin (Verified Allergy, Intermediate, 06/10/21) hydrocortisone (Verified Allergy, Intermediate, 06/21/21) levofloxacin (Verified Allergy, Intermediate, 06/21/21) neomycin (Verified Allergy, Intermediate, 06/21/21) polymyxin B (Verified Allergy, Intermediate, 06/21/21) Diagnoses Primary Diagnosis: (1) Anxiety disorder, unspecified (2) Major depress dis, severe (3) Major depressive disorder, recurrent episode (4) Impulse control disorder, unspecified (5) Dementia, vascular, with depression (6) Dementia, vascular, 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 She seemed to not show this behavior near as much around people outside of the family unit. Family feels that she has been the singh of manipulation. She would sometimes create divisions between her daughter (Angie) and son (Breezy), creating some animosity that now looking back into their childhood, they can see that, but get along very well now. Angie and Breezy describe her as not really ever being a happy person; "she did not like things simple." Additional Admission Comments: None at this time. Problems Active Problems: Confusion, Anxiety, Agitation Inactive Problems: None at this time. Pt Strengths/Limitations Ability for Hitchcock: Poor Cognitive Functioning/Ability: Poor Communication Skills/Ability: Fair Financial Resources: Good Insight/Judgement: Poor Intellectual Ability: Fair Physical Health: Poor Social Skills: Fair Stability in Family: Good Stability in School/Work: Good Verbal Skills: Fair Discharge Criteria Discharge Criteria: No need for close observ., Adequate arrangements @DC, Verbal commit aftercare, Adequate self-care, Verbal commit med comply, Improved behavior, Improved mood/thought Other Discharge Comments: None at this time. Preliminary Discharge Plan Preliminary DC Plan: Current Living Arrange. Special Precautions Special Precautions: Agitation/Assault Fall Risk: Low Initial D/C Plan Plan is for pt to return to [facility] once stable. Identified Discharge Needs: None at this time. Currently Utilized Resources Currently Utilized Resources/P: PCP-Dr. Finley Primary DPOA/Daughter-Angie Owusu Secondary DPOA/Son-Breezy Terna Living Facility-[facility] Referrals Community Resources: None at this time. Identified Problems/Hx/Goals Objectives/Short-Term Goals Short Term Goals: Control abnormal behavior, Dec. Anxiety/Panic, Dec. Hallucination/Delus, Dec. Symp. Depression, Medication Stabilization, Monitor Med Effects, No Suicidal/Leo. ideation, Prevent Deterioration Short Term Goals in Patient's: Would like help with confusion and anxiety. "I want someone to care about how I feel." Interventions/Frequency Staff Interventions/Frequency&: Psychiatry to assess pt three times per week for medication management. Nursing to assess behaviors, monitor medications, and complete 15 minute checks daily. Social work to see pt at least two times weekly to aid in return to placement. Activities to encourage pt to participate in group activities daily. 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 They are aware of pt admission to [facility] and is available for further information if needed. Angie will be the primary point of contact during pt admission. Angie will relay information to Breezy. Should and emergency arise where Angie wasn't available, Breezy should be called. Treatment Plan Explained Patient/Checkman had this treatment plan explained to him/her as indicated by the signature below and has been given the opportunity to ask questions and make suggestions: Date: Patient/Checkman Signature: Status Update Update Pt continues to eat approximately 50% of her meals. Staff have decreased pushing her too much to eat better and, therefore, it appears that she may be eating a little better on her own without prompting. Pt is averaging 9 hours of sleep each night. She has been fixated with weight gain and being compacted. Pt has had some MOM and now Mirlax to help with constipation. This will continue to be monitored. Pt talks continuously about her daughter putting her here to . She is difficult to redirect about this subject despite being told that she will discharge and that she is not here to . Pt attended six groups this past week and engaged with a comedy hour, memory game, and exercises. She is CHIGNIK LAGOON and needs some special attention to help explain what is going on around her. Pt will continue with same medications for now, but will continue to be monitored for anxiety. Medication adjustments will be made as needed. Pt will most likely return to [facility] at time of discharge unless family seek different facility placement. GREGORY TOBIN Jul 13, 2021 14:52
[2021-07-13 15:35] VITALS: BP 101/54
--- NOTE | 2021-07-13 18:30 | NUR ---
Patient has been restless, cooperative, anxious, and moderately confused throughout this shift. She frequently asks what is she supposed to do next and where she needs to go. She also makes repeated remarks that her daughter sent her here to . Patient has had a slightly improved appetite but still eats very little related to a stated fear of gaining weight. Will continue to monitor and report to oncoming shift.
[2021-07-13] MEDS: MELATONIN 3 MG TABLET PO SCH (21:16)
[2021-07-13] MEDS: ALPRAZolam 0.5 MG TABLET PO PRN (21:16)
--- NOTE | 2021-07-13 21:31 | PDOC ---
Exam Note: Adryan Note: Please also refer to the separate dictated note~for this date of service dictated separately.~Patient seen individually. Discussed the patient with Nursing staff reviewed the chart.~Reviewed interim history and current functioning. Reviewed vital signs,~Labs/ Radiology~and current medications noted below. Continue current treatment with the changes noted in the dictated addendum note Assessment: Vital Signs/I&O: Vital Signs Date Time Temp Pulse Resp B/P (MAP) Pulse Ox O2 Delivery O2 Flow Rate FiO2 07/13/21 15:35 97.2 60 19 101/54 (70) 97 07/13/21 05:58 Room Air I & O 07/12/21 07/12/21 07/13/21 15:00 23:00 07:00 Intake Total 240 ml 180 ml Balance 240 ml 180 ml Current Medications: Meds: Current Medications Medications (Trade) Dose Ordered Sig/Jorje Route PRN Reason Start Time Stop Time Status Last Admin Dose Admin Acetaminophen (Tylenol) 325 mg PRN Q4HRS PRN PO MILD PAIN / TEMP > 100.3'F 06/20/21 10:30 Alprazolam (Xanax) 0.5 mg PRN Q6HRS PRN PO 1ST CHOICE ANXIETY / AGITATION 06/20/21 10:30 07/13/21 21:16 Amlodipine Besylate (Norvasc) 5 mg DAILY PO 06/21/21 09:00 07/13/21 08:28 Anastrozole (Arimidex) 1 mg DAILY PO 06/21/21 09:00 07/13/21 08:29 Aspirin (Aspirin Chewable) 81 mg DAILY PO 06/21/21 09:00 07/13/21 08:28 Vitamin D (Vitamin D3) 1,000 unit DAILY PO 06/21/21 09:00 07/13/21 08:29 Ondansetron HCl (Zofran Odt) 4 mg PRN Q8HRS PRN PO NAUSEA/VOMITING 06/20/21 14:00 Quetiapine Fumarate (SEROquel) 25 mg HS PO 06/20/21 21:00 07/13/21 21:16 Quetiapine Fumarate (SEROquel) 25 mg PRN Q6HRS PRN PO 2ND CHOICE ANXIETY / AGITATION 06/20/21 10:30 06/21/21 21:45 Tramadol HCl (Ultram) 50 mg PRN Q12HR PRN PO MOD-SEV PAIN 06/20/21 10:30 Ascorbic Acid (Vitamin C) 500 mg BID PO 06/20/21 21:00 07/13/21 21:16 Citalopram Hydrobromide (CeleXA) 40 mg DAILY PO 06/21/21 09:00 06/20/21 18:31 DC Folic Acid (Folic Acid) 1 mg DAILY PO 06/21/21 09:00 07/13/21 08:29 Melatonin (Melatonin) 6 mg QHS PO 06/20/21 21:00 07/13/21 21:16 Multivit/ Folic Acid/Iron (Multivitamin ) 1 tab DAILY PO 06/21/21 09:00 07/13/21 08:29 Multi-Ingredient Ointment (Analgesic Redmond) 1 georgi PRN QID PRN TP MUSCLE PAIN 06/20/21 10:45 Al Hydroxide/Mg Hydroxide (Mylanta Plus Xs) 15 ml PRN AFTMEALHC PRN PO DYSPEPSIA 06/20/21 10:45 Magnesium Hydroxide (Milk Of Magnesia) 2,400 mg PRN QHS PRN PO 2ND CHOICE CONSTIPATION 06/20/21 10:45 07/11/21 08:08 Quetiapine Fumarate (SEROquel) 12.5 mg 0900,1700 PO 06/21/21 09:00 06/22/21 11:53 DC 06/22/21 08:28 Sertraline HCl (Zoloft) 50 mg DAILY PO 06/21/21 09:00 06/23/21 11:00 DC 06/23/21 08:24 Sertraline HCl (Zoloft) 75 mg DAILY PO 06/24/21 09:00 06/26/21 21:00 DC 06/26/21 08:27 Dronabinol (Marinol) 2.5 mg BIDACLD PO 06/22/21 11:30 07/13/21 16:38 Quetiapine Fumarate (SEROquel) 12.5 mg 0900,1200,1500,1800 PO 06/22/21 12:00 06/24/21 21:00 DC 06/24/21 17:26 Sertraline HCl (Zoloft) 100 mg DAILY PO 06/27/21 09:00 06/29/21 11:51 DC 06/29/21 08:33 Quetiapine Fumarate (SEROquel) 25 mg 0900,1500 PO 06/25/21 09:00 07/13/21 15:06 Quetiapine Fumarate (SEROquel) 12.5 mg 1200,1800 PO 06/25/21 12:00 07/13/21 18:14 Buspirone HCl (Buspar) 5 mg 0900,1700 PO 06/27/21 09:00 06/29/21 23:00 DC 06/29/21 17:25 Buspirone HCl (Buspar) 10 mg 0900,1700 PO 06/30/21 09:00 07/13/21 16:38 Fluvoxamine Maleate (Luvox) 25 mg DAILY PO 06/30/21 09:00 07/02/21 21:00 DC 07/02/21 09:17 Fluvoxamine Maleate (Luvox) 50 mg DAILY PO 07/03/21 09:00 07/05/21 21:00 DC 07/05/21 08:10 Fluvoxamine Maleate (Luvox) 75 mg DAILY PO 07/06/21 09:00 07/10/21 05:00 DC 07/09/21 08:19 Polyethylene Glycol (miraLAX) 17 gm PRN DAILY PRN PO 1ST CHOICE CONSTIPATION 07/06/21 17:30 07/13/21 06:41 Fluvoxamine Maleate (Luvox) 100 mg DAILY PO 07/10/21 09:00 07/13/21 08:29 I have reviewed the current psychotropics carefully including drug interactions. Risk benefit ratio favors no change other than as noted in my dictated progress note. 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
--- NOTE | 2021-07-13 23:28 | NUR ---
Nursing Note Pt anxious and nervous this pm, xanax given to pt with HS meds. Somewhat irritable this pm. When I enter the room she states "What the hell is going on in here???" Told her that it was time to take her HS meds, she states I already took HS meds. Proceeds to take meds 1 at a time. Slurping water and swishes around in her mouth like mouth wash.
[2021-07-14 05:58] VITALS: BP 138/67
--- NOTE | 2021-07-14 08:12 | PDOC ---
Exam Note: Adryan Note: This note is a late entry for 07/12/2021 covers elements not covered in my initial note. Subjective: The patient was seen individually on 07/12/2021, discussed and reviewed the chart with Marcial MOONEY. The patient slept 7-1/4 hours previous night. She is somewhat confused, anxious, fixated that she is getting fat and nursing staff is forcing her to eat things. She hates her daughter for leaving her here to . She is wandering, compliant with medications. Received Xanax p.r.n. in the evening. She is banging on the nursing station, separation. Review of Systems: Hard of hearing. No CV, , pulmonary, eye, system symptoms on review. Gait unsteady with walker. Mental Status Exam: The patient is oriented to herself and situation. Speech coherent, rapid at times. She has selective hearing. Abstraction fair. Computation impaired. Language function intact. Attention span short. Mood and affect somewhat anxious. Laboratory Data: Reviewed. Impression: Major depressive disorder, severe. Major neurocognitive disorder, Alzheimer vascular with delusion, depression. Anxiety disorder unspecified. Impulse control disorder unspecified. Plan: Continue current psychotropics. Assessment: Vital Signs/I&O: Vital Signs Date Time Temp Pulse Resp B/P (MAP) Pulse Ox O2 Delivery O2 Flow Rate FiO2 07/14/21 05:58 98.1 64 18 138/67 (90) 97 07/13/21 05:58 Room Air I & O 07/13/21 07/13/21 07/14/21 15:00 23:00 07:00 Intake Total 520 ml 360 ml Balance 520 ml 360 ml Current Medications: I have reviewed the current psychotropics carefully including drug interactions. Risk benefit ratio favors no change other than as noted in my dictated progress note. 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
--- NOTE | 2021-07-14 08:25 | PDOC ---
Exam Note: Adryan Note: This note is a late entry for 07/13/2021 covers elements not covered in my initial note. Subjective: The patient was reviewed at treatment team meeting in the morning on 07/13/2021 with Jessica Smith, Abigail Curtis (7th grade social studies teacher), Tiffani, activity therapy, and Marcial MOONEY, discussed and reviewed the chart. Discussed and reviewed her diagnoses, progress, psychotropic medications at length. The patient slept 8-3/4 hours previous night. Average sleep 9 hours. Appetite is 50%. I also saw her in her room in the evening. She has had some constipation. Bowels were impacted and she was digging herself yesterday. She attended 6 groups including Verdiem and memory games. Review of Systems: Hard of hearing. No CV, , pulmonary, eye, system symptoms on review. Impaired ambulation with walker though some of her hearing problem is in fact selective hearing. Mental Status Exam: The patient is oriented to herself and situation. Speech has some latency, coherent. Abstraction fair. Computation impaired. Language function intact. Mood and affect remains depressed. She continues to say that she is going to here, very anxious, obsessive, though obsessiveness is slightly better on the Luvox. Laboratory Data: Reviewed. Impression: Major depressive disorder, severe. Major neurocognitive disorder, Alzheimer vascular with delusion, depression. Anxiety disorder unspecified. Impulse control disorder unspecified. Plan: Continue current psychotropics. Assessment: Vital Signs/I&O: Vital Signs Date Time Temp Pulse Resp B/P (MAP) Pulse Ox O2 Delivery O2 Flow Rate FiO2 07/14/21 05:58 98.1 64 18 138/67 (90) 97 07/13/21 05:58 Room Air I & O 07/13/21 07/13/21 07/14/21 15:00 23:00 07:00 Intake Total 520 ml 360 ml Balance 520 ml 360 ml Current Medications: I have reviewed the current psychotropics carefully including drug interactions. Risk benefit ratio favors no change other than as noted in my dictated progress note. 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
[2021-07-14] MEDS: ASPIRIN CHEWABLE 81 MG TABLET. PO SCH (08:35)
[2021-07-14] MEDS: QUEtiapine 25 MG TABLET. PO SCH ×5 (08:35→20:08)
[2021-07-14] MEDS: PRENATAL MULTIVITAMIN TABLET. PO SCH (08:35)
[2021-07-14] MEDS: ASCORBIC ACID 500 MG TABLET PO SCH ×2 (08:35→20:08)
[2021-07-14] MEDS: amLODIPine BESYLATE 5 MG TABLET PO SCH (08:35)
[2021-07-14] MEDS: busPIRone 10 MG TABLET. PO SCH ×2 (08:35→16:25)
[2021-07-14] MEDS: CHOLECALCIFEROL (VITAMIN D3) 1,000 UNIT TABLET PO SCH (08:35)
[2021-07-14] MEDS: FOLIC ACID 1 MG TABLET PO SCH (08:35)
[2021-07-14] MEDS: POLYETHYLENE GLYCOL 3350 17 GM PACKET. PO PRN (08:36)
[2021-07-14] MEDS: ANASTROZOLE 1 MG TABLET PO SCH (08:41)
--- NOTE | 2021-07-14 11:16 | NUR ---
RENAE received voice message from Angie regarding SW voice message that was left yesterday. Angie stated that she received my call with updates and was appreciative of that. Angie requested SW attempt to facilitate a call between she and pt. Angie stated that she would be at work and if she couldn't answer, she would try to call pt back later in the afternoon or weekend. RENAE attempted to call Angie with pt, but Angie did not answer. RENAE left a voice message that she could try later this afternoon or weekend as she indicated and that SW would call her back early next week.
[2021-07-14] MEDS: DRONABINOL 2.5 MG CAPSULE PO SCH ×2 (11:55→16:25)
[2021-07-14 15:55] VITALS: BP 91/57
--- NOTE | 2021-07-14 18:30 | NUR ---
Patient has been restless, cooperative, anxious, and moderately confused throughout this shift. Patient has continued to have a decreased appetite; she ate very little at lunch and dinner but takes snacks from the dining room and eats those in the hallway; will progress her diet. She repeatedly asks what time is it and what is she supposed to be doing; she also makes a show of being more hard of hearing than she truly is. Will continue to monitor and report to oncoming shift.
[2021-07-14] MEDS: MELATONIN 3 MG TABLET PO SCH (20:08)
[2021-07-14] MEDS: ALPRAZolam 0.5 MG TABLET PO PRN (20:10)
--- NOTE | 2021-07-14 21:49 | NUR ---
Nursing Note Pt makes comments "What are all of these, how do I take them, where do they go?" when offered her meds. I told her its the very same things she takes every single night. She said ok and that she had not had a bowel movement. I told her the drink she has contains Miralx, and she complained there was too much volume. I told her it was a very small glass of water and to drink it all. She drank it then continued to complain about how her stomach is bloated, and that we feed her too much food, she is getting too fat all of her clothes are too small. Also saying that drinking water bubbles her stomach and bloats her that she has never in her life eaten as much as we give her now. She then requests a snack because she didn't get anything with HS, now wanting chocolate ice cream. I reminded her she just contradicted herself. She said, "Well so what! Are you rationing me?? I have rights you know!" I told her she could have all the ice cream she wanted, she just was inconsistent with her complaining.
--- NOTE | 2021-07-14 21:49 | PN ---
DATE: 07/14/2021 SUBJECTIVE: The patient was seen today, met with the staff, chart reviewed and covering for Dr. Trivedi. The patient continues to be depressed, withdrawn, also mood swings, including being belligerent, hostile and also sexually inappropriate comments. The patient is compliant with the medications and he tend to stay in bed most of the time. The patient uses a wheelchair and feel helpless. OBSERVATION: VITAL SIGNS: Temperature 98.1, blood pressure 138/67, pulse 64, respirations 18, O2 sat 97%. GENERAL: Slept about 8 hours last night. The patient's appetite is fair. CURRENT MEDICATIONS: Include Luvox 100 mg daily, BuSpar 10 mg twice a day, Seroquel ____ mg twice a day. The patient also on melatonin 6 mg at night and Seroquel 25 mg at night ____ Xanax. The patient is not having any side effects to medications. ASSESSMENT: 1. Major neurocognitive disorder, Alzheimer's, vascular with depression. 2. Anxiety disorder, unspecified. PLAN: Continue with the current treatment plan. LENGTH OF STAY: Five to seven days, awaiting for placement. MAXIMINO/BEVERLY DR: Darío TID: [id number]
[2021-07-15 06:06] VITALS: BP 139/65
[2021-07-15 07:20] LABS: BASO # 0.1 x10^3/uL (0.0-0.2); BASO % 1 % (0-3); EOS # 0.6 x10^3/uL (0.0-0.7); EOS % 8 % (0-3); HEMATOCRIT 37.9 % (36.0-47.0); HEMOGLOBIN 12.7 g/dL (12.0-15.5); LYMPH # 1.3 x10^3/uL (1.0-4.8); LYMPH % 18 % (24-48); MEAN CORPUSCULAR HEMOGLOBIN 30 pg (25-35); MEAN CORPUSCULAR HGB CONC 34 g/dL (31-37); MEAN CORPUSCULAR VOLUME 90 fL (79-100); MONO # 0.7 x10^3/uL (0.0-1.1); MONO % 9 % (0-9); NEUT % 65 % (31-73); PLATELET COUNT 237 x10^3/uL (140-400); RED BLOOD COUNT 4.21 x10^6/uL (3.50-5.40); RED CELL DISTRIBUTION WIDTH 13.9 % (11.5-14.5); WHITE BLOOD COUNT 7.7 x10^3/uL (4.0-11.0)
[2021-07-15 07:28] LABS: ALBUMIN/GLOBULIN RATIO 0.7 (1.0-1.7); CALCIUM 8.9 mg/dL (8.5-10.1); GFR 52.4; POTASSIUM 4.5 mmol/L (3.5-5.1); TOTAL BILIRUBIN 0.2 mg/dL (0.2-1.0); TOTAL PROTEIN 7.2 g/dL (6.4-8.2)
[2021-07-15] MEDS: PRENATAL MULTIVITAMIN TABLET. PO SCH (08:29)
[2021-07-15] MEDS: ANASTROZOLE 1 MG TABLET PO SCH (08:29)
[2021-07-15] MEDS: DRONABINOL 2.5 MG CAPSULE PO SCH ×2 (08:29→16:22)
[2021-07-15] MEDS: CHOLECALCIFEROL (VITAMIN D3) 1,000 UNIT TABLET PO SCH (08:29)
[2021-07-15] MEDS: ASPIRIN CHEWABLE 81 MG TABLET. PO SCH (08:30)
[2021-07-15] MEDS: busPIRone 10 MG TABLET. PO SCH ×2 (08:30→16:22)
[2021-07-15] MEDS: amLODIPine BESYLATE 5 MG TABLET PO SCH (08:30)
[2021-07-15] MEDS: FOLIC ACID 1 MG TABLET PO SCH (08:30)
[2021-07-15] MEDS: QUEtiapine 25 MG TABLET. PO SCH ×5 (08:30→20:18)
[2021-07-15] MEDS: ASCORBIC ACID 500 MG TABLET PO SCH ×2 (08:30→20:18)
--- NOTE | 2021-07-15 09:35 | NUR ---
Pt present and visible on the unit today. She only ate the sausage during breakfast, and began to complain that she was so "full" that she was worried that she would vomit. She is compliant with whole medications. She displays elevated anxiety and repetitive with her various questions and concerns. She is absent of SI/HI/VH/AH/pain at this time. During breakfast she asked this nurse if I liked my job to which I replied "yes," and pt then stated "Oh you'll survive it...but I won't. I know the burial is coming but I just don't know when." Plan of care continues, will pass to next shift.
--- NOTE | 2021-07-15 12:29 | NUR ---
Pt only ate a few bites of her chicken during lunch and then got up to leave the dining room. While walking out she asked this nurse where "the candy" was. I replied that I did not see any but would look after lunch. Pt appeared satisfied with the answer and made her way back to her room, passing by JESICA Teran and saying, "I hope your disease gets better."
[2021-07-15 16:11] VITALS: BP 118/75
[2021-07-15] MEDS: MELATONIN 3 MG TABLET PO SCH (20:18)
--- NOTE | 2021-07-15 23:00 | NUR ---
Pt located in her room laying in bed. Pt appears anxious after being woken up. Compliant with whole medications. A/O to name, . Pt currently sleeping.
--- NOTE | 2021-07-16 00:46 | PN ---
DATE: 07/15/2021 SUBJECTIVE: The patient continues to be irritable, demanding, difficult to redirect. OBSERVATION: VITAL SIGNS: Temperature 98.5, blood pressure 139/65, pulse 73, respirations 19, O2 sat 92%. Slept about 9 hours last night. GENERAL: The patient's appetite is fair. CURRENT MEDICATIONS: Include Luvox 100 mg daily, BuSpar 10 mg twice a day, Seroquel 25 mg ____. She is also on Xanax 0.5 mg q. 6 hours p.r.n. The patient is not having any side effects to the medications. ASSESSMENT: 1. Major neurocognitive disorder, Alzheimer's, vascular with depression. 2. Anxiety disorder, unspecified. PLAN: Continue with current treatment. LENGTH OF STAY: Five to seven days and awaiting for placement. SOSA/BEVERLY DR: Darío TID: [id number]
[2021-07-16] MEDS ORDERED: BISACODYL 10 MG SUPP.RECT PR PRN (06:15)
--- NOTE | 2021-07-16 06:23 | NUR ---
Pt anxious this morning stating that she is not able to have a bowel movement. This RN palpated area and discovered large amount of hard stool. Unable to digitally remove. PRN suppository administered. Awaiting results. Pt has attempted to digitally remove the stool herself numerous times this morning.
[2021-07-16 06:25] VITALS: BP 147/77
[2021-07-16] MEDS: CHOLECALCIFEROL (VITAMIN D3) 1,000 UNIT TABLET PO SCH (08:25)
[2021-07-16] MEDS: FOLIC ACID 1 MG TABLET PO SCH (08:25)
[2021-07-16] MEDS: busPIRone 10 MG TABLET. PO SCH ×2 (08:25→17:11)
[2021-07-16] MEDS: PRENATAL MULTIVITAMIN TABLET. PO SCH (08:25)
[2021-07-16] MEDS: ASPIRIN CHEWABLE 81 MG TABLET. PO SCH (08:26)
[2021-07-16] MEDS: amLODIPine BESYLATE 5 MG TABLET PO SCH (08:26)
[2021-07-16] MEDS: ANASTROZOLE 1 MG TABLET PO SCH (08:26)
[2021-07-16] MEDS: ASCORBIC ACID 500 MG TABLET PO SCH ×2 (08:26→20:13)
[2021-07-16] MEDS: QUEtiapine 25 MG TABLET. PO SCH ×5 (08:26→20:13)
--- NOTE | 2021-07-16 10:49 | NUR ---
Nursing note: Pt in dining room for breakfast at time of AM med pass and assessment. She appears to be less anxious than last week. She is med compliant and cooperative. Pt did not have any complaints or concerns at time of assessment. She is currently sitting quietly in the ardon. Will continue to monitor.
[2021-07-16] MEDS: DRONABINOL 2.5 MG CAPSULE PO SCH ×2 (11:39→15:44)
[2021-07-16 15:47] VITALS: BP 99/60
--- NOTE | 2021-07-16 19:05 | PN ---
DATE: 07/16/2021 SUBJECTIVE: The patient was seen today, met with the staff. Chart reviewed. I am covering for Dr. Trivedi. The patient's behavior has improved. She is still withdrawn, tend to isolate herself in her room, but pleasant and compliant with the medication and constantly asking for discharge. OBSERVATION: VITAL SIGNS: Temperature 97.9, blood pressure 177/79, pulse 76, respirations 16, O2 sat 98%. GENERAL: Slept about 10 hours last night. The patient's appetite is fair. LABORATORY DATA: The patient's lab reviewed. CURRENT MEDICATIONS: Include Luvox 100 mg daily, BuSpar 10 mg twice a day, Seroquel 12.5 mg twice a day, Seroquel 25 mg twice a day and 25 mg at night. The patient is also on melatonin 6 mg at night. The patient is not having any side effects to medications. ASSESSMENT: 1. Major neurocognitive disorder, Alzheimer's, vascular with depression. 2. Anxiety disorder, unspecified. PLAN: To continue with treatment. LENGTH OF STAY: Five to seven days, awaiting for placement. MAXIMINO DR: Darío TID: [id number]
[2021-07-16] MEDS: MELATONIN 3 MG TABLET PO SCH (20:13)
--- NOTE | 2021-07-16 23:59 | NUR ---
Pt is asleep in bed this evening. Pt startles when woken up to administer medication. Compliant with whole medications. Pt has active bowel sounds this evening and denies any pain. Pt currently sleeping.
[2021-07-17 06:33] VITALS: BP 148/61
[2021-07-17] MEDS: FOLIC ACID 1 MG TABLET PO SCH (08:57)
[2021-07-17] MEDS: ASCORBIC ACID 500 MG TABLET PO SCH ×2 (08:57→20:41)
[2021-07-17] MEDS: PRENATAL MULTIVITAMIN TABLET. PO SCH (08:57)
[2021-07-17] MEDS: CHOLECALCIFEROL (VITAMIN D3) 1,000 UNIT TABLET PO SCH (08:57)
[2021-07-17] MEDS: QUEtiapine 25 MG TABLET. PO SCH ×5 (08:57→20:41)
[2021-07-17] MEDS: busPIRone 10 MG TABLET. PO SCH ×2 (08:58→17:10)
[2021-07-17] MEDS: ASPIRIN CHEWABLE 81 MG TABLET. PO SCH (08:58)
[2021-07-17] MEDS: amLODIPine BESYLATE 5 MG TABLET PO SCH (08:58)
[2021-07-17] MEDS: ANASTROZOLE 1 MG TABLET PO SCH (09:08)
--- NOTE | 2021-07-17 11:06 | NUR ---
Nursing Note: Pt was in her room at time of AM assessment. She was calm and compliant with her morning medications and assessment. She denied any pain at this time. Pt is currently in the day room participating in group. Will continue to monitor.
[2021-07-17] MEDS: DRONABINOL 2.5 MG CAPSULE PO SCH ×2 (11:24→16:08)
[2021-07-17 15:44] VITALS: BP 114/62
[2021-07-17] MEDS: MELATONIN 3 MG TABLET PO SCH (20:41)
--- NOTE | 2021-07-17 22:03 | PDOC ---
Exam Note: Adryan Note: Please also refer to the separate dictated note~for this date of service dictated separately.~Patient seen individually. Discussed the patient with Nursing staff reviewed the chart.~Reviewed interim history and current functioning. Reviewed vital signs,~Labs/ Radiology~and current medications noted below. Continue current treatment with the changes noted in the dictated addendum note Assessment: Vital Signs/I&O: Vital Signs Date Time Temp Pulse Resp B/P (MAP) Pulse Ox O2 Delivery O2 Flow Rate FiO2 07/17/21 15:44 97.7 61 20 114/62 (79) 97 07/14/21 15:55 Room Air I & O 07/16/21 07/16/21 07/17/21 15:00 23:00 07:00 Intake Total 240 ml 120 ml Balance 240 ml 120 ml Current Medications: Meds: Current Medications Medications (Trade) Dose Ordered Sig/Jorje Route PRN Reason Start Time Stop Time Status Last Admin Dose Admin Acetaminophen (Tylenol) 325 mg PRN Q4HRS PRN PO MILD PAIN / TEMP > 100.3'F 06/20/21 10:30 Alprazolam (Xanax) 0.5 mg PRN Q6HRS PRN PO 1ST CHOICE ANXIETY / AGITATION 06/20/21 10:30 07/14/21 20:10 Amlodipine Besylate (Norvasc) 5 mg DAILY PO 06/21/21 09:00 07/17/21 08:58 Anastrozole (Arimidex) 1 mg DAILY PO 06/21/21 09:00 07/17/21 09:08 Aspirin (Aspirin Chewable) 81 mg DAILY PO 06/21/21 09:00 07/17/21 08:58 Vitamin D (Vitamin D3) 1,000 unit DAILY PO 06/21/21 09:00 07/17/21 08:57 Ondansetron HCl (Zofran Odt) 4 mg PRN Q8HRS PRN PO NAUSEA/VOMITING 06/20/21 14:00 Quetiapine Fumarate (SEROquel) 25 mg HS PO 06/20/21 21:00 07/17/21 20:41 Quetiapine Fumarate (SEROquel) 25 mg PRN Q6HRS PRN PO 2ND CHOICE ANXIETY / AGITATION 06/20/21 10:30 06/21/21 21:45 Tramadol HCl (Ultram) 50 mg PRN Q12HR PRN PO MOD-SEV PAIN 06/20/21 10:30 Ascorbic Acid (Vitamin C) 500 mg BID PO 06/20/21 21:00 07/17/21 20:41 Citalopram Hydrobromide (CeleXA) 40 mg DAILY PO 06/21/21 09:00 06/20/21 18:31 DC Folic Acid (Folic Acid) 1 mg DAILY PO 06/21/21 09:00 07/17/21 08:57 Melatonin (Melatonin) 6 mg QHS PO 06/20/21 21:00 07/17/21 20:41 Multivit/ Folic Acid/Iron (Multivitamin ) 1 tab DAILY PO 06/21/21 09:00 07/17/21 08:57 Multi-Ingredient Ointment (Analgesic [place]) 1 georgi PRN QID PRN TP MUSCLE PAIN 06/20/21 10:45 Al Hydroxide/Mg Hydroxide (Mylanta Plus Xs) 15 ml PRN AFTMEALHC PRN PO DYSPEPSIA 06/20/21 10:45 Magnesium Hydroxide (Milk Of Magnesia) 2,400 mg PRN QHS PRN PO 2ND CHOICE CONSTIPATION 06/20/21 10:45 07/11/21 08:08 Quetiapine Fumarate (SEROquel) 12.5 mg 0900,1700 PO 06/21/21 09:00 06/22/21 11:53 DC 06/22/21 08:28 Sertraline HCl (Zoloft) 50 mg DAILY PO 06/21/21 09:00 06/23/21 11:00 DC 06/23/21 08:24 Sertraline HCl (Zoloft) 75 mg DAILY PO 06/24/21 09:00 06/26/21 21:00 DC 06/26/21 08:27 Dronabinol (Marinol) 2.5 mg BIDACLD PO 06/22/21 11:30 07/17/21 16:08 Quetiapine Fumarate (SEROquel) 12.5 mg 0900,1200,1500,1800 PO 06/22/21 12:00 06/24/21 21:00 DC 06/24/21 17:26 Sertraline HCl (Zoloft) 100 mg DAILY PO 06/27/21 09:00 06/29/21 11:51 DC 06/29/21 08:33 Quetiapine Fumarate (SEROquel) 25 mg 0900,1500 PO 06/25/21 09:00 07/17/21 14:41 Quetiapine Fumarate (SEROquel) 12.5 mg 1200,1800 PO 06/25/21 12:00 07/17/21 17:10 Buspirone HCl (Buspar) 5 mg 0900,1700 PO 06/27/21 09:00 06/29/21 23:00 DC 06/29/21 17:25 Buspirone HCl (Buspar) 10 mg 0900,1700 PO 06/30/21 09:00 07/17/21 17:10 Fluvoxamine Maleate (Luvox) 25 mg DAILY PO 06/30/21 09:00 07/02/21 21:00 DC 07/02/21 09:17 Fluvoxamine Maleate (Luvox) 50 mg DAILY PO 07/03/21 09:00 07/05/21 21:00 DC 07/05/21 08:10 Fluvoxamine Maleate (Luvox) 75 mg DAILY PO 07/06/21 09:00 07/10/21 05:00 DC 07/09/21 08:19 Polyethylene Glycol (miraLAX) 17 gm PRN DAILY PRN PO 1ST CHOICE CONSTIPATION 07/06/21 17:30 07/14/21 08:36 Fluvoxamine Maleate (Luvox) 100 mg DAILY PO 07/10/21 09:00 07/17/21 08:58 Bisacodyl (Dulcolax Supp) 10 mg PRN DAILY PRN [place] CONSTIPATION 07/16/21 06:15 07/16/21 06:00 I have reviewed the current psychotropics carefully including drug interactions. Risk benefit ratio favors no change other than as noted in my dictated progress note. 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
--- NOTE | 2021-07-17 23:51 | NUR ---
Pt withdrawn to her room, lying in bed when approached. Pt calm, confused, and disorganized. Pt cooperative with assessment and compliant with medications administered whole. No anxiety, agitation, or aggression noted thus far this shift.
[2021-07-18 06:35] VITALS: BP 146/77
[2021-07-18] MEDS: amLODIPine BESYLATE 5 MG TABLET PO SCH (08:21)
[2021-07-18] MEDS: QUEtiapine 25 MG TABLET. PO SCH ×5 (08:21→20:15)
[2021-07-18] MEDS: CHOLECALCIFEROL (VITAMIN D3) 1,000 UNIT TABLET PO SCH (08:21)
[2021-07-18] MEDS: busPIRone 10 MG TABLET. PO SCH ×2 (08:21→16:39)
[2021-07-18] MEDS: ASCORBIC ACID 500 MG TABLET PO SCH ×2 (08:21→20:15)
[2021-07-18] MEDS: PRENATAL MULTIVITAMIN TABLET. PO SCH (08:21)
[2021-07-18] MEDS: FOLIC ACID 1 MG TABLET PO SCH (08:21)
[2021-07-18] MEDS: ASPIRIN CHEWABLE 81 MG TABLET. PO SCH (08:22)
[2021-07-18] MEDS: ANASTROZOLE 1 MG TABLET PO SCH (09:07)
--- NOTE | 2021-07-18 11:04 | NUR ---
[facility] Social Work Discharge Planning Form Patient Name CINTHIA GOLDEN Admit Date: 06/20/21 DISCHARGE PLAN Discharge Destination: [facility] Care Assessment: No Level II Assessment: No Transportation: Pt DPOA/Dtr, Angie, will pickle cutter at 1100. Special Instructions/Notes: Please fax signed med list and visit summary to facility at number listed below. DISCHARGE TO FACILITY Facility: [facility] Phone: Main number is [phone] or [employer] cell number is [phone] Address: [address] [place] [id number] Contact Name: JESICA Interiano PCP: Dr. Finley Psychiatrist: None
[2021-07-18] MEDS: DRONABINOL 2.5 MG CAPSULE PO SCH ×2 (11:34→16:39)
[2021-07-18 15:53] VITALS: BP 142/77
--- NOTE | 2021-07-18 16:21 | NUR ---
RENAE facilitated a call between pt and dtr/DPAPOLLO, Angie. Angie wanted to give pt the information that she would discharge tomorrow and that she and Breezy, pt son, would be coming together to pick her up. Pt was in disbelief, but was grateful knowing that she would be going home tomorrow. RENAE wrote a note as a reminder and taped it to her walker so that she could refer to it to know when to expect Angie and Breezy. Following the call, RENAE spent time with pt celebrating with a sprite for a drink.
[2021-07-18] MEDS ORDERED: CHOL10004 PO (19:42)
[2021-07-18] MEDS ORDERED: BISA10SU4 RC (19:42)
[2021-07-18] MEDS ORDERED: Folic Acid PO (19:45)
[2021-07-18] MEDS ORDERED: [UNRECOGNIZED DRUG - OTHER] PO (19:45)
[2021-07-18] MEDS ORDERED: DRONABINOL PO (19:45)
[2021-07-18] MEDS ORDERED: MAG-115 PO (19:46)
[2021-07-18] MEDS ORDERED: MAGN24003 PO (19:46)
[2021-07-18] MEDS ORDERED: QUET25TA5 PO ×2 (19:48→19:49)
[2021-07-18] MEDS ORDERED: MENT1ADH29 TP (19:48)
[2021-07-18] MEDS ORDERED: POLY2500 PO (19:48)
[2021-07-18] MEDS ORDERED: BUSP10TA PO (19:49)
[2021-07-18] MEDS ORDERED: FLUV100T17 PO (19:50)
[2021-07-18] MEDS: MELATONIN 3 MG TABLET PO SCH (20:15)
--- NOTE | 2021-07-18 21:25 | PDOC ---
Exam Note: Adryan Note: Please also refer to the separate dictated note~for this date of service dictated separately.~Patient seen individually. Discussed the patient with Nursing staff reviewed the chart.~Reviewed interim history and current functioning. Reviewed vital signs,~Labs/ Radiology~and current medications noted below. Continue current treatment with the changes noted in the dictated addendum note Assessment: Vital Signs/I&O: Vital Signs Date Time Temp Pulse Resp B/P (MAP) Pulse Ox O2 Delivery O2 Flow Rate FiO2 07/18/21 15:53 98.5 73 20 142/77 (98) 99 07/14/21 15:55 Room Air I & O 07/17/21 07/17/21 07/18/21 15:00 23:00 07:00 Intake Total 597 ml 240 ml Balance 597 ml 240 ml Current Medications: Meds: Current Medications Medications (Trade) Dose Ordered Sig/Jorje Route PRN Reason Start Time Stop Time Status Last Admin Dose Admin Acetaminophen (Tylenol) 325 mg PRN Q4HRS PRN PO MILD PAIN / TEMP > 100.3'F 06/20/21 10:30 Alprazolam (Xanax) 0.5 mg PRN Q6HRS PRN PO 1ST CHOICE ANXIETY / AGITATION 06/20/21 10:30 07/14/21 20:10 Amlodipine Besylate (Norvasc) 5 mg DAILY PO 06/21/21 09:00 07/18/21 08:21 Anastrozole (Arimidex) 1 mg DAILY PO 06/21/21 09:00 07/18/21 09:07 Aspirin (Aspirin Chewable) 81 mg DAILY PO 06/21/21 09:00 07/18/21 08:22 Vitamin D (Vitamin D3) 1,000 unit DAILY PO 06/21/21 09:00 07/18/21 08:21 Ondansetron HCl (Zofran Odt) 4 mg PRN Q8HRS PRN PO NAUSEA/VOMITING 06/20/21 14:00 Quetiapine Fumarate (SEROquel) 25 mg HS PO 06/20/21 21:00 07/18/21 20:15 Quetiapine Fumarate (SEROquel) 25 mg PRN Q6HRS PRN PO 2ND CHOICE ANXIETY / AGITATION 06/20/21 10:30 06/21/21 21:45 Tramadol HCl (Ultram) 50 mg PRN Q12HR PRN PO MOD-SEV PAIN 06/20/21 10:30 Ascorbic Acid (Vitamin C) 500 mg BID PO 06/20/21 21:00 07/18/21 20:15 Citalopram Hydrobromide (CeleXA) 40 mg DAILY PO 06/21/21 09:00 06/20/21 18:31 DC Folic Acid (Folic Acid) 1 mg DAILY PO 06/21/21 09:00 07/18/21 08:21 Melatonin (Melatonin) 6 mg QHS PO 06/20/21 21:00 07/18/21 20:15 Multivit/ Folic Acid/Iron (Multivitamin ) 1 tab DAILY PO 06/21/21 09:00 07/18/21 08:21 Multi-Ingredient Ointment (Analgesic [place]) 1 georgi PRN QID PRN TP MUSCLE PAIN 06/20/21 10:45 Al Hydroxide/Mg Hydroxide (Mylanta Plus Xs) 15 ml PRN AFTMEALHC PRN PO DYSPEPSIA 06/20/21 10:45 Magnesium Hydroxide (Milk Of Magnesia) 2,400 mg PRN QHS PRN PO 2ND CHOICE CONSTIPATION 06/20/21 10:45 07/11/21 08:08 Quetiapine Fumarate (SEROquel) 12.5 mg 0900,1700 PO 06/21/21 09:00 06/22/21 11:53 DC 06/22/21 08:28 Sertraline HCl (Zoloft) 50 mg DAILY PO 06/21/21 09:00 06/23/21 11:00 DC 06/23/21 08:24 Sertraline HCl (Zoloft) 75 mg DAILY PO 06/24/21 09:00 06/26/21 21:00 DC 06/26/21 08:27 Dronabinol (Marinol) 2.5 mg BIDACLD PO 06/22/21 11:30 07/18/21 16:39 Quetiapine Fumarate (SEROquel) 12.5 mg 0900,1200,1500,1800 PO 06/22/21 12:00 06/24/21 21:00 DC 06/24/21 17:26 Sertraline HCl (Zoloft) 100 mg DAILY PO 06/27/21 09:00 06/29/21 11:51 DC 06/29/21 08:33 Quetiapine Fumarate (SEROquel) 25 mg 0900,1500 PO 06/25/21 09:00 07/18/21 14:28 Quetiapine Fumarate (SEROquel) 12.5 mg 1200,1800 PO 06/25/21 12:00 07/18/21 17:19 Buspirone HCl (Buspar) 5 mg 0900,1700 PO 06/27/21 09:00 06/29/21 23:00 DC 06/29/21 17:25 Buspirone HCl (Buspar) 10 mg 0900,1700 PO 06/30/21 09:00 07/18/21 16:39 Fluvoxamine Maleate (Luvox) 25 mg DAILY PO 06/30/21 09:00 07/02/21 21:00 DC 07/02/21 09:17 Fluvoxamine Maleate (Luvox) 50 mg DAILY PO 07/03/21 09:00 07/05/21 21:00 DC 07/05/21 08:10 Fluvoxamine Maleate (Luvox) 75 mg DAILY PO 07/06/21 09:00 07/10/21 05:00 DC 07/09/21 08:19 Polyethylene Glycol (miraLAX) 17 gm PRN DAILY PRN PO 1ST CHOICE CONSTIPATION 07/06/21 17:30 07/14/21 08:36 Fluvoxamine Maleate (Luvox) 100 mg DAILY PO 07/10/21 09:00 07/18/21 08:21 Bisacodyl (Dulcolax Supp) 10 mg PRN DAILY PRN [place] CONSTIPATION 07/16/21 06:15 07/16/21 06:00 I have reviewed the current psychotropics carefully including drug interactions. Risk benefit ratio favors no change other than as noted in my dictated progress note. 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
--- NOTE | 2021-07-18 23:34 | NUR ---
Pt in her room when approached. Pt calm, pleasantly confused, and disorganized. Pt cooperative with assessment and compliant with medications administered whole. No agitation or aggression noted thus far this shift.
[2021-07-19 06:10] VITALS: BP 128/69
[2021-07-19 08:04] VITALS: BP 128/69
[2021-07-19] MEDS: PRENATAL MULTIVITAMIN TABLET. PO SCH (08:04)
[2021-07-19] MEDS: ASCORBIC ACID 500 MG TABLET PO SCH (08:04)
[2021-07-19] MEDS: QUEtiapine 25 MG TABLET. PO SCH ×2 (08:04→11:30)
[2021-07-19] MEDS: ASPIRIN CHEWABLE 81 MG TABLET. PO SCH (08:04)
[2021-07-19] MEDS: busPIRone 10 MG TABLET. PO SCH (08:04)
[2021-07-19] MEDS: CHOLECALCIFEROL (VITAMIN D3) 1,000 UNIT TABLET PO SCH (08:04)
[2021-07-19] MEDS: FOLIC ACID 1 MG TABLET PO SCH (08:04)
[2021-07-19] MEDS: amLODIPine BESYLATE 5 MG TABLET PO SCH (08:04)
[2021-07-19] MEDS: ANASTROZOLE 1 MG TABLET PO SCH (08:07)
--- NOTE | 2021-07-19 08:27 | PDOC ---
Exam Note: Adryan Note: This note is a late entry for 07/17/2021 covers elements not covered in my initial note. Subjective: The patient was seen individually on 07/17/2021, discussed and reviewed the chart with Pamela MOONEY. The patient slept 6-1/2 hours previous night. She has been obsessed about her bowel and constipation and that she has been forced to eat more than she is able to. She does have active bowel sounds. Appetite remains poor. Review of Systems: Hard of hearing or she has selective hearing. No CV, , pulmonary, eye, system symptoms on review. Reliability varies. Impaired ambulation with walker. Mental Status Exam: The patient is oriented to herself and situation. Speech is coherent. Abstraction fair. Computation impaired. Language function intact. Mood and affect anxious, somewhat obsessive, dysphoric. No suicidal or homicidal ideation. Laboratory Data: Reviewed. Impression: Major depressive disorder, severe. Major neurocognitive disorder, Alzheimer vascular with delusion, depression. Anxiety disorder unspecified. Impulse control disorder unspecified. Plan: Continue current psychotropics. Received informed consent. Placement is being sought by social work supervisor and we discussed this. Assessment: Vital Signs/I&O: Vital Signs Date Time Temp Pulse Resp B/P (MAP) Pulse Ox O2 Delivery O2 Flow Rate FiO2 07/19/21 08:04 69 128/69 07/19/21 06:10 99.0 20 98 07/14/21 15:55 Room Air I & O 07/18/21 07/18/21 07/19/21 15:00 23:00 07:00 Intake Total 600 ml 360 ml Balance 600 ml 360 ml Current Medications: I have reviewed the current psychotropics carefully including drug interactions. Risk benefit ratio favors no change other than as noted in my dictated progress note. 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
--- NOTE | 2021-07-19 08:52 | PDOC ---
Exam Note: Adryan Note: This note is a late entry for 07/18/2021 covers elements not covered in my initial note. Subjective: The patient was seen individually on 07/18/2021, discussed and reviewed the chart with Pamela MOONEY. The patient slept 8-3/4 hours previous night. She remains somewhat obsessive about her weight and oral intake. I met with her in the dining room. Plan is for her to transition back to [facility] tomorrow. Review of Systems: Hard of hearing though she seems to have selective hearing. No CV, , pulmonary, eye, system symptoms on review. Reliability varies. Impaired ambulation with walker. Mental Status Exam: The patient is oriented to herself and situation. Speech is coherent. Abstraction fair has some latency. Abstraction fair. Computation impaired. Language function intact. Attention span short. Mood and affect somewhat anxious, labile but improved. Laboratory Data: Reviewed. Impression: Major depressive disorder, severe. Major neurocognitive disorder, Alzheimer vascular with delusion, depression. Anxiety disorder unspecified. Impulse control disorder unspecified. Plan: Continue current psychotropics Luvox, BuSpar, Seroquel along with Xanax p.r.n. and melatonin 6 mg h.s. Reviewed risk-benefit ratio and discussed this with the patient. Assessment: Vital Signs/I&O: Vital Signs Date Time Temp Pulse Resp B/P (MAP) Pulse Ox O2 Delivery O2 Flow Rate FiO2 07/19/21 08:04 69 128/69 07/19/21 06:10 99.0 20 98 07/14/21 15:55 Room Air I & O 07/18/21 07/18/21 07/19/21 15:00 23:00 07:00 Intake Total 600 ml 360 ml Balance 600 ml 360 ml Current Medications: I have reviewed the current psychotropics carefully including drug interactions. Risk benefit ratio favors no change other than as noted in my dictated progress note. Diagnosis: Problems: (1) Mild cognitive impairment (2) Anxiety disorder, unspecified (3) Major depress dis, severe (4) Major depressive disorder, recurrent episode (5) Impulse control disorder, unspecified (6) Dementia, vascular, with depression (7) Dementia, vascular, with delusions (8) Dementia in Alzheimer's disease with depression (9) Dementia in Alzheimer's disease with delusions (10) Major neurocognitive disorder GABINO PAGE MD Jul 19, 2021 08:52
[2021-07-19] MEDS: DRONABINOL 2.5 MG CAPSULE PO SCH (11:29)
--- NOTE | 2021-07-19 11:59 | NUR ---
Nsg Note; discharge Transition Record was faxed to follow-up provider with the following elements: Reason for admission, procedures, tests, principal diagnosis, pending studies, patient instructions, 03/12 contact information for unit, phone number to obtain pending test results, plan for follow-up care, physician follow-up, advanced directive information, and medication list with dose, duration and instructions. This information was included in the following documents: History and physical, lab results, study results, progress notes, social work planning form, DC instruction form, patient visit summary, and medication reconciliation form. Date & time record faxed: 07/18/21 at 9329 Record faxed to: [phone] [facility] in [facility] Record discussed with/ report given to Charleen MOONEY at 1150 Discharged for return to [facility] at 1145 via amb with walker accomp by son and daughter who picked her up
--- NOTE | 2021-07-21 07:57 | PDOC ---
Exam Note: Adryan Note: Late entry for 07/19/2021. Please also refer to the separate dictated note~for this date of service dictated separately.~Patient seen individually. Discussed the patient with Nursing staff reviewed the chart.~Reviewed interim history and current functioning. Reviewed vital signs,~Labs/ Radiology~and current medic ations noted below. Continue current treatment with the changes noted in the dictated addendum note Assessment: Vital Signs/I&O: Vital Signs Date Time Temp Pulse Resp B/P (MAP) Pulse Ox O2 Delivery O2 Flow Rate FiO2 07/19/21 08:04 69 128/69 07/19/21 06:10 99.0 20 98 Current Medications: Meds: Current Medications Medications (Trade) Dose Ordered Sig/Jorje Route PRN Reason Start Time Stop Time Status Last Admin Dose Admin Acetaminophen (Tylenol) 325 mg PRN Q4HRS PRN PO MILD PAIN / TEMP > 100.3'F 06/20/21 10:30 07/19/21 12:08 DC Alprazolam (Xanax) 0.5 mg PRN Q6HRS PRN PO 1ST CHOICE ANXIETY / AGITATION 06/20/21 10:30 07/19/21 12:08 DC 07/14/21 20:10 Amlodipine Besylate (Norvasc) 5 mg DAILY PO 06/21/21 09:00 07/19/21 12:08 DC 07/19/21 08:04 Anastrozole (Arimidex) 1 mg DAILY PO 06/21/21 09:00 07/19/21 12:08 DC 07/19/21 08:07 Aspirin (Aspirin Chewable) 81 mg DAILY PO 06/21/21 09:00 07/19/21 12:08 DC 07/19/21 08:04 Vitamin D (Vitamin D3) 1,000 unit DAILY PO 06/21/21 09:00 07/19/21 12:08 DC 07/19/21 08:04 Ondansetron HCl (Zofran Odt) 4 mg PRN Q8HRS PRN PO NAUSEA/VOMITING 06/20/21 14:00 07/19/21 12:08 DC Quetiapine Fumarate (SEROquel) 25 mg HS PO 06/20/21 21:00 07/19/21 12:08 DC 07/18/21 20:15 Quetiapine Fumarate (SEROquel) 25 mg PRN Q6HRS PRN PO 2ND CHOICE ANXIETY / AGITATION 06/20/21 10:30 07/19/21 12:08 DC 06/21/21 21:45 Tramadol HCl (Ultram) 50 mg PRN Q12HR PRN PO MOD-SEV PAIN 06/20/21 10:30 07/19/21 12:08 DC Ascorbic Acid (Vitamin C) 500 mg BID PO 06/20/21 21:00 07/19/21 12:08 DC 07/19/21 08:04 Citalopram Hydrobromide (CeleXA) 40 mg DAILY PO 06/21/21 09:00 06/20/21 18:31 DC Folic Acid (Folic Acid) 1 mg DAILY PO 06/21/21 09:00 07/19/21 12:08 DC 07/19/21 08:04 Melatonin (Melatonin) 6 mg QHS PO 06/20/21 21:00 07/19/21 12:08 DC 07/18/21 20:15 Multivit/ Folic Acid/Iron (Multivitamin ) 1 tab DAILY PO 06/21/21 09:00 07/19/21 12:08 DC 07/19/21 08:04 Multi-Ingredient Ointment (Analgesic [place]) 1 georgi PRN QID PRN TP MUSCLE PAIN 06/20/21 10:45 07/19/21 12:08 DC Al Hydroxide/Mg Hydroxide (Mylanta Plus Xs) 15 ml PRN AFTMEALHC PRN PO DYSPEPSIA 06/20/21 10:45 07/19/21 12:08 DC Magnesium Hydroxide (Milk Of Magnesia) 2,400 mg PRN QHS PRN PO 2ND CHOICE CONSTIPATION 06/20/21 10:45 07/19/21 12:08 DC 07/11/21 08:08 Quetiapine Fumarate (SEROquel) 12.5 mg 0900,1700 PO 06/21/21 09:00 06/22/21 11:53 DC 06/22/21 08:28 Sertraline HCl (Zoloft) 50 mg DAILY PO 06/21/21 09:00 06/23/21 11:00 DC 06/23/21 08:24 Sertraline HCl (Zoloft) 75 mg DAILY PO 06/24/21 09:00 06/26/21 21:00 DC 06/26/21 08:27 Dronabinol (Marinol) 2.5 mg BIDACLD PO 06/22/21 11:30 07/19/21 12:08 DC 07/19/21 11:29 Quetiapine Fumarate (SEROquel) 12.5 mg 0900,1200,1500,1800 PO 06/22/21 12:00 06/24/21 21:00 DC 06/24/21 17:26 Sertraline HCl (Zoloft) 100 mg DAILY PO 06/27/21 09:00 06/29/21 11:51 DC 06/29/21 08:33 Quetiapine Fumarate (SEROquel) 25 mg 0900,1500 PO 06/25/21 09:00 07/19/21 12:08 DC 07/19/21 08:04 Quetiapine Fumarate (SEROquel) 12.5 mg 1200,1800 PO 06/25/21 12:00 07/19/21 12:08 DC 07/19/21 11:30 Buspirone HCl (Buspar) 5 mg 0900,1700 PO 06/27/21 09:00 06/29/21 23:00 DC 06/29/21 17:25 Buspirone HCl (Buspar) 10 mg 0900,1700 PO 06/30/21 09:00 07/19/21 12:08 DC 07/19/21 08:04 Fluvoxamine Maleate (Luvox) 25 mg DAILY PO 06/30/21 09:00 07/02/21 21:00 DC 07/02/21 09:17 Fluvoxamine Maleate (Luvox) 50 mg DAILY PO 07/03/21 09:00 07/05/21 21:00 DC 07/05/21 08:10 Fluvoxamine Maleate (Luvox) 75 mg DAILY PO 07/06/21 09:00 07/10/21 05:00 DC 07/09/21 08:19 Polyethylene Glycol (miraLAX) 17 gm PRN DAILY PRN PO 1ST CHOICE CONSTIPATION 07/06/21 17:30 07/19/21 12:08 DC 07/14/21 08:36 Fluvoxamine Maleate (Luvox) 100 mg DAILY PO 07/10/21 09:00 07/19/21 12:08 DC 07/19/21 08:04 Bisacodyl (Dulcolax Supp) 10 mg PRN DAILY PRN [place] CONSTIPATION 07/16/21 06:15 07/19/21 12:08 DC 07/16/21 06:00 I have reviewed the current psychotropics carefully including drug interactions. Risk benefit ratio favors no change other than as noted in my dictated progress note. 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
== END 2021-07-19 11:50 | DRG 885 ==
LOC: GEROPSY 09:46
PROVIDERS: ADMIT Psychiatry & Neurology Psychiatry; ATTEND Psychiatry & Neurology Psychiatry
DX: F33.2 Major depressive disorder, recurrent severe without psychotic features (principal); F01.50 Vascular dementia, unspecified severity, without behavioral disturbance, psychotic disturbance, mood disturbance, and anxiety; G30.9 Alzheimer's disease, unspecified; F02.80 Dementia in other diseases classified elsewhere, unspecified severity, without behavioral disturbance, psychotic disturbance, mood disturbance, and anxiety; F41.9 Anxiety disorder, unspecified; F63.9 Impulse disorder, unspecified; G62.9 Polyneuropathy, unspecified; K59.00 Constipation, unspecified; Z85.3 Personal history of malignant neoplasm of breast; Z86.16 Personal history of COVID-19
CPT/HCPCS: 36415; 80053; 81001; 85025; 85027; 87077; 87086; 87186; Q0167